=== PATIENT | female | born 1960 | race Caucasian/White ===

== ENCOUNTER 2019-03-13 10:58 | Emergency (ER) | payer OTHER ==
[~2019-03-13] VITALS: Ht 167 cm; Wt 100.0 kg
[~2019-03-13 10:58] MED LIST: ACET1TAB30; AMOX500C2 PO; BP MED; DIPH50CA33; DOXY100C2 PO; HCTZ; HYDR-3720 PO; IBP200T; METH4TAB PO; NAPR1TAB; NAPR220T76; PENI500T; SLEEPING MED; TRM50T PO; [UNRECOGNIZED DRUG - REMARK]
--- NOTE | 2019-03-13 11:22 | ED General ---
General Stated Complaint: COUGH/VOMITING/DIZZINESS Source of Information: Patient Exam Limitations: No Limitations History of Present Illness Date Seen by Provider: Mar 13, 2019 Time Seen by Provider: 11:20 Initial Comments To ER per private vehicle from home with reports of cough vomiting and dizziness. She awakened this morning and had a coughing fit, then vomited, shortly thereafter she developed some severe intolerable dizziness. She's been vomiting intermittently since then. Timing/Duration: 4-6 Hours Severity: Moderate Associated Systoms: Cough; No Headaches; Nausea/Vomiting Allergies and Home Medications Allergies Coded Allergies: Codeine (Unverified Adverse Reaction, Mild, VOMITING, 05/23/09) Uncoded Allergies: codiene (Allergy, Intermediate, vomiting, 06/07/08) Home Medications Amoxicillin 500 Mg Capsule, 1 EACH PO QID FOR INFECTION Prescribed by: REYNOLD AMADOR on 08/20/0999 Meclizine HCl 25 Mg Tablet, 25 MG PO TID PRN for DIZZINESS Prescribed by: BERTA MARCANO on 03/13/19 1318 Methylprednisolone 4 Mg/Dose-Pack Tab.ds.pk, 0 PO UD Prescribed by: REYNOLD AMADOR on 08/20/0999 Ondansetron 8 Mg Tab.rapdis, 8 MG PO Q6H PRN for NAUSEA/VOMITING Prescribed by: BERTA MARCANO on 03/13/19 1318 Tramadol Hcl 50 Mg Tab, 100 MG PO BID PRN Prescribed by: BRANDY RODARTE on 08/20/092122 Patient Home Medication List Home Medication List Reviewed: Yes Review of Systems Review of Systems Constitutional: see HPI EENTM: see HPI Respiratory: see HPI, cough Cardiovascular: no symptoms reported Genitourinary: no symptoms reported Musculoskeletal: no symptoms reported Skin: no symptoms reported Psychiatric/Neurological: No Symptoms Reported Hematologic/Lymphatic: No Symptoms Reported Past Ytfcjlb-Aiiudc-Ecimak Hx Patient Social History Recent Foreign Travel: No Contact w/Someone Who Travel: No Past Medical History Reproductive Disorders: Yes Physical Exam Vital Signs Vital Signs - First Documented 03/13/19 11:10 Temp 35.7 Pulse 100 Resp 16 B/P (MAP) 200/107 (138) Pulse Ox 94 O2 Delivery Room Air Capillary Refill : Height, Weight, BMI Height: '" Weight: lbs. oz. kg; BMI Method: General Appearance: No Apparent Distress, WD/WN Eyes: Bilateral Eye Normal Inspection, Bilateral Eye PERRL, Bilateral Eye EOMI HEENT: PERRL/EOMI, TMs Normal Respiratory: No Accessory Muscle Use, No Respiratory Distress Cardiovascular: Regular Rate, Rhythm, Normal Peripheral Pulses Gastrointestinal: Normal Bowel Sounds, Non Tender, Soft Extremity: Normal Capillary Refill, Normal Inspection Neurologic/Psychiatric: Alert, Oriented x3 Skin: Normal Color, Warm/Dry Progress/Results/Core Measures Suspected Sepsis SIRS Temperature: Pulse: Respiratory Rate: Laboratory Tests 03/13/19 11:23: White Blood Count 7.1 Blood Pressure / Mean: Laboratory Tests 03/13/19 11:23: Creatinine 0.84, Platelet Count 197, Total Bilirubin 0.5 Results/Orders Lab Results Laboratory Tests Test 03/13/19 11:23 03/13/19 12:50 Range/Units White Blood Count 7.1 4.3-11.0 10^3/uL Red Blood Count 5.00 4.35-5.85 10^6/uL Hemoglobin 14.4 11.5-16.0 G/DL Hematocrit 43 35-52 % Mean Corpuscular Volume 87 80-99 FL Mean Corpuscular Hemoglobin 29 25-34 PG Mean Corpuscular Hemoglobin Concent 33 32-36 G/DL Red Cell Distribution Width 14.4 10.0-14.5 % Platelet Count 197 130-400 10^3/uL Mean Platelet Volume 9.6 7.4-10.4 FL Neutrophils (%) (Auto) 59 42-75 % Lymphocytes (%) (Auto) 33 12-44 % Monocytes (%) (Auto) 6 0-12 % Eosinophils (%) (Auto) 2 0-10 % Basophils (%) (Auto) 0 0-10 % Neutrophils # (Auto) 4.2 1.8-7.8 X 10^3 Lymphocytes # (Auto) 2.3 1.0-4.0 X 10^3 Monocytes # (Auto) 0.4 0.0-1.0 X 10^3 Eosinophils # (Auto) 0.2 0.0-0.3 10^3/uL Basophils # (Auto) 0.0 0.0-0.1 10^3/uL Sodium Level 141 135-145 MMOL/L Potassium Level 3.4 L 3.6-5.0 MMOL/L Chloride Level 100 98-107 MMOL/L Carbon Dioxide Level 27 21-32 MMOL/L Anion Gap 14 5-14 MMOL/L Blood Urea Nitrogen 12 7-18 MG/DL Creatinine 0.84 0.60-1.30 MG/DL Estimat Glomerular Filtration Rate > 60 BUN/Creatinine Ratio 14 Glucose Level 149 H 70-105 MG/DL Calcium Level 9.9 8.5-10.1 MG/DL Corrected Calcium 9.5 8.5-10.1 MG/DL Total Bilirubin 0.5 0.1-1.0 MG/DL Aspartate Amino Transf (AST/SGOT) 24 5-34 U/L Alanine Aminotransferase (ALT/SGPT) 27 0-55 U/L Alkaline Phosphatase 99 40-136 U/L Total Protein 7.5 6.4-8.2 GM/DL Albumin 4.5 3.2-4.5 GM/DL Urine Color YELLOW Urine Clarity CLEAR Urine pH 6.5 5-9 Urine Specific [place] 1.010 L 1.016-1.022 Urine Protein TRACE NEGATIVE Urine Glucose (UA) NEGATIVE NEGATIVE Urine Ketones NEGATIVE NEGATIVE Urine Nitrite NEGATIVE NEGATIVE Urine Bilirubin NEGATIVE NEGATIVE Urine Urobilinogen 0.2 < = 1.0 MG/DL Urine Leukocyte Esterase TRACE NEGATIVE Urine RBC (Auto) NEGATIVE NEGATIVE Urine RBC NONE /HPF Urine WBC 2-5 /HPF Urine Squamous Epithelial Cells 0-2 /HPF Urine Crystals NONE /LPF Urine Bacteria FEW H /HPF Urine Casts NONE /LPF Urine Mucus NEGATIVE /LPF Urine Culture Indicated YES Micro Results Microbiology 03/13/19 Influenza Types A,B Antigen (MYAH) - Final, Complete My Orders Orders - BERTA MARCANO ST[employer] SAWYER Cbc With Automated Diff (03/13/19 11:19) Comprehensive Metabolic Panel (03/13/19 11:19) Ua Culture If Indicated (03/13/19 11:19) Influenza A And B Antigens (03/13/19 11:19) Ed Iv/Invasive Line Start (03/13/19 11:19) Ct Angio Head/Neck (03/13/19 11:19) Ns Iv 1000 Ml (Sodium Chloride 0.9%) (03/13/19 11:30) Promethazine Injection (Phenergan Injec (03/13/19 11:30) Iohexol Injection (Omnipaque 350 Mg/Ml 1 (03/13/19 12:00) Received Contrast (Hold Metformin- Contr (03/13/19 12:00) Ns (Ivpb) (Sodium Chloride 0.9% Ivpb Bag (03/13/19 12:00) Urine Culture (03/13/19 12:50) Scopolamine Patch (Transderm-Scop Patch) (03/13/19 14:00) Medications Given in ED Current Medications Medications Dose Ordered Sig/Nelson Route Start Time Stop Time Status Last Admin Dose Admin Iohexol 75 ml ONCE ONCE IV 03/13/19 12:00 03/13/19 12:01 DC 03/13/19 12:39 75 ML Promethazine HCl 25 mg ONCE ONCE IVP 03/13/19 11:30 03/13/19 11:31 DC 03/13/19 11:28 25 MG Sodium Chloride 100 ml ONCE ONCE IV 03/13/19 12:00 03/13/19 12:01 DC 03/13/19 12:39 80 ML Vital Signs/I&O 03/13/19 11:10 Temp 35.7 Pulse 100 Resp 16 B/P (MAP) 200/107 (138) Pulse Ox 94 O2 Delivery Room Air Capillary Refill : Departure Impression Primary Impression: Vertigo Disposition: HOME, SELF-CARE Condition: Stable Departure-Patient Inst. Decision time for Depature: 13:16 Referrals: LUIS LEAVITT MD (PCP/Family) Primary Care Physician Patient Instructions: Vertigo (a Type of Dizziness) (DC) Add. Discharge Instructions: 1. Change positions slowly for the next few days expecting that you might get dizzy with position change. Nausea medication as needed. Dizziness medication as needed. Return to ER for any concerns in the meantime. Follow-up with primary care next week. All Scripts Meclizine HCl (Meclizine HCl) 25 Mg Tablet 25 MG PO TID PRN for DIZZINESS, #21 TAB Prov: BERTA MARCANO [employer] SAWYER 03/13/19 Ondansetron (Ondansetron Odt) 8 Mg Tab.rapdis 8 MG PO Q6H PRN for NAUSEA/VOMITING, #14 TAB Prov: BERTA MARCANO [employer] SAWYER 03/13/19 BERTA MARCANO [employer] SAW[facility]ER Mar 13, 2019 11:21
[2019-03-13 11:29] LABS: BASOPHILS % (AUTO) 0 % (0-10); EOSINOPHILS # (AUTO) 0.2 10^3/uL (0.0-0.3); EOSINOPHILS % (AUTO) 2 % (0-10); HEMATOCRIT 43 % (35-52); HEMOGLOBIN 14.4 G/DL (11.5-16.0); LYMPHOCYTES # (AUTO) 2.3 X 10^3 (1.0-4.0); LYMPHOCYTES % (AUTO) 33 % (12-44); MEAN CORPUSCULAR HEMOGLOBIN 29 PG (25-34); MEAN CORPUSCULAR HGB CONC 33 G/DL (32-36); MEAN CORPUSCULAR VOLUME 87 FL (80-99); MEAN PLATELET VOLUME 9.6 FL (7.4-10.4); MONOCYTES # (AUTO) 0.4 X 10^3 (0.0-1.0); MONOCYTES % (AUTO) 6 % (0-12); NEUTROPHILS # (AUTO) 4.2 X 10^3 (1.8-7.8); NEUTROPHILS % (AUTO) 59 % (42-75); PLATELET COUNT 197 10^3/uL (130-400); RED CELL DISTRIBUTION WIDTH 14.4 % (10.0-14.5); WHITE BLOOD COUNT 7.1 10^3/uL (4.3-11.0)
[2019-03-13] MEDS ORDERED: NS IV 1000 ML 1,000 ML IV SCH (11:30)
[2019-03-13] MEDS ORDERED: PROMETHAZINE INJ 25 MG/ML (PHENERGAN) AMP IVP ONE (11:30)
[2019-03-13 11:47] LABS: ALANINE AMINOTRANSFERASE 27 U/L (0-55); ALBUMIN 4.5 GM/DL (3.2-4.5); ALKALINE PHOSPHATASE 99 U/L (40-136); BILIRUBIN,TOTAL 0.5 MG/DL (0.1-1.0); BUN/CREATININE RATIO 14; CALCIUM 9.9 MG/DL (8.5-10.1); CARBON DIOXIDE 27 MMOL/L (21-32); CHLORIDE 100 MMOL/L (98-107); CREATININE SERUM 0.84 MG/DL (0.60-1.30); GFR ESTIMATED > 60; GLUCOSE 149 MG/DL (70-105); POTASSIUM 3.4 MMOL/L (3.6-5.0); SODIUM 141 MMOL/L (135-145); TOTAL PROTEIN 7.5 GM/DL (6.4-8.2)
[2019-03-13] MEDS ORDERED: IOHEXOL 350 MG/ML 100 ML (OMNIPAQUE 350) VIAL IV ONE (12:00)
[2019-03-13] MEDS ORDERED: HOLD METFORMIN - RECEIVED CONTRAST 20 ML VIAL IV SCH (12:00)
[2019-03-13] MEDS ORDERED: NS 100 ML (IVPB) BAG IV ONE (12:00)
--- NOTE | 2019-03-13 13:14 | Diagnostic Imaging Report ---
PROCEDURE: CT angiography of the head and CT angiography of the neck with and without contrast. TECHNIQUE: Contiguous noncontrast images were obtained from the skull base through the vertex. After intravenous contrast administration, helical CT angiography of the neck was performed. Source data was reformatted into 3D MIP projections. Delayed post contrast acquisition was also obtained. Auto Exposure Controls were utilized during the CT exam to meet ALARA standards for radiation dose reduction. INDICATION: Dizziness The previous CT head exam of 06/07/2008 failed to show any sign of an acute intracranial abnormality. On the pre-intravenous contrast series of this exam there is no mass, shift to the midline or hemorrhage to indicate an acute abnormality. The ventricles are not abnormally dilated. The bone windows show no evidence for a fracture or for a destructive lesion. The orbits are symmetrical and within normal limits. The sinuses are generally clear. The postcontrast images failed to show any sign of a large vessel occlusion. There is no evidence for an aneurysm of the [place] either. There is no sign of a hemodynamically significant stenosis of either carotid system. Both vertebral arteries were opacified. The left vertebral artery is quite small. There is no mass or adenopathy involving the neck. The thyroid gland is generally unremarkable. The bone windows show no evidence for a fracture or for a destructive lesion. IMPRESSION: 1. There is no evidence for a large vessel occlusion. There is no sign of an aneurysm either. 2. If clinical concern regarding an acute abnormality persists, then MRI would provide further study. 3. There is no hemodynamically significant stenosis of the common or internal carotid arteries. 4. The vertebral arteries are patent. The left vertebral artery is dominant. These results were discussed with Jefry Levin APRN. Dictated by: Dictated on workstation # [id number]
[2019-03-13 13:16] LABS: BILIRUBIN,URINE NEGATIVE (NEGATIVE); CLARITY,URINE CLEAR; COLOR,URINE YELLOW; GLUCOSE, URINE (UA) NEGATIVE (NEGATIVE); KETONES,URINE NEGATIVE (NEGATIVE); LEUKOCYTE ESTERASE ,URINE TRACE (NEGATIVE); NITRITE,URINE NEGATIVE (NEGATIVE); PH,URINE 6.5 (5-9); PROTEIN,URINE TRACE (NEGATIVE)
[2019-03-13] MEDS ORDERED: MECL-106 PO (13:18)
[2019-03-13] MEDS ORDERED: ONDA8TAB13 PO (13:18)
[2019-03-13 13:36] LABS: BACTERIA,URINE FEW /HPF; SQUAMOUS EPITHELIAL CELL,UR 0-2 /HPF
[2019-03-13 14:00] VITALS: BP 178/98
[2019-03-13] MEDS ORDERED: SCOPOLAMINE 1.5 MG (TRANSDERM-SCOP) PATCH TD ONE (14:00)
== END 2019-03-13 13:59 | disposition home or self-care (01) ==
LOC: EDUNIT# 10:58 → ER 10:59
DX: R42 Dizziness and giddiness (principal); Z88.5 Allergy status to narcotic agent
CPT/HCPCS: 36415; 70496; 70498; 80053; 81000; 85025; 87077; 87088; 87186; 87804

== ENCOUNTER 2019-05-25 17:14 | Emergency (ER) | payer OTHER ==
[~2019-05-25] VITALS: Ht 167.7 cm; Wt 109.0 kg
[~2019-05-25 17:14] MED LIST changes: +MECL-149 PO; +ONDA8TAB13 PO
--- NOTE | 2019-05-25 17:30 | NUR ---
TO CT PER CART. [address]
--- NOTE | 2019-05-25 17:35 | ED Neurological Problem ---
General Chief Complaint: Neuro-Stroke Like Symptoms Stated Complaint: RIGHT LEG WENT NUMB AND THE WENT UP ARM, DIZZY Source: patient Exam Limitations: no limitations History of Present Illness Date Seen by Provider: May 25, 2019 Time Seen by Provider: 17:32 Initial Comments To ER by private vehicle with reports of tingling that began in the right leg while she was shopping at [employer] today at about 2 PM. She states that this tingling sensation moved up to the right arm. She noticed when she was walking out to her car that she seemed to lean to the right. The right arm seems to be back to normal now but she does have some persistent reduced sensation in the right leg. She does smoke cigarettes. She does have hypertension. No history of this or stroke like symptoms. She called her primary care provider Dr. Leavitt who advised her this could be a TIA should come to the emergency room. She stopped and got some aspirin on the way and took one of those. Timing/Duration: 4-6 hours Associated Symptoms: No confusion, No nausea/vomiting Allergies and Home Medications Allergies Coded Allergies: codeine (Unverified Adverse Reaction, Mild, VOMITING, 05/23/09) Uncoded Allergies: codiene (Allergy, Intermediate, vomiting, 06/07/08) Home Medications Amoxicillin 500 Mg Capsule, 500 MG PO TID Prescribed by: BERTA MARCANO on 05/25/19 1851 Meclizine HCl 25 Mg Tablet, 25 MG PO TID PRN for DIZZINESS Prescribed by: BERTA MARCANO on 03/13/19 1318 Patient Home Medication List Home Medication List Reviewed: Yes Review of Systems Review of Systems Constitutional: see HPI Eyes: No Symptoms Reported Ears, Nose, Mouth, Throat: no symptoms reported Respiratory: no symptoms reported Cardiovascular: no symptoms reported Genitourinary: no symptoms reported Musculoskeletal: no symptoms reported Skin: no symptoms reported Psychiatric/Neurological: See HPI, Tingling Endocrine: No Symptoms Reported Hematologic/Lymphatic: No Symptoms Reported Past Iqitxua-Nerhbl-Rlknjt Hx Patient Social History Type Used: Cigarettes Recent Hopitalizations: No Past Medical History Surgeries: Yes (TUBAL LIGATION) Respiratory: No Cardiac: Yes Hypertension Neurological: Yes Vertigo Reproductive Disorders: Yes Gastrointestinal: Yes (ACID REFLUX) Gastroesophageal Reflux Musculoskeletal: Yes (POSSIBLE RESTLESS LEGS SYNDROME OFF AND ON) Endocrine: No Cancer: No Psychosocial: No Blood Disorders: Yes Physical Exam Vital Signs Vital Signs - First Documented 05/25/19 17:16 Temp 36.8 Pulse 110 Resp 18 B/P (MAP) 233/123 (159) Pulse Ox 97 O2 Delivery Room Air Capillary Refill : Height, Weight, BMI Height: '" Weight: lbs. oz. kg; 35.00 BMI Method: General Appearance: WD/WN, no apparent distress HEENT: PERRL/EOMI Respiratory: no respiratory distress, no accessory muscle use Cardiovascular: regular rate, rhythm, no murmur Gastrointestinal: normal bowel sounds, soft Extremities: normal range of motion, non-tender Neurologic/Psychiatric: alert, normal mood/affect, oriented x 3 Crainal Nerves: normal hearing, normal speech, PERRL Skin: normal color, warm/dry Stroke Onset of Symptoms Date of Onset of Symptoms: May 25, 2019 Time of Symptom Onset: 14:00 Onset of Symptoms: Yes NIH Stroke Scale Assessment Select: Initial Level of Consciousness: 0=Alert (0), Level of Consciousness- Questions: 0=Answers both month/age (0), LOC Commands: 0=Performs both tasks (0), Visual [place]: 0=No visual loss (0), Facial Movement (Facial Paresis): 0=Normal symmetrical mnt (0), Motor Function-Arms Right: 0=No drift (0), Motor Function-Arms Left: 0=No drift (0), Motor Function-Legs Right: 0=No drift (0), Motor Function-Legs Left: 0=No drift (0), Limb Ataxia: 0=Absent (0), Sensory: 1=Mild to Moderate loss (1), Dysarthria: 0=Normal (0), Extinction & Inattention: 0=No abnormality (0), Total: 1 Progress/Results/Core Measures Results/Orders Lab Results Laboratory Tests Test 05/25/19 17:27 05/25/19 17:29 05/25/19 18:01 Range/Units White Blood Count 7.7 4.3-11.0 10^3/uL Red Blood Count 4.73 4.35-5.85 10^6/uL Hemoglobin 13.6 11.5-16.0 G/DL Hematocrit 42 35-52 % Mean Corpuscular Volume 88 80-99 FL Mean Corpuscular Hemoglobin 29 25-34 PG Mean Corpuscular Hemoglobin Concent 33 32-36 G/DL Red Cell Distribution Width 14.6 H 10.0-14.5 % Platelet Count 194 130-400 10^3/uL Mean Platelet Volume 9.6 7.4-10.4 FL Neutrophils (%) (Auto) 53 42-75 % Lymphocytes (%) (Auto) 39 12-44 % Monocytes (%) (Auto) 7 0-12 % Eosinophils (%) (Auto) 2 0-10 % Basophils (%) (Auto) 0 0-10 % Neutrophils # (Auto) 4.1 1.8-7.8 X 10^3 Lymphocytes # (Auto) 3.0 1.0-4.0 X 10^3 Monocytes # (Auto) 0.5 0.0-1.0 X 10^3 Eosinophils # (Auto) 0.1 0.0-0.3 10^3/uL Basophils # (Auto) 0.0 0.0-0.1 10^3/uL Prothrombin Time 11.8 L 12.2-14.7 SEC INR Comment 0.8 0.8-1.4 Activated Partial Thromboplast Time 21 L 24-35 SEC D-Dimer 0.53 H 0.00-0.49 UG/ML Sodium Level 139 135-145 MMOL/L Potassium Level 3.0 L 3.6-5.0 MMOL/L Chloride Level 100 98-107 MMOL/L Carbon Dioxide Level 27 21-32 MMOL/L Anion Gap 12 5-14 MMOL/L Blood Urea Nitrogen 12 7-18 MG/DL Creatinine 0.95 0.60-1.30 MG/DL Estimat Glomerular Filtration Rate 60 BUN/Creatinine Ratio 13 Glucose Level 132 H 70-105 MG/DL Calcium Level 9.5 8.5-10.1 MG/DL Corrected Calcium 9.3 8.5-10.1 MG/DL Total Bilirubin 0.3 0.1-1.0 MG/DL Aspartate Amino Transf (AST/SGOT) 24 5-34 U/L Alanine Aminotransferase (ALT/SGPT) 34 0-55 U/L Alkaline Phosphatase 84 40-136 U/L Troponin I < 0.028 <0.028 NG/ML Total Protein 7.1 6.4-8.2 GM/DL Albumin 4.3 3.2-4.5 GM/DL Glucometer 135 H 70-110 MG/DL Urine Color YELLOW Urine Clarity CLEAR Urine pH 7.0 5-9 Urine Specific [place] 1.010 L 1.016-1.022 Urine Protein NEGATIVE NEGATIVE Urine Glucose (UA) NEGATIVE NEGATIVE Urine Ketones NEGATIVE NEGATIVE Urine Nitrite NEGATIVE NEGATIVE Urine Bilirubin NEGATIVE NEGATIVE Urine Urobilinogen 0.2 < = 1.0 MG/DL Urine Leukocyte Esterase NEGATIVE NEGATIVE Urine RBC (Auto) TRACE-I NEGATIVE Urine RBC RARE /HPF Urine WBC NONE /HPF Urine Squamous Epithelial Cells 0-2 /HPF Urine Crystals NONE /LPF Urine Bacteria TRACE /HPF Urine Casts NONE /LPF Urine Mucus NEGATIVE /LPF Urine Culture Indicated NO My Orders Orders - BERTA MARCANO APRN Ct Angio Head/Neck (05/25/19 17:35) Iohexol Injection (Omnipaque 350 Mg/Ml 1 (05/25/19 18:00) Received Contrast (Hold Metformin- Contr (05/25/19 18:00) Ns (Ivpb) (Sodium Chloride 0.9% Ivpb Bag (05/25/19 18:00) Labetalol Injection (Normodyne Injection (05/25/19 18:15) Clonidine Tablet (Catapres Tablet) (05/25/19 18:45) Amoxicillin Capsule (Polymox Capsule) (05/25/19 18:49) Medications Given in ED Current Medications Medications Dose Ordered Sig/Nelson Route Start Time Stop Time Status Last Admin Dose Admin Iohexol 75 ml ONCE ONCE IV 05/25/19 18:00 05/25/19 18:08 DC 05/25/19 18:01 75 ML Labetalol HCl 20 mg ONCE ONCE IV 05/25/19 18:15 05/25/19 18:16 DC 05/25/19 18:09 20 MG Sodium Chloride 100 ml ONCE ONCE IV 05/25/19 18:00 05/25/19 18:08 DC 05/25/19 18:01 100 ML Vital Signs/I&O 05/25/19 17:16 Temp 36.8 Pulse 110 Resp 18 B/P (MAP) 233/123 (159) Pulse Ox 97 O2 Delivery Room Air Departure Communication (Admissions) 4280-she has no residual tingling or numbness in her right leg. She does report that she's got some tenderness in the right side of her jaw and believes she might have a dental abscess coming on. Certainly possible given the state of her dental health. I'll prescribe an antibiotic. Impression Primary Impression: Transient cerebral ischemia Qualified Codes: G45.9 - Transient cerebral ischemic attack, unspecified Additional Impression: Pain, dental Disposition: HOME, SELF-CARE Condition: Stable Departure-Patient Inst. Decision time for Depature: 18:37 Referrals: LUIS LEAVITT MD (PCP/Family) Primary Care Physician Patient Instructions: Transient Ischemic Attack (DC) Add. Discharge Instructions: 1. Return to ER for any concerns 2. Follow-up with your doctor next week 3. Start taking a baby aspirin every day. You must quit smoking. All discharge instructions reviewed with patient and/or family. Voiced understanding. Scripts Amoxicillin (Amoxicillin) 500 Mg Capsule 500 MG PO TID, #21 CAP 0 Refills Prov: BERTA MARCANO APRN 05/25/19 Copy Copies To 1: LUIS LEAVITT MD, PETER J APRN May 25, 2019 17:35
[2019-05-25 17:37] LABS: BASOPHILS % (AUTO) 0 % (0-10); EOSINOPHILS # (AUTO) 0.1 10^3/uL (0.0-0.3); EOSINOPHILS % (AUTO) 2 % (0-10); HEMATOCRIT 42 % (35-52); HEMOGLOBIN 13.6 G/DL (11.5-16.0); LYMPHOCYTES % (AUTO) 39 % (12-44); MEAN CORPUSCULAR HEMOGLOBIN 29 PG (25-34); MEAN CORPUSCULAR HGB CONC 33 G/DL (32-36); MEAN CORPUSCULAR VOLUME 88 FL (80-99); MEAN PLATELET VOLUME 9.6 FL (7.4-10.4); MONOCYTES # (AUTO) 0.5 X 10^3 (0.0-1.0); MONOCYTES % (AUTO) 7 % (0-12); NEUTROPHILS # (AUTO) 4.1 X 10^3 (1.8-7.8); NEUTROPHILS % (AUTO) 53 % (42-75); PLATELET COUNT 194 10^3/uL (130-400); RED CELL DISTRIBUTION WIDTH 14.6 % (10.0-14.5); WHITE BLOOD COUNT 7.7 10^3/uL (4.3-11.0)
[2019-05-25 17:44] LABS: ALBUMIN 4.3 GM/DL (3.2-4.5); CHLORIDE 100 MMOL/L (98-107); SODIUM 139 MMOL/L (135-145)
[2019-05-25 17:45] LABS: CALCIUM 9.5 MG/DL (8.5-10.1)
[2019-05-25 17:46] LABS: GLUCOSE 132 MG/DL (70-105); TOTAL PROTEIN 7.1 GM/DL (6.4-8.2)
[2019-05-25 17:47] LABS: CARBON DIOXIDE 27 MMOL/L (21-32)
[2019-05-25 17:48] LABS: BILIRUBIN,TOTAL 0.3 MG/DL (0.1-1.0)
[2019-05-25 17:50] LABS: ALKALINE PHOSPHATASE 84 U/L (40-136); CREATININE SERUM 0.95 MG/DL (0.60-1.30); GFR ESTIMATED 60
[2019-05-25 17:51] LABS: BUN/CREATININE RATIO 13
[2019-05-25 17:53] LABS: ALANINE AMINOTRANSFERASE 34 U/L (0-55)
[2019-05-25] MEDS ORDERED: OMEP20CA18 (17:54)
[2019-05-25] MEDS ORDERED: LISI-552 (17:54)
[2019-05-25] MEDS ORDERED: HOLD METFORMIN - RECEIVED CONTRAST 20 ML VIAL IV SCH (18:00)
[2019-05-25] MEDS ORDERED: IOHEXOL 350 MG/ML 100 ML (OMNIPAQUE 350) VIAL IV ONE (18:00)
[2019-05-25] MEDS ORDERED: NS 100 ML (IVPB) BAG IV ONE (18:00)
--- NOTE | 2019-05-25 18:05 | Diagnostic Imaging Report ---
EXAMINATION: CT head without contrast. TECHNIQUE: Multiple contiguous axial images were obtained through the brain without the use of intravenous contrast. All CT scans use one or more of the following dose optimizing techniques: automated exposure control, MA and/or KvP adjustment based on a patient size and exam type, or iterative reconstruction. HISTORY: Right foot numbness. COMPARISON: None available. FINDINGS: The chavarria-white matter differentiation is normal. No mass effect or midline shift. The ventricles are normal in size and configuration. Basilar cisterns are patent. There are no intra- or extra-axial fluid collections. There is no intracranial hemorrhage. The orbits are normal. Paranasal sinuses are normal. Mastoid air cells are clear. No soft tissue abnormality is seen. No osseous lesions or fractures are seen. IMPRESSION: 1. No acute intracranial abnormality. Dictated by: Dictated on workstation # [id number]
[2019-05-25 18:07] LABS: FIBRIN DEGRADATION PRODUCTS 0.53 UG/ML (0.00-0.49); INR 0.8 (0.8-1.4); PROTHROMBIN TIME PATIENT 11.8 SEC (12.2-14.7)
--- NOTE | 2019-05-25 18:07 | Diagnostic Imaging Report ---
PROCEDURE: CT angiography of the head and CT angiography of the neck with and without contrast. TECHNIQUE: Contiguous noncontrast images were obtained from the skull base through the vertex. After intravenous contrast administration, helical CT angiography of the neck was performed. Source data was reformatted into 3D MIP projections. Delayed post contrast acquisition was also obtained. Auto Exposure Controls were utilized during the CT exam to meet ALARA standards for radiation dose reduction. INDICATION: Numbness to right groin and foot. Dizziness. COMPARISON with 03/13/2019 CT angiography of the head and neck. FINDINGS: CT head without. No evidence of intracranial hemorrhage. There is good opacification of the cervical vessels with normal takeoff from the aortic arch. Mild atherosclerotic changes are seen without hemodynamic disease noted in the carotid or vertebral arteries. The left vertebral artery is dominant. Both vertebral arteries supply the basilar artery. Both internal carotid arteries are widely patent to the carotid siphon. The anterior middle and posterior cerebral arteries are well opacified with no evidence of occlusive disease or spasm. The cerebellar arteries appear patent and symmetrical. No abnormal enhancement is noted following IV contrast within the intracranial structures. Pituitary is not enlarged. Mastoid air cells and paranasal sinuses are clear. IMPRESSION: CT head and neck with angiographic sequencing showing minimal atherosclerotic disease with no significant change since the previous exam. Dictated by: Dictated on workstation # [id number]
[2019-05-25 18:08] LABS: BILIRUBIN,URINE NEGATIVE (NEGATIVE); CLARITY,URINE CLEAR; COLOR,URINE YELLOW; GLUCOSE, URINE (UA) NEGATIVE (NEGATIVE); KETONES,URINE NEGATIVE (NEGATIVE); LEUKOCYTE ESTERASE ,URINE NEGATIVE (NEGATIVE); NITRITE,URINE NEGATIVE (NEGATIVE); PROTEIN,URINE NEGATIVE (NEGATIVE)
[2019-05-25] MEDS ORDERED: LABETALOL HCL 20 MG/4 ML VIAL IV ONE (18:15)
[2019-05-25 18:30] LABS: BACTERIA,URINE TRACE /HPF; RBC,URINE RARE /HPF; SQUAMOUS EPITHELIAL CELL,UR 0-2 /HPF
--- NOTE | 2019-05-25 18:36 | Diagnostic Imaging Report ---
INDICATION: Stroke protocol. Altered mental status. COMPARISON with 11/27/2008. FINDINGS: Portable chest. The lungs are well-aerated and clear. Heart is not enlarged. No pulmonary edema. No pneumothorax or pleural effusion. IMPRESSION: Normal portable chest. Dictated by: Dictated on workstation # [id number]
[2019-05-25] MEDS ORDERED: cloNIDine 0.1 MG (CATAPRES) TAB PO ONE (18:45)
[2019-05-25] MEDS ORDERED: AMOXICILLIN 500 MG (POLYMOX) CAP PO STA (18:49)
[2019-05-25] MEDS ORDERED: AMOX500C2 PO (18:51)
[2019-05-25 18:58] VITALS: BP 190/104
--- OUTSIDE RECORDS SUMMARY | 2019-05-25 21:53 | XMS REPORT ---
Author Author Eula Dobbins Organization [facility] Address [address] [place] [address] Care Team Providers Care Assistant Professor Of Sociology Name Role Phone FELICITY Dobbins Unavailable PROBLEMS Type Condition ICD9-CM Code LAK78-AQ Code Onset Dates Condition S tatus SNOMED Code Problem GERD (gastroesophageal reflux disease) K21.9 Active 339095078 Problem Hypertension I10 Active 5436821 3 Problem Hyperlipidemia E78.5 Active 90545 004 ALLERGIES No Information ENCOUNTERS Encounter Location Date Diagnosis [place] [address] [address] Apr, [address] [address] Apr, Hypertension I10 and Hypokalemia E87.6 [place] [address] [address] Jan, Hypokalemia E87.6 [place] [address] [address] Jan, Hypertension I10 [place] [address] [address] Jan, Hypertension I10 ; GERD (gastroesophagea l reflux disease) K21.9 and Hyperlipidemia E78.5 [place] [address] [address] Oct, [place] [address] [address] June, Sinusitis 473.9 [place] [address] [address] June, [place] [address] [place] [address] 14 May, 2014 [facility] [address] [id number] [place] [address] 13 May, 2014 [facility] [address] [id number] [place] [address] Feb, [facility] [address] [id number] [place] [address] Feb, [facility] [address] [id number] [place] [address] Jan, [facility] [address] [id number] [place] [address] Jan, [facility] [address] [id number] [place] [address] Dec, [facility] [address] [id number] [place] [address] Dec, [facility] [address] [id number] [place] [address] Dec, [facility] [address] [id number] [place] [address] Dec, [facility] [address] [id number] [place] [address] Dec, [facility] [address] [id number] [place] [address] Dec, [facility] [address] [id number] [place] [address] Oct, [facility] [address] [id number] [place] [address] Oct, [facility] [address] [id number] [place] [address] Aug, [facility] [address] [id number] [place] [address] Aug, [facility] [address] [id number] [place] [address] Jul, [facility] [address] [id number] [place] [address] Jul, [facility] [address] [id number] [place] [address] Apr, [facility] [address] [id number] [place] [address] Apr, [facility] [address] [id number] [place] [address] Apr, [facility] [address] [id number] [place] [address] Apr, [facility] [address] [id number] [place] [address] Apr, [facility] [address] [id number] [place] [address] Apr, [facility] [address] [id number] [place] [address] Apr, [facility] [address] [id number] [place] [address] Apr, [facility] [address] [id number] [place] [address] Apr, [facility] [address] [id number] [place] [address] Apr, [facility] [address] [id number] [place] [address] Apr, [facility] [address] [id number] [place] [address] Mar, [facility] [address] [id number] [place] [address] Mar, [facility] [address] [id number] [place] [address] Feb, [facility] [address] [id number] [place] [address] Feb, [facility] [address] [id number] [place] [address] Feb, [facility] [address] [id number] [place] [address] Feb, [facility] [address] [id number] [place] [address] Nov, [facility] [address] [id number] [place] [address] Nov, [facility] [address] [id number] [place] [address] Oct, [facility] [address] [id number] [place] [address] Jul, [facility] [address] [id number] [place] [address] May, [facility] [address] [id number] [place] [address] Apr, [facility] [address] [id number] [place] [address] Apr, [facility] [address] [id number] [place] [address] Mar, [facility] [address] [id number] [place] [address] Mar, [facility] [address] [id number] [place] [address] Dec, [facility] [address] [id number] [place] [address] Dec, [facility] [address] [id number] [place] [address] Oct, [facility] [address] [id number] [place] [address] Sep, [facility] [address] [id number] [place] [address] Sep, [facility] [address] [id number] [place] [address] Sep, [facility] [address] [id number] [place] [address] Aug, [facility] [address] [id number] [place] [address] Jul, [facility] [address] [id number] [place] [address] Jul, [facility] [address] [id number] [place] [address] June, [facility] [address] [id number] [place] [address] June, [facility] [address] [id number] [place] [address] Apr, [facility] [address] [id number] [place] [address] Apr, [facility] [address] [id number] [place] [address] Apr, [facility] [address] [id number] [place] [address] Apr, [facility] [address] [id number] [place] [address] Mar, [facility] [address] [id number] [place] [address] Jan, [facility] [address] [id number] [place] [address] Jan, [facility] [address] [id number] [place] [address] Jan, [facility] [address] [id number] [place] [address] Jan, [facility] [address] [id number] [place] [address] Dec, [facility] [address] [id number] [place] [address] Nov, [facility] [address] [id number] [place] [address] Sep, [facility] [address] [id number] [place] [address] Jul, [facility] [address] [id number] [place] [address] Jan, [facility] [address] [id number] [place] [address] Jan, [facility] [address] [place] [id number] [place] [address] Jan, [facility] [address] [id number] [place] [address] Jan, [facility] [address] [place] [id number] [place] [address] Dec, [facility] [address] [id number] [place] [address] Dec, [facility] [address] [place] [id number] [place] [address] May, IMMUNIZATIONS No Known Immunizations SOCIAL HISTORY Never Assessed REASON FOR VISIT PLAN OF CARE VITAL SIGNS Height 62 in 2013-04-28 Weight 189 lbs 2013-04-28 Temperature 97.6 degrees Fahrenheit 2013-04-28 Heart Rate 88 bpm 2013-04-28 Respiratory Rate 20 2013-04-28 Blood pressure systolic 138 mmHg 2013-04-28 Blood pressure diastolic 90 mmHg 2013-04-28 MEDICATIONS Unknown Medications RESULTS No Results PROCEDURES Procedure Date Ordered Result Body Site URINE CULTURE/COLONY COUNT April 28, 2013 URINALYSIS, AUTO, W/O SCOPE April 28, 2013 INSTRUCTIONS MEDICATIONS ADMINISTERED No Known Medications MEDICAL (GENERAL) HISTORY Type Description Date Medical History hypertension Medical History Acid reflux
--- OUTSIDE RECORDS SUMMARY | 2019-05-25 21:53 | XMS REPORT ---
Author Author Eula Gutierrez Organization [facility] Address [address] [place] [address] Care Team Providers Care Animal Care Attendant Name Role Phone QUAN Gutierrez Unavailable PROBLEMS Type Condition ICD9-CM Code AAS96-AL Code Onset Dates Condition S tatus SNOMED Code Problem GERD (gastroesophageal reflux disease) K21.9 Active 888471329 Problem Hypertension I10 Active 1400482 3 Problem Hyperlipidemia E78.5 Active 76887 004 ALLERGIES No Information ENCOUNTERS Encounter Location Date Diagnosis [place] [address] [address] Apr, [address] [address] Apr, Hypertension I10 and Hypokalemia E87.[address] [address] Jan, Hypokalemia E87.[address] [address] Jan, Hypertension I10 [address] [address] Jan, Hypertension I10 ; GERD (gastroesophagea l reflux disease) K21.9 and Hyperlipidemia E78.[address] [address] Oct, [address] [address] June, Sinusitis 473.9 [place] [address] [address] June, [place] [id number] [place] [address] 14 May, 2014 [facility] [address] [id number] [place] [address] 13 May, 2014 [facility] [address] [id number] [place] [address] Feb, [facility] [address] [id number] [place] [address] Feb, [facility] [address] [id number] [place] [address] Jan, [facility] [address] [id number] [place] [address] Jan, [facility] [address] [id number] [place] [address] Dec, [facility] [address] [id number] [place] [address] Dec, [facility] [address] [id number] [place] [address] Dec, [facility] [address] [id number] [place] [address] Dec, [facility] [address] [id number] [place] [address] Dec, [facility] [address] [id number] [place] [address] Dec, [facility] [address] [id number] [place] [address] Oct, [facility] [address] [id number] [place] [address] Oct, [facility] [address] [id number] [place] [address] Aug, [facility] [address] [id number] [place] [address] Aug, [facility] [address] [id number] [place] [address] Jul, [facility] [address] [id number] [place] [address] Jul, [facility] [address] [id number] [place] [address] Apr, [facility] [address] [id number] [place] [address] Apr, [facility] [address] [id number] [place] [address] Apr, [facility] [address] [id number] [place] [address] Apr, [facility] [address] [id number] [place] [address] Apr, [facility] [address] [id number] [place] [address] Apr, [facility] [address] [id number] [place] [address] Apr, [facility] [address] [id number] [place] [address] Apr, [facility] [address] [id number] [place] [address] Apr, [facility] [address] [id number] [place] [address] Apr, [facility] [address] [id number] [place] [address] Apr, [facility] [address] [id number] [place] [address] Mar, [facility] [address] [id number] [place] [address] Mar, [facility] [address] [id number] [place] [address] Feb, [facility] [address] [id number] [place] [address] Feb, [facility] [address] [id number] [place] [address] Feb, [facility] [address] [id number] [place] [address] Feb, [facility] [address] [id number] [place] [address] Nov, [facility] [address] [id number] [place] [address] Nov, [facility] [address] [id number] [place] [address] Oct, [facility] [address] [id number] [place] [address] Jul, [facility] [address] [id number] [place] [address] May, [facility] [address] [id number] [place] [address] Apr, [facility] [address] [id number] [place] [address] Apr, [facility] [address] [id number] [place] [address] Mar, [facility] [address] [id number] [place] [address] Mar, [facility] [address] [id number] [place] [address] Dec, [facility] [address] [id number] [place] [address] Dec, [facility] [address] [id number] [place] [address] Oct, [facility] [address] [id number] [place] [address] Sep, [facility] [address] [id number] [place] [address] Sep, [facility] [address] [id number] [place] [address] Sep, [facility] [address] [id number] [place] [address] Aug, [facility] [address] [id number] [place] [address] Jul, [facility] [address] [id number] [place] [address] Jul, [facility] [address] [id number] [place] [address] June, [facility] [address] [id number] [place] [address] June, [facility] [address] [id number] [place] [address] Apr, [facility] [address] [id number] [place] [address] Apr, [facility] [address] [id number] [place] [address] Apr, [facility] [address] [id number] [place] [address] Apr, [facility] [address] [id number] [place] [address] Mar, [facility] [address] [id number] [place] [address] Jan, [facility] [address] [id number] [place] [address] Jan, [facility] [address] [id number] [place] [address] Jan, [facility] [address] [id number] [place] [address] Jan, [facility] [address] [id number] [place] [address] Dec, [facility] [address] [id number] [place] [address] Nov, [facility] [address] [id number] [place] [address] Sep, [facility] [address] [id number] [place] [address] Jul, [facility] [address] [id number] [place] [address] Jan, [facility] [address] [id number] [place] [address] Jan, [facility] [address] [id number] [place] [address] Jan, [facility] [address] [id number] [place] [address] Jan, [facility] [address] [id number] [place] [address] Dec, [facility] [address] [id number] [place] [address] Dec, [facility] [address] [id number] [place] [address] May, IMMUNIZATIONS No Known Immunizations SOCIAL HISTORY Never Assessed REASON FOR VISIT PLAN OF CARE VITAL SIGNS Height 62 in 2013-03-06 Weight 197 lbs 2013-03-06 Temperature 97.2 degrees Fahrenheit 2013-03-06 Heart Rate 110 bpm 2013-03-06 Respiratory Rate 18 2013-03-06 Blood pressure systolic 142 mmHg 2013-03-06 Blood pressure diastolic 90 mmHg 2013-03-06 MEDICATIONS Unknown Medications RESULTS No Results PROCEDURES No Known procedures INSTRUCTIONS MEDICATIONS ADMINISTERED No Known Medications MEDICAL (GENERAL) HISTORY Type Description Date Medical History hypertension Medical History Acid reflux
--- OUTSIDE RECORDS SUMMARY | 2019-05-25 21:53 | XMS REPORT ---
Author Author Eula PRABHAKAR Organization [facility] Address [address] [place] [address] Care Team Providers Care Form Tamper Operator Name Role Phone SHANI PRABHAKAR Unavailable PROBLEMS Type Condition ICD9-CM Code QIT53-DJ Code Onset Dates Condition S tatus SNOMED Code Problem GERD (gastroesophageal reflux disease) K21.9 Active 360946489 Problem Hypertension I10 Active 5519045 3 Problem Hyperlipidemia E78.5 Active 58347 004 ALLERGIES No Information ENCOUNTERS Encounter Location Date Diagnosis [place] [address] [address] Apr, [address] [address] Apr, Hypertension I10 and Hypokalemia E87.6 [place] [address] [address] Jan, Hypokalemia E87.6 [place] [address] [address] Jan, Hypertension I10 [place] [address] [address] Jan, Hypertension I10 ; GERD (gastroesophagea l reflux disease) K21.9 and Hyperlipidemia E78.5 [place] [address] [address] Oct, [address] [address] June, Sinusitis 473.9 [place] [address] [address] June, [place] [address] [place] [address] 14 May, 2014 [facility] [address] [id number] [place] [address] 13 May, 2014 [facility] [address] [id number] [place] [address] Feb, [facility] [address] [id number] [place] [address] Feb, [facility] [address] [id number] [place] [address] Jan, [facility] [address] [id number] [place] [address] Jan, [facility] [address] [id number] [place] [address] Dec, [facility] [address] [id number] [place] [address] Dec, [facility] [address] [id number] [place] [address] Dec, [facility] [address] [id number] [place] [address] Dec, [facility] [address] [id number] [place] [address] Dec, [facility] [address] [id number] [place] [address] Dec, [facility] [address] [id number] [place] [address] Oct, [facility] [address] [id number] [place] [address] Oct, [facility] [address] [id number] [place] [address] Aug, [facility] [address] [id number] [place] [address] Aug, [facility] [address] [id number] [place] [address] Jul, [facility] [address] [id number] [place] [address] Jul, [facility] [address] [id number] [place] [address] Apr, [facility] [address] [id number] [place] [address] Apr, [facility] [address] [id number] [place] [address] Apr, [facility] [address] [id number] [place] [address] Apr, [facility] [address] [id number] [place] [address] Apr, [facility] [address] [id number] [place] [address] Apr, [facility] [address] [id number] [place] [address] Apr, [facility] [address] [id number] [place] [address] Apr, [facility] [address] [id number] [place] [address] Apr, [facility] [address] [id number] [place] [address] Apr, [facility] [address] [id number] [place] [address] Apr, [facility] [address] [id number] [place] [address] Mar, [facility] [address] [id number] [place] [address] Mar, [facility] [address] [id number] [place] [address] Feb, [facility] [address] [id number] [place] [address] Feb, [facility] [address] [id number] [place] [address] Feb, [facility] [address] [id number] [place] [address] Feb, [facility] [address] [id number] [place] [address] Nov, [facility] [address] [id number] [place] [address] Nov, [facility] [address] [id number] [place] [address] Oct, [facility] [address] [id number] [place] [address] Jul, [facility] [address] [id number] [place] [address] May, [facility] [address] [id number] [place] [address] Apr, [facility] [address] [id number] [place] [address] Apr, [facility] [address] [id number] [place] [address] Mar, [facility] [address] [id number] [place] [address] Mar, [facility] [address] [id number] [place] [address] Dec, [facility] [address] [id number] [place] [address] Dec, [facility] [address] [id number] [place] [address] Oct, [facility] [address] [id number] [place] [address] Sep, [facility] [address] [id number] [place] [address] Sep, [facility] [address] [id number] [place] [address] Sep, [facility] [address] [id number] [place] [address] Aug, [facility] [address] [id number] [place] [address] Jul, [facility] [address] [id number] [place] [address] Jul, [facility] [address] [id number] [place] [address] June, [facility] [address] [id number] [place] [address] June, [facility] [address] [id number] [place] [address] Apr, [facility] [address] [id number] [place] [address] Apr, [facility] [address] [id number] [place] [address] Apr, [facility] [address] [id number] [place] [address] Apr, [facility] [address] [id number] [place] [address] Mar, [facility] [address] [id number] [place] [address] Jan, [facility] [address] [id number] [place] [address] Jan, [facility] [address] [id number] [place] [address] Jan, [facility] [address] [id number] [place] [address] Jan, [facility] [address] [id number] [place] [address] Dec, [facility] [address] [id number] [place] [address] Nov, [facility] [address] [id number] [place] [address] Sep, [facility] [address] [id number] [place] [address] Jul, [facility] [address] [place] [id number] [place] [address] Jan, [facility] [address] [place] [id number] [place] [address] Jan, [facility] [address] [place] [id number] [place] [address] Jan, [facility] [address] [place] [id number] [place] [address] Jan, [facility] [address] [place] [id number] [place] [address] Dec, [facility] [address] [id number] [place] [address] Dec, [facility] [address] [place] [id number] [place] [address] May, IMMUNIZATIONS No Known Immunizations SOCIAL HISTORY Never Assessed REASON FOR VISIT PLAN OF CARE VITAL SIGNS MEDICATIONS Unknown Medications RESULTS No Results PROCEDURES No Known procedures INSTRUCTIONS MEDICATIONS ADMINISTERED No Known Medications MEDICAL (GENERAL) HISTORY Type Description Date Medical History hypertension Medical History Acid reflux
--- OUTSIDE RECORDS SUMMARY | 2019-05-25 21:53 | XMS REPORT ---
Author Author Eula STEWARD Organization [facility] Address [address] [place] [address] Care Team Providers Care Word Processor Operator Name Role Phone ANTONIA STEWARD Unavailable PROBLEMS Type Condition ICD9-CM Code GSX80-QD Code Onset Dates Condition S tatus SNOMED Code Problem GERD (gastroesophageal reflux disease) K21.9 Active 771931035 Problem Hypertension I10 Active 7931581 3 Problem Hyperlipidemia E78.5 Active 76647 004 ALLERGIES No Information ENCOUNTERS Encounter Location Date Diagnosis [place] [address] [address] Apr, [address] [address] Apr, Hypertension I10 and Hypokalemia E87.6 [place] [address] [address] Jan, Hypokalemia E87.6 [place] [address] [address] Jan, Hypertension I10 [place] [address] [address] Jan, Hypertension I10 ; GERD (gastroesophagea l reflux disease) K21.9 and Hyperlipidemia E78.5 [place] [address] [address] Oct, [place] [address] [address] June, Sinusitis 473.9 [place] [address] [address] June, [address] [address] 14 May, 2014 [facility] [address] [facility] [id number] [place] [address] 13 May, 2014 [facility] [address] [id number] [place] [address] Feb, [facility] [address] [id number] [place] [address] Feb, [facility] [address] [id number] [place] [address] Jan, [facility] [address] [id number] [place] [address] Jan, [facility] [address] [id number] [place] [address] Dec, [facility] [address] [id number] [place] [address] Dec, [facility] [address] [id number] [place] [address] Dec, [facility] [address] [id number] [place] [address] Dec, [facility] [address] [id number] [place] [address] Dec, [facility] [address] [id number] [place] [address] Dec, [facility] [address] [id number] [place] [address] Oct, [facility] [address] [id number] [place] [address] Oct, [facility] [address] [id number] [place] [address] Aug, [facility] [address] [id number] [place] [address] Aug, [facility] [address] [id number] [place] [address] Jul, [facility] [address] [facility] [id number] [place] [address] Jul, [facility] [address] [facility] [id number] [place] [address] Apr, [facility] [address] [facility] [id number] [place] [address] Apr, [facility] [address] [id number] [place] [address] Apr, [facility] [address] [id number] [place] [address] Apr, [facility] [address] [id number] [place] [address] Apr, [facility] [address] [id number] [place] [address] Apr, [facility] [address] [id number] [place] [address] Apr, [facility] [address] [id number] [place] [address] Apr, [facility] [address] [id number] [place] [address] Apr, [facility] [address] [id number] [place] [address] Apr, [facility] [address] [id number] [place] [address] Apr, [facility] [address] [id number] [place] [address] Mar, [facility] [address] [facility] [id number] [place] [address] Mar, [facility] [address] [id number] [place] [address] Feb, [facility] [address] [id number] [place] [address] Feb, [facility] [address] [id number] [place] [address] Feb, [facility] [address] [id number] [place] [address] Feb, [facility] [address] [id number] [place] [address] Nov, [facility] [address] [id number] [place] [address] Nov, [facility] [address] [id number] [place] [address] Oct, [facility] [address] [id number] [place] [address] Jul, [facility] [address] [id number] [place] [address] May, [facility] [address] [id number] [place] [address] Apr, [facility] [address] [id number] [place] [address] Apr, [facility] [address] [id number] [place] [address] Mar, [facility] [address] [id number] [place] [address] Mar, [facility] [address] [id number] [place] [address] Dec, [facility] [address] [id number] [place] [address] Dec, [facility] [address] [id number] [place] [address] Oct, [facility] [address] [id number] [place] [address] Sep, [facility] [address] [id number] [place] [address] Sep, [facility] [address] [id number] [place] [address] Sep, [facility] [address] [id number] [place] [address] Aug, [facility] [address] [id number] [place] [address] Jul, [facility] [address] [id number] [place] [address] Jul, [facility] [address] [id number] [place] [address] June, [facility] [address] [id number] [place] [address] June, [facility] [address] [id number] [place] [address] Apr, [facility] [address] [id number] [place] [address] Apr, [facility] [address] [id number] [place] [address] Apr, [facility] [address] [id number] [place] [address] Apr, [facility] [address] [id number] [place] [address] Mar, [facility] [address] [id number] [place] [address] Jan, [facility] [address] [id number] [place] [address] Jan, [facility] [address] [id number] [place] [address] Jan, [facility] [address] [id number] [place] [address] Jan, [facility] [address] [place] [id number] [place] [address] Dec, [facility] [address] [id number] [place] [address] Nov, [facility] [address] [id number] [place] [address] Sep, [facility] [address] [id number] [place] [address] Jul, [facility] [address] [id number] [place] [address] Jan, [facility] [address] [id number] [place] [address] Jan, [facility] [address] [id number] [place] [address] Jan, [facility] [address] [id number] [place] [address] Jan, [facility] [address] [id number] [place] [address] Dec, [facility] [address] [id number] [place] [address] Dec, [facility] [address] [id number] [place] [address] May, IMMUNIZATIONS No Known Immunizations SOCIAL HISTORY Never Assessed REASON FOR VISIT PLAN OF CARE VITAL SIGNS MEDICATIONS Unknown Medications RESULTS No Results PROCEDURES No Known procedures INSTRUCTIONS MEDICATIONS ADMINISTERED No Known Medications MEDICAL (GENERAL) HISTORY Type Description Date Medical History hypertension Medical History Acid reflux
--- OUTSIDE RECORDS SUMMARY | 2019-05-25 21:54 | XMS REPORT ---
Author Author Eula PRABHAKAR Organization [facility] Address [address] [place] [address] Care Team Providers Care Neurophysiological Technician Name Role Phone SHANI PRABHAKAR Unavailable PROBLEMS Type Condition ICD9-CM Code NDW11-MT Code Onset Dates Condition S tatus SNOMED Code Problem GERD (gastroesophageal reflux disease) K21.9 Active 445344546 Problem Hypertension I10 Active 4652627 3 Problem Hyperlipidemia E78.5 Active 28177 004 ALLERGIES No Information ENCOUNTERS Encounter Location Date Diagnosis [place] [address] [address] Apr, [place] [address] [address] Apr, Hypertension I10 and Hypokal emia E87.[address] [address] Jan, Hypokalemia E87.6 [place] [address] [address] Jan, Hypertension I10 [place] [address] [address] Jan, Hypertension I10 ; GERD (gas troesophageal reflux disease) K21.9 and Hyperlipidemia E78.5 [place] [address] [address] Oct, [place] [address] [address] June, Sinusitis 473.9 [place] [address] [address] June, [facility] [address] [id number] [address] [place] [address], [place] [address] May, [facility] [address] [id number] [address] [place] [address], [place] [address] May, [facility] [address] [id number] [address] [place] [address], [place] [address] Feb, [facility] [address] [id number] [address] [place] [address], [place] [address] Feb, [facility] [address] [id number] [address] [place] [address], [place] [address] Jan, [facility] [address] [id number] [address] [place] [address], [place] [address] Jan, [facility] [address] [id number] [address] [place] [address], [place] [address] Dec, [facility] [address] [id number] [address] [place] [address], [place] [address] Dec, [facility] [address] [id number] [address] [place] [address], [place] [address] Dec, [facility] [address] [id number] [address] [place] [address], [place] [address] Dec, [facility] [address] [id number] [address] [place] [address], [place] [address] Dec, [facility] [address] [id number] [address] [place] [address] Dec, [facility] [address] [id number] [address] [place] [address], [place] [address] Oct, [facility] [address] [id number] [address] [place] [address], [place] [address] Oct, [facility] [address] [id number] [address] [place] [address], [place] [address] Aug, [facility] [address] [id number] [address] [place] [address], [place] [address] Aug, [facility] [address] [id number] [facility] [place] [place] [address] Jul, [facility] [address] [id number] [address] [place] [address], [place] [address] Jul, [facility] [address] [id number] [address] [place] [address], [place] [address] Apr, [facility] [address] [id number] [address] [place] [address], [place] [address] Apr, [facility] [address] [id number] [address] [place] [address], [place] [address] Apr, [facility] [address] [id number] [address] [place] [address], [place] [address] Apr, [facility] [address] [id number] [address] [place] [address], [place] [address] Apr, [facility] [address] [id number] [address] [place] [address], [place] [address] Apr, [facility] [address] [id number] [address] [place] [address], [place] [address] Apr, [facility] [address] [id number] [address] [place] [address], [place] [address] Apr, [facility] [address] [id number] [address] [place] [address], [place] [address] Apr, [facility] [address] [id number] [address] [place] [address], [place] [address] Apr, [facility] [address] [id number] [address] [place] [address], [place] [address] Apr, [facility] [address] [id number] [address] [place] [address], [place] [address] Mar, [facility] [address] [id number] [address] [place] [address], [place] [address] Mar, [facility] [address] [id number] [address] [place] [address], [place] [address] Feb, [facility] [address] [id number] [address] [place] [address], [place] [address] Feb, [facility] [address] [id number] [address] [place] [address], [place] [address] Feb, [facility] [address] [id number] [address] [place] [address], [place] [address] Feb, [facility] [address] [id number] [address] [place] [address], [place] [address] Nov, [facility] [address] [id number] [address] [place] [address], [place] [address] Nov, [facility] [address] [id number] [address] [place] [address], [place] [address] Oct, [facility] [address] [id number] [address] [place] [address], [place] [address] Jul, [facility] [address] [id number] [address] [place] [address], [place] [address] May, [facility] [address] [id number] [address] [place] [address], [place] [address] Apr, [facility] [address] [id number] [address] [place] [address], [place] [address] Apr, [facility] [address] [id number] [address] [place] [address], [place] [address] Mar, [facility] [address] [id number] [address] [place] [address], [place] [address] Mar, [facility] [address] [id number] [address] [place] [address], [place] [address] Dec, [facility] [address] [id number] [address] [place] [address], [place] [address] Dec, [facility] [address] [id number] [address] [place] [address] Oct, [facility] [address] [id number] [address] [place] [address], [place] [address] Sep, [facility] [address] [id number] [address] [place] [address], [place] [address] Sep, [facility] [address] [id number] [address] [place] [address], [place] [address] Sep, [facility] [address] [id number] [address] [place] [address], [place] [address] Aug, [facility] [address] [id number] [address] [place] [address], [place] [address] Jul, [facility] [address] [id number] [address] [place] [address], [place] [address] Jul, [facility] [address] [id number] [address] [place] [address], [place] [address] June, [facility] [address] [id number] [address] [place] [address], [place] [address] June, [facility] [address] [id number] [address] [place] [address], [place] [address] Apr, [facility] [address] [id number] [address] [place] [address], [place] [address] Apr, [facility] [address] [id number] [address] [place] [address], [place] [address] Apr, [facility] [address] [id number] [address] [place] [address], [place] [address] Apr, [facility] [address] [id number] [address] [place] [address], [place] [address] Mar, [facility] [address] [id number] [address] [place] [address], [place] [address] Jan, [facility] [address] [id number] [address] [place] [address], [place] [address] Jan, [facility] [address] [id number] [address] [place] [address] Jan, [facility] [address] [id number] [address] [place] [address] Jan, [facility] [address] [id number] [address] [place] [address] Dec, [facility] [address] [id number] [address] [place] [address] Nov, [facility] [address] [id number] [address] [place] [address] Sep, [facility] [address] [id number] [address] [place] [address] Jul, [facility] [address] [id number] [address] [place] [address] 15 Jan, 2010 [facility] [address] [id number] [address] [place] [address] 15 Jan, 2010 [facility] [address] [id number] [address] [place] [address] 07 Jan, 2010 [facility] [address] [id number] [address] [place] [address] 06 Jan, 2010 [facility] [address] [id number] [address] [place] [address] 08 Dec, 2009 [facility] [address] [id number] [address] [place] [address] 05 Dec, 2009 [facility] [address] [id number] [address] [place] [address] 13 May, 2009 IMMUNIZATIONS No Known Immunizations SOCIAL HISTORY Never Assessed REASON FOR VISIT PLAN OF CARE VITAL SIGNS Height 62 in 2013-12-25 Weight 188.7 lbs 2013-12-25 Temperature 97.5 degrees Fahrenheit 2013-12-25 Heart Rate 84 bpm 2013-12-25 Respiratory Rate 22 2013-12-25 Blood pressure systolic 162 mmHg 2013-12-25 Blood pressure diastolic 94 mmHg 2013-12-25 MEDICATIONS Unknown Medications RESULTS No Results PROCEDURES No Known procedures INSTRUCTIONS MEDICATIONS ADMINISTERED No Known Medications MEDICAL (GENERAL) HISTORY Type Description Date Medical History hypertension Medical History Acid reflux
--- OUTSIDE RECORDS SUMMARY | 2019-05-25 21:54 | XMS REPORT ---
Author Author Eula STEWARD Organization [facility] Address [address] [place] [address] Care Team Providers Care Dining Room Cashier Name Role Phone ANTONIA STEWARD Unavailable PROBLEMS Type Condition ICD9-CM Code GWP61-OS Code Onset Dates Condition S tatus SNOMED Code Problem GERD (gastroesophageal reflux disease) K21.9 Active 748751052 Problem Hypertension I10 Active 0212386 3 Problem Hyperlipidemia E78.5 Active 25476 004 ALLERGIES No Information ENCOUNTERS Encounter Location Date Diagnosis [place] [address] [address] Apr, [address] [address] Apr, Hypertension I10 and Hypokalemia E87.6 [place] [address] [address] Jan, Hypokalemia E87.6 [place] [address] [address] Jan, Hypertension I10 [place] [address] [address] Jan, Hypertension I10 ; GERD (gastroesophagea l reflux disease) K21.9 and Hyperlipidemia E78.5 [place] [address] [address] Oct, [place] [address] [address] June, Sinusitis 473.9 [place] [address] [address] June, [address] [address] 14 May, 2014 [facility] [address] [facility] [id number] [place] [address] 13 May, 2014 [facility] [address] [id number] [place] [address] Feb, [facility] [address] [id number] [place] [address] Feb, [facility] [address] [id number] [place] [address] Jan, [facility] [address] [id number] [place] [address] Jan, [facility] [address] [id number] [place] [address] Dec, [facility] [address] [id number] [place] [address] Dec, [facility] [address] [id number] [place] [address] Dec, [facility] [address] [id number] [place] [address] Dec, [facility] [address] [id number] [place] [address] Dec, [facility] [address] [id number] [place] [address] Dec, [facility] [address] [id number] [place] [address] Oct, [facility] [address] [id number] [place] [address] Oct, [facility] [address] [id number] [place] [address] Aug, [facility] [address] [id number] [place] [address] Aug, [facility] [address] [id number] [place] [address] Jul, [facility] [address] [facility] [id number] [place] [address] Jul, [facility] [address] [facility] [id number] [place] [address] Apr, [facility] [address] [facility] [id number] [place] [address] Apr, [facility] [address] [id number] [place] [address] Apr, [facility] [address] [id number] [place] [address] Apr, [facility] [address] [id number] [place] [address] Apr, [facility] [address] [id number] [place] [address] Apr, [facility] [address] [id number] [place] [address] Apr, [facility] [address] [id number] [place] [address] Apr, [facility] [address] [id number] [place] [address] Apr, [facility] [address] [id number] [place] [address] Apr, [facility] [address] [id number] [place] [address] Apr, [facility] [address] [id number] [place] [address] Mar, [facility] [address] [facility] [id number] [place] [address] Mar, [facility] [address] [id number] [place] [address] Feb, [facility] [address] [id number] [place] [address] Feb, [facility] [address] [id number] [place] [address] Feb, [facility] [address] [id number] [place] [address] Feb, [facility] [address] [id number] [place] [address] Nov, [facility] [address] [id number] [place] [address] Nov, [facility] [address] [id number] [place] [address] Oct, [facility] [address] [id number] [place] [address] Jul, [facility] [address] [id number] [place] [address] May, [facility] [address] [id number] [place] [address] Apr, [facility] [address] [id number] [place] [address] Apr, [facility] [address] [id number] [place] [address] Mar, [facility] [address] [id number] [place] [address] Mar, [facility] [address] [id number] [place] [address] Dec, [facility] [address] [id number] [place] [address] Dec, [facility] [address] [id number] [place] [address] Oct, [facility] [address] [id number] [place] [address] Sep, [facility] [address] [id number] [place] [address] Sep, [facility] [address] [id number] [place] [address] Sep, [facility] [address] [id number] [place] [address] Aug, [facility] [address] [id number] [place] [address] Jul, [facility] [address] [id number] [place] [address] Jul, [facility] [address] [id number] [place] [address] June, [facility] [address] [id number] [place] [address] June, [facility] [address] [id number] [place] [address] Apr, [facility] [address] [id number] [place] [address] Apr, [facility] [address] [id number] [place] [address] Apr, [facility] [address] [id number] [place] [address] Apr, [facility] [address] [id number] [place] [address] Mar, [facility] [address] [id number] [place] [address] Jan, [facility] [address] [id number] [place] [address] Jan, [facility] [address] [id number] [place] [address] Jan, [facility] [address] [id number] [place] [address] Jan, [facility] [address] [place] [id number] [place] [address] Dec, [facility] [address] [id number] [place] [address] Nov, [facility] [address] [id number] [place] [address] Sep, [facility] [address] [id number] [place] [address] Jul, [facility] [address] [id number] [place] [address] Jan, [facility] [address] [id number] [place] [address] Jan, [facility] [address] [id number] [place] [address] Jan, [facility] [address] [id number] [place] [address] Jan, [facility] [address] [id number] [place] [address] Dec, [facility] [address] [id number] [place] [address] Dec, [facility] [address] [id number] [place] [address] May, IMMUNIZATIONS No Known Immunizations SOCIAL HISTORY Never Assessed REASON FOR VISIT PLAN OF CARE VITAL SIGNS MEDICATIONS Unknown Medications RESULTS No Results PROCEDURES No Known procedures INSTRUCTIONS MEDICATIONS ADMINISTERED No Known Medications MEDICAL (GENERAL) HISTORY Type Description Date Medical History hypertension Medical History Acid reflux
--- OUTSIDE RECORDS SUMMARY | 2019-05-25 21:54 | XMS REPORT ---
Author Author Eula Manning Doctor Organization [facility] Address Unknown Phone Unavailable Care Team Providers Care Associate Director Of Development Name Role Phone Migration, Doctor Unavailable Unavailable PROBLEMS Type Condition ICD9-CM Code BEV89-LP Code Onset Dates Condition S tatus SNOMED Code Problem GERD (gastroesophageal reflux disease) K21.9 Active 172793225 Problem Hypertension I10 Active 3993103 3 Problem Hyperlipidemia E78.5 Active 69736 004 ALLERGIES No Information ENCOUNTERS Encounter Location Date Diagnosis [place] [address] [place] [id number] [place] [address] Apr, [place] [address] [address] Apr, Hypertension I10 and Hypokal emia E87.6 [place] [address] [place] [id number] [address] [place] [address] Jan, Hypokalemia E87.6 [place] [address] [place] [id number] [address] [place] [address] Jan, Hypertension I10 [place] [address] [place] [id number] [address] [place] [address] Jan, Hypertension I10 ; GERD (gas troesophageal reflux disease) K21.9 and Hyperlipidemia E78.5 [place] [address] [facility] [id number] [address] [place] [address] Oct, [place] [address] [place] [id number] [address] [place] [address] June, Sinusitis 473.9 [place] [address] [place] [id number] [address] [place] [address] June, [place] [address] [address] May, [facility] [address] [id number] [address] [place] [address], [place] [address] May, [facility] [address] [id number] [address] [place] [address], [place] [address] Feb, [facility] [address] [id number] [address] [place] [address], [place] [address] Feb, [facility] [address] [id number] [address] [place] [address], [place] [address] Jan, [facility] [address] [id number] [address] [place] [address], [place] [address] Jan, [facility] [address] [id number] [address] [place] [address], [place] [address] Dec, [facility] [address] [id number] [address] [place] [address], [place] [address] Dec, [facility] [address] [id number] [address] [place] [address], [place] [address] Dec, [facility] [address] [id number] [address] [place] [address], [place] [address] Dec, [facility] [address] [id number] [address] [place] [address], [place] [address] Dec, [facility] [address] [id number] [address] [place] [address], [place] [address] Dec, [facility] [address] [id number] [address] [place] [address], [place] [address] Oct, [facility] [address] [id number] [address] [place] [address], [place] [address] Oct, [facility] [address] [id number] [address] [place] [address], [place] [address] Aug, [facility] [address] [id number] [address] [place] [address], [place] [address] Aug, [facility] [address] [id number] [address] [place] [address], [place] [address] Jul, [facility] [address] [id number] [address] [place] [address], [place] [address] Jul, [facility] [address] [id number] [address] [place] [address], [place] [address] Apr, [facility] [address] [id number] [address] [place] [address], [place] [address] Apr, [facility] [address] [id number] [address] [place] [address], [place] [address] Apr, [facility] [address] [id number] [address] [place] [address], [place] [address] Apr, [facility] [address] [id number] [address] [place] [address], [place] [address] Apr, [facility] [address] [id number] [address] [place] [address], [place] [address] Apr, [facility] [address] [id number] [address] [place] [address], [place] [address] Apr, [facility] [address] [id number] [address] [place] [address], [place] [address] Apr, [facility] [address] [id number] [address] [place] [address], [place] [address] Apr, [facility] [address] [id number] [address] [place] [address], [place] [address] Apr, [facility] [address] [id number] [address] [place] [address], [place] [address] Apr, [facility] [address] [id number] [address] [place] [address], [place] [address] Mar, [facility] [address] [id number] [address] [place] [address], [place] [address] Mar, [facility] [address] [id number] [address] [place] [address], [place] [address] Feb, [facility] [address] [id number] [address] [place] [address], [place] [address] Feb, [facility] [address] [id number] [address] [place] [address], [place] [address] Feb, [facility] [address] [id number] [address] [place] [address], [place] [address] Feb, [facility] [address] [id number] [address] [place] [address], [place] [address] Nov, [facility] [address] [id number] [address] [place] [address], [place] [address] Nov, [facility] [address] [id number] [address] [place] [address], [place] [address] Oct, [facility] [address] [id number] [address] [place] [address], [place] [address] Jul, [facility] [address] [id number] [address] [place] [address], [place] [address] May, [facility] [address] [id number] [address] [place] [address], [place] [address] Apr, [facility] [address] [id number] [address] [place] [address], [place] [address] Apr, [facility] [address] [id number] [address] [place] [address], [place] [address] Mar, [facility] [address] [id number] [address] [place] [address], [place] [address] 05 Mar, 2012 [facility] [address] [id number] [address] [place] [address], [place] [address] Dec, [facility] [address] [id number] [address] [place] [address], [place] [address] Dec, [facility] [address] [id number] [address] [place] [address], [place] [address] 28 Oct, 2011 [facility] [address] [id number] [address] [place] [address], [place] [address] Sep, [facility] [address] [id number] [address] [place] [address], [place] [address] Sep, [facility] [address] [id number] [address] [place] [address], [place] [address] Sep, [facility] [address] [id number] [address] [place] [address], [place] [address] Aug, [facility] [address] [id number] [address] [place] [address], [place] [address] Jul, [facility] [address] [id number] [address] [place] [address], [place] [address] Jul, [facility] [address] [id number] [address] [place] [address], [place] [address] June, [facility] [address] [id number] [address] [place] [address], [place] [address] June, [facility] [address] [id number] [address] [place] [address], [place] [address] Apr, [facility] [address] [id number] [address] [place] [address], [place] [address] Apr, [facility] [address] [id number] [address] [place] [address], [place] [address] Apr, [facility] [address] [id number] [address] [place] [address], [place] [address] Apr, [facility] [address] [id number] [address] [place] [address], [place] [address] Mar, [facility] [address] [id number] [address] [place] [address], [place] [address] Jan, [facility] [address] [id number] [address] [place] [address], [place] [address] Jan, [facility] [address] [id number] [address] [place] [address], [place] [address] Jan, [facility] [address] [id number] [address] [place] [address] Jan, [facility] [address] [id number] [address] [place] [address] Dec, [facility] [address] [id number] [address] [place] [address] Nov, [facility] [address] [id number] [address] [place] [address] Sep, [facility] [address] [id number] [address] [place] [address] Jul, [facility] [address] [id number] [address] [place] [address] [address], [address] [facility] [address] [id number] [address] [place] [address] [address], [address] [facility] [address] [id number] [address] [place] [address] Jan, [facility] [address] [id number] [address] [place] [address] Jan, [facility] [address] [id number] [address] [place] [address] [address], [address] [facility] [address] [id number] [address] [place] [address] 05 Dec, 2009 [facility] [address] [id number] [address] [place] [address] 13 May, 2009 IMMUNIZATIONS No Known Immunizations SOCIAL HISTORY Never Assessed REASON FOR VISIT PLAN OF CARE VITAL SIGNS Height 62 in 2011-08-09 Weight 191.8 lbs 2011-08-09 Temperature 99.4 degrees Fahrenheit 2011-08-09 Heart Rate 110 bpm 2011-08-09 Respiratory Rate 18 2011-08-09 Blood pressure systolic 120 mmHg 2011-08-09 Blood pressure diastolic 89 mmHg 2011-08-09 MEDICATIONS Unknown Medications RESULTS No Results PROCEDURES No Known procedures INSTRUCTIONS MEDICATIONS ADMINISTERED No Known Medications MEDICAL (GENERAL) HISTORY Type Description Date Medical History hypertension Medical History Acid reflux
--- OUTSIDE RECORDS SUMMARY | 2019-05-25 21:54 | XMS REPORT ---
Author Author Eula STEWARD Organization [facility] Address [address] [place] [address] Care Team Providers Care Grain Trimmer Name Role Phone ANTONIA STEWARD Unavailable PROBLEMS Type Condition ICD9-CM Code USO37-WJ Code Onset Dates Condition S tatus SNOMED Code Problem GERD (gastroesophageal reflux disease) K21.9 Active 507541059 Problem Hypertension I10 Active 9483678 3 Problem Hyperlipidemia E78.5 Active 86923 004 ALLERGIES No Information ENCOUNTERS Encounter Location Date Diagnosis [place] [address] [address] Apr, [place] [address] [address] Apr, Hypertension I10 and Hypokal emia E87.[address] [address] Jan, Hypokalemia E87.6 [place] [address] [place] [id number] [place] [address] Jan, Hypertension I10 [facility] [address] [address] Jan, Hypertension I10 ; GERD (gas troesophageal reflux disease) K21.9 and Hyperlipidemia E78.5 [place] [address] [place] [id number] [address] [place] [address] Oct, [place] [address] [place] [id number] [place] [address] June, Sinusitis 473.9 [place] [address] [address] June, [facility] [address] [id number] [address] [place] [address], [place] [address] May, [facility] [address] [id number] [address] [place] [address], [place] [address] May, [facility] [address] [id number] [address] [place] [address], [place] [address] Feb, [facility] [address] [id number] [address] [place] [address], [place] [address] Feb, [facility] [address] [id number] [address] [place] [address], [place] [address] Jan, [facility] [address] [id number] [address] [place] [address], [place] [address] Jan, [facility] [address] [id number] [address] [place] [address], [place] [address] Dec, [facility] [address] [id number] [address] [place] [address], [place] [address] Dec, [facility] [address] [id number] [address] [place] [address], [place] [address] Dec, [facility] [address] [id number] [address] [place] [address], [place] [address] Dec, [facility] [address] [id number] [address] [place] [address], [place] [address] Dec, [facility] [address] [id number] [address] [place] [address], [place] [address] Dec, [facility] [address] [id number] [address] [place] [address], [place] [address] Oct, [facility] [address] [id number] [address] [place] [address], [place] [address] Oct, [facility] [address] [id number] [address] [place] [address], [place] [address] Aug, [facility] [address] [id number] [address] [place] [address], [place] [address] Aug, [facility] [address] [id number] [facility] [place] [address] Jul, [facility] [address] [id number] [address] [place] [address], [place] [address] Jul, [facility] [address] [id number] [address] [place] [address], [place] [address] Apr, [facility] [address] [id number] [address] [place] [address], [place] [address] Apr, [facility] [address] [id number] [address] [place] [address], [place] [address] Apr, [facility] [address] [id number] [address] [place] [address], [place] [address] Apr, [facility] [address] [id number] [address] [place] [address], [place] [address] Apr, [facility] [address] [id number] [address] [place] [address], [place] [address] Apr, [facility] [address] [id number] [address] [place] [address], [place] [address] Apr, [facility] [address] [id number] [address] [place] [address], [place] [address] Apr, [facility] [address] [id number] [address] [place] [address], [place] [address] Apr, [facility] [address] [id number] [address] [place] [address], [place] [address] Apr, [facility] [address] [id number] [address] [place] [address], [place] [address] Apr, [facility] [address] [id number] [address] [place] [address], [place] [address] Mar, [facility] [address] [id number] [address] [place] [address], [place] [address] Mar, [facility] [address] [id number] [address] [place] [address], [place] [address] Feb, [facility] [address] [id number] [address] [place] [address], [place] [address] Feb, [facility] [address] [id number] [address] [place] [address], [place] [address] Feb, [facility] [address] [id number] [address] [place] [address], [place] [address] Feb, [facility] [address] [id number] [address] [place] [address], [place] [address] Nov, [facility] [address] [id number] [address] [place] [address], [place] [address] Nov, [facility] [address] [id number] [address] [place] [address], [place] [address] Oct, [facility] [address] [id number] [address] [place] [address], [place] [address] Jul, [facility] [address] [id number] [address] [place] [address], [place] [address] May, [facility] [address] [id number] [address] [place] [address], [place] [address] Apr, [facility] [address] [id number] [address] [place] [address], [place] [address] Apr, [facility] [address] [id number] [address] [place] [address], [place] [address] 08 Mar, 2012 [facility] [address] [id number] [address] [place] [address], [place] [address] Mar, [facility] [address] [id number] [address] [place] [address], [place] [address] Dec, [facility] [address] [id number] [address] [place] [address], [place] [address] Dec, [facility] [address] [id number] [address] [place] [address], [place] [address] Oct, [facility] [address] [id number] [address] [place] [address], [place] [address] Sep, [facility] [address] [id number] [address] [place] [address], [place] [address] Sep, [facility] [address] [id number] [address] [place] [address], [place] [address] Sep, [facility] [address] [id number] [address] [place] [address], [place] [address] Aug, [facility] [address] [id number] [address] [place] [address], [place] [address] Jul, [facility] [address] [id number] [address] [place] [address], [place] [address] Jul, [facility] [address] [id number] [address] [place] [address], [place] [address] June, [facility] [address] [id number] [address] [place] [address], [place] [address] June, [facility] [address] [id number] [address] [place] [address], [place] [address] Apr, [facility] [address] [id number] [address] [place] [address], [place] [address] Apr, [facility] [address] [id number] [address] [place] [address], [place] [address] Apr, [facility] [address] [id number] [address] [place] [address], [place] [address] Apr, [facility] [address] [id number] [address] [place] [address], [place] [address] Mar, [facility] [address] [id number] [address] [place] [address], [place] [address] Jan, [facility] [address] [id number] [address] [place] [address], [place] [address] Jan, [facility] [address] [id number] [address] [place] [id number] 20 Jan, 2011 [facility] [address] [id number] [address] [place] [phone] Jan, [facility] [address] [id number] [address] [place] [phone] Dec, [facility] [address] [id number] [address] [place] [phone] Nov, [facility] [address] [id number] [address] [place] [id number] Sep, [facility] [address] [id number] [address] [place] [phone] Jul, [facility] [address] [id number] [address] [place] [id number] 15 Jan, 2010 [facility] [address] [id number] [address] [place] [phone] 15 Jan, 2010 [facility] [address] [id number] [address] [place] [phone] 07 Jan, 2010 [facility] [address] [id number] [address] [place] [id number] 06 Jan, 2010 [facility] [address] [id number] [address] [place] [id number] 08 Dec, 2009 [facility] [address] [id number] [address] [place] [id number] 05 Dec, 2009 [facility] [address] [id number] [address] [place] [phone] 13 May, 2009 IMMUNIZATIONS No Known Immunizations SOCIAL HISTORY Never Assessed REASON FOR VISIT PLAN OF CARE VITAL SIGNS Height 62 in 2014-01-04 Weight 182 lbs 2014-01-04 Temperature 98.8 degrees Fahrenheit 2014-01-04 Heart Rate 78 bpm 2014-01-04 Respiratory Rate 20 2014-01-04 Blood pressure systolic 138 mmHg 2014-01-04 Blood pressure diastolic 82 mmHg 2014-01-04 MEDICATIONS Unknown Medications RESULTS No Results PROCEDURES No Known procedures INSTRUCTIONS MEDICATIONS ADMINISTERED No Known Medications MEDICAL (GENERAL) HISTORY Type Description Date Medical History hypertension Medical History Acid reflux
--- OUTSIDE RECORDS SUMMARY | 2019-05-25 21:54 | XMS REPORT ---
Author Author Eula STEWARD Organization [facility] Address [address] [place] [address] Care Team Providers Care Commercial Field Inspector Name Role Phone ANTONIA STEWARD Unavailable PROBLEMS Type Condition ICD9-CM Code [id number] Code Onset Dates Condition S tatus SNOMED Code Problem GERD (gastroesophageal reflux disease) K21.9 Active 245621757 Problem Hypertension I10 Active 3794918 3 Problem Hyperlipidemia E78.5 Active 89771 004 ALLERGIES No Information ENCOUNTERS Encounter Location Date Diagnosis [place] [address] [address] Apr, [place] [address] [address] Apr, Hypertension I10 and Hypokal emia E87.[address] [address] Jan, Hypokalemia E87.6 [place] [address] [address] [place] [id number] [place] [address] Jan, Hypertension I10 [facility] [address] [address] Jan, Hypertension I10 ; GERD (gas troesophageal reflux disease) K21.9 and Hyperlipidemia E78.5 [place] [address] [address] [place] [id number] [address] [place] [address] Oct, [place] [address] [place] [id number] [place] [address] June, Sinusitis 473.9 [place] [address] [address] June, [facility] [address] [id number] [address] [place] [address], [place] [address] May, [facility] [address] [id number] [address] [place] [address], [place] [address] May, [facility] [address] [id number] [address] [place] [address], [place] [address] Feb, [facility] [address] [id number] [address] [place] [address], [place] [address] Feb, [facility] [address] [id number] [address] [place] [address], [place] [address] Jan, [facility] [address] [id number] [address] [place] [address], [place] [address] Jan, [facility] [address] [id number] [address] [place] [address], [place] [address] Dec, [facility] [address] [id number] [address] [place] [address], [place] [address] Dec, [facility] [address] [id number] [address] [place] [address], [place] [address] Dec, [facility] [address] [id number] [address] [place] [address], [place] [address] Dec, [facility] [address] [id number] [address] [place] [address], [place] [address] Dec, [facility] [address] [id number] [address] [place] [address], [place] [address] Dec, [facility] [address] [id number] [address] [place] [address], [place] [address] Oct, [facility] [address] [id number] [address] [place] [address], [place] [address] Oct, [facility] [address] [id number] [address] [place] [address], [place] [address] Aug, [facility] [address] [id number] [address] [place] [address], [place] [address] Aug, [facility] [address] [id number] [facility] [place] [address] Jul, [facility] [address] [id number] [address] [place] [address], [place] [address] Jul, [facility] [address] [id number] [address] [place] [address], [place] [address] Apr, [facility] [address] [id number] [address] [place] [address], [place] [address] Apr, [facility] [address] [id number] [address] [place] [address], [place] [address] Apr, [facility] [address] [id number] [address] [place] [address], [place] [address] Apr, [facility] [address] [id number] [address] [place] [address], [place] [address] Apr, [facility] [address] [id number] [address] [place] [address], [place] [address] Apr, [facility] [address] [id number] [address] [place] [address], [place] [address] Apr, [facility] [address] [id number] [address] [place] [address], [place] [address] Apr, [facility] [address] [id number] [address] [place] [address], [place] [address] Apr, [facility] [address] [id number] [address] [place] [address], [place] [address] Apr, [facility] [address] [id number] [address] [place] [address], [place] [address] Apr, [facility] [address] [id number] [address] [place] [address], [place] [address] Mar, [facility] [address] [id number] [address] [place] [address], [place] [address] Mar, [facility] [address] [id number] [address] [place] [address], [place] [address] Feb, [facility] [address] [id number] [address] [place] [address], [place] [address] Feb, [facility] [address] [id number] [address] [place] [address], [place] [address] Feb, [facility] [address] [id number] [address] [place] [address], [place] [address] Feb, [facility] [address] [id number] [address] [place] [address], [place] [address] Nov, [facility] [address] [id number] [address] [place] [address], [place] [address] Nov, [facility] [address] [id number] [address] [place] [address], [place] [address] Oct, [facility] [address] [id number] [address] [place] [address], [place] [address] Jul, [facility] [address] [id number] [address] [place] [address], [place] [address] May, [facility] [address] [id number] [address] [place] [address], [place] [address] Apr, [facility] [address] [id number] [address] [place] [address], [place] [address] Apr, [facility] [address] [id number] [address] [place] [address], [place] [address] 08 Mar, 2012 [facility] [address] [id number] [address] [place] [address], [place] [address] Mar, [facility] [address] [id number] [address] [place] [address], [place] [address] Dec, [facility] [address] [id number] [address] [place] [address], [place] [address] Dec, [facility] [address] [id number] [address] [place] [address], [place] [address] Oct, [facility] [address] [id number] [address] [place] [address], [place] [address] Sep, [facility] [address] [id number] [address] [place] [address], [place] [address] Sep, [facility] [address] [id number] [address] [place] [address], [place] [address] Sep, [facility] [address] [id number] [address] [place] [address], [place] [address] Aug, [facility] [address] [id number] [address] [place] [address], [place] [address] Jul, [facility] [address] [id number] [address] [place] [address], [place] [address] Jul, [facility] [address] [id number] [address] [place] [address], [place] [address] June, [facility] [address] [id number] [address] [place] [address], [place] [address] June, [facility] [address] [id number] [address] [place] [address], [place] [address] Apr, [facility] [address] [id number] [address] [place] [address], [place] [address] Apr, [facility] [address] [id number] [address] [place] [address], [place] [address] Apr, [facility] [address] [id number] [address] [place] [address], [place] [address] Apr, [facility] [address] [id number] [address] [place] [address], [place] [address] Mar, [facility] [address] [id number] [address] [place] [address], [place] [address] Jan, [facility] [address] [id number] [address] [place] [address], [place] [address] Jan, [facility] [address] [id number] [address] [place] [address] Jan, [facility] [address] [id number] [address] [place] [address] Jan, [facility] [address] [id number] [address] [place] [address] Dec, [facility] [address] [id number] [address] [place] [address] Nov, [facility] [address] [id number] [address] [place] [address] Sep, [facility] [address] [id number] [address] [place] [address] Jul, [facility] [address] [id number] [address] [place] [id number] 15 Jan, 2010 [facility] [address] [id number] [address] [place] [address] 15 Jan, 2010 [facility] [address] [id number] [address] [place] [address] 07 Jan, 2010 [facility] [address] [id number] [address] [place] [id number] 06 Jan, 2010 [facility] [address] [id number] [address] [place] [address] 08 Dec, 2009 [facility] [address] [id number] [address] [place] [address] 05 Dec, 2009 [facility] [address] [id number] [address] [place] [id number] 13 May, 2009 IMMUNIZATIONS No Known Immunizations SOCIAL HISTORY Never Assessed REASON FOR VISIT PLAN OF CARE VITAL SIGNS MEDICATIONS Unknown Medications RESULTS No Results PROCEDURES No Known procedures INSTRUCTIONS MEDICATIONS ADMINISTERED No Known Medications MEDICAL (GENERAL) HISTORY Type Description Date Medical History hypertension Medical History Acid reflux
--- OUTSIDE RECORDS SUMMARY | 2019-05-25 21:54 | XMS REPORT ---
Author Author Eula STEWARD Organization [facility] Address [address] [place] [address] Care Team Providers Care Rn Transport Name Role Phone ANTONIA STEWARD Unavailable PROBLEMS Type Condition ICD9-CM Code [id number] Code Onset Dates Condition S tatus SNOMED Code Problem GERD (gastroesophageal reflux disease) K21.9 Active 255298950 Problem Hypertension I10 Active 6657873 3 Problem Hyperlipidemia E78.5 Active 98337 004 ALLERGIES No Information ENCOUNTERS Encounter Location Date Diagnosis [place] [address] [address] Apr, [address] [address] Apr, Hypertension I10 and Hypokalemia E87.6 [place] [address] [address] Jan, Hypokalemia E87.6 [place] [address] [address] Jan, Hypertension I10 [place] [address] [address] Jan, Hypertension I10 ; GERD (gastroesophagea l reflux disease) K21.9 and Hyperlipidemia E78.5 [place] [address] [address] Oct, [place] [address] [address] June, Sinusitis 473.9 [place] [address] [address] June, [address] [address] 14 May, 2014 [facility] [address] [facility] [id number] [place] [address] 13 May, 2014 [facility] [address] [id number] [place] [address] Feb, [facility] [address] [id number] [place] [address] Feb, [facility] [address] [id number] [place] [address] Jan, [facility] [address] [id number] [place] [address] Jan, [facility] [address] [id number] [place] [address] Dec, [facility] [address] [id number] [place] [address] Dec, [facility] [address] [id number] [place] [address] Dec, [facility] [address] [id number] [place] [address] Dec, [facility] [address] [id number] [place] [address] Dec, [facility] [address] [id number] [place] [address] Dec, [facility] [address] [id number] [place] [address] Oct, [facility] [address] [id number] [place] [address] Oct, [facility] [address] [id number] [place] [address] Aug, [facility] [address] [id number] [place] [address] Aug, [facility] [address] [id number] [place] [address] Jul, [facility] [address] [facility] [id number] [place] [address] Jul, [facility] [address] [facility] [id number] [place] [address] Apr, [facility] [address] [facility] [id number] [place] [address] Apr, [facility] [address] [id number] [place] [address] Apr, [facility] [address] [id number] [place] [address] Apr, [facility] [address] [id number] [place] [address] Apr, [facility] [address] [id number] [place] [address] Apr, [facility] [address] [id number] [place] [address] Apr, [facility] [address] [id number] [place] [address] Apr, [facility] [address] [id number] [place] [address] Apr, [facility] [address] [id number] [place] [address] Apr, [facility] [address] [id number] [place] [address] Apr, [facility] [address] [id number] [place] [address] Mar, [facility] [address] [facility] [id number] [place] [address] Mar, [facility] [address] [id number] [place] [address] Feb, [facility] [address] [id number] [place] [address] Feb, [facility] [address] [id number] [place] [address] Feb, [facility] [address] [id number] [place] [address] Feb, [facility] [address] [id number] [place] [address] Nov, [facility] [address] [id number] [place] [address] Nov, [facility] [address] [id number] [place] [address] Oct, [facility] [address] [id number] [place] [address] Jul, [facility] [address] [id number] [place] [address] May, [facility] [address] [id number] [place] [address] Apr, [facility] [address] [id number] [place] [address] Apr, [facility] [address] [id number] [place] [address] Mar, [facility] [address] [id number] [place] [address] Mar, [facility] [address] [id number] [place] [address] Dec, [facility] [address] [id number] [place] [address] Dec, [facility] [address] [id number] [place] [address] Oct, [facility] [address] [id number] [place] [address] Sep, [facility] [address] [id number] [place] [address] Sep, [facility] [address] [id number] [place] [address] Sep, [facility] [address] [id number] [place] [address] Aug, [facility] [address] [id number] [place] [address] Jul, [facility] [address] [id number] [place] [address] Jul, [facility] [address] [id number] [place] [address] June, [facility] [address] [id number] [place] [address] June, [facility] [address] [id number] [place] [address] Apr, [facility] [address] [id number] [place] [address] Apr, [facility] [address] [id number] [place] [address] Apr, [facility] [address] [id number] [place] [address] Apr, [facility] [address] [id number] [place] [address] Mar, [facility] [address] [id number] [place] [address] Jan, [facility] [address] [id number] [place] [address] Jan, [facility] [address] [id number] [place] [address] Jan, [facility] [address] [id number] [place] [address] Jan, [facility] [address] [place] [id number] [place] [address] Dec, [facility] [address] [id number] [place] [address] Nov, [facility] [address] [id number] [place] [address] Sep, [facility] [address] [id number] [place] [address] Jul, [facility] [address] [id number] [place] [address] Jan, [facility] [address] [id number] [place] [address] Jan, [facility] [address] [id number] [place] [address] Jan, [facility] [address] [id number] [place] [address] Jan, [facility] [address] [id number] [place] [address] Dec, [facility] [address] [id number] [place] [address] Dec, [facility] [address] [id number] [place] [address] May, IMMUNIZATIONS No Known Immunizations SOCIAL HISTORY Never Assessed REASON FOR VISIT PLAN OF CARE VITAL SIGNS MEDICATIONS Unknown Medications RESULTS No Results PROCEDURES Procedure Date Ordered Result Body Site COMPLETE CBC W/AUTO DIFF WBC April 23, 2013 LIPID PANEL April 23, 2013 COMPREHEN METABOLIC PANEL April 23, 2013 VENIPUNCT, ROUTINE* April 23, 2013 INSTRUCTIONS MEDICATIONS ADMINISTERED No Known Medications MEDICAL (GENERAL) HISTORY Type Description Date Medical History hypertension Medical History Acid reflux
--- OUTSIDE RECORDS SUMMARY | 2019-05-25 21:54 | XMS REPORT ---
Author Author Eula Manning Doctor Organization [facility] Address Unknown Phone Unavailable Care Team Providers Care Heat Curer Name Role Phone Migration, Doctor Unavailable Unavailable PROBLEMS Type Condition ICD9-CM Code [id number] Code Onset Dates Condition S tatus SNOMED Code Problem GERD (gastroesophageal reflux disease) K21.9 Active 340351790 Problem Hypertension I10 Active 1738870 3 Problem Hyperlipidemia E78.5 Active 33784 004 ALLERGIES Substance Reaction Event Type Date Status Augmentin Unknown Drug Allergy May, Active Flonase 50 Mcg/actuation [place], Suspension Unknown Non D rug Allergy May, Active ENCOUNTERS Encounter Location Date Diagnosis [address] [address] Apr, [place] [address] [address] Apr, Hypertension I10 and Hypokal emia E87.[address] [address] Jan, Hypokalemia E87.6 [place] [address] [place] [id number] [place] [address] Jan, Hypertension I10 [place] [address] [place] [id number] [place] [address] Jan, Hypertension I10 ; GERD (gas troesophageal reflux disease) K21.9 and Hyperlipidemia E78.5 [place] [address] [address] Oct, [place] [address] [place] [id number] [place] [address] June, Sinusitis 473.9 [place] [address] [address] June, [facility] [address] [id number] [address] [place] [address], [place] [address] May, [facility] [address] [id number] [address] [place] [address], [place] [address] May, [facility] [address] [id number] [address] [place] [address], [place] [address] Feb, [facility] [address] [id number] [address] [place] [address], [place] [address] Feb, [facility] [address] [id number] [address] [place] [address], [place] [address] Jan, [facility] [address] [id number] [address] [place] [address], [place] [address] Jan, [facility] [address] [id number] [address] [place] [address], [place] [address] Dec, [facility] [address] [id number] [address] [place] [address], [place] [address] Dec, [facility] [address] [id number] [address] [place] [address], [place] [address] Dec, [facility] [address] [id number] [address] [place] [address], [place] [address] Dec, [facility] [address] [id number] [address] [place] [address], [place] [address] Dec, [facility] [address] [id number] [address] [place] [address], [place] [address] Dec, [facility] [address] [id number] [address] [place] [address], [place] [address] Oct, [facility] [address] [id number] [address] [place] [address], [place] [address] Oct, [facility] [address] [id number] [address] [place] [address], [place] [address] Aug, [facility] [address] [id number] [facility] [place] [address] Aug, [facility] [address] [id number] [address] [place] [address], [place] [address] Jul, [facility] [address] [id number] [address] [place] [address], [place] [address] Jul, [facility] [address] [id number] [address] [place] [address], [place] [address] Apr, [facility] [address] [id number] [address] [place] [address], [place] [address] Apr, [facility] [address] [id number] [address] [place] [address], [place] [address] Apr, [facility] [address] [id number] [address] [place] [address], [place] [address] Apr, [facility] [address] [id number] [address] [place] [address], [place] [address] Apr, [facility] [address] [id number] [address] [place] [address], [place] [address] Apr, [facility] [address] [id number] [address] [place] [address], [place] [address] Apr, [facility] [address] [id number] [address] [place] [address], [place] [address] Apr, [facility] [address] [id number] [address] [place] [address], [place] [address] Apr, [facility] [address] [id number] [address] [place] [address], [place] [address] Apr, [facility] [address] [id number] [address] [place] [address], [place] [address] Apr, [facility] [address] [id number] [address] [place] [address], [place] [address] Mar, [facility] [address] [id number] [address] [place] [address], [place] [address] Mar, [facility] [address] [id number] [address] [place] [address], [place] [address] Feb, [facility] [address] [id number] [address] [place] [address], [place] [address] Feb, [facility] [address] [id number] [address] [place] [address], [place] [address] Feb, [facility] [address] [id number] [address] [place] [address], [place] [address] Feb, [facility] [address] [id number] [address] [place] [address], [place] [address] Nov, [facility] [address] [id number] [address] [place] [address], [place] [address] Nov, [facility] [address] [id number] [address] [place] [address], [place] [address] Oct, [facility] [address] [id number] [address] [place] [address], [place] [address] Jul, [facility] [address] [id number] [address] [place] [address], [place] [address] May, [facility] [address] [id number] [address] [place] [address], [place] [address] Apr, [facility] [address] [id number] [address] [place] [address], [place] [address] Apr, [facility] [address] [id number] [address] [place] [address] Mar, [facility] [address] [id number] [address] [place] [address], [place] [address] Mar, [facility] [address] [id number] [address] [place] [address] Dec, [facility] [address] [id number] [address] [place] [address] Dec, [facility] [address] [id number] [address] [place] [address] Oct, [facility] [address] [id number] [address] [place] [address], [place] [address] Sep, [facility] [address] [id number] [address] [place] [address], [place] [address] Sep, [facility] [address] [id number] [address] [place] [address], [place] [address] Sep, [facility] [address] [id number] [address] [place] [address], [place] [address] Aug, [facility] [address] [id number] [address] [place] [address], [place] [address] Jul, [facility] [address] [id number] [address] [place] [address], [place] [address] Jul, [facility] [address] [id number] [address] [place] [address], [place] [address] June, [facility] [address] [id number] [address] [place] [address], [place] [address] June, [facility] [address] [id number] [address] [place] [address], [place] [address] Apr, [facility] [address] [id number] [address] [place] [address], [place] [address] Apr, [facility] [address] [id number] [address] [place] [address], [place] [address] Apr, [facility] [address] [id number] [address] [place] [address], [place] [address] Apr, [facility] [address] [id number] [address] [place] [address], [place] [address] Mar, [facility] [address] [id number] [address] [place] [address], [place] [address] Jan, [facility] [address] [id number] [address] [place] [address], [place] [address] Jan, [facility] [address] [id number] [address] [place] [address] Jan, [facility] [address] [id number] [address] [place] [address] Jan, [facility] [address] [id number] [address] [place] [address] Dec, [facility] [address] [id number] [address] [place] [address] Nov, [facility] [address] [id number] [address] [place] [address] Sep, [facility] [address] [id number] [address] [place] [address] Jul, [facility] [address] [id number] [address] [place] [address] Jan, [facility] [address] [id number] [address] [place] [address] Jan, [facility] [address] [id number] [address] [place] [address] Jan, [facility] [address] [id number] [address] [place] [address] Jan, [facility] [address] [id number] [address] [place] [address] Dec, [facility] [address] [id number] [address] [place] [address] Dec, [facility] [address] [id number] [address] [place] [address] May, IMMUNIZATIONS No Known Immunizations SOCIAL HISTORY Never Assessed REASON FOR VISIT [place] [place] OF CARE VITAL SIGNS MEDICATIONS Medication Instructions Dosage Frequency Start Date End Date Duration S tatus Bactrim DS 800-160 mg 1 tablet by Oral route 2 times p er day for 10 day(s) Jul, Active Hydrochlorothiazide 25 mg take 1 tablet (25 mg) by ora l route once daily Jan, Active Omeprazole 20 mg take 1 capsule by Or al route before a meal 1 time per day needs appt before further refills Oct, Active PredniSONE 20 mg 1 tablet by Oral route 1 time per day for 5 day(s) Oct, Active Amoxicillin 500 mg 1 capsule by Oral route 3 times per day for 10 days June, Active Augmentin 875-125 mg 1 tablet by Oral route 2 times pe r day for 10 day(s) Oct, Active Cipro 500 mg 1 tablet by Oral route every 12 hours for 7 day(s) Apr, Active Doxycycline Hyclate 100 mg 1 tablet by Oral rout e 2 times per day for 10 days Dec, Active RESULTS No Results PROCEDURES No Known procedures INSTRUCTIONS MEDICATIONS ADMINISTERED No Known Medications MEDICAL (GENERAL) HISTORY Type Description Date Medical History hypertension Medical History Acid reflux
--- OUTSIDE RECORDS SUMMARY | 2019-05-25 21:54 | XMS REPORT ---
Author Author Eula STEWARD Organization [facility] Address [address] [place] [address] Care Team Providers Care Solidworks Drafter Name Role Phone ANTONIA STEWARD Unavailable PROBLEMS Type Condition ICD9-CM Code [id number] Code Onset Dates Condition S tatus SNOMED Code Problem GERD (gastroesophageal reflux disease) K21.9 Active 489444609 Problem Hypertension I10 Active 0593321 3 Problem Hyperlipidemia E78.5 Active 73500 004 ALLERGIES No Information ENCOUNTERS Encounter Location Date Diagnosis [place] [address] [address] Apr, [address] [address] Apr, Hypertension I10 and Hypokalemia E87.6 [place] [address] [address] Jan, Hypokalemia E87.6 [place] [address] [address] Jan, Hypertension I10 [place] [address] [address] Jan, Hypertension I10 ; GERD (gastroesophagea l reflux disease) K21.9 and Hyperlipidemia E78.5 [place] [address] [address] Oct, [place] [address] [address] June, Sinusitis 473.9 [place] [address] [address] June, [address] [address] 14 May, 2014 [facility] [address] [facility] [id number] [place] [address] 13 May, 2014 [facility] [address] [id number] [place] [address] Feb, [facility] [address] [id number] [place] [address] Feb, [facility] [address] [id number] [place] [address] Jan, [facility] [address] [id number] [place] [address] Jan, [facility] [address] [id number] [place] [address] Dec, [facility] [address] [id number] [place] [address] Dec, [facility] [address] [id number] [place] [address] Dec, [facility] [address] [id number] [place] [address] Dec, [facility] [address] [id number] [place] [address] Dec, [facility] [address] [id number] [place] [address] Dec, [facility] [address] [id number] [place] [address] Oct, [facility] [address] [id number] [place] [address] Oct, [facility] [address] [id number] [place] [address] Aug, [facility] [address] [id number] [place] [address] Aug, [facility] [address] [id number] [place] [address] Jul, [facility] [address] [facility] [id number] [place] [address] Jul, [facility] [address] [facility] [id number] [place] [address] Apr, [facility] [address] [facility] [id number] [place] [address] Apr, [facility] [address] [id number] [place] [address] Apr, [facility] [address] [id number] [place] [address] Apr, [facility] [address] [id number] [place] [address] Apr, [facility] [address] [id number] [place] [address] Apr, [facility] [address] [id number] [place] [address] Apr, [facility] [address] [id number] [place] [address] Apr, [facility] [address] [id number] [place] [address] Apr, [facility] [address] [id number] [place] [address] Apr, [facility] [address] [id number] [place] [address] Apr, [facility] [address] [id number] [place] [address] Mar, [facility] [address] [facility] [id number] [place] [address] Mar, [facility] [address] [id number] [place] [address] Feb, [facility] [address] [id number] [place] [address] Feb, [facility] [address] [id number] [place] [address] Feb, [facility] [address] [id number] [place] [address] Feb, [facility] [address] [id number] [place] [address] Nov, [facility] [address] [id number] [place] [address] Nov, [facility] [address] [id number] [place] [address] Oct, [facility] [address] [id number] [place] [address] Jul, [facility] [address] [id number] [place] [address] May, [facility] [address] [id number] [place] [address] Apr, [facility] [address] [id number] [place] [address] Apr, [facility] [address] [id number] [place] [address] Mar, [facility] [address] [id number] [place] [address] Mar, [facility] [address] [id number] [place] [address] Dec, [facility] [address] [id number] [place] [address] Dec, [facility] [address] [id number] [place] [address] Oct, [facility] [address] [id number] [place] [address] Sep, [facility] [address] [id number] [place] [address] Sep, [facility] [address] [id number] [place] [address] Sep, [facility] [address] [id number] [place] [address] Aug, [facility] [address] [id number] [place] [address] Jul, [facility] [address] [id number] [place] [address] Jul, [facility] [address] [id number] [place] [address] June, [facility] [address] [id number] [place] [address] June, [facility] [address] [id number] [place] [address] Apr, [facility] [address] [id number] [place] [address] Apr, [facility] [address] [id number] [place] [address] Apr, [facility] [address] [id number] [place] [address] Apr, [facility] [address] [id number] [place] [address] Mar, [facility] [address] [id number] [place] [address] Jan, [facility] [address] [id number] [place] [address] Jan, [facility] [address] [id number] [place] [address] Jan, [facility] [address] [id number] [place] [address] Jan, [facility] [address] [place] [id number] [place] [address] Dec, [facility] [address] [id number] [place] [address] Nov, [facility] [address] [id number] [place] [address] Sep, [facility] [address] [id number] [place] [address] Jul, [facility] [address] [id number] [place] [address] Jan, [facility] [address] [id number] [place] [address] Jan, [facility] [address] [id number] [place] [address] Jan, [facility] [address] [id number] [place] [address] Jan, [facility] [address] [id number] [place] [address] Dec, [facility] [address] [id number] [place] [address] Dec, [facility] [id number] [place] [address] May, IMMUNIZATIONS No Known Immunizations SOCIAL HISTORY Never Assessed REASON FOR VISIT PLAN OF CARE VITAL SIGNS Height 62 in 2013-04-20 Weight 192 lbs 2013-04-20 Temperature 98 degrees Fahrenheit 2013-04-20 Heart Rate 92 bpm 2013-04-20 Respiratory Rate 20 2013-04-20 Blood pressure systolic 140 mmHg 2013-04-20 Blood pressure diastolic 82 mmHg 2013-04-20 MEDICATIONS Unknown Medications RESULTS No Results PROCEDURES No Known procedures INSTRUCTIONS MEDICATIONS ADMINISTERED No Known Medications MEDICAL (GENERAL) HISTORY Type Description Date Medical History hypertension Medical History Acid reflux
--- OUTSIDE RECORDS SUMMARY | 2019-05-25 21:54 | XMS REPORT ---
Author Author Eula Garcia Organization [facility] Address [address] [place] [address] Care Team Providers Care Heading Saw Operator Name Role Phone BILL Garcia Unavailable PROBLEMS Type Condition ICD9-CM Code [id number] Code Onset Dates Condition S tatus SNOMED Code Problem GERD (gastroesophageal reflux disease) K21.9 Active [id number] Problem Hypertension I10 Active 8304324 3 Problem Hyperlipidemia E78.5 Active 46905 004 ALLERGIES No Information ENCOUNTERS Encounter Location Date Diagnosis [address] [address] Apr, [address] [address] Apr, Hypertension I10 and Hypokal emia E87.[address] [address] Jan, Hypokalemia E87.6 [place] [address] [address] [place] [id number] [address] [place] [address] Jan, Hypertension I10 [place] [id number] [address] [place] [address] Jan, Hypertension I10 ; GERD (gas troesophageal reflux disease) K21.9 and Hyperlipidemia E78.[address] [address] Oct, [place] [address] [place] [id number] [address] [place] [address] June, Sinusitis 473.9 [place] [address] [address] June, [facility] [address] [id number] [address] [place] [address], [place] [address] May, [facility] [address] [id number] [address] [place] [address], [place] [address] May, [facility] [address] [id number] [address] [place] [address], [place] [address] Feb, [facility] [address] [id number] [address] [place] [address], [place] [address] Feb, [facility] [address] [id number] [address] [place] [address], [place] [address] Jan, [facility] [address] [id number] [address] [place] [address], [place] [address] Jan, [facility] [address] [id number] [address] [place] [address], [place] [address] Dec, [facility] [address] [id number] [address] [place] [address], [place] [address] Dec, [facility] [address] [id number] [address] [place] [address], [place] [address] Dec, [facility] [address] [id number] [address] [place] [address], [place] [address] Dec, [facility] [address] [id number] [address] [place] [address], [place] [address] Dec, [facility] [address] [id number] [address] [place] [address], [place] [address] Dec, [facility] [address] [id number] [address] [place] [address], [place] [address] Oct, [facility] [address] [id number] [address] [place] [address], [place] [address] Oct, [facility] [address] [id number] [address] [place] [address], [place] [address] Aug, [facility] [address] [id number] [facility] [address] Aug, [facility] [address] [id number] [address] [place] [address], [place] [address] Jul, [facility] [address] [id number] [address] [place] [address], [place] [address] Jul, [facility] [address] [id number] [address] [place] [address], [place] [address] Apr, [facility] [address] [id number] [address] [place] [address], [place] [address] Apr, [facility] [address] [id number] [address] [place] [address], [place] [address] Apr, [facility] [address] [id number] [address] [place] [address], [place] [address] Apr, [facility] [address] [id number] [address] [place] [address], [place] [address] Apr, [facility] [address] [id number] [address] [place] [address], [place] [address] Apr, [facility] [address] [id number] [address] [place] [address], [place] [address] Apr, [facility] [address] [id number] [address] [place] [address], [place] [address] Apr, [facility] [address] [id number] [address] [place] [address], [place] [address] Apr, [facility] [address] [id number] [address] [place] [address], [place] [address] Apr, [facility] [address] [id number] [address] [place] [address], [place] [address] Apr, [facility] [address] [id number] [address] [place] [address], [place] [address] Mar, [facility] [address] [id number] [address] [place] [address], [place] [address] Mar, [facility] [address] [id number] [address] [place] [address], [place] [address] Feb, [facility] [address] [id number] [address] [place] [address], [place] [address] Feb, [facility] [address] [id number] [address] [place] [address], [place] [address] Feb, [facility] [address] [id number] [address] [place] [address], [place] [address] Feb, [facility] [address] [id number] [address] [place] [address], [place] [address] Nov, [facility] [address] [id number] [address] [place] [address], [place] [address] Nov, [facility] [address] [id number] [address] [place] [address], [place] [address] Oct, [facility] [address] [id number] [address] [place] [address], [place] [address] Jul, [facility] [address] [id number] [address] [place] [address], [place] [address] May, [facility] [address] [id number] [address] [place] [address], [place] [address] Apr, [facility] [address] [id number] [address] [place] [address], [place] [address] Apr, [facility] [address] [id number] [address] [place] [address] Mar, [facility] [address] [id number] [address] [place] [address], [place] [address] Mar, [facility] [address] [id number] [address] [place] [address] Dec, [facility] [address] [id number] [address] [place] [address] Dec, [facility] [address] [id number] [address] [place] [address] Oct, [facility] [address] [id number] [address] [place] [address], [place] [address] Sep, [facility] [address] [id number] [address] [place] [address], [place] [address] Sep, [facility] [address] [id number] [address] [place] [address], [place] [address] Sep, [facility] [address] [id number] [address] [place] [address], [place] [address] Aug, [facility] [address] [id number] [address] [place] [address], [place] [address] Jul, [facility] [address] [id number] [address] [place] [address], [place] [address] Jul, [facility] [address] [id number] [address] [place] [address], [place] [address] June, [facility] [address] [id number] [address] [place] [address], [place] [address] June, [facility] [address] [id number] [address] [place] [address], [place] [address] Apr, [facility] [address] [id number] [address] [place] [address], [place] [address] Apr, [facility] [address] [id number] [address] [place] [address], [place] [address] Apr, [facility] [address] [id number] [address] [place] [address], [place] [address] Apr, [facility] [address] [id number] [address] [place] [address], [place] [address] Mar, [facility] [address] [id number] [address] [place] [address], [place] [address] Jan, [facility] [address] [id number] [address] [place] [address], [place] [address] Jan, [facility] [address] [id number] [address] [place] [address] Jan, [facility] [address] [id number] [address] [place] [address] Jan, [facility] [address] [id number] [address] [place] [address] Dec, [facility] [address] [id number] [address] [place] [address] Nov, [facility] [address] [id number] [address] [place] [address] Sep, [facility] [address] [id number] [address] [place] [address] Jul, [facility] [address] [id number] [address] [place] [address] Jan, [facility] [address] [id number] [address] [place] [address] Jan, [facility] [address] [id number] [address] [place] [address] Jan, [facility] [address] [id number] [address] [place] [address] Jan, [facility] [address] [id number] [address] [place] [address] Dec, [facility] [address] [id number] [address] [place] [address] Dec, [facility] [address] [id number] [address] [place] [address] 13 May, 2009 IMMUNIZATIONS No Known Immunizations SOCIAL HISTORY Never Assessed REASON FOR VISIT PLAN OF CARE VITAL SIGNS MEDICATIONS Unknown Medications RESULTS No Results PROCEDURES No Known procedures INSTRUCTIONS MEDICATIONS ADMINISTERED No Known Medications MEDICAL (GENERAL) HISTORY Type Description Date Medical History hypertension Medical History Acid reflux
--- OUTSIDE RECORDS SUMMARY | 2019-05-25 21:54 | XMS REPORT ---
Author Author Eula Manning Doctor Organization [facility] Address Unknown Phone Unavailable Care Team Providers Care Director Alumni Relations Name Role Phone Migration, Doctor Unavailable Unavailable PROBLEMS Type Condition ICD9-CM Code XCA32-AC Code Onset Dates Condition S tatus SNOMED Code Problem GERD (gastroesophageal reflux disease) K21.9 Active [id number] Problem Hypertension I10 Active 4993494 3 Problem Hyperlipidemia E78.5 Active 94953 004 ALLERGIES No Information ENCOUNTERS Encounter Location Date Diagnosis [place] [address] [place] [id number] [place] [address] Apr, [place] [address] [address] Apr, Hypertension I10 and Hypokal emia E87.6 [place] [address] [place] [id number] [address] [place] [address] Jan, Hypokalemia E87.6 [place] [address] [place] [id number] [address] [place] [address] Jan, Hypertension I10 [place] [address] [place] [id number] [address] [place] [address] Jan, Hypertension I10 ; GERD (gas troesophageal reflux disease) K21.9 and Hyperlipidemia E78.5 [place] [address] [facility] [id number] [address] [place] [address] Oct, [place] [address] [place] [id number] [address] [place] [address] June, Sinusitis 473.9 [place] [address] [place] [id number] [address] [place] [address] June, [place] [address] [address] May, [facility] [address] [id number] [address] [place] [address], [place] [address] May, [facility] [address] [id number] [address] [place] [address], [place] [address] Feb, [facility] [address] [id number] [address] [place] [address], [place] [address] Feb, [facility] [address] [id number] [address] [place] [address], [place] [address] Jan, [facility] [address] [id number] [address] [place] [address], [place] [address] Jan, [facility] [address] [id number] [address] [place] [address], [place] [address] Dec, [facility] [address] [id number] [address] [place] [address], [place] [address] Dec, [facility] [address] [id number] [address] [place] [address], [place] [address] Dec, [facility] [address] [id number] [address] [place] [address], [place] [address] Dec, [facility] [address] [id number] [address] [place] [address], [place] [address] Dec, [facility] [address] [id number] [address] [place] [address], [place] [address] Dec, [facility] [address] [id number] [address] [place] [address], [place] [address] Oct, [facility] [address] [id number] [address] [place] [address], [place] [address] Oct, [facility] [address] [id number] [address] [place] [address], [place] [address] Aug, [facility] [address] [id number] [address] [place] [address], [place] [address] Aug, [facility] [address] [id number] [address] [place] [address], [place] [address] Jul, [facility] [address] [id number] [address] [place] [address], [place] [address] Jul, [facility] [address] [id number] [address] [place] [address], [place] [address] Apr, [facility] [address] [id number] [address] [place] [address], [place] [address] Apr, [facility] [address] [id number] [address] [place] [address], [place] [address] Apr, [facility] [address] [id number] [address] [place] [address], [place] [address] Apr, [facility] [address] [id number] [address] [place] [address], [place] [address] Apr, [facility] [address] [id number] [address] [place] [address], [place] [address] Apr, [facility] [address] [id number] [address] [place] [address], [place] [address] Apr, [facility] [address] [id number] [address] [place] [address], [place] [address] Apr, [facility] [address] [id number] [address] [place] [address], [place] [address] Apr, [facility] [address] [id number] [address] [place] [address], [place] [address] Apr, [facility] [address] [id number] [address] [place] [address], [place] [address] Apr, [facility] [address] [id number] [address] [place] [address], [place] [address] Mar, [facility] [address] [id number] [address] [place] [address], [place] [address] Mar, [facility] [address] [id number] [address] [place] [address], [place] [address] Feb, [facility] [address] [id number] [address] [place] [address], [place] [address] Feb, [facility] [address] [id number] [address] [place] [address], [place] [address] Feb, [facility] [address] [id number] [address] [place] [address], [place] [address] Feb, [facility] [address] [id number] [address] [place] [address], [place] [address] Nov, [facility] [address] [id number] [address] [place] [address], [place] [address] Nov, [facility] [address] [id number] [address] [place] [address], [place] [address] Oct, [facility] [address] [id number] [address] [place] [address], [place] [address] Jul, [facility] [address] [id number] [address] [place] [address], [place] [address] May, [facility] [address] [id number] [address] [place] [address], [place] [address] Apr, [facility] [address] [id number] [address] [place] [address], [place] [address] Apr, [facility] [address] [id number] [address] [place] [address], [place] [address] Mar, [facility] [address] [id number] [address] [place] [address], [place] [address] 05 Mar, 2012 [facility] [address] [id number] [address] [place] [address], [place] [address] Dec, [facility] [address] [id number] [address] [place] [address], [place] [address] Dec, [facility] [address] [id number] [address] [place] [address], [place] [address] 28 Oct, 2011 [facility] [address] [id number] [address] [place] [address], [place] [address] Sep, [facility] [address] [id number] [address] [place] [address], [place] [address] Sep, [facility] [address] [id number] [address] [place] [address], [place] [address] Sep, [facility] [address] [id number] [address] [place] [address], [place] [address] Aug, [facility] [address] [id number] [address] [place] [address], [place] [address] Jul, [facility] [address] [id number] [address] [place] [address], [place] [address] Jul, [facility] [address] [id number] [address] [place] [address], [place] [address] June, [facility] [address] [id number] [address] [place] [address], [place] [address] June, [facility] [address] [id number] [address] [place] [address], [place] [address] Apr, [facility] [address] [id number] [address] [place] [address], [place] [address] Apr, [facility] [address] [id number] [address] [place] [address], [place] [address] Apr, [facility] [address] [id number] [address] [place] [address], [place] [address] Apr, [facility] [address] [id number] [address] [place] [address], [place] [address] Mar, [facility] [address] [id number] [address] [place] [address], [place] [address] Jan, [facility] [address] [id number] [address] [place] [address], [place] [address] Jan, [facility] [address] [id number] [address] [place] [address], [place] [address] Jan, [facility] [address] [id number] [address] [place] [address] Jan, [facility] [address] [id number] [address] [place] [phone] Dec, [facility] [address] [id number] [address] [place] [id number] Nov, [facility] [address] [id number] [address] [place] [id number] Sep, [facility] [address] [id number] [address] [place] [id number] Jul, [facility] [address] [id number] [address] [place] [phone] Jan, [facility] [address] [id number] [address] [place] [id number] Jan, [facility] [address] [id number] [address] [place] [id number] Jan, [facility] [address] [id number] [address] [place] [id number] Jan, [facility] [address] [id number] [address] [place] [phone] Dec, [facility] [address] [id number] [address] [place] [phone] Dec, [facility] [address] [id number] [address] [place] [id number] May, IMMUNIZATIONS No Known Immunizations SOCIAL HISTORY Never Assessed REASON FOR VISIT [facility] [place] VITAL SIGNS MEDICATIONS Unknown Medications RESULTS No Results PROCEDURES No Known procedures INSTRUCTIONS MEDICATIONS ADMINISTERED No Known Medications MEDICAL (GENERAL) HISTORY Type Description Date Medical History hypertension Medical History Acid reflux
--- OUTSIDE RECORDS SUMMARY | 2019-05-25 21:54 | XMS REPORT ---
Author Author Eula TOBAR Organization [facility] Address [address] [place] [address] Care Team Providers Care Applied Exercise Physiologist Name Role Phone LUIS ENRIQUE TOBAR Unavailable PROBLEMS Type Condition ICD9-CM Code [id number] Code Onset Dates Condition S tatus SNOMED Code Problem GERD (gastroesophageal reflux disease) K21.9 Active 151862512 Problem Hypertension I10 Active 9532769 3 Problem Hyperlipidemia E78.5 Active 79773 004 ALLERGIES No Information ENCOUNTERS Encounter Location Date Diagnosis [address] [address] Apr, [address] [address] Apr, Hypertension I10 and Hypokal emia E87.[address] [address] Jan, Hypokalemia E87.[address] [address] Jan, Hypertension I10 [address] [address] Jan, Hypertension I10 ; GERD (gas troesophageal reflux disease) K21.9 and Hyperlipidemia E78.[address] [address] Oct, [address] [address] June, Sinusitis 473.[address] [address] June, [facility] [address] [id number] [address] [place] [address], [place] [address] May, [facility] [address] [id number] [address] [place] [address], [place] [address] May, [facility] [address] [id number] [address] [place] [address], [place] [address] Feb, [facility] [address] [id number] [address] [place] [address], [place] [address] Feb, [facility] [address] [id number] [address] [place] [address], [place] [address] Jan, [facility] [address] [id number] [address] [place] [address], [place] [address] Jan, [facility] [address] [id number] [address] [place] [address], [place] [address] Dec, [facility] [address] [id number] [address] [place] [address], [place] [address] Dec, [facility] [address] [id number] [address] [place] [address], [place] [address] Dec, [facility] [address] [id number] [address] [place] [address], [place] [address] Dec, [facility] [address] [id number] [address] [place] [address], [place] [address] Dec, [facility] [address] [id number] [address] [place] [address], [place] [address] Dec, [facility] [address] [id number] [address] [place] [address], [place] [address] Oct, [facility] [address] [id number] [address] [place] [address], [place] [address] Oct, [facility] [address] [id number] [address] [place] [address], [place] [address] Aug, [facility] [address] [id number] [facility] [place] [address] Aug, [facility] [address] [id number] [facility] [place] [address] Jul, [facility] [address] [id number] [facility] [place] [address] Jul, [facility] [address] [id number] [address] [place] [address], [place] [address] Apr, [facility] [address] [id number] [address] [place] [address], [place] [address] Apr, [facility] [address] [id number] [address] [place] [address], [place] [address] Apr, [facility] [address] [id number] [address] [place] [address], [place] [address] Apr, [facility] [address] [id number] [address] [place] [address], [place] [address] Apr, [facility] [address] [id number] [address] [place] [address], [place] [address] Apr, [facility] [address] [id number] [address] [place] [address], [place] [address] Apr, [facility] [address] [id number] [address] [place] [address], [place] [address] Apr, [facility] [address] [id number] [address] [place] [address], [place] [address] Apr, [facility] [address] [id number] [address] [place] [address], [place] [address] Apr, [facility] [address] [id number] [address] [place] [address], [place] [address] Apr, [facility] [address] [id number] [address] [place] [address], [place] [address] Mar, [facility] [address] [id number] [address] [place] [address], [place] [address] Mar, [facility] [address] [id number] [address] [place] [address], [place] [address] Feb, [facility] [address] [id number] [address] [place] [address], [place] [address] Feb, [facility] [address] [id number] [address] [place] [address], [place] [address] Feb, [facility] [address] [id number] [address] [place] [address], [place] [address] Feb, [facility] [address] [id number] [address] [place] [address], [place] [address] Nov, [facility] [address] [id number] [address] [place] [address], [place] [address] Nov, [facility] [address] [id number] [address] [place] [address], [place] [address] Oct, [facility] [address] [id number] [address] [place] [address], [place] [address] Jul, [facility] [address] [id number] [address] [place] [address], [place] [address] May, [facility] [address] [id number] [address] [place] [address], [place] [address] Apr, [facility] [address] [id number] [address] [place] [address], [place] [address] Apr, [facility] [address] [id number] [address] [place] [address] Mar, [facility] [address] [id number] [address] [place] [address], [place] [address] Mar, [facility] [address] [id number] [address] [place] [address], [place] [address] Dec, [facility] [address] [id number] [address] [place] [address], [place] [address] Dec, [facility] [address] [id number] [address] [place] [address] [place] [address] Oct, [facility] [address] [id number] [address] [place] [address], [place] [address] Sep, [facility] [address] [id number] [address] [place] [address], [place] [address] Sep, [facility] [address] [id number] [address] [place] [address], [place] [address] Sep, [facility] [address] [id number] [address] [place] [address], [place] [address] Aug, [facility] [address] [id number] [address] [place] [address], [place] [address] Jul, [facility] [address] [id number] [address] [place] [address], [place] [address] Jul, [facility] [address] [id number] [address] [place] [address], [place] [address] June, [facility] [address] [id number] [address] [place] [address], [place] [address] June, [facility] [address] [id number] [address] [place] [address], [place] [address] Apr, [facility] [address] [id number] [address] [place] [address], [place] [address] Apr, [facility] [address] [id number] [address] [place] [address], [place] [address] Apr, [facility] [address] [id number] [address] [place] [address], [place] [address] Apr, [facility] [address] [id number] [address] [place] [address], [place] [address] Mar, [facility] [address] [id number] [address] [place] [address], [place] [address] Jan, [facility] [address] [id number] [address] [place] [address], [place] [address] Jan, [facility] [address] [id number] [address] [place] [address] Jan, [facility] [address] [id number] [address] [place] [address] Jan, [facility] [address] [id number] [address] [place] [address] Dec, [facility] [address] [id number] [address] [place] [address] Nov, [facility] [address] [id number] [address] [place] [address] Sep, [facility] [address] [id number] [address] [place] [address] Jul, [facility] [address] [id number] [address] [place] [id number] 15 Jan, 2010 [facility] [address] [id number] [address] [place] [id number] 15 Jan, 2010 [facility] [address] [id number] [address] [place] [address] Jan, [facility] [address] [id number] [address] [place] [id number] 06 Jan, 2010 [facility] [address] [id number] [address] [place] [id number] 08 Dec, 2009 [facility] [address] [id number] [address] [place] [id number] 05 Dec, 2009 [facility] [address] [id number] [address] [place] [address] 13 May, 2009 IMMUNIZATIONS No Known Immunizations SOCIAL HISTORY Never Assessed REASON FOR VISIT PLAN OF CARE VITAL SIGNS Height 62 in 2013-09-16 Weight 185.1 lbs 2013-09-16 Temperature 97.8 degrees Fahrenheit 2013-09-16 Heart Rate 80 bpm 2013-09-16 Respiratory Rate 18 2013-09-16 Blood pressure systolic 124 mmHg 2013-09-16 Blood pressure diastolic 78 mmHg 2013-09-16 MEDICATIONS Unknown Medications RESULTS No Results PROCEDURES No Known procedures INSTRUCTIONS MEDICATIONS ADMINISTERED No Known Medications MEDICAL (GENERAL) HISTORY Type Description Date Medical History hypertension Medical History Acid reflux
--- OUTSIDE RECORDS SUMMARY | 2019-05-25 21:54 | XMS REPORT ---
Author Author Eula STEWARD Organization [facility] Address [address] [place] [address] Care Team Providers Care Building Repair Maintenance Supervisor Name Role Phone ANTONIA STEWARD Unavailable PROBLEMS Type Condition ICD9-CM Code [id number] Code Onset Dates Condition S tatus SNOMED Code Problem GERD (gastroesophageal reflux disease) K21.9 Active [id number] Problem Hypertension I10 Active 4438275 3 Problem Hyperlipidemia E78.5 Active 12897 004 ALLERGIES No Information ENCOUNTERS Encounter Location Date Diagnosis [place] [address] [address] Apr, [place] [address] [address] Apr, Hypertension I10 and Hypokal emia E87.[address] [address] Jan, Hypokalemia E87.6 [place] [address] [address] [place] [id number] [place] [address] Jan, Hypertension I10 [facility] [address] [address] Jan, Hypertension I10 ; GERD (gas troesophageal reflux disease) K21.9 and Hyperlipidemia E78.5 [place] [address] [address] [place] [id number] [address] [place] [address] Oct, [place] [address] [address] [place] [id number] [place] [address] June, Sinusitis 473.9 [place] [address] [address] June, [facility] [address] [id number] [address] [place] [address], [place] [address] May, [facility] [address] [id number] [address] [place] [address], [place] [address] May, [facility] [address] [id number] [address] [place] [address], [place] [address] Feb, [facility] [address] [id number] [address] [place] [address], [place] [address] Feb, [facility] [address] [id number] [address] [place] [address], [place] [address] Jan, [facility] [address] [id number] [address] [place] [address], [place] [address] Jan, [facility] [address] [id number] [address] [place] [address], [place] [address] Dec, [facility] [address] [id number] [address] [place] [address], [place] [address] Dec, [facility] [address] [id number] [address] [place] [address], [place] [address] Dec, [facility] [address] [id number] [address] [place] [address], [place] [address] Dec, [facility] [address] [id number] [address] [place] [address], [place] [address] Dec, [facility] [address] [id number] [address] [place] [address], [place] [address] Dec, [facility] [address] [id number] [address] [place] [address], [place] [address] Oct, [facility] [address] [id number] [address] [place] [address], [place] [address] Oct, [facility] [address] [id number] [address] [place] [address], [place] [address] Aug, [facility] [address] [id number] [address] [place] [address], [place] [address] Aug, [facility] [address] [id number] [facility] [place] [address] Jul, [facility] [address] [id number] [address] [place] [address], [place] [address] Jul, [facility] [address] [id number] [address] [place] [address], [place] [address] Apr, [facility] [address] [id number] [address] [place] [address], [place] [address] Apr, [facility] [address] [id number] [address] [place] [address], [place] [address] Apr, [facility] [address] [id number] [address] [place] [address], [place] [address] Apr, [facility] [address] [id number] [address] [place] [address], [place] [address] Apr, [facility] [address] [id number] [address] [place] [address], [place] [address] Apr, [facility] [address] [id number] [address] [place] [address], [place] [address] Apr, [facility] [address] [id number] [address] [place] [address], [place] [address] Apr, [facility] [address] [id number] [address] [place] [address], [place] [address] Apr, [facility] [address] [id number] [address] [place] [address], [place] [address] Apr, [facility] [address] [id number] [address] [place] [address], [place] [address] Apr, [facility] [address] [id number] [address] [place] [address], [place] [address] Mar, [facility] [address] [id number] [address] [place] [address], [place] [address] Mar, [facility] [address] [id number] [address] [place] [address], [place] [address] Feb, [facility] [address] [id number] [address] [place] [address], [place] [address] Feb, [facility] [address] [id number] [address] [place] [address], [place] [address] Feb, [facility] [address] [id number] [address] [place] [address], [place] [address] Feb, [facility] [address] [id number] [address] [place] [address], [place] [address] Nov, [facility] [address] [id number] [address] [place] [address], [place] [address] Nov, [facility] [address] [id number] [address] [place] [address], [place] [address] Oct, [facility] [address] [id number] [address] [place] [address], [place] [address] Jul, [facility] [address] [id number] [address] [place] [address], [place] [address] May, [facility] [address] [id number] [address] [place] [address], [place] [address] Apr, [facility] [address] [id number] [address] [place] [address], [place] [address] Apr, [facility] [address] [id number] [address] [place] [address], [place] [address] 08 Mar, 2012 [facility] [address] [id number] [address] [place] [address], [place] [address] Mar, [facility] [address] [id number] [address] [place] [address], [place] [address] Dec, [facility] [address] [id number] [address] [place] [address], [place] [address] Dec, [facility] [address] [id number] [address] [place] [address], [place] [address] Oct, [facility] [address] [id number] [address] [place] [address], [place] [address] Sep, [facility] [address] [id number] [address] [place] [address], [place] [address] Sep, [facility] [address] [id number] [address] [place] [address], [place] [address] Sep, [facility] [address] [id number] [address] [place] [address], [place] [address] Aug, [facility] [address] [id number] [address] [place] [address], [place] [address] Jul, [facility] [address] [id number] [address] [place] [address], [place] [address] Jul, [facility] [address] [id number] [address] [place] [address], [place] [address] June, [facility] [address] [id number] [address] [place] [address], [place] [address] June, [facility] [address] [id number] [address] [place] [address], [place] [address] Apr, [facility] [address] [id number] [address] [place] [address], [place] [address] Apr, [facility] [address] [id number] [address] [place] [address], [place] [address] Apr, [facility] [address] [id number] [address] [place] [address], [place] [id number] Apr, [facility] [address] [id number] [address] [place] [address], [place] [phone] Mar, [facility] [address] [id number] [address] [place] [address], [place] [id number] Jan, [facility] [address] [id number] [address] [place] [address], [place] [phone] Jan, [facility] [address] [id number] [address] [place] [id number] 20 Jan, 2011 [facility] [address] [id number] [address] [place] [id number] Jan, [facility] [address] [id number] [address] [place] [id number] Dec, [facility] [address] [id number] [address] [place] [phone] Nov, [facility] [address] [id number] [address] [place] [phone] Sep, [facility] [address] [id number] [address] [place] [phone] Jul, [facility] [address] [id number] [address] [place] [phone] 15 Jan, 2010 [facility] [address] [id number] [address] [place] [id number] 15 Jan, 2010 [facility] [address] [id number] [address] [place] [phone] 07 Jan, 2010 [facility] [address] [id number] [address] [place] [phone] 06 Jan, 2010 [facility] [address] [id number] [address] [place] [id number] 08 Dec, 2009 [facility] [address] [id number] [address] [place] [phone] 05 Dec, 2009 [facility] [address] [id number] [address] [place] [phone] 13 May, 2009 IMMUNIZATIONS No Known Immunizations SOCIAL HISTORY Never Assessed REASON FOR VISIT PLAN OF CARE VITAL SIGNS Height 62 in 2011-05-07 Weight 200 lbs 2011-05-07 Temperature 97.7 degrees Fahrenheit 2011-05-07 Heart Rate 100 bpm 2011-05-07 Respiratory Rate 18 2011-05-07 Blood pressure systolic 136 mmHg 2011-05-07 Blood pressure diastolic 94 mmHg 2011-05-07 MEDICATIONS Unknown Medications RESULTS No Results PROCEDURES No Known procedures INSTRUCTIONS MEDICATIONS ADMINISTERED No Known Medications MEDICAL (GENERAL) HISTORY Type Description Date Medical History hypertension Medical History Acid reflux
--- OUTSIDE RECORDS SUMMARY | 2019-05-25 21:54 | XMS REPORT ---
Author Author Eula PRABHAKAR Organization [facility] Address [address] [place] [address] Care Team Providers Care Boilermaker Welder Name Role Phone SHANI PRABHAKAR Unavailable PROBLEMS Type Condition ICD9-CM Code FLV90-NZ Code Onset Dates Condition S tatus SNOMED Code Problem GERD (gastroesophageal reflux disease) K21.9 Active 784745425 Problem Hypertension I10 Active 9559225 3 Problem Hyperlipidemia E78.5 Active 95641 004 ALLERGIES No Information ENCOUNTERS Encounter Location Date Diagnosis [place] [address] [address] Apr, [address] [address] Apr, Hypertension I10 and Hypokalemia E87.6 [place] [address] [address] Jan, Hypokalemia E87.6 [place] [address] [address] Jan, Hypertension I10 [place] [address] [address] Jan, Hypertension I10 ; GERD (gastroesophagea l reflux disease) K21.9 and Hyperlipidemia E78.5 [place] [address] [address] Oct, [address] [address] June, Sinusitis 473.9 [place] [address] [address] June, [place] [address] [place] [address] 14 May, 2014 [facility] [address] [id number] [place] [address] 13 May, 2014 [facility] [address] [id number] [place] [address] Feb, [facility] [address] [id number] [place] [address] Feb, [facility] [address] [id number] [place] [address] Jan, [facility] [address] [id number] [place] [address] Jan, [facility] [address] [id number] [place] [address] Dec, [facility] [address] [id number] [place] [address] Dec, [facility] [address] [id number] [place] [address] Dec, [facility] [address] [id number] [place] [address] Dec, [facility] [address] [id number] [place] [address] Dec, [facility] [address] [id number] [place] [address] Dec, [facility] [address] [id number] [place] [address] Oct, [facility] [address] [id number] [place] [address] Oct, [facility] [address] [id number] [place] [address] Aug, [facility] [address] [id number] [place] [address] Aug, [facility] [address] [id number] [place] [address] Jul, [facility] [address] [id number] [place] [address] Jul, [facility] [address] [id number] [place] [address] Apr, [facility] [address] [id number] [place] [address] Apr, [facility] [address] [id number] [place] [address] Apr, [facility] [address] [id number] [place] [address] Apr, [facility] [address] [id number] [place] [address] Apr, [facility] [address] [id number] [place] [address] Apr, [facility] [address] [id number] [place] [address] Apr, [facility] [address] [id number] [place] [address] Apr, [facility] [address] [id number] [place] [address] Apr, [facility] [address] [id number] [place] [address] Apr, [facility] [address] [id number] [place] [address] Apr, [facility] [address] [id number] [place] [address] Mar, [facility] [address] [id number] [place] [address] Mar, [facility] [address] [id number] [place] [address] Feb, [facility] [address] [id number] [place] [address] Feb, [facility] [address] [id number] [place] [address] Feb, [facility] [address] [id number] [place] [address] Feb, [facility] [address] [id number] [place] [address] Nov, [facility] [address] [id number] [place] [address] Nov, [facility] [address] [id number] [place] [address] Oct, [facility] [address] [id number] [place] [address] Jul, [facility] [address] [id number] [place] [address] May, [facility] [address] [id number] [place] [address] Apr, [facility] [address] [id number] [place] [address] Apr, [facility] [address] [id number] [place] [address] Mar, [facility] [address] [id number] [place] [address] Mar, [facility] [address] [id number] [place] [address] Dec, [facility] [address] [id number] [place] [address] Dec, [facility] [address] [id number] [place] [address] Oct, [facility] [address] [id number] [place] [address] Sep, [facility] [address] [id number] [place] [address] Sep, [facility] [address] [id number] [place] [address] Sep, [facility] [address] [id number] [place] [address] Aug, [facility] [address] [id number] [place] [address] Jul, [facility] [address] [id number] [place] [address] Jul, [facility] [address] [id number] [place] [address] June, [facility] [address] [id number] [place] [address] June, [facility] [address] [id number] [place] [address] Apr, [facility] [address] [id number] [place] [address] Apr, [facility] [address] [id number] [place] [address] Apr, [facility] [address] [id number] [place] [address] Apr, [facility] [address] [id number] [place] [address] Mar, [facility] [address] [id number] [place] [address] Jan, [facility] [address] [id number] [place] [address] Jan, [facility] [address] [id number] [place] [address] Jan, [facility] [address] [id number] [place] [address] Jan, [facility] [address] [id number] [place] [address] Dec, [facility] [address] [id number] [place] [address] Nov, [facility] [address] [id number] [place] [address] Sep, [facility] [address] [id number] [place] [address] Jul, [facility] [address] [place] [id number] [place] [address] Jan, [facility] [address] [place] [id number] [place] [address] Jan, [facility] [address] [place] [id number] [place] [address] Jan, [facility] [address] [place] [id number] [place] [address] Jan, [facility] [address] [place] [id number] [place] [address] Dec, [facility] [address] [id number] [place] [address] Dec, [facility] [address] [place] [id number] [place] [address] May, IMMUNIZATIONS No Known Immunizations SOCIAL HISTORY Never Assessed REASON FOR VISIT PLAN OF CARE VITAL SIGNS MEDICATIONS Unknown Medications RESULTS No Results PROCEDURES No Known procedures INSTRUCTIONS MEDICATIONS ADMINISTERED No Known Medications MEDICAL (GENERAL) HISTORY Type Description Date Medical History hypertension Medical History Acid reflux
--- OUTSIDE RECORDS SUMMARY | 2019-05-25 21:54 | XMS REPORT ---
Author Author Eula PRABHAKAR Organization [facility] Address [address] [place] [address] Care Team Providers Care Test Case Developer Name Role Phone SHANI PRABHAKAR Unavailable PROBLEMS Type Condition ICD9-CM Code FUI88-DS Code Onset Dates Condition S tatus SNOMED Code Problem GERD (gastroesophageal reflux disease) K21.9 Active 976385816 Problem Hypertension I10 Active 0997307 3 Problem Hyperlipidemia E78.5 Active 25874 004 ALLERGIES No Information ENCOUNTERS Encounter Location Date Diagnosis [place] [address] [address] Apr, [place] [address] [address] Apr, Hypertension I10 and Hypokal emia E87.[address] [address] Jan, Hypokalemia E87.6 [place] [address] [address] Jan, Hypertension I10 [place] [address] [address] Jan, Hypertension I10 ; GERD (gas troesophageal reflux disease) K21.9 and Hyperlipidemia E78.5 [place] [address] [address] Oct, [place] [address] [address] June, Sinusitis 473.9 [place] [address] [address] June, [facility] [address] [id number] [address] [place] [address], [place] [address] May, [facility] [address] [id number] [address] [place] [address], [place] [address] May, [facility] [address] [id number] [address] [place] [address], [place] [address] Feb, [facility] [address] [id number] [address] [place] [address], [place] [address] Feb, [facility] [address] [id number] [address] [place] [address], [place] [address] Jan, [facility] [address] [id number] [address] [place] [address], [place] [address] Jan, [facility] [address] [id number] [address] [place] [address], [place] [address] Dec, [facility] [address] [id number] [address] [place] [address], [place] [address] Dec, [facility] [address] [id number] [address] [place] [address], [place] [address] Dec, [facility] [address] [id number] [address] [place] [address], [place] [address] Dec, [facility] [address] [id number] [address] [place] [address], [place] [address] Dec, [facility] [address] [id number] [address] [place] [address] Dec, [facility] [address] [id number] [address] [place] [address], [place] [address] Oct, [facility] [address] [id number] [address] [place] [address], [place] [address] Oct, [facility] [address] [id number] [address] [place] [address], [place] [address] Aug, [facility] [address] [id number] [address] [place] [address], [place] [address] Aug, [facility] [address] [id number] [facility] [place] [address] Jul, [facility] [address] [id number] [address] [place] [address], [place] [address] Jul, [facility] [address] [id number] [address] [place] [address], [place] [address] Apr, [facility] [address] [id number] [address] [place] [address], [place] [address] Apr, [facility] [address] [id number] [address] [place] [address], [place] [address] Apr, [facility] [address] [id number] [address] [place] [address], [place] [address] Apr, [facility] [address] [id number] [address] [place] [address], [place] [address] Apr, [facility] [address] [id number] [address] [place] [address], [place] [address] Apr, [facility] [address] [id number] [address] [place] [address], [place] [address] Apr, [facility] [address] [id number] [address] [place] [address], [place] [address] Apr, [facility] [address] [id number] [address] [place] [address], [place] [address] Apr, [facility] [address] [id number] [address] [place] [address], [place] [address] Apr, [facility] [address] [id number] [address] [place] [address], [place] [address] Apr, [facility] [address] [id number] [address] [place] [address], [place] [address] Mar, [facility] [address] [id number] [address] [place] [address], [place] [address] Mar, [facility] [address] [id number] [address] [place] [address], [place] [address] Feb, [facility] [address] [id number] [address] [place] [address], [place] [address] Feb, [facility] [address] [id number] [address] [place] [address], [place] [address] Feb, [facility] [address] [id number] [address] [place] [address], [place] [address] Feb, [facility] [address] [id number] [address] [place] [address], [place] [address] Nov, [facility] [address] [id number] [address] [place] [address], [place] [address] Nov, [facility] [address] [id number] [address] [place] [address], [place] [address] Oct, [facility] [address] [id number] [address] [place] [address], [place] [address] Jul, [facility] [address] [id number] [address] [place] [address], [place] [address] May, [facility] [address] [id number] [address] [place] [address], [place] [address] Apr, [facility] [address] [id number] [address] [place] [address], [place] [address] Apr, [facility] [address] [id number] [address] [place] [address], [place] [address] Mar, [facility] [address] [id number] [address] [place] [address], [place] [address] Mar, [facility] [address] [id number] [address] [place] [address], [place] [address] Dec, [facility] [address] [id number] [address] [place] [address], [place] [address] Dec, [facility] [address] [id number] [address] [place] [address] Oct, [facility] [address] [id number] [address] [place] [address], [place] [address] Sep, [facility] [address] [id number] [address] [place] [address], [place] [address] Sep, [facility] [address] [id number] [address] [place] [address], [place] [address] Sep, [facility] [address] [id number] [address] [place] [address], [place] [address] Aug, [facility] [address] [id number] [address] [place] [address], [place] [address] Jul, [facility] [address] [id number] [address] [place] [address], [place] [address] Jul, [facility] [address] [id number] [address] [place] [address], [place] [address] June, [facility] [address] [id number] [address] [place] [address], [place] [address] June, [facility] [address] [id number] [address] [place] [address], [place] [address] Apr, [facility] [address] [id number] [address] [place] [address], [place] [address] Apr, [facility] [address] [id number] [address] [place] [address], [place] [address] Apr, [facility] [address] [id number] [address] [place] [address], [place] [address] Apr, [facility] [address] [id number] [address] [place] [address], [place] [address] Mar, [facility] [address] [id number] [address] [place] [address], [place] [address] Jan, [facility] [address] [id number] [address] [place] [address], [place] [address] Jan, [facility] [address] [id number] [address] [place] [address] Jan, [facility] [address] [id number] [address] [place] [address] Jan, [facility] [address] [id number] [address] [place] [address] Dec, [facility] [address] [id number] [address] [place] [address] Nov, [facility] [address] [id number] [address] [place] [address] Sep, [facility] [address] [id number] [address] [place] [address] Jul, [facility] [address] [id number] [address] [place] [address] Jan, [facility] [address] [id number] [address] [place] [address] 15 Jan, 2010 [facility] [address] [id number] [address] [place] [address] Jan, [facility] [address] [id number] [address] [place] [address] Jan, [facility] [address] [id number] [address] [place] [address] Dec, [facility] [address] [id number] [address] [place] [address] Dec, [facility] [address] [id number] [address] [place] [address] 13 May, 2009 IMMUNIZATIONS No Known Immunizations SOCIAL HISTORY Never Assessed REASON FOR VISIT PLAN OF CARE VITAL SIGNS MEDICATIONS Unknown Medications RESULTS No Results PROCEDURES Procedure Date Ordered Result Body Site COMPLETE CBC W/AUTO DIFF WBC Dec 27, 2013 LIPID PANEL Dec 27, 2013 COMPREHEN METABOLIC PANEL Dec 27, 2013 VENIPUNCT, ROUTINE* Dec 27, 2013 INSTRUCTIONS MEDICATIONS ADMINISTERED No Known Medications MEDICAL (GENERAL) HISTORY Type Description Date Medical History hypertension Medical History Acid reflux
--- OUTSIDE RECORDS SUMMARY | 2019-05-25 21:54 | XMS REPORT ---
Author Author Eula PRABHAKAR Organization [facility] Address [address] [place] [address] Care Team Providers Care Sow Farm Technician Name Role Phone SHANI PRABHAKAR Unavailable PROBLEMS Type Condition ICD9-CM Code [id number]-ST Code Onset Dates Condition S tatus SNOMED Code Problem GERD (gastroesophageal reflux disease) K21.9 Active 185435345 Problem Hypertension I10 Active 7134098 3 Problem Hyperlipidemia E78.5 Active 63089 004 ALLERGIES No Information ENCOUNTERS Encounter Location Date Diagnosis [place] [address] [address] Apr, [address] [address] Apr, Hypertension I10 and Hypokalemia E87.6 [place] [address] [address] Jan, Hypokalemia E87.6 [place] [address] [address] Jan, Hypertension I10 [place] [address] [address] Jan, Hypertension I10 ; GERD (gastroesophagea l reflux disease) K21.9 and Hyperlipidemia E78.5 [place] [address] [address] Oct, [address] [address] June, Sinusitis 473.9 [place] [address] [address] June, [place] [address] [place] [address] 14 May, 2014 [facility] [address] [id number] [place] [address] 13 May, 2014 [facility] [address] [id number] [place] [address] Feb, [facility] [address] [id number] [place] [address] Feb, [facility] [address] [id number] [place] [address] Jan, [facility] [address] [id number] [place] [address] Jan, [facility] [address] [id number] [place] [address] Dec, [facility] [address] [id number] [place] [address] Dec, [facility] [address] [id number] [place] [address] Dec, [facility] [address] [id number] [place] [address] Dec, [facility] [address] [id number] [place] [address] Dec, [facility] [address] [id number] [place] [address] Dec, [facility] [address] [id number] [place] [address] Oct, [facility] [address] [id number] [place] [address] Oct, [facility] [address] [id number] [place] [address] Aug, [facility] [address] [id number] [place] [address] Aug, [facility] [address] [id number] [place] [address] Jul, [facility] [address] [id number] [place] [address] Jul, [facility] [address] [id number] [place] [address] Apr, [facility] [address] [id number] [place] [address] Apr, [facility] [address] [id number] [place] [address] Apr, [facility] [address] [id number] [place] [address] Apr, [facility] [address] [id number] [place] [address] Apr, [facility] [address] [id number] [place] [address] Apr, [facility] [address] [id number] [place] [address] Apr, [facility] [address] [id number] [place] [address] Apr, [facility] [address] [id number] [place] [address] Apr, [facility] [address] [id number] [place] [address] Apr, [facility] [address] [id number] [place] [address] Apr, [facility] [address] [id number] [place] [address] Mar, [facility] [address] [id number] [place] [address] Mar, [facility] [address] [id number] [place] [address] Feb, [facility] [address] [id number] [place] [address] Feb, [facility] [address] [id number] [place] [address] Feb, [facility] [address] [id number] [place] [address] Feb, [facility] [address] [id number] [place] [address] Nov, [facility] [address] [id number] [place] [address] Nov, [facility] [address] [id number] [place] [address] Oct, [facility] [address] [id number] [place] [address] Jul, [facility] [address] [id number] [place] [address] May, [facility] [address] [id number] [place] [address] Apr, [facility] [address] [id number] [place] [address] Apr, [facility] [address] [id number] [place] [address] Mar, [facility] [address] [id number] [place] [address] Mar, [facility] [address] [id number] [place] [address] Dec, [facility] [address] [id number] [place] [address] Dec, [facility] [address] [id number] [place] [address] Oct, [facility] [address] [id number] [place] [address] Sep, [facility] [address] [id number] [place] [address] Sep, [facility] [address] [id number] [place] [address] Sep, [facility] [address] [id number] [place] [address] Aug, [facility] [address] [id number] [place] [address] Jul, [facility] [address] [id number] [place] [address] Jul, [facility] [address] [id number] [place] [address] June, [facility] [address] [id number] [place] [address] June, [facility] [address] [id number] [place] [address] Apr, [facility] [address] [id number] [place] [address] Apr, [facility] [address] [id number] [place] [address] Apr, [facility] [address] [id number] [place] [address] Apr, [facility] [address] [id number] [place] [address] Mar, [facility] [address] [id number] [place] [address] Jan, [facility] [address] [id number] [place] [address] Jan, [facility] [address] [id number] [place] [address] Jan, [facility] [address] [id number] [place] [address] Jan, [facility] [address] [id number] [place] [address] Dec, [facility] [address] [id number] [place] [address] Nov, [facility] [address] [id number] [place] [address] Sep, [facility] [address] [id number] [place] [address] Jul, [facility] [address] [place] [id number] [place] [address] Jan, [facility] [address] [place] [id number] [place] [address] Jan, [facility] [address] [place] [id number] [place] [address] Jan, [facility] [address] [place] [id number] [place] [address] Jan, [facility] [address] [place] [id number] [place] [address] Dec, [facility] [address] [id number] [place] [address] Dec, [facility] [address] [place] [id number] [place] [address] May, IMMUNIZATIONS No Known Immunizations SOCIAL HISTORY Never Assessed REASON FOR VISIT PLAN OF CARE VITAL SIGNS MEDICATIONS Unknown Medications RESULTS No Results PROCEDURES No Known procedures INSTRUCTIONS MEDICATIONS ADMINISTERED No Known Medications MEDICAL (GENERAL) HISTORY Type Description Date Medical History hypertension Medical History Acid reflux
--- OUTSIDE RECORDS SUMMARY | 2019-05-25 21:55 | XMS REPORT ---
Author Author Eula Manning Doctor Organization [facility] Address Unknown Phone Unavailable Care Team Providers Care Oncology Registrar Name Role Phone Migration, Doctor Unavailable Unavailable PROBLEMS Type Condition ICD9-CM Code ABX07-II Code Onset Dates Condition S tatus SNOMED Code Problem GERD (gastroesophageal reflux disease) K21.9 Active 151788842 Problem Hypertension I10 Active 2353383 3 Problem Hyperlipidemia E78.5 Active 30371 004 ALLERGIES No Information ENCOUNTERS Encounter Location Date Diagnosis [place] [address] [place] [id number] [place] [address] Apr, [place] [address] [address] Apr, Hypertension I10 and Hypokal emia E87.6 [place] [address] [place] [id number] [place] [address] Jan, Hypokalemia E87.6 [place] [address] [place] [id number] [place] [address] Jan, Hypertension I10 [place] [address] [place] [id number] [place] [address] Jan, Hypertension I10 ; GERD (gas troesophageal reflux disease) K21.9 and Hyperlipidemia E78.5 [place] [address] [facility] [id number] [address] [place] [address] Oct, [place] [address] [place] [id number] [place] [address] June, Sinusitis 473.9 [place] [address] [place] [id number] [place] [address] June, [place] [address] [address] May, [facility] [address] [id number] [address] [place] [address], [place] [address] May, [facility] [address] [id number] [address] [place] [address], [place] [address] Feb, [facility] [address] [id number] [address] [place] [address], [place] [address] Feb, [facility] [address] [id number] [address] [place] [address], [place] [address] Jan, [facility] [address] [id number] [address] [place] [address], [place] [address] Jan, [facility] [address] [id number] [address] [place] [address], [place] [address] Dec, [facility] [address] [id number] [address] [place] [address], [place] [address] Dec, [facility] [address] [id number] [address] [place] [address], [place] [address] Dec, [facility] [address] [id number] [address] [place] [address], [place] [address] Dec, [facility] [address] [id number] [address] [place] [address], [place] [address] Dec, [facility] [address] [id number] [address] [place] [address], [place] [address] Dec, [facility] [address] [id number] [address] [place] [address], [place] [address] Oct, [facility] [address] [id number] [address] [place] [address], [place] [address] Oct, [facility] [address] [id number] [address] [place] [address], [place] [address] Aug, [facility] [address] [id number] [address] [place] [address], [place] [address] Aug, [facility] [address] [id number] [address] [place] [address], [place] [address] Jul, [facility] [address] [id number] [address] [place] [address], [place] [address] Jul, [facility] [address] [id number] [address] [place] [address], [place] [address] Apr, [facility] [address] [id number] [address] [place] [address], [place] [address] Apr, [facility] [address] [id number] [address] [place] [address], [place] [address] Apr, [facility] [address] [id number] [address] [place] [address], [place] [address] Apr, [facility] [address] [id number] [address] [place] [address], [place] [address] Apr, [facility] [address] [id number] [address] [place] [address], [place] [address] Apr, [facility] [address] [id number] [address] [place] [address], [place] [address] Apr, [facility] [address] [id number] [address] [place] [address], [place] [address] Apr, [facility] [address] [id number] [address] [place] [address], [place] [address] Apr, [facility] [address] [id number] [address] [place] [address], [place] [address] Apr, [facility] [address] [id number] [address] [place] [address], [place] [address] Apr, [facility] [address] [id number] [address] [place] [address], [place] [address] Mar, [facility] [address] [id number] [address] [place] [address], [place] [address] Mar, [facility] [address] [id number] [address] [place] [address], [place] [address] Feb, [facility] [address] [id number] [address] [place] [address], [place] [address] Feb, [facility] [address] [id number] [address] [place] [address], [place] [address] Feb, [facility] [address] [id number] [address] [place] [address], [place] [address] Feb, [facility] [address] [id number] [address] [place] [address], [place] [address] Nov, [facility] [address] [id number] [address] [place] [address], [place] [address] Nov, [facility] [address] [id number] [address] [place] [address], [place] [address] Oct, [facility] [address] [id number] [address] [place] [address], [place] [address] Jul, [facility] [address] [id number] [address] [place] [address], [place] [address] May, [facility] [address] [id number] [address] [place] [address], [place] [address] Apr, [facility] [address] [id number] [address] [place] [address], [place] [address] Apr, [facility] [address] [id number] [address] [place] [address], [place] [address] Mar, [facility] [address] [id number] [address] [place] [address], [place] [address] 05 Mar, 2012 [facility] [address] [id number] [address] [place] [address], [place] [address] Dec, [facility] [address] [id number] [address] [place] [address], [place] [address] Dec, [facility] [address] [id number] [address] [place] [address], [place] [address] 28 Oct, 2011 [facility] [address] [id number] [address] [place] [address], [place] [address] Sep, [facility] [address] [id number] [address] [place] [address], [place] [address] Sep, [facility] [address] [id number] [address] [place] [address], [place] [address] Sep, [facility] [address] [id number] [address] [place] [address], [place] [address] Aug, [facility] [address] [id number] [address] [place] [address], [place] [address] Jul, [facility] [address] [id number] [address] [place] [address], [place] [address] Jul, [facility] [address] [id number] [address] [place] [address], [place] [address] June, [facility] [address] [id number] [address] [place] [address], [place] [address] June, [facility] [address] [id number] [address] [place] [address], [place] [address] Apr, [facility] [address] [id number] [address] [place] [address], [place] [address] Apr, [facility] [address] [id number] [address] [place] [address], [place] [address] Apr, [facility] [address] [id number] [address] [place] [address], [place] [address] Apr, [facility] [address] [id number] [address] [place] [address], [place] [address] Mar, [facility] [address] [id number] [address] [place] [address], [place] [address] Jan, [facility] [address] [id number] [address] [place] [address], [place] [address] Jan, [facility] [address] [id number] [address] [place] [address], [place] [address] Jan, [facility] [address] [id number] [address] [place] [address] Jan, [facility] [address] [id number] [address] [place] [address] Dec, [facility] [address] [id number] [address] [place] [address] Nov, [facility] [address] [id number] [address] [place] [address] Sep, [facility] [address] [id number] [address] [place] [address] Jul, [facility] [address] [id number] [address] [place] [address] Jan, [facility] [address] [id number] [address] [place] [address] Jan, [facility] [address] [id number] [address] [place] [address] Jan, [facility] [address] [id number] [address] [place] [address] Jan, [facility] [address] [id number] [address] [place] [address] Dec, [facility] [address] [id number] [address] [place] [address] Dec, [facility] [address] [id number] [address] [place] [phone] May, IMMUNIZATIONS No Known Immunizations SOCIAL HISTORY Never Assessed REASON FOR VISIT EMR-[facility] [place] PLAN OF CARE VITAL SIGNS MEDICATIONS Unknown Medications RESULTS No Results PROCEDURES No Known procedures INSTRUCTIONS MEDICATIONS ADMINISTERED No Known Medications MEDICAL (GENERAL) HISTORY Type Description Date Medical History hypertension Medical History Acid reflux
--- OUTSIDE RECORDS SUMMARY | 2019-05-25 21:55 | XMS REPORT ---
Author Author Eula STEWARD Organization [employer] Address Unknown Phone Unavailable Care Team Providers Care Ribbon Cleaner Name Role Phone ANTONIA STEWARD CP Unavailable Allergies No Known Allergies Problems Problem Type Condition Code Onset Dates Condition Statu s Problem GERD (gastroesophageal reflux disease) K21.9 Active Problem Hyperlipidemia E78.5 Active Problem Hypertension I10 Active Assessment Hypertension I10 Active Medications No Known Medications Procedures Procedure Coding System Code Date COMPREHEN METABOLIC PANEL CPT-4 63792 Jan VENIPUNCT, ROUTINE* CPT-4 01985 Feb 06, 2015 LIPID PANEL CPT-4 92217 Feb 06, 2015 Results Name Result Date Reference Range Unit Abnormali ty Flag ROUTINE VENIPUNCTURE Summary Purpose [employer] Submission
--- OUTSIDE RECORDS SUMMARY | 2019-05-25 21:55 | XMS REPORT ---
Author Author Eula STEWARD Organization [employer] Address Unknown Phone Unavailable Care Team Providers Care Sap Hana Architect Name Role Phone ANTONIA STEWARD CP Unavailable Allergies, Adverse Reactions, Alerts Substance Reaction Event Type Augmentin Info Not Available Drug Allergy Flonase 50 Mcg/actuation [place], Suspension Info Not Availabl e Non Drug Allergy Problems Problem Type Condition Code Onset Dates Condition Statu s Problem GERD (gastroesophageal reflux disease) K21.9 Active Problem Hyperlipidemia E78.5 Active Problem Hypertension I10 Active Assessment Hyperlipidemia E78.5 Active Assessment Hypertension I10 Active Assessment GERD (gastroesophageal reflux disease) K21.9 Active Medications Medication Code System Code Instructions Start Date End Date Status Dosage Hydrochlorothiazide [facility] [address]-51 25 MG Orally Once a day TAKE ONE TABLET BY MOUTH DAILY (MUST KEEP APPOINTMENT FOR REFILL) Omeprazole [facility] [address]-87 20 MG Once a day Oct 29, 2013 take 1 capsule by Oral route before a meal 1 time per day needs appt before further refills Procedures Procedure Coding System Code Date Office Visit, Est Pt., Level 4 CPT-4 50784 D 2014 Vital Signs Date/Time: Feb 03, 2015 Temperature 96.7 F Weight 190.2 lbs Height 62 in BMI 34.78 Index Blood Pressure Diastolic 82 mmHg Blood Pressure Systolic 132 mmHg Cardiac Monitoring Heart Rate 94 bpm Results No Known Results Summary Purpose [employer] Submission
--- OUTSIDE RECORDS SUMMARY | 2019-05-25 21:55 | XMS REPORT ---
Author Author Eula STEWARD Organization [employer] Address Unknown Phone Unavailable Care Team Providers Care Environmental Projects Advisor Name Role Phone ANTONIA STEWARD CP Unavailable Allergies No Known Allergies Problems Problem Type Condition Code Onset Dates Condition Statu s Problem GERD (gastroesophageal reflux disease) K21.9 Active Problem Hyperlipidemia E78.5 Active Problem Hypertension I10 Active Assessment Hypokalemia E87.6 Active Medications No Known Medications Results No Known Results Summary Purpose [employer] Submission
--- OUTSIDE RECORDS SUMMARY | 2019-05-25 21:55 | XMS REPORT ---
Author Author Eula Manning Doctor Organization [facility] Address Unknown Phone Unavailable Care Team Providers Care Food Service Helper Name Role Phone Migration, Doctor Unavailable Unavailable PROBLEMS Type Condition ICD9-CM Code XRH56-TQ Code Onset Dates Condition S tatus SNOMED Code Problem GERD (gastroesophageal reflux disease) K21.9 Active 235470161 Problem Hypertension I10 Active 3320160 3 Problem Hyperlipidemia E78.5 Active 21785 004 ALLERGIES No Information ENCOUNTERS Encounter Location Date Diagnosis [place] [address] [address] [place] [id number] [address] [place] [id number] Apr, [place] [address] [phone] Apr, Hypertension I10 and Hypokal emia E87.6 [place] [address] [facility] [id number] [address] [place] [phone] Jan, Hypokalemia E87.6 [place] [address] [address] [place] [id number] [address] [place] [id number] Jan, Hypertension I10 [place] [address] [address] [place] [id number] [address] [place] [phone] Jan, Hypertension I10 ; GERD (gas troesophageal reflux disease) K21.9 and Hyperlipidemia E78.5 [place] [address] [address] [facility] [id number] [address] [place] [phone] Oct, [place] [address] [address] [place] [id number] [address] [place] [phone] June, Sinusitis 473.9 [place] [address] [address] [place] [id number] [address] [place] [address] June, [place] [address] [place] [id number] [place] [phone] May, [facility] [address] [id number] [address] [place] [address], [place] [address] May, [facility] [address] [id number] [address] [place] [address], [place] [address] Feb, [facility] [address] [id number] [address] [place] [address], [place] [address] Feb, [facility] [address] [id number] [address] [place] [address], [place] [address] Jan, [facility] [address] [id number] [address] [place] [address], [place] [address] Jan, [facility] [address] [id number] [address] [place] [address], [place] [address] Dec, [facility] [address] [id number] [address] [place] [address], [place] [address] Dec, [facility] [address] [id number] [address] [place] [address], [place] [address] Dec, [facility] [address] [id number] [address] [place] [address], [place] [address] Dec, [facility] [address] [id number] [address] [place] [address], [place] [address] Dec, [facility] [address] [id number] [address] [place] [address], [place] [address] Dec, [facility] [address] [id number] [address] [place] [address], [place] [address] Oct, [facility] [address] [id number] [address] [place] [address], [place] [address] Oct, [facility] [address] [id number] [address] [place] [address], [place] [address] Aug, [facility] [address] [id number] [address] [place] [address], [place] [address] Aug, [facility] [address] [id number] [address] [place] [address], [place] [address] Jul, [facility] [address] [id number] [address] [place] [address], [place] [address] Jul, [facility] [address] [id number] [address] [place] [address], [place] [address] Apr, [facility] [address] [id number] [address] [place] [address], [place] [address] Apr, [facility] [address] [id number] [address] [place] [address], [place] [address] Apr, [facility] [address] [id number] [address] [place] [address], [place] [address] Apr, [facility] [address] [id number] [address] [place] [address], [place] [address] Apr, [facility] [address] [id number] [address] [place] [address], [place] [address] Apr, [facility] [address] [id number] [address] [place] [address], [place] [address] Apr, [facility] [address] [id number] [address] [place] [address], [place] [address] Apr, [facility] [address] [id number] [address] [place] [address], [place] [address] Apr, [facility] [address] [id number] [address] [place] [address], [place] [address] Apr, [facility] [address] [id number] [address] [place] [address], [place] [address] Apr, [facility] [address] [id number] [address] [place] [address], [place] [address] Mar, [facility] [address] [id number] [address] [place] [address], [place] [address] Mar, [facility] [address] [id number] [address] [place] [address], [place] [address] Feb, [facility] [address] [id number] [address] [place] [address], [place] [address] Feb, [facility] [address] [id number] [address] [place] [address], [place] [address] Feb, [facility] [address] [id number] [address] [place] [address], [place] [address] Feb, [facility] [address] [id number] [address] [place] [address], [place] [address] Nov, [facility] [address] [id number] [address] [place] [address], [place] [address] Nov, [facility] [address] [id number] [address] [place] [address], [place] [address] Oct, [facility] [address] [id number] [address] [place] [address], [place] [address] Jul, [facility] [address] [id number] [address] [place] [address], [place] [address] May, [facility] [address] [id number] [address] [place] [address], [place] [address] Apr, [facility] [address] [id number] [address] [place] [address], [place] [address] Apr, [facility] [address] [id number] [address] [place] [address], [place] [address] Mar, [facility] [address] [id number] [address] [place] [address], [place] [address] 05 Mar, 2012 [facility] [address] [id number] [address] [place] [address], [place] [address] Dec, [facility] [address] [id number] [address] [place] [address], [place] [address] Dec, [facility] [address] [id number] [address] [place] [address], [place] [address] 28 Oct, 2011 [facility] [address] [id number] [address] [place] [address], [place] [address] Sep, [facility] [address] [id number] [address] [place] [address], [place] [address] Sep, [facility] [address] [id number] [address] [place] [address], [place] [address] Sep, [facility] [address] [id number] [address] [place] [address], [place] [address] Aug, [facility] [address] [id number] [address] [place] [address], [place] [address] Jul, [facility] [address] [id number] [address] [place] [address], [place] [address] Jul, [facility] [address] [id number] [address] [place] [address], [place] [address] June, [facility] [address] [id number] [address] [place] [address], [place] [address] June, [facility] [address] [id number] [address] [place] [address], [place] [address] Apr, [facility] [address] [id number] [address] [place] [address], [place] [address] Apr, [facility] [address] [id number] [address] [place] [address], [place] [address] Apr, [facility] [address] [id number] [address] [place] [address], [place] [address] Apr, [facility] [address] [id number] [address] [place] [address], [place] [address] Mar, [facility] [address] [id number] [address] [place] [address], [place] [address] Jan, [facility] [address] [id number] [address] [place] [address], [place] [address] Jan, [facility] [address] [id number] [address] [place] [address], [place] [address] Jan, [facility] [address] [id number] [address] [place] [address] Jan, [facility] [address] [id number] [address] [place] [address] Dec, [facility] [address] [id number] [address] [place] [address] Nov, [facility] [address] [id number] [address] [place] [address] Sep, [facility] [address] [id number] [address] [place] [address] Jul, [facility] [address] [id number] [address] [place] [address] Jan, [facility] [address] [id number] [address] [place] [address] Jan, [facility] [address] [id number] [address] [place] [address] Jan, [facility] [address] [id number] [address] [place] [address] Jan, [facility] [address] [id number] [address] [place] [address] Dec, [facility] [address] [id number] [address] [place] [address] Dec, [facility] [address] [id number] [address] [place] [address] May, IMMUNIZATIONS No Known Immunizations SOCIAL HISTORY Never Assessed REASON FOR VISIT EMR-[facility] [place]AN OF CARE VITAL SIGNS MEDICATIONS Unknown Medications RESULTS No Results PROCEDURES No Known procedures INSTRUCTIONS MEDICATIONS ADMINISTERED No Known Medications MEDICAL (GENERAL) HISTORY Type Description Date Medical History hypertension Medical History Acid reflux
== END 2019-05-25 18:58 | disposition home or self-care (01) ==
LOC: EDUNIT# 17:14 → ER 17:16
DX: G45.9 Transient cerebral ischemic attack, unspecified (principal); K08.89 Other specified disorders of teeth and supporting structures; F17.210 Nicotine dependence, cigarettes, uncomplicated; Z88.5 Allergy status to narcotic agent
CPT/HCPCS: 36415; 70450; 70496; 70498; 71045; 80053; 81000; 82962; 84484; 85025; 85379; 85610; 85730; 93041; 96374

== ENCOUNTER 2021-03-14 13:32 | Emergency (ER) | payer SELFPAY ==
[~2021-03-14] VITALS: Ht 167.7 cm; Wt 94.3 kg
[~2021-03-14 13:32] MED LIST changes: +LISI20TA26; +OMEP20CA18
[2021-03-14 15:00] LABS: ALBUMIN 4.1 GM/DL (3.2-4.5); CHLORIDE 97 MMOL/L (98-107); POTASSIUM 3.2 MMOL/L (3.6-5.0); SODIUM 139 MMOL/L (135-145)
[2021-03-14] MEDS ORDERED: cloNIDine 0.1 MG (CATAPRES) TAB PO ONE (15:00)
[2021-03-14] MEDS ORDERED: MECLIZINE 25 MG (ANTIVERT) TAB PO ONE (15:00)
[2021-03-14 15:01] LABS: BASOPHILS % (AUTO) 0 % (0-10); CALCIUM 9.4 MG/DL (8.5-10.1); EOSINOPHILS # (AUTO) 0.1 10^3/uL (0.0-0.3); EOSINOPHILS % (AUTO) 2 % (0-10); HEMATOCRIT 43 % (35-52); HEMOGLOBIN 13.9 g/dL (11.5-16.0); LYMPHOCYTES # (AUTO) 2.5 10^3/uL (1.0-4.0); LYMPHOCYTES % (AUTO) 42 % (12-44); MEAN CORPUSCULAR HEMOGLOBIN 28 pg (25-34); MEAN CORPUSCULAR HGB CONC 33 g/dL (32-36); MEAN CORPUSCULAR VOLUME 87 fL (80-99); MEAN PLATELET VOLUME 9.9 fL (9.0-12.2); MONOCYTES # (AUTO) 0.4 10^3/uL (0.0-1.0); MONOCYTES % (AUTO) 6 % (0-12); NEUTROPHILS # (AUTO) 3.1 10^3/uL (1.8-7.8); NEUTROPHILS % (AUTO) 50 % (42-75); PLATELET COUNT 185 10^3/uL (130-400); WHITE BLOOD COUNT 6.1 10^3/uL (4.3-11.0)
[2021-03-14 15:02] LABS: GLUCOSE 121 MG/DL (70-105)
[2021-03-14 15:03] LABS: TOTAL PROTEIN 7.6 GM/DL (6.4-8.2)
--- NOTE | 2021-03-14 15:03 | ED General ---
General Chief Complaint: Dizziness/Syncope Stated Complaint: DIZZINESS Nursing Triage Note: PT AMBULATE TO ROOM 04 WITHOUT DIFFICULTY WITH C/O DIZZYNESS SINCE YESTERDAY. PT REPORTS WEAKNESS X1 MONTH. PT REPORTS SHE HAS NOT TAKE HER HYPERTENSION MEDICATION IN OVER A WEEK BECAUSE SHE HAS NOT HAD THE M[place]Y. PT STATES SHE THINKS IT IS HER EAR CAUSING THE DIZZYNESS. PT REPORTS HX OF INNER EAR PROBLEMS. Source of Information: Patient Exam Limitations: No Limitations History of Present Illness Date Seen by Provider: Mar 14, 2021 Time Seen by Provider: 15:46 Initial Comments To ER with dizziness that began yesterday and is intolerable. She believes is related to her inner ear as she has had cold symptoms for a week or 2. She has had general weakness for a month. She has not taken her metoprolol for over a week because she could not afford it. Timing/Duration: 1-2 Days Severity: Moderate Modifying Factors: improves with Rest Associated Systoms: Denies Symptoms Allergies and Home Medications Allergies Coded Allergies: codeine (Unverified Adverse Reaction, Mild, VOMITING, 05/23/09) Uncoded Allergies: codiene (Allergy, Intermediate, vomiting, 06/07/08) Patient Home Medication List Home Medication List Reviewed: Yes Amoxicillin (Amoxicillin) 500 Mg Capsule, 500 MG PO TID Prescribed by: BERTA MARCANO on 05/25/19 185 Ibuprofen (Motrin) 200 Mg Tab, (Reported) Entered as Reported by: REYNOLD ELLIOTT on 05/23/09 0458 Lisinopril (Lisinopril) 20 Mg Tablet, (Reported) Entered as Reported by: ALAN LARA on 05/25/19 175 Meclizine HCl (Meclizine HCl) 25 Mg Tablet, 25 MG PO TID PRN for DIZZINESS Prescribed by: BERTA MARCANO on 03/13/19 1318 Metoprolol Tartrate (Metoprolol Tartrate) 50 Mg Tablet, 50 MG PO BID Prescribed by: BERTA MARCANO on 03/14/21 1627 Omeprazole (Omeprazole) 20 Mg Capsule.dr (Reported) Entered as Reported by: ALAN LARA on 05/25/19 175 Review of Systems Review of Systems Constitutional: see HPI, dizziness EENTM: see HPI Respiratory: no symptoms reported Cardiovascular: no symptoms reported Genitourinary: no symptoms reported Musculoskeletal: no symptoms reported Skin: no symptoms reported Psychiatric/Neurological: No Symptoms Reported Hematologic/Lymphatic: No Symptoms Reported Past Rlwmwiw-Inbmqr-Xlrnmg Hx Patient Social History Tobacco Use?: Yes Smoking Status: Current Everyday Smoker Smokeless Tobacco Frequency: Never a User Use of E-Cig and/or Vaping dev: No Use of E-Cig and/or Vaping Roel: Never a User Substance use?: No Alcohol Use?: Yes Alcohol Frequency: Couple times a week Pt feels they are or have been: No Past Medical History Surgeries: Yes (TUBAL LIGATION) Respiratory: No Cardiac: Yes Hypertension Neurological: Yes Vertigo Reproductive Disorders: Yes Gastrointestinal: Yes (ACID REFLUX) Gastroesophageal Reflux Musculoskeletal: Yes (POSSIBLE RESTLESS LEGS SYNDROME OFF AND ON) Endocrine: No Cancer: No Psychosocial: No Blood Disorders: Yes Physical Exam Vital Signs Vital Signs - First Documented 03/14/21 13:57 Temp 36.1 Pulse 97 Resp 17 B/P (MAP) 226/120 (155) O2 Delivery Room Air Capillary Refill : Less Than 3 Seconds Height, Weight, BMI Height: '" Weight: lbs. oz. kg; 33.00 BMI Method: General Appearance: No Apparent Distress, WD/WN, Other (Quite hypertensive initially 220/120. Gave her 0.1 mg of clonidine.) HEENT: PERRL/EOMI, TMs Normal, Other (No nystagmus) Neck: Full Range of Motion, Normal Inspection Respiratory: No Accessory Muscle Use, No Respiratory Distress Cardiovascular: Regular Rate, Rhythm, Normal Peripheral Pulses Gastrointestinal: Normal Bowel Sounds, Non Tender, Soft Extremity: Normal Capillary Refill, Normal Inspection Neurologic/Psychiatric: Alert, Oriented x3 Skin: Normal Color, Warm/Dry Progress/Results/Core Measures Suspected Sepsis SIRS Temperature: Pulse: 97 Respiratory Rate: 17 Laboratory Tests 03/14/21 14:40: White Blood Count 6.1 Blood Pressure 226 /120 Mean: 155 Laboratory Tests 03/14/21 14:40: Creatinine 0.86, INR Comment 0.9, Platelet Count 185, Total Bilirubin 0.3 Results/Orders Lab Results Laboratory Tests Test 03/14/21 14:40 03/14/21 14:55 03/14/21 15:05 Range/Units White Blood Count 6.1 4.3-11.0 10^3/uL Red Blood Count 4.95 3.80-5.11 10^6/uL Hemoglobin 13.9 11.5-16.0 g/dL Hematocrit 43 35-52 % Mean Corpuscular Volume 87 80-99 fL Mean Corpuscular Hemoglobin 28 25-34 pg Mean Corpuscular Hemoglobin Concent 33 32-36 g/dL Red Cell Distribution Width 13.2 10.0-14.5 % Platelet Count 185 130-400 10^3/uL Mean Platelet Volume 9.9 9.0-12.2 fL Immature Granulocyte % (Auto) 0 % Neutrophils (%) (Auto) 50 42-75 % Lymphocytes (%) (Auto) 42 12-44 % Monocytes (%) (Auto) 6 0-12 % Eosinophils (%) (Auto) 2 0-10 % Basophils (%) (Auto) 0 0-10 % Neutrophils # (Auto) 3.1 1.8-7.8 10^3/uL Lymphocytes # (Auto) 2.5 1.0-4.0 10^3/uL Monocytes # (Auto) 0.4 0.0-1.0 10^3/uL Eosinophils # (Auto) 0.1 0.0-0.3 10^3/uL Basophils # (Auto) 0.0 0.0-0.1 10^3/uL Immature Granulocyte # (Auto) 0.0 0.0-0.1 10^3/uL Prothrombin Time 12.4 12.2-14.7 SEC INR Comment 0.9 0.8-1.4 Activated Partial Thromboplast Time 35 24-35 SEC D-Dimer 0.42 0.00-0.49 UG/ML Sodium Level 139 135-145 MMOL/L Potassium Level 3.2 L 3.6-5.0 MMOL/L Chloride Level 97 L 98-107 MMOL/L Carbon Dioxide Level 27 21-32 MMOL/L Anion Gap 15 H 5-14 MMOL/L Blood Urea Nitrogen 12 7-18 MG/DL Creatinine 0.86 0.60-1.30 MG/DL Estimat Glomerular Filtration Rate 77 BUN/Creatinine Ratio 14 Glucose Level 121 H 70-105 MG/DL Calcium Level 9.4 8.5-10.1 MG/DL Corrected Calcium 9.3 8.5-10.1 MG/DL Total Bilirubin 0.3 0.1-1.0 MG/DL Aspartate Amino Transf (AST/SGOT) 26 5-34 U/L Alanine Aminotransferase (ALT/SGPT) 17 0-55 U/L Alkaline Phosphatase 90 40-136 U/L Troponin I < 0.028 <0.028 NG/ML Total Protein 7.6 6.4-8.2 GM/DL Albumin 4.1 3.2-4.5 GM/DL Glucometer 116 H 70-110 MG/DL Urine Color YELLOW Urine Clarity CLEAR Urine pH 7.0 5-9 Urine Specific [place] 1.020 1.016-1.022 Urine Protein TRACE H NEGATIVE Urine Glucose (UA) NEGATIVE NEGATIVE Urine Ketones NEGATIVE NEGATIVE Urine Nitrite NEGATIVE NEGATIVE Urine Bilirubin NEGATIVE NEGATIVE Urine Urobilinogen 0.2 < = 1.0 MG/DL Urine Leukocyte Esterase 1+ H NEGATIVE Urine RBC (Auto) NEGATIVE NEGATIVE Urine RBC NONE /HPF Urine WBC 2-5 /HPF Urine Squamous Epithelial Cells 5-10 /HPF Urine Crystals NONE /LPF Urine Bacteria FEW H /HPF Urine Casts NONE /LPF Urine Mucus NEGATIVE /LPF Urine Culture Indicated YES My Orders Orders - BERTA MARCANO APRN Cbc With Automated Diff (03/14/21 14:47) Protime With Inr (03/14/21 14:47) Partial Thromboplastin Time (03/14/21 14:47) Comprehensive Metabolic Panel (03/14/21 14:47) Fibrin Degradation Products (03/14/21 14:47) Troponin I [place] (03/14/21 14:47) Ua Culture If Indicated (03/14/21 14:47) Chest 1 View, Ap/Pa Only (03/14/21 14:47) Ekg Tracing (03/14/21 14:47) Accucheck Stat ONCE (03/14/21 14:47) Ed Iv/Invasive Line Start (03/14/21 14:47) Ed Iv/Invasive Line Start (03/14/21 14:47) Vital Signs Stroke Patient Q15M (03/14/21 14:47) Ct Head Wo-R/O Stroke (03/14/21 14:47) O2 (03/14/21 14:47) Intake & Output ,14, (03/14/21 14:47) Monitor-Rhythm Ecg Trace Only (03/14/21 14:47) Dysphagia Screening Tool (03/14/21 14:47) Post Thrombolytic Adminstratio (03/14/21 14:47) Lipid Panel (03/15/21 06:00) Ct Angio Head/Neck (03/14/21 14:47) Clonidine Tablet (Catapres Tablet) (03/14/21 15:00) Meclizine Tablet (Antivert Tablet) (03/14/21 15:00) Iohexol Injection (Omnipaque 350 Mg/Ml 1 (03/14/21 15:15) Received Contrast (Hold Metformin- Contr (03/14/21 15:15) Ns (Ivpb) (Sodium Chloride 0.9% Ivpb Bag (03/14/21 15:15) Urine Culture (03/14/21 15:05) Labetalol Injection (Normodyne Injection (03/14/21 16:00) Medications Given in ED Current Medications Medications Dose Ordered Sig/Nelson Route Start Time Stop Time Status Last Admin Dose Admin Clonidine HCl 0.1 mg ONCE ONCE PO 03/14/21 15:00 03/14/21 15:01 DC 03/14/21 15:00 0.1 MG Iohexol 100 ml ONCE ONCE IV 03/14/21 15:15 03/14/21 15:16 DC 03/14/21 15:15 80 ML Labetalol HCl 10 mg ONCE ONCE IV 03/14/21 16:00 03/14/21 16:01 DC 03/14/21 16:05 10 MG Meclizine HCl 25 mg ONCE ONCE PO 03/14/21 15:00 03/14/21 15:01 DC 03/14/21 15:00 25 MG Sodium Chloride 100 ml ONCE ONCE IV 03/14/21 15:15 03/14/21 15:16 DC 03/14/21 15:15 100 ML Vital Signs/I&O 03/14/21 13:57 Temp 36.1 Pulse 97 Resp 17 B/P (MAP) 226/120 (155) O2 Delivery Room Air Capillary Refill : Less Than 3 Seconds Blood Pressure Mean: 155 Point of Care Testing Finger Stick Blood Glucose: 116 Blood Glucose Action Taken: rn notified Departure Communication (Admissions) NAME: SADIQ CESAR MED REC#: [id number] PT STATUS: REG ER : 1960 PHYSICIAN: BERTA MARCANO APRN ADMIT DATE: 03/14/21/ER Signed Date of Exam:03/14/21 CT ANGIO HEAD/NECK PROCEDURE: CT angiography of the head and CT angiography of the neck with and without contrast. TECHNIQUE: Contiguous noncontrast images were obtained from the skull base through the vertex. After intravenous contrast administration, helical CT angiography of the neck was performed. Source data was reformatted into 3D MIP projections. Delayed post contrast acquisition was also obtained. Auto Exposure Controls were utilized during the CT exam to meet ALARA standards for radiation dose reduction. INDICATION: Dizziness. Concern for acute ischemia. COMPARISON: CT head performed earlier the same day. FINDINGS: CTA Neck: The visualized portions of the aortic arch demonstrate no evidence of aneurysm or dissection. There is common origin of the carotid arteries consistent with bovine arch. The brachiocephalic artery is normal in course and caliber. The right and left common carotid origins are unremarkable. The origin of the left subclavian artery is patent. The common carotid arteries and internal carotid arteries demonstrate a mildly tortuous course with retropharyngeal position. No evidence of stenosis or dissection in the bilateral carotid systems. The external carotid arteries are patent and unremarkable. The left vertebral artery is dominant. The origin of the right vertebral artery is seen and is unremarkable. The origin of the left vertebral artery is directly off the aorta and has a normal appearance. There is no focal stenosis seen within the neck. There is no dissection. The vertebral arteries are well visualized to up to the level of the basilar artery. The osseous structures of the cervical spine are unremarkable. Included views through the lung apices demonstrate no focal consolidation. CTA brain: Atherosclerotic plaque is seen in the villarreal of the bilateral terminal internal carotid arteries without significant stenosis. No stenosis is seen in the bilateral anterior, middle, and posterior cerebral arteries. Diminutive A1 segment is noted on the right. No evidence of aneurysm the [place]. In the posterior circulation, both of the vertebral arteries demonstrate normal opacification. The right vertebral artery functionally ends in PICA. Both the right and left PICA arteries are identified. The basilar artery is normal in course and caliber. The terminal branch vessels including the superior cerebellar arteries unremarkable. IMPRESSION: 1. No stenosis or aneurysm in the [place]. No evidence of large vessel occlusion. 2. No stenosis or dissection the bilateral carotid and vertebral arteries. Dictated by: Dictated on workstation # [id number] Dict: 03/14/21 1528 Trans: 03/14/21 1543 [id number] Interpreted by: ALFONSO REIS DO Electronically signed by: ALFONSO REIS DO 03/14/21 1543 Impression Primary Impression: Dizziness Additional Impression: Hypertension Disposition: HOME, SELF-CARE Condition: Stable Departure-Patient Inst. Decision time for Depature: 16:25 Referrals: LUIS LEAVITT MD (PCP/Family) Primary Care Physician Patient Instructions: Dizziness, Adult ED Add. Discharge Instructions: 1. Call Dr. Leavitt for follow-up this week. Medication as directed. Refill your metoprolol today and start it first dose this evening. The 1 month supply is $4 at [employer] with [employer] coupon--Cheaper than a pack of your cigarettes. . All discharge instructions reviewed with patient and/or family. Voiced understanding. Scripts Metoprolol Tartrate (Metoprolol Tartrate) 50 Mg Tablet 50 MG PO BID, #60 TAB Prov: BERTA MARCANO APRN 03/14/21 BERTA MARCANO APRN Mar 14, 2021 15:03
[2021-03-14 15:04] LABS: BILIRUBIN,TOTAL 0.3 MG/DL (0.1-1.0); CARBON DIOXIDE 27 MMOL/L (21-32)
[2021-03-14 15:06] LABS: ALKALINE PHOSPHATASE 90 U/L (40-136); CREATININE SERUM 0.86 MG/DL (0.60-1.30); GFR ESTIMATED 77
[2021-03-14 15:07] LABS: BUN/CREATININE RATIO 14
[2021-03-14 15:09] LABS: ALANINE AMINOTRANSFERASE 17 U/L (0-55)
[2021-03-14 15:10] LABS: FIBRIN DEGRADATION PRODUCTS 0.42 UG/ML (0.00-0.49); INR 0.9 (0.8-1.4); PROTHROMBIN TIME PATIENT 12.4 SEC (12.2-14.7)
[2021-03-14 15:14] LABS: BILIRUBIN,URINE NEGATIVE (NEGATIVE); CLARITY,URINE CLEAR; COLOR,URINE YELLOW; GLUCOSE, URINE (UA) NEGATIVE (NEGATIVE); KETONES,URINE NEGATIVE (NEGATIVE); LEUKOCYTE ESTERASE ,URINE 1+ (NEGATIVE); NITRITE,URINE NEGATIVE (NEGATIVE); PROTEIN,URINE TRACE (NEGATIVE)
[2021-03-14] MEDS ORDERED: HOLD METFORMIN - RECEIVED CONTRAST 20 ML VIAL IV SCH (15:15)
[2021-03-14] MEDS ORDERED: IOHEXOL 350 MG/ML 100 ML (OMNIPAQUE 350) VIAL IV ONE (15:15)
[2021-03-14] MEDS ORDERED: NS 100 ML (IVPB) BAG IV ONE (15:15)
[2021-03-14 15:27] LABS: BACTERIA,URINE FEW /HPF
--- NOTE | 2021-03-14 15:31 | Diagnostic Imaging Report ---
INDICATION: Stroke. Frontal chest obtained at 3:16 p.m. FINDINGS: Heart and mediastinal silhouette are normal in appearance. The lungs are clear. There is no pneumothorax or pleural fluid. IMPRESSION: Negative chest. Dictated by: Dictated on workstation # [id number]
--- NOTE | 2021-03-14 15:33 | Diagnostic Imaging Report ---
INDICATION: Dizziness, neurologic deficits. TECHNIQUE: Multiple contiguous axial images were obtained through the brain without the use of intravenous contrast. Auto Exposure Controls were utilized during the CT exam to meet ALARA standards for radiation dose reduction. COMPARISON: Comparison made to 05/25/2019. FINDINGS: There were no extra-axial fluid collections. No intracranial hemorrhage. No intracranial mass or mass effect. No midline shift. The ventricles are normal in size and position. There is an old lacunar infarct in the left caudate head and adjacent white matter. This finding was not present on 05/25/2019 but does not appear to be acute. Calvarial windows appear normal. There is some fluid in the left maxillary sinus with mucosal thickening. There is opacification of the ethmoid air cells on both sides. There is a mild amount of fluid and mucosal thickening in the left frontal sinus. Orbital contents are unremarkable. IMPRESSION: No acute intracranial hemorrhage or mass effect. There is a lacunar infarct in the left caudate nucleus and adjacent white matter which appears likely chronic but was not seen on the prior study. There is evidence of sinus disease as described above. Dictated by: Dictated on workstation # [id number]
--- NOTE | 2021-03-14 15:42 | Diagnostic Imaging Report ---
PROCEDURE: CT angiography of the head and CT angiography of the neck with and without contrast. TECHNIQUE: Contiguous noncontrast images were obtained from the skull base through the vertex. After intravenous contrast administration, helical CT angiography of the neck was performed. Source data was reformatted into 3D MIP projections. Delayed post contrast acquisition was also obtained. Auto Exposure Controls were utilized during the CT exam to meet ALARA standards for radiation dose reduction. INDICATION: Dizziness. Concern for acute ischemia. COMPARISON: CT head performed earlier the same day. FINDINGS: CTA Neck: The visualized portions of the aortic arch demonstrate no evidence of aneurysm or dissection. There is common origin of the carotid arteries consistent with bovine arch. The brachiocephalic artery is normal in course and caliber. The right and left common carotid origins are unremarkable. The origin of the left subclavian artery is patent. The common carotid arteries and internal carotid arteries demonstrate a mildly tortuous course with retropharyngeal position. No evidence of stenosis or dissection in the bilateral carotid systems. The external carotid arteries are patent and unremarkable. The left vertebral artery is dominant. The origin of the right vertebral artery is seen and is unremarkable. The origin of the left vertebral artery is directly off the aorta and has a normal appearance. There is no focal stenosis seen within the neck. There is no dissection. The vertebral arteries are well visualized to up to the level of the basilar artery. The osseous structures of the cervical spine are unremarkable. Included views through the lung apices demonstrate no focal consolidation. CTA brain: Atherosclerotic plaque is seen in the villarreal of the bilateral terminal internal carotid arteries without significant stenosis. No stenosis is seen in the bilateral anterior, middle, and posterior cerebral arteries. Diminutive A1 segment is noted on the right. No evidence of aneurysm the igiugig of [place]. In the posterior circulation, both of the vertebral arteries demonstrate normal opacification. The right vertebral artery functionally ends in PICA. Both the right and left PICA arteries are identified. The basilar artery is normal in course and caliber. The terminal branch vessels including the superior cerebellar arteries unremarkable. IMPRESSION: 1. No stenosis or aneurysm in the igiugig of [place]. No evidence of large vessel occlusion. 2. No stenosis or dissection the bilateral carotid and vertebral arteries. Dictated by: Dictated on workstation # [id number]
[2021-03-14] MEDS ORDERED: LABETALOL HCL 20 MG/4 ML VIAL IV ONE (16:00)
[2021-03-14] MEDS ORDERED: METO50TA15 PO (16:27)
[2021-03-14 16:37] VITALS: BP 149/85
== END 2021-03-14 16:37 | disposition home or self-care (01) ==
LOC: EDUNIT# 13:32 → ER 13:34
DX: R42 Dizziness and giddiness (principal); I10 Essential (primary) hypertension; K21.9 Gastro-esophageal reflux disease without esophagitis; F17.290 Nicotine dependence, other tobacco product, uncomplicated; Z79.899 Other long term (current) drug therapy
CPT/HCPCS: 36415; 70450; 70496; 70498; 71045; 80053; 81000; 82947; 84484; 85025; 85379; 85610; 85730; 87077; 87088; 87186; 93005; 93041

== ENCOUNTER 2021-10-22 02:41 | Emergency (ER) | payer OTHER ==
[~2021-10-22] VITALS: Ht 167.7 cm; Wt 90.0 kg
[~2021-10-22 02:41] MED LIST changes: +METO50TA15 PO
[2021-10-22] MEDS ORDERED: LACTATED RINGERS 1,000 ML IV ONE (03:30)
[2021-10-22] MEDS ORDERED: NITROGLYCERIN 2% OINT 1 GM UNIT DOSE PACKET TOP ONE (03:30)
[2021-10-22] MEDS ORDERED: ASPIRIN 81 MG CHEW (CHILDREN'S ASA) PO ONE (03:30)
[2021-10-22] MEDS ORDERED: ONDANSETRON 4 MG/2 ML (SDV) Z0FRAN IVP ONE (03:30)
[2021-10-22 03:38] LABS: BILIRUBIN,URINE NEGATIVE (NEGATIVE); CLARITY,URINE CLEAR; COLOR,URINE YELLOW; GLUCOSE, URINE (UA) TRACE (NEGATIVE); KETONES,URINE NEGATIVE (NEGATIVE); LEUKOCYTE ESTERASE ,URINE TRACE (NEGATIVE); NITRITE,URINE NEGATIVE (NEGATIVE); PROTEIN,URINE TRACE (NEGATIVE)
[2021-10-22 03:47] LABS: BACTERIA,URINE NEGATIVE /HPF; SQUAMOUS EPITHELIAL CELL,UR RARE /HPF; WBC,URINE RARE /HPF
[2021-10-22 04:06] LABS: BASOPHILS % (AUTO) 0 % (0-10); EOSINOPHILS # (AUTO) 0.1 10^3/uL (0.0-0.3); EOSINOPHILS % (AUTO) 2 % (0-10); HEMATOCRIT 42 % (35-52); HEMOGLOBIN 13.9 g/dL (11.5-16.0); LYMPHOCYTES # (AUTO) 1.7 10^3/uL (1.0-4.0); LYMPHOCYTES % (AUTO) 23 % (12-44); MEAN CORPUSCULAR HEMOGLOBIN 27 pg (25-34); MEAN CORPUSCULAR HGB CONC 33 g/dL (32-36); MEAN CORPUSCULAR VOLUME 83 fL (80-99); MEAN PLATELET VOLUME 9.6 fL (9.0-12.2); MONOCYTES # (AUTO) 0.3 10^3/uL (0.0-1.0); MONOCYTES % (AUTO) 4 % (0-12); NEUTROPHILS # (AUTO) 5.2 10^3/uL (1.8-7.8); NEUTROPHILS % (AUTO) 70 % (42-75); PLATELET COUNT 161 10^3/uL (130-400); WHITE BLOOD COUNT 7.4 10^3/uL (4.3-11.0)
--- NOTE | 2021-10-22 04:10 | ED General ---
General Chief Complaint: Abdominal/GI Problems Stated Complaint: ABD PAIN,RIB PAIN,VOMITED ONCE Source of Information: Patient, Spouse ( DOES MOST OF TALKING FOR PT) History of Present Illness Date Seen by Provider: Oct 22, 2021 Time Seen by Provider: 03:10 Initial Comments PT ARRIVES VIA POV FROM HOME WITH ABOUT 2 HOURS AGO, THEY WERE LAYING IN BED, AND THEIR DOG CAUGHT A POSSUM IN THE HOUSE AND JUMPED ON THEIR BED WITH IT ( NOT THE FIRST TIME THIS HAS HAPPENED) PT JUMPED OUT OF BED AND THEN BEGAN HAVING EPIGASTRIC PAIN THAT WRAPS ALL AROUND HER LOWER RIBS TO THE BACK SHE IS ALSO NAUSEATED AND VOMITED X 1 ENROUTE AND IS VOMITING SHORTLY AFTER ARRIVAL NO DIARRHEA NO SHORTNESS OF BREATH "FELT REALLY HOT" BUT DID NOT BREAK OUT IN A SWEAT WAS FEELING FINE UNTIL THIS HAPPENED. PT HAS HISTORY OF HTN, BUT DID NOT TAKE HER MEDICATION TODAY--"JUST DIDN'T" STATES SHE TOOK HER MEDICATION YESTERDAY--DOES NOT KNOW WHAT MEDICATION SHE TAKES DOES NOT KNOW WHAT HER BLOOD PRESSURE NORMALLY RUNS DENIES ANY OTHER CARDIAC HISTORY PT IS NOT DIABETIC PCP: DR. LUIS LEAVITT Allergies and Home Medications Allergies Coded Allergies: codeine (Unverified Adverse Reaction, Mild, VOMITING, 05/23/09) Uncoded Allergies: codiene (Allergy, Intermediate, vomiting, 06/07/08) Patient Home Medication List Home Medication List Reviewed: Yes Amoxicillin (Amoxicillin) 500 Mg Capsule, 500 MG PO TID Prescribed by: BERTA MARCANO on 05/25/19 1851 Hyoscyamine Sulfate (Levsin-Sl) 0.125 Mg Tab.subl, 0.25 MG SL Q4H Prescribed by: REYNOLD AMADOR on 10/22/21 0708 Ibuprofen (Motrin) 200 Mg Tab, (Reported) Entered as Reported by: REYNOLD ELLIOTT on 05/23/09 0458 Ketorolac Tromethamine (Ketorolac Tromethamine) 10 Mg Tablet, 10 MG PO Q6H Prescribed by: REYNOLD AMADOR on 10/22/21 0708 Lisinopril (Lisinopril) 20 Mg Tablet, (Reported) Entered as Reported by: ALAN LARA on 05/25/19 1754 Meclizine HCl (Meclizine HCl) 25 Mg Tablet, 25 MG PO TID PRN for DIZZINESS Prescribed by: BERTA MARCANO on 03/13/19 1318 Metoprolol Tartrate (Metoprolol Tartrate) 50 Mg Tablet, 50 MG PO BID Prescribed by: BERTA MARCANO on 03/14/21 1627 Omeprazole (Omeprazole) 20 Mg Capsule., (Reported) Entered as Reported by: ALAN LARA on 05/25/19 1754 Ondansetron (Ondansetron Odt) 4 Mg Tab.rapdis, 4 MG PO Q4H Prescribed by: REYNOLD AMADOR on 10/22/21 0708 Review of Systems Review of Systems Constitutional: see HPI EENTM: no symptoms reported Respiratory: no symptoms reported Cardiovascular: chest pain Gastrointestinal: see HPI Genitourinary: no symptoms reported Musculoskeletal: see HPI, back pain Skin: no symptoms reported Psychiatric/Neurological: No Symptoms Reported Hematologic/Lymphatic: No Symptoms Reported Immunological/Allergic: no symptoms reported Past Aqczudt-[id number]-Zxegdc Hx Past Medical History Surgeries: Yes (TUBAL LIGATION) Tubal Ligation Respiratory: No Cardiac: Yes Hypertension Neurological: Yes Vertigo Reproductive Disorders: Yes Genitourinary: No Gastrointestinal: Yes (ACID REFLUX) Gastroesophageal Reflux Musculoskeletal: Yes (POSSIBLE RESTLESS LEGS SYNDROME OFF AND ON) Endocrine: No HEENT: No Cancer: No Psychosocial: No Integumentary: No Blood Disorders: No Physical Exam Vital Signs Vital Signs - First Documented 10/22/21 03:03 Temp 36.5 Pulse 100 Resp 18 B/P (MAP) 249/136 (173) Pulse Ox 96 O2 Delivery Room Air Capillary Refill : Height, Weight, BMI Height: '" Weight: lbs. oz. kg; 33.00 BMI Method: General Appearance: WD/WN, Other (ACTIVELY VOMITING ON EXAM) HEENT: PERRL/EOMI, Other (EDENTULOUS) Neck: Normal Inspection Respiratory: Normal Breath Sounds, No Accessory Muscle Use, No Respiratory Distress Cardiovascular: Regular Rate, Rhythm, No Edema, No JVD, No Murmur, Normal Peripheral Pulses Gastrointestinal: No Organomegaly, Soft, Tenderness (EPIGASTRIC TENDERNESS AND DIFFUSE UPPER ABDOMEN AND LOWER RIB TENDERNESS. ) Back: No Vertebral Tenderness, CVA Tenderness (L), CVA Tenderness (R) Extremity: Normal Capillary Refill, Normal Inspection, Normal Range of Motion, Non Tender, No Calf Tenderness, No Pedal Edema Neurologic/Psychiatric: Alert, Oriented x3, No Motor/Sensory Deficits, gericare aide II- XII Norm as Tested Skin: Normal Color, Warm/Dry Progress/Results/Core Measures Suspected Sepsis SIRS Temperature: Pulse: Respiratory Rate: Laboratory Tests 10/22/21 03:52: White Blood Count 7.4 Blood Pressure / Mean: Laboratory Tests 10/22/21 03:52: Creatinine 0.87, INR Comment 0.8, Platelet Count 161, Total Bilirubin 0.4 Results/Orders Lab Results Laboratory Tests Test 10/22/21 03:15 10/22/21 03:52 Range/Units Urine Color YELLOW Urine Clarity CLEAR Urine pH 7.0 5-9 Urine Specific [place] 1.010 L 1.016-1.022 Urine Protein TRACE H NEGATIVE Urine Glucose (UA) TRACE H NEGATIVE Urine Ketones NEGATIVE NEGATIVE Urine Nitrite NEGATIVE NEGATIVE Urine Bilirubin NEGATIVE NEGATIVE Urine Urobilinogen 0.2 < = 1.0 MG/DL Urine Leukocyte Esterase TRACE H NEGATIVE Urine RBC (Auto) NEGATIVE NEGATIVE Urine RBC NONE /HPF Urine WBC RARE /HPF Urine Squamous Epithelial Cells RARE /HPF Urine Crystals NONE /LPF Urine Bacteria NEGATIVE /HPF Urine Casts NONE /LPF Urine Mucus NEGATIVE /LPF Urine Culture Indicated NO White Blood Count 7.4 4.3-11.0 10^3/uL Red Blood Count 5.13 H 3.80-5.11 10^6/uL Hemoglobin 13.9 11.5-16.0 g/dL Hematocrit 42 35-52 % Mean Corpuscular Volume 83 80-99 fL Mean Corpuscular Hemoglobin 27 25-34 pg Mean Corpuscular Hemoglobin Concent 33 32-36 g/dL Red Cell Distribution Width 14.4 10.0-14.5 % Platelet Count 161 130-400 10^3/uL Mean Platelet Volume 9.6 9.0-12.2 fL Immature Granulocyte % (Auto) 0 % Neutrophils (%) (Auto) 70 42-75 % Lymphocytes (%) (Auto) 23 12-44 % Monocytes (%) (Auto) 4 0-12 % Eosinophils (%) (Auto) 2 0-10 % Basophils (%) (Auto) 0 0-10 % Neutrophils # (Auto) 5.2 1.8-7.8 10^3/uL Lymphocytes # (Auto) 1.7 1.0-4.0 10^3/uL Monocytes # (Auto) 0.3 0.0-1.0 10^3/uL Eosinophils # (Auto) 0.1 0.0-0.3 10^3/uL Basophils # (Auto) 0.0 0.0-0.1 10^3/uL Immature Granulocyte # (Auto) 0.0 0.0-0.1 10^3/uL Prothrombin Time 11.9 L 12.2-14.7 SEC INR Comment 0.8 0.8-1.4 Activated Partial Thromboplast Time 36 H 24-35 SEC Sodium Level 140 135-145 MMOL/L Potassium Level 3.2 L 3.6-5.0 MMOL/L Chloride Level 102 98-107 MMOL/L Carbon Dioxide Level 23 21-32 MMOL/L Anion Gap 15 H 5-14 MMOL/L Blood Urea Nitrogen 8 7-18 MG/DL Creatinine 0.87 0.60-1.30 MG/DL Estimat Glomerular Filtration Rate 76 BUN/Creatinine Ratio 9 Glucose Level 140 H 70-105 MG/DL Calcium Level 9.7 8.5-10.1 MG/DL Corrected Calcium 9.5 8.5-10.1 MG/DL Magnesium Level 1.5 L 1.6-2.4 MG/DL Total Bilirubin 0.4 0.1-1.0 MG/DL Aspartate Amino Transf (AST/SGOT) 19 5-34 U/L Alanine Aminotransferase (ALT/SGPT) 16 0-55 U/L Alkaline Phosphatase 99 40-136 U/L Troponin I < 0.028 <0.028 NG/ML B-Type Natriuretic Peptide 52.7 <100.0 PG/ML Total Protein 7.7 6.4-8.2 GM/DL Albumin 4.3 3.2-4.5 GM/DL Amylase Level 67 25-125 U/L Lipase 29 8-78 U/L My Orders Orders - REYNOLD AMADOR DO Ua Culture If Indicated (10/22/21 03:13) Ed Iv/Invasive Line Start (10/22/21 03:16) Ekg Tracing (10/22/21 03:16) Monitor-Rhythm Ecg Trace Only (10/22/21 03:16) Amylase (10/22/21 03:16) Cbc With Automated Diff (10/22/21 03:16) Comprehensive Metabolic Panel (10/22/21 03:16) Lipase (10/22/21 03:16) Ed Iv/Invasive Line Start (10/22/21 03:16) Lactated Ringers (Lr 1000 Ml Iv Solution (10/22/21 03:30) Ondansetron Injection (Zofran Injectio (10/22/21 03:30) Bnp [place] (10/22/21 03:16) Magnesium (10/22/21 03:16) Troponin I Anupam (10/22/21 03:16) Protime With Inr (10/22/21 03:16) Partial Thromboplastin Time (10/22/21 03:16) Chest 1 View, Ap/Pa Only (10/22/21 03:29) Aspirin Chewable Tablet (Baby Aspirin Ch (10/22/21 03:30) Nitroglycerin Ointment (Nitrobid Ointme (10/22/21 03:30) Labetalol Injection (Normodyne Injection (10/22/21 04:15) Ketorolac Injection (Toradol Injection) (10/22/21 04:45) Ct Angio Chst/Abd/Pelv W (10/22/21 04:39) Labetalol Injection (Normodyne Injection (10/22/21 06:00) Medications Given in ED Vital Signs/I&O 10/22/21 10/22/21 03:03 07:23 Temp 36.5 Pulse 100 88 Resp 18 16 B/P (MAP) 249/136 (173) 143/84 Pulse Ox 96 96 O2 Delivery Room Air Capillary Refill : Progress Note : Progress Note GIVEN: -IV FLUIDS -ZOFRAN--NAUSEA RESOLVED -PROTONIX -NITROPASTE 1" PLACED--MILD DECREASE IN BLOOD PRESSURE -LABETALOL 20 MG X 2 DOSES--BP DOWN TO 140'S/90'S -TORADOL GIVEN FOR PAIN PT IS COMPLETELY SYMPTOM-FREE AT DISMISSAL DISCUSSED NEED FOR FOLLOW UP AND ANTICIPATED COURSE WITH PT AND ECG Initial ECG Impression Date: Oct 22, 2021 Initial ECG Impression Time: 03:27 Initial ECG Rate: 98 Initial ECG Rhythm: Normal Sinus Diagnostic Imaging Comments CXR--NO ACUTE PROCESS, PENDING RADIOLOGIST REVIEW CT ANGIOGRAM CHEST/ ABDOMEN-PELVIS--FINDINGS: There is no abnormal filling defect within the pulmonary arteries to the 1st subsegmental division. Thoracic aorta is normal in course and caliber. There is minimal scattered calcified atherosclerosis, but by NASCET criteria, there is no focal significant stenosis. There is no evidence of dissection or aneurysm. Heart is normal in size. There is mild calcified coronary atherosclerosis. No pathologically enlarged or morphologically abnormal adenopathy is seen within the mediastinum, dread, nor axilla. Evaluation of the lung malcolm demonstrates mildly obscured secondary motion artifact, but no focal consolidation, large effusion, no pneumothorax is seen. No suspicious pulmonary nodules or masses are identified. Osseous structures show no acute abnormalities. CT ABDOMEN: Normal appendix is identified. Small bowel loops are nondistended. The kidneys, adrenal glands, spleen, pancreas, and liver have a normal CT appearance. Multiple gallstones are noted within the lumen of gallbladder. There is however no appreciable bone mineral thickening or pericholecystic free fluid. There is no loculated fluid collection, free fluid, nor free air. No abnormal adenopathy is seen. Fat-containing umbilical hernia is identified. Ostium measures 1.4 cm. Osseous structures show no acute abnormalities. CT PELVIS: Urinary bladder is unopacified. No calculi are seen within urinary bladder. There is no loculated fluid collection, free fluid or free air. No abnormal adenopathy is seen. Osseous structures show no acute abnormalities. IMPRESSION: 1. No acute abnormalities seen within the chest, abdomen, nor pelvis. 2. No CT evidence of pulmonary embolus. 3. Cholelithiasis, but no CT evidence of acute cholecystitis. Reviewed: Reviewed by Me Departure Impression Primary Impression: Hypertensive urgency Additional Impression: Cholelithiasis Disposition: 01 HOME, SELF-CARE Condition: Improved Departure-Patient Inst. Decision time for Depature: 07:00 Referrals: WAYLON BOO CHAD C MD (PCP/Family) Primary Care Physician Patient Instructions: DASH Diet, Gallbladder Diet, Gallstones ED, High Blood Pressure (DC), High Blood Pressure Emergencies Add. Discharge Instructions: CLEAR LIQUIDS TODAY--WATER, BROTH, JELLO, GATORADE, POPSICLES TOMORROW IF YOU ARE BETTER, ADD BLAND DIET--NO GREASY OR HIGH FAT FOODS OR DRINKS, NO MILK/DAIRY PRODUCTS, NO SPICY OR ACIDIC FOODS OR DRINKS TAKE YOUR BLOOD PRESSURE MEDICATIONS EXACTLY PRESCRIBED EVERY DAY--DO NOT MISS DOSES OF YOUR MEDICATIONS TAKE YOUR OMEPRAZOLE DAILY FOLLOW UP WITH DR. BOO, SURGEON, THIS WEEK FOR FURTHER EVALUATION OF GALLSTONES FOLLOW UP WITH DR. LEAVITT THIS WEEK FOR FOLLOW UP ON BLOOD PRESSURE All discharge instructions reviewed with patient and/or family. Voiced understanding. Scripts Ketorolac Tromethamine (Ketorolac Tromethamine) 10 Mg Tablet 10 MG PO Q6H for Pain, #15 TAB Prov: REYNOLD AMADOR DO 10/22/21 Hyoscyamine Sulfate (Levsin-Sl) 0.125 Mg Tab.subl 0.25 MG SL Q4H, #10 TAB Prov: REYNOLD AMADOR DO 10/22/21 Ondansetron (Ondansetron Odt) 4 Mg Tab.rapdis 4 MG PO Q4H for Nausea/Vomiting, #10 TAB Prov: REYNOLD AMADOR DO 10/22/21 REYNOLD AMADOR DO Oct 22, 2021 04:10
[2021-10-22] MEDS ORDERED: LABETALOL HCL 20 MG/4 ML VIAL IV ONE ×2 (04:15→06:00)
[2021-10-22 04:21] LABS: ALBUMIN 4.3 GM/DL (3.2-4.5); CHLORIDE 102 MMOL/L (98-107); POTASSIUM 3.2 MMOL/L (3.6-5.0); SODIUM 140 MMOL/L (135-145)
[2021-10-22 04:22] LABS: AMYLASE 67 U/L (25-125); CALCIUM 9.7 MG/DL (8.5-10.1); INR 0.8 (0.8-1.4); PROTHROMBIN TIME PATIENT 11.9 SEC (12.2-14.7)
[2021-10-22 04:23] LABS: GLUCOSE 140 MG/DL (70-105); TOTAL PROTEIN 7.7 GM/DL (6.4-8.2)
[2021-10-22 04:24] LABS: CARBON DIOXIDE 23 MMOL/L (21-32)
[2021-10-22 04:25] LABS: BILIRUBIN,TOTAL 0.4 MG/DL (0.1-1.0)
[2021-10-22 04:27] LABS: ALKALINE PHOSPHATASE 99 U/L (40-136); CREATININE SERUM 0.87 MG/DL (0.60-1.30); GFR ESTIMATED 76
[2021-10-22 04:28] LABS: BUN/CREATININE RATIO 9
[2021-10-22 04:30] LABS: ALANINE AMINOTRANSFERASE 16 U/L (0-55); MAGNESIUM 1.5 MG/DL (1.6-2.4)
[2021-10-22 04:31] LABS: LIPASE 29 U/L (8-78)
[2021-10-22] MEDS ORDERED: KETOROLAC 30 MG/ML VIAL IVP ONE (04:45)
--- NOTE | 2021-10-22 06:45 | Diagnostic Imaging Report ---
INDICATION: HTN, CP COMPARISON: 03/14/2021 FINDINGS: Single frontal view of the chest demonstrates normal heart size and pulmonary vascularity. The lungs are well aerated and clear. No large pleural effusion or pneumothorax is seen. The visualized osseous structures show no acute abnormalities. IMPRESSION: 1. No acute cardiopulmonary process. Dictated by: Dictated on workstation # [id number]
--- NOTE | 2021-10-22 06:53 | Diagnostic Imaging Report ---
PROCEDURE: CT angiography of the chest with contrast and CT abdomen and pelvis with contrast. TECHNIQUE: Multiple contiguous axial images were obtained through the chest, abdomen and pelvis after administration of intravenous contrast. 3D MIP reconstructed CT angiography acquisitions of the aorta were then performed. Auto Exposure Controls were utilized during the CT exam to meet ALARA standards for radiation dose reduction. INDICATION: Chest pain. Hypertension. COMPARISON: None FINDINGS: There is no abnormal filling defect within the pulmonary arteries to the 1st subsegmental division. Thoracic aorta is normal in course and caliber. There is minimal scattered calcified atherosclerosis, but by NASCET criteria, there is no focal significant stenosis. There is no evidence of dissection or aneurysm. Heart is normal in size. There is mild calcified coronary atherosclerosis. No pathologically enlarged or morphologically abnormal adenopathy is seen within the mediastinum, dread, nor axilla. Evaluation of the lung malcolm demonstrates mildly obscured secondary motion artifact, but no focal consolidation, large effusion, no pneumothorax is seen. No suspicious pulmonary nodules or masses are identified. Osseous structures show no acute abnormalities. CT ABDOMEN: Normal appendix is identified. Small bowel loops are nondistended. The kidneys, adrenal glands, spleen, pancreas, and liver have a normal CT appearance. Multiple gallstones are noted within the lumen of gallbladder. There is however no appreciable bone mineral thickening or pericholecystic free fluid. There is no loculated fluid collection, free fluid, nor free air. No abnormal adenopathy is seen. Fat-containing umbilical hernia is identified. Ostium measures 1.4 cm. Osseous structures show no acute abnormalities. CT PELVIS: Urinary bladder is unopacified. No calculi are seen within urinary bladder. There is no loculated fluid collection, free fluid or free air. No abnormal adenopathy is seen. Osseous structures show no acute abnormalities. IMPRESSION: 1. No acute abnormalities seen within the chest, abdomen, nor pelvis. 2. No CT evidence of pulmonary embolus. 3. Cholelithiasis, but no CT evidence of acute cholecystitis. Dictated by: Dictated on workstation # [id number]
[2021-10-22] MEDS ORDERED: HYOS0.1283 SL (07:08)
[2021-10-22] MEDS ORDERED: KETO10TA PO (07:08)
[2021-10-22] MEDS ORDERED: ONDA4TAB11 PO (07:08)
[2021-10-22 07:23] VITALS: BP 143/84
== END 2021-10-22 07:23 | disposition home or self-care (01) ==
LOC: ER 02:42
DX: K80.20 Calculus of gallbladder without cholecystitis without obstruction (principal); I16.0 Hypertensive urgency; Z88.5 Allergy status to narcotic agent; Z28.310 Unvaccinated for COVID-19
CPT/HCPCS: 36415; 71045; 71275; 74174; 80053; 81000; 82150; 83690; 83735; 83880; 84484; 85025; 85610; 85730; 93005; 93041

== ENCOUNTER 2021-10-26 07:40 | Inpatient (IN) | payer OTHER ==
[~2021-10-26] VITALS: Ht 167.7 cm; Wt 82.5 kg
[~2021-10-26 07:40] MED LIST changes: +HYOS0.1283 SL; +KETO10TA PO; +ONDA4TAB11 PO
[2021-10-26] MEDS ORDERED: DICYCLOMINE 10 MG/ML (BENTYL) 2 ML AMP IM STA (08:11)
[2021-10-26] MEDS ORDERED: fentaNYL INJ 100 MCG/2 ML AMP IVP ONE (08:15)
[2021-10-26] MEDS ORDERED: ONDANSETRON 4 MG/2 ML (SDV) Z0FRAN IVP ONE (08:15)
[2021-10-26] MEDS ORDERED: NS IV 1000 ML 1,000 ML IV SCH ×2 (08:15→10:15)
[2021-10-26 08:18] LABS: BASOPHILS % (AUTO) 0 % (0-10); EOSINOPHILS # (AUTO) 0.1 10^3/uL (0.0-0.3); EOSINOPHILS % (AUTO) 2 % (0-10); HEMATOCRIT 39 % (35-52); HEMOGLOBIN 12.7 g/dL (11.5-16.0); LYMPHOCYTES # (AUTO) 0.8 10^3/uL (1.0-4.0); LYMPHOCYTES % (AUTO) 12 % (12-44); MEAN CORPUSCULAR HEMOGLOBIN 27 pg (25-34); MEAN CORPUSCULAR HGB CONC 32 g/dL (32-36); MEAN CORPUSCULAR VOLUME 83 fL (80-99); MEAN PLATELET VOLUME 10.7 fL (9.0-12.2); MONOCYTES # (AUTO) 0.4 10^3/uL (0.0-1.0); MONOCYTES % (AUTO) 7 % (0-12); NEUTROPHILS # (AUTO) 5.1 10^3/uL (1.8-7.8); NEUTROPHILS % (AUTO) 79 % (42-75); PLATELET COUNT 191 10^3/uL (130-400); WHITE BLOOD COUNT 6.4 10^3/uL (4.3-11.0)
--- NOTE | 2021-10-26 08:21 | ED General ---
General Chief Complaint: Abdominal/GI Problems Stated Complaint: ABD PAIN - COUGH - CHILLS Nursing Triage Note: PT AMBULATE TO ROOM 06 WITH C/O ABD PAIN. PT REPORTS N/V YESTERDAY. PT STATES SHE WAS SEEN IN THIS ED ON 10/22 AND TOLD SHE HAS GALLSTONES. PT REPORTS HAVING AN APPT WITH DR BOO ON 11/19. Source of Information: Patient, Spouse Exam Limitations: No Limitations (JAIDA NOLASCO MED STUDENT) History of Present Illness Date Seen by Provider: Oct 26, 2021 Time Seen by Provider: 08:00 Initial Comments Eula Oreilly is a 60 yo female who presents for abdominal pain, chills and cough. Pt has hx of HTN. Pt was seen in this ED on 10/22 for similar sxs and diagnosed with cholelithiasis. She had f/u with Dr. Boo, general surgeon, as an outpatient and he scheduled EGD/[place] on 11/19. She was also prescribed Toradol for pain, which she has been taking with no relief. Pt reports she woke up this morning and felt a sharp stabbing pain from her abdomen into her right shoulder that she rates 10/10. The pain is causing SOA and she is currently tachypneic. She also has chills with uncontrollable shaking in the ED currently. Last meal was a corn dog last night and she last vomited at 1400 yesterday. Pt denies taking any medications other than Toradol today. She is currently hypertensive. Will give fentanyl for pain, zofran for nausea. Will hold off on giving home meds for now. Timing/Duration: 4-5 Days Severity: Severe Modifying Factors: worse with Movement Associated Systoms: Cough, Fever/Chills, Loss of Appetite, Nausea/Vomiting, Shortness of Air (JAIDA NOLASCO MED STUDENT) Allergies and Home Medications Allergies Coded Allergies: codeine (Unverified Adverse Reaction, Mild, VOMITING, 05/23/09) Uncoded Allergies: codiene (Allergy, Intermediate, vomiting, 06/07/08) Patient Home Medication List Home Medication List Reviewed: Yes (NICHELLE PERAZA MD) Amoxicillin (Amoxicillin) 500 Mg Capsule, 500 MG PO TID Prescribed by: BERTA MARCANO on 05/25/19 708 Hyoscyamine Sulfate (Levsin-Sl) 0.125 Mg Tab.subl, 0.25 MG SL Q4H Prescribed by: REYNOLD AMADOR on 10/22/21 0708 Ibuprofen (Motrin) 200 Mg Tab, (Reported) Entered as Reported by: REYNOLD ELLIOTT on 05/23/09 0458 Ketorolac Tromethamine (Ketorolac Tromethamine) 10 Mg Tablet, 10 MG PO Q6H Prescribed by: REYNOLD AMADOR on 10/22/21 0708 Lisinopril (Lisinopril) 20 Mg Tablet, (Reported) Entered as Reported by: ALAN LARA on 05/25/19 175 Meclizine HCl (Meclizine HCl) 25 Mg Tablet, 25 MG PO TID PRN for DIZZINESS Prescribed by: BERTA MARCANO on 03/13/19 1318 Metoprolol Tartrate (Metoprolol Tartrate) 50 Mg Tablet, 50 MG PO BID Prescribed by: BERTA MARCANO on 03/14/21 1627 Omeprazole (Omeprazole) 20 Mg Capsule.dr (Reported) Entered as Reported by: ALAN LARA on 05/25/19 175 Ondansetron (Ondansetron Odt) 4 Mg Tab.rapdis, 4 MG PO Q4H Prescribed by: REYNOLD AMADOR on 10/22/21 0708 Review of Systems Review of Systems Constitutional: chills, fever EENTM: No blurred vision, No vision loss Respiratory: cough, short of breath Cardiovascular: No chest pain, No palpitations Gastrointestinal: abdominal pain; No constipation, No diarrhea; nausea, vomiting Genitourinary: other (orange urine) Musculoskeletal: No back pain, No muscle pain Skin: No lesions, No lumps, No rash Psychiatric/Neurological: Denies Headache, Denies Numbness, Denies Paresthesia Hematologic/Lymphatic: No Symptoms Reported Immunological/Allergic: no symptoms reported (JAIDA NOLASCO MED STUDENT) Past Wvzwkly-Zvemoy-Bgteed Hx Patient Social History Tobacco Use?: No Smoking Status: Never a Smoker Smokeless Tobacco Frequency: Never a User Use of E-Cig and/or Vaping dev: No Use of E-Cig and/or Vaping Roel: Never a User Substance use?: No Alcohol Use?: No Pt feels they are or have been: No (JAIDA NOLASCO MED STUDENT) Past Medical History Surgeries: Yes (TUBAL LIGATION) Tubal Ligation Respiratory: No Cardiac: Yes Hypertension Neurological: Yes Vertigo Reproductive Disorders: Yes Genitourinary: No Gastrointestinal: Yes (ACID REFLUX) Gastroesophageal Reflux Musculoskeletal: Yes (POSSIBLE RESTLESS LEGS SYNDROME OFF AND ON) Endocrine: No HEENT: No Cancer: No Psychosocial: No Integumentary: No Blood Disorders: No (JAIDA NOLASCO STUDENT) Physical Exam Vital Signs Vital Signs - First Documented 10/26/21 07:47 Temp 36.3 Pulse 106 Resp 17 B/P (MAP) 178/91 (120) O2 Delivery Room Air (NICHELLE PERAZA MD) Vital Signs Capillary Refill : Less Than 3 Seconds (JAIDA NOLASCO MED STUDENT) Height, Weight, BMI Height: '" Weight: lbs. oz. kg; 30.00 BMI Method: General Appearance: WD/WN, Mild Distress HEENT: PERRL/EOMI Neck: Full Range of Motion, Normal Inspection Respiratory: Chest Non Tender, Lungs Clear, Normal Breath Sounds Cardiovascular: No Murmur, Tachycardia Gastrointestinal: No Pulsatile Mass, Abnormal Bowel Sounds (hypoactive bowel sounds); No Distended; Guarding, Tenderness (Diffuse) Extremity: Normal Capillary Refill, Non Tender, No Pedal Edema Neurologic/Psychiatric: Alert, Oriented x3, Normal Mood/Affect Skin: Normal Color, Warm/Dry Lymphatic: No Adenopathy (JAIDA NOLASCO MED STUDENT) Progress/Results/Core Measures Suspected Sepsis SIRS Temperature: Pulse: 106 Respiratory Rate: 17 Laboratory Tests 10/26/21 08:00: White Blood Count 6.4 Blood Pressure 178 /91 Mean: 120 Laboratory Tests 10/26/21 08:00: Creatinine 1.33H, Platelet Count 191, Total Bilirubin 1.5H (JAIDA NOLASCO MED STUDENT) Results/Orders Lab Results Laboratory Tests Test 10/26/21 08:00 Range/Units White Blood Count 6.4 4.3-11.0 10^3/uL Red Blood Count 4.72 3.80-5.11 10^6/uL Hemoglobin 12.7 11.5-16.0 g/dL Hematocrit 39 35-52 % Mean Corpuscular Volume 83 80-99 fL Mean Corpuscular Hemoglobin 27 25-34 pg Mean Corpuscular Hemoglobin Concent 32 32-36 g/dL Red Cell Distribution Width 14.3 10.0-14.5 % Platelet Count 191 130-400 10^3/uL Mean Platelet Volume 10.7 9.0-12.2 fL Immature Granulocyte % (Auto) 1 % Neutrophils (%) (Auto) 79 H 42-75 % Lymphocytes (%) (Auto) 12 12-44 % Monocytes (%) (Auto) 7 0-12 % Eosinophils (%) (Auto) 2 0-10 % Basophils (%) (Auto) 0 0-10 % Neutrophils # (Auto) 5.1 1.8-7.8 10^3/uL Lymphocytes # (Auto) 0.8 L 1.0-4.0 10^3/uL Monocytes # (Auto) 0.4 0.0-1.0 10^3/uL Eosinophils # (Auto) 0.1 0.0-0.3 10^3/uL Basophils # (Auto) 0.0 0.0-0.1 10^3/uL Immature Granulocyte # (Auto) 0.0 0.0-0.1 10^3/uL Sodium Level 138 135-145 MMOL/L Potassium Level 3.3 L 3.6-5.0 MMOL/L Chloride Level 95 L 98-107 MMOL/L Carbon Dioxide Level 30 21-32 MMOL/L Anion Gap 13 5-14 MMOL/L Blood Urea Nitrogen 17 7-18 MG/DL Creatinine 1.33 H 0.60-1.30 MG/DL Estimat Glomerular Filtration Rate 46 BUN/Creatinine Ratio 13 Glucose Level 130 H 70-105 MG/DL Calcium Level 9.9 8.5-10.1 MG/DL Corrected Calcium 10.0 8.5-10.1 MG/DL Total Bilirubin 1.5 H 0.1-1.0 MG/DL Aspartate Amino Transf (AST/SGOT) 15 5-34 U/L Alanine Aminotransferase (ALT/SGPT) 13 0-55 U/L Alkaline Phosphatase 112 40-136 U/L Total Protein 8.1 6.4-8.2 GM/DL Albumin 3.9 3.2-4.5 GM/DL Lipase 18 8-78 U/L (NICHELLE PERAZA MD) My Orders Orders - NICHELLE PERAZA MD Ed Iv/Invasive Line Start (10/26/21 08:11) Cbc With Automated Diff (10/26/21 08:11) Comprehensive Metabolic Panel (10/26/21 08:11) Lipase (10/26/21 08:11) Fentanyl Inj (Sublimaze Injection) (10/26/21 08:15) Ondansetron Injection (Zofran Injectio (10/26/21 08:15) Ns Iv 1000 Ml (Sodium Chloride 0.9%) (10/26/21 08:15) Dicyclomine Injection (Bentyl Injection) (10/26/21 08:11) Morphine Injection (Morphine Injection (10/26/21 08:50) Us Gallbladder 06[address] (10/26/21 08:50) (NICHELLE PERAZA MD) Medications Given in ED Current Medications Medications Dose Ordered Sig/Nelson Route Start Time Stop Time Status Last Admin Dose Admin Fentanyl Citrate 50 mcg ONCE ONCE IVP 10/26/21 08:15 10/26/21 08:16 DC 10/26/21 08:27 50 MCG Ondansetron HCl 4 mg ONCE ONCE IVP 10/26/21 08:15 10/26/21 08:16 DC 10/26/21 08:26 4 MG (NICHELLE PERAZA MD) Vital Signs/I&O 10/26/21 07:47 Temp 36.3 Pulse 106 Resp 17 B/P (MAP) 178/91 (120) O2 Delivery Room Air (NICHELLE PERAZA MD) Vital Signs/I&O Capillary Refill : Less Than 3 Seconds (JAIDA NOLASCO MED STUDENT) Blood Pressure Mean: 120 Progress Note : Time: 08:27 Progress Note CBC unremarkable. BMP and lipase pending. Fentanyl and zofran given for pain and nausea. Bentyl ordered for abdominal discomfort. 0837: Pain 9/10 after fentanyl given. Pt seems more settled and shaking has subsided. 0929 update: Pt has 10/10 pain during ultrasound, which showed gallstones and gallbladder wall thickening. Bile duct unable to visualized. Awaiting official read. Morphine ordered for pain. BMP showed K+ of 3.3, Cl 95, Cr 1.33 and total bili 1.5. 0952: Gallbladder ultrasound official read: Echogenic material seen within the gallbladder lumen with associated gallbladder wall thickening. Patient did report tenderness at this site indicating positive sonographic العراقي sign. Overall constellation of findings would suggest acute cholecystitis without significant biliary ductal dilatation documented. (JAIDA NOLASCO MED STUDENT) Progress Note #1: Time: 08:48 Progress Note Patient still feeling pain, chilling very hard - rates pain a "9". Abdomen remains tender with voluntary guarding. very quiet bowel sounds. Progress Note #2: Time: 09:58 Progress Note Patient reassessed and still rating her pain at a "9" after morphine. Ultrasound report from the radiologist shows findings consistent with acute cholecystitis with gallbladder wall thickening. I have spoken with Dr. RAYO who is on-call for general surgery who states that she can have the routine pain and nausea medicines with clear liquids until midnight. He would like me to start her on Cipro and Flagyl and he will plan to do a cholecystectomy tomorrow. (NICHELLE PERAZA MD) Departure Communication (Admissions) Time/Spoke to Admitting Phy: 09:[address] Rayo; pain meds, abx; anticipate surgery tomorrow (NICHELLE PERAZA MD) Impression Primary Impression: Acute cholecystitis due to biliary calculus Disposition: ADMITTED INPATIENT Condition: Stable Admissions Decision to Admit Reason: Admit from ER (General) Decision to Admit/Date: Oct 26, 2021 Time/Decision to Admit Time: 09:59 (NICHELLE PERAZA MD) Departure-Patient Inst. Referrals: LUIS LEAVITT MD (PCP/Family) Primary Care Physician Verification and Attestation of Medical Student E/M Service A medical student performed and documented this service in my presence. I reviewed and verified all information documented by the medical student and made modifications to such information, when appropriate. I personally performed the physical exam and medical decision making. Nichelle Peraza, Oct 26, 2021,09:59 (NICHELLE PERAZA MD) JAIDA NOLASCO MED STUDENT Oct 26, 2021 08:21 NICHELLE PERAZA MD Oct 26, 2021 08:49
[2021-10-26 08:26] LABS: ALBUMIN 3.9 GM/DL (3.2-4.5)
[2021-10-26 08:27] LABS: POTASSIUM 3.3 MMOL/L (3.6-5.0)
[2021-10-26 08:28] LABS: CALCIUM 9.9 MG/DL (8.5-10.1)
[2021-10-26 08:29] LABS: TOTAL PROTEIN 8.1 GM/DL (6.4-8.2)
[2021-10-26 08:31] LABS: BILIRUBIN,TOTAL 1.5 MG/DL (0.1-1.0)
[2021-10-26 08:33] LABS: CREATININE SERUM 1.33 MG/DL (0.60-1.30)
[2021-10-26] MEDS ORDERED: morphine INJ 10 MG/ML 1ML (SYR OR VIAL) IVP STA ×2 (08:50→10:04)
--- NOTE | 2021-10-26 09:44 | Diagnostic Imaging Report ---
PROCEDURE: US Gallbladder. TECHNIQUE: Multiple real-time grayscale images were obtained over the right upper quadrant in various projections. INDICATION: Abdominal pain Liver measures 18 cm in length without evidence of focal abnormality. There does appear to be thickening of the gallbladder wall with echogenic internal material which may represent sludge or stones. Overlying bowel obscures pancreas and abdominal aorta. No inferior vena caval or right renal abnormality is identified. There is no evidence of free fluid. IMPRESSION: Echogenic material seen within the gallbladder lumen with associated gallbladder wall thickening. Patient did report tenderness at this site indicating positive sonographic العراقي sign. Overall constellation of findings would suggest acute cholecystitis without significant biliary ductal dilatation documented. Dictated by: Dictated on workstation # [id number]
[2021-10-26] MEDS ORDERED: PANTOPRAZOLE 40 MG (PROTONIX) VIAL IV ONE (10:15)
[2021-10-26] MEDS ORDERED: CIPROFLOXACIN IV 400MG/200ML 200 ML IV ONE (10:15)
[2021-10-26] MEDS ORDERED: metroNIDAZOLE 500MG/100ML IVPB 100 ML IV ONE (10:15)
[2021-10-26] MEDS ORDERED: morphine INJ 4 MG/ML 1 ML (VIAL/SYRINGE) IV PRN (11:15)
[2021-10-26] MEDS ORDERED: CATHETER FLUSH 10 ML SYR IVP PRN (11:30)
[2021-10-26] MEDS: NS IV 1000 ML 1,000 ML IV SCH ×2 (11:33→20:53)
[2021-10-26 11:45] VITALS: BP 143/64
[2021-10-26 12:02] VITALS: BP 160/84
[2021-10-26] MEDS ORDERED: fentaNYL INJ 100 MCG/2 ML AMP IVP NR (12:30)
[2021-10-26 12:53] VITALS: BP 160/84
--- NOTE | 2021-10-26 13:29 | HISTORY AND PHYSICAL ---
DATE OF SERVICE: ATTENDING PRIMARY CARE PHYSICIAN: Dr. Lowell Marte. HISTORY OF PRESENT ILLNESS: The patient is a 60-year-old female who presented to the Emergency Department with right upper abdominal quadrant pain. She states that she has had this before and underwent a CT scan, which did show cholelithiasis. She was then instructed to follow up with general surgery, which she did, and she was scheduled endoscopy; however, she has had recurrent pain in the right upper abdominal quadrant, which was significant with radiation towards the back. She also reports some mild fevers and chills. An ultrasound was performed, which did show gallbladder wall thickening as well as multiple gallstones. PAST MEDICAL HISTORY: Hypertension and degenerative joint disease. PAST SURGICAL HISTORY: Tubal ligation. ALLERGIES: CODEINE. MEDICATIONS: Hyoscyamine 0.125 mg PRN, lisinopril 20 mg daily, meclizine 25 mg p.r.n., metoprolol 50 mg b.i.d., omeprazole 20 mg daily. SOCIAL HISTORY: Previous smoker, quit 4 months ago, negative alcohol. FAMILY HISTORY: Noncontributory. VITAL SIGNS: Temperature 36.3, pulse 106, respirations 17, blood pressure 178/91, pulse ox 100% on nasal cannula. REVIEW OF SYSTEMS: Well-nourished female currently in no acute distress. She is not experiencing any shortness of breath or difficulty breathing. No chest pain, palpitations, diaphoresis. Intermittent episodes of nausea with associated right upper abdominal quadrant pain. She did not have any vomiting, no diarrhea or constipation, no red blood per rectum, no dark tarry stools. She did have some fevers and chills at home starting early this morning. No recent inadvertent weight loss. All other review of systems negative. PHYSICAL EXAMINATION: CHEST: Scattered rales and rhonchi bilaterally. HEART: Regular, no murmurs. EXTREMITIES: No lower extremity edema, negative Homans sign. HEENT: No scleral icterus. NECK: No cervical lymphadenopathy. ABDOMEN: Soft, nondistended with pain in the right upper abdominal quadrant with voluntary guarding, no rebound. SKIN: Warm, dry. LABORATORY DATA: WBC 6.4, hemoglobin 12.7, hematocrit 39, platelets 191. BUN 17, creatinine 1.33. Total bilirubin 1.5. ASSESSMENT AND PLAN: A 60-year-old female with acute calculous cholecystitis. The natural history of this disease process was explained to the patient and the need for a laparoscopic cholecystectomy; however, we will admit her, start her on IV hydration due to the fact she does appear dehydrated and also to start IV antibiotics to close on her antibiotics. On this admission, we will also proceed with a laparoscopic cholecystectomy. Job ID: [id number] DocumentID: [id number] Dictated Date: 10/26/2021 13:05:57 [employer] Machine Date: 10/26/2021 13:28:45 Dictated By: NAVNEET WHITE MD MTDD
[2021-10-26] MEDS: fentaNYL INJ 100 MCG/2 ML AMP IVP PRN ×5 (14:11→23:36)
[2021-10-26] MEDS ORDERED: ONDA4TAB11 PO (14:14)
[2021-10-26] MEDS ORDERED: KETO10TA PO (14:14)
[2021-10-26] MEDS ORDERED: CARV6.252 PO (14:14)
[2021-10-26 15:50] VITALS: BP 130/74
[2021-10-26] MEDS: metroNIDAZOLE 500MG/100ML IVPB 100 ML IV SCH (17:07)
[2021-10-26 19:53] VITALS: BP 132/82
[2021-10-26] MEDS: HYDROcodone/APAP 7.5 MG/325 MG (LORTAB, LORCET PLUS) TABLET PO PRN (20:50)
[2021-10-26] MEDS: CIPROFLOXACIN IV 400MG/200ML 200 ML IV SCH (20:53)
[2021-10-26] MEDS: ONDANSETRON 4 MG/2 ML (SDV) Z0FRAN IV PRN (23:00)
[2021-10-27] VITALS (7 sets, daily range): BP systolic 123–136; BP diastolic 60–82
[2021-10-27] MEDS: fentaNYL INJ 100 MCG/2 ML AMP IVP PRN ×6 (02:23→18:08)
[2021-10-27] MEDS: metroNIDAZOLE 500MG/100ML IVPB 100 ML IV SCH ×3 (02:24→17:03)
[2021-10-27] MEDS: RT-ALBUTEROL SULF 2.5 MG/3 ML PRE-MIX VIAL INH PRN (03:46)
[2021-10-27] MEDS: HYDROcodone/APAP 7.5 MG/325 MG (LORTAB, LORCET PLUS) TABLET PO PRN ×5 (03:52→23:53)
[2021-10-27] MEDS: CIPROFLOXACIN IV 400MG/200ML 200 ML IV SCH ×2 (08:03→20:04)
[2021-10-27] MEDS: PANTOPRAZOLE 40 MG (PROTONIX) VIAL IV SCH (08:03)
[2021-10-27] MEDS: NS IV 1000 ML 1,000 ML IV SCH ×4 (08:04→16:34)
--- NOTE | 2021-10-27 10:29 | Progress Note-Pre Operative ---
Pre-Operative Progress Note Date of Available H&P: Oct 27, 2021 Date H&P Reviewed: Oct 27, 2021 Time H&P Reviewed: 11:00 History & Physical: No changes noted Pre-Operative Diagnosis: acute calculous cholecystitis. NAVNEET WHITE MD Oct 27, 2021 10:29
--- NOTE | 2021-10-27 11:49 | Progress Note ---
Subjective Date Seen by a Provider: Oct 27, 2021 Time Seen by a Provider: 10:50 Subjective/Events-last exam Patient seen with Dr. Rayo. Patient reports still having upper abdominal pain with occasional nausea. No vomiting. RN reports decreased urine output and alvaro color. Objective Exam Vital Signs Date Time Temp Pulse Resp B/P (MAP) Pulse Ox O2 Delivery O2 Flow Rate FiO2 10/27/21 08:35 35.8 97 20 136/82 (100) 90 Room Air 10/27/21 08:00 99 Nasal Cannula 2.00 10/27/21 03:46 99 Simple Mask 2.00 10/27/21 03:30 36.5 95 20 134/63 (86) 90 Room Air 10/27/21 00:01 36.2 89 18 125/60 (81) 95 Non Rebreather 1.00 10/26/21 20:55 95 Non Rebreather 1.00 10/26/21 19:53 94 23 132/82 (99) 95 Non Rebreather 1.00 10/26/21 15:50 37.7 93 22 130/74 (92) 92 Non Rebreather 2.00 10/26/21 12:53 37.3 103 94 21 10/26/21 12:02 103 160/84 (109) 94 Non Rebreather 2.00 10/26/21 11:47 Room Air I & O 10/27/21 06:59 Intake Total 1700 ml Output Total 50 ml Balance 1650 ml Capillary Refill : Less Than 3 Seconds General Appearance: No Apparent Distress Neck: Normal Inspection, Supple Respiratory: No Accessory Muscle Use, No Respiratory Distress Gastrointestinal: normal bowel sounds, soft, tenderness (Epigastric and RUQ) Extremity: Normal Inspection, Normal Range of Motion Neurologic/Psychiatric: Alert, Oriented x3 Skin: Normal Color, Warm/Dry Results Lab Laboratory Tests 10/27/21 11:25: Assessment/Plan Assessment/Plan Assess & Plan/Chief Complaint A 60 year old female with Acute calculous cholecystitis VSS Continue IV fluids, pain, & nausea meds PPI Continue IV abx Will recheck cmp to check kidney function CBC & CMP in AM Will schedule for lap mayco in AM tomorrow MARYJANE ENRIQUEZ APRN Oct 27, 2021 11:49
[2021-10-27 12:00] LABS: POTASSIUM 3.6 MMOL/L (3.6-5.0)
[2021-10-27 12:01] LABS: CALCIUM 8.7 MG/DL (8.5-10.1)
[2021-10-27 12:03] LABS: TOTAL PROTEIN 6.3 GM/DL (6.4-8.2)
[2021-10-27 12:06] LABS: CREATININE SERUM 2.16 MG/DL (0.60-1.30)
[2021-10-27] MEDS: ONDANSETRON 4 MG/2 ML (SDV) Z0FRAN IV PRN (14:34)
--- NOTE | 2021-10-27 15:03 | Consultation - Hospitalist ---
HPI History of Present Illness: HPI/Chief Complaint Patient is a 60-year-old female with past medical history of hypertension who presented to the emergency department due to abdominal pain. She was admitted to Dr. RAYO service due to acute cholecystitis with plan for the OR tomorrow. I am consulted due to an MARCIANO. Patient had normal though upper limits of normal creatinine yesterday but this morning increased and has had decreased urine output. I discussed this with the patient and recommended a Francisco catheter but she adamantly refuses. She states she is willing to use a hat in the toilet or bedside commode to get accurate urine output. She does report poor oral intake due to her abdominal pain. Date Seen 10/27/21 Attending Physician Lowell Marte MD PCP Admitting Physician: Pegyg Rayo MD Attending Physician: Peggy Rayo MD Referring Physician Date of Admission Oct 26, 2021 at 09:59 Home Medications & Allergies Home Medications Reviewed patient Home Medication Reconciliation performed by pharmacy medication reconciliations fuel verification technician and/or nursing. Patients Allergies have been reviewed. Allergies Allergies Coded Allergies codeine (Unverified Adverse Reaction, Mild, VOMITING pt has rec'd hydrocodone in past, 10/26/21) Uncoded Allergies codiene ( Allergy, Intermediate, vomiting; pt has rec'd hydrocodone in past, 10/26/21) Past Xmvisuj-Gvodmz-Scgcmc Hx Patient Social History Marrital Status: Tobacco Use?: No Smoking Status: Former Smoker Smokeless Tobacco Frequency: Never a User Use of E-Cig and/or Vaping dev: No Use of E-Cig and/or Vaping Roel: Never a User Substance use?: No Alcohol Use?: Yes Alcohol Frequency: Once in a while Pt feels they are or have been: No Immunizations Up To Date Tetanus Booster (TDap): Less Than 5 Years Hepatitis A: No Hepatitis B: No Current Status status: No status: No Advance Directives: No Communicates: Verbally Primary Language: Citizen Of [place] Preferred Spoken Language: Citizen Of [place] Is interpretation needed?: No Implanted or Applied Medical D: None Past Medical History Surgeries: Tubal Ligation Hypertension Vertigo Gastroesophageal Reflux Blood Disorders: No Review of Systems Constitutional: chills; No fever EENTM: no symptoms reported Respiratory: no symptoms reported Cardiovascular: no symptoms reported Gastrointestinal: RUQ, abdominal pain Genitourinary: decreased output; No dysuria, No hematuria, No incontinence Musculoskeletal: no symptoms reported Skin: no symptoms reported Psychiatric/Neurological: No Symptoms Reported Physical Exam Physical Exam Vital Signs Vital Signs - First Documented 10/26/21 10/26/21 10/26/21 10/26/21 07:47 10:53 12:02 12:53 Temp 36.3 Pulse 106 Resp 17 B/P (MAP) 178/91 (120) Pulse Ox 97 O2 Delivery Room Air O2 Flow Rate 2.00 FiO2 21 Capillary Refill : Less Than 3 Seconds Height, Weight, BMI Height: '" Weight: lbs. oz. kg; 29.33 BMI Method: General Appearance: No Apparent Distress, WD/WN, Other (appears uncomfortable) HEENT: PERRL/EOMI, Moist Mucous Membranes; No Scleral Icterus (L), No Scleral Icterus (R) Neck: Normal Inspection, Supple Respiratory: Lungs Clear, No Accessory Muscle Use, No Respiratory Distress Cardiovascular: Regular Rate, Rhythm, No Murmur Gastrointestinal: No Pulsatile Mass, Abnormal Bowel Sounds (quiet); No Distended; Guarding, Tenderness (right upper quadrant) Extremity: Normal Capillary Refill, No Calf Tenderness, No Pedal Edema Neurologic/Psychiatric: Alert, Oriented x3, Normal Mood/Affect Skin: Normal Color, Warm/Dry Lymphatic: No Adenopathy Results Results/Procedures Labs Laboratory Tests 10/26/21 08:00 10/27/21 11:25 Patient resulted labs reviewed. Imaging: Reviewed Imaging Report Imaging [facility] [place], [place] NAME: SADIQ CESAR [facility] REC#: [id number] PT STATUS: DEP ER : 1960 PHYSICIAN: REYNOLD AMADOR DO ADMIT DATE: 10/22/21/ER Signed Date of Exam:10/22/21 CT ANGIO CHST/ABD/PELV W PROCEDURE: CT angiography of the chest with contrast and CT abdomen and pelvis with contrast. TECHNIQUE: Multiple contiguous axial images were obtained through the chest, abdomen and pelvis after administration of intravenous contrast. 3D MIP reconstructed CT angiography acquisitions of the aorta were then performed. Auto Exposure Controls were utilized during the CT exam to meet ALARA standards for radiation dose reduction. INDICATION: Chest pain. Hypertension. COMPARISON: None FINDINGS: There is no abnormal filling defect within the pulmonary arteries to the 1st subsegmental division. Thoracic aorta is normal in course and caliber. There is minimal scattered calcified atherosclerosis, but by NASCET criteria, there is no focal significant stenosis. There is no evidence of dissection or aneurysm. Heart is normal in size. There is mild calcified coronary atherosclerosis. No pathologically enlarged or morphologically abnormal adenopathy is seen within the mediastinum, dread, nor axilla. Evaluation of the lung malcolm demonstrates mildly obscured secondary motion artifact, but no focal consolidation, large effusion, no pneumothorax is seen. No suspicious pulmonary nodules or masses are identified. Osseous structures show no acute abnormalities. CT ABDOMEN: Normal appendix is identified. Small bowel loops are nondistended. The kidneys, adrenal glands, spleen, pancreas, and liver have a normal CT appearance. Multiple gallstones are noted within the lumen of gallbladder. There is however no appreciable bone mineral thickening or pericholecystic free fluid. There is no loculated fluid collection, free fluid, nor free air. No abnormal adenopathy is seen. Fat-containing umbilical hernia is identified. Ostium measures 1.4 cm. Osseous structures show no acute abnormalities. CT PELVIS: Urinary bladder is unopacified. No calculi are seen within urinary bladder. There is no loculated fluid collection, free fluid or free air. No abnormal adenopathy is seen. Osseous structures show no acute abnormalities. IMPRESSION: 1. No acute abnormalities seen within the chest, abdomen, nor pelvis. 2. No CT evidence of pulmonary embolus. 3. Cholelithiasis, but no CT evidence of acute cholecystitis. Dictated by: Dictated on workstation # [id number] Dict: 10/22/21621 Trans: 10/22/21835 [facility] [id number] Interpreted by: JYOTI WAYNE MD Electronically signed by: JYOTI WAYNE MD 10/22/21835 [facility], [place] NAME: SADIQ CESAR [facility] REC#: [id number] PT STATUS: ADM Johann : 1960 PHYSICIAN: NICHELLE PERAZA MD ADMIT DATE: 10/26/21 Signed Date of Exam:10/26/21 US GALLBLADDER [id number] PROCEDURE: US Gallbladder. TECHNIQUE: Multiple real-time grayscale images were obtained over the right upper quadrant in various projections. INDICATION: Abdominal pain Liver measures 18 cm in length without evidence of focal abnormality. There does appear to be thickening of the gallbladder wall with echogenic internal material which may represent sludge or stones. Overlying bowel obscures pancreas and abdominal aorta. No inferior vena caval or right renal abnormality is identified. There is no evidence of free fluid. IMPRESSION: Echogenic material seen within the gallbladder lumen with associated gallbladder wall thickening. Patient did report tenderness at this site indicating positive sonographic العراقي sign. Overall constellation of findings would suggest acute cholecystitis without significant biliary ductal dilatation documented. Dictated by: Dictated on workstation # [id number] Dict: 10/26/21 0937 Trans: 10/26/21 1619 [facility] [id number] Interpreted by: KAYKAY GREENBERG MD Electronically signed by: KAYKAY GREENBERG MD 10/26/21 1619 Assessment/Plan Assessment and Plan Assess & Plan/Chief Complaint Acute cholecystitis Management per primary Plan for OR tomorrow MARCIANO Monitor I/Os closely Pt refuses catheter K WNL as is bicarb Continue IVF Bladder scan Called and discussed with Dr Rayo HTN BP well controlled, trend DVT ppx: SCDs Diagnosis/Problems Diagnosis/Problems (1) MARCIANO (acute kidney injury) (2) Acute cholecystitis due to biliary calculus Status: Acute (3) Hypertension Status: Acute ITA WHITTAKER MD Oct 27, 2021 15:03
[2021-10-27 18:23] LABS: POTASSIUM 3.8 MMOL/L (3.6-5.0)
[2021-10-27 18:24] LABS: CALCIUM 8.4 MG/DL (8.5-10.1)
--- NOTE | 2021-10-27 18:27 | Diagnostic Imaging Report ---
INDICATION: Shortness of breath and chest pain. EXAMINATION: Frontal chest was obtained at 6:08 p.m. COMPARISON: 10/22/2021. There is poor inspiration. Heart and mediastinal silhouette are normal in appearance. The lungs are clear. There is no pneumothorax or pleural fluid. IMPRESSION: Poor inspiration but no acute process in the chest. Dictated by: Dictated on workstation # [id number]
[2021-10-27 18:28] LABS: CREATININE SERUM 2.29 MG/DL (0.60-1.30)
[2021-10-27] MEDS ORDERED: PANTOPRAZOLE 20 MG TABLET (PROTONIX) PO ONE ×2 (19:45→20:12)
[2021-10-27] MEDS ORDERED: PANTOPRAZOLE 40 MG (PROTONIX) TAB PO ONE (20:02)
[2021-10-28] VITALS (13 sets, daily range): BP systolic 92–151; BP diastolic 56–94
[2021-10-28] MEDS: NS IV 1000 ML 1,000 ML IV SCH ×6 (00:03→20:31)
[2021-10-28] MEDS: metroNIDAZOLE 500MG/100ML IVPB 100 ML IV SCH ×2 (01:35→10:00)
[2021-10-28] MEDS: HYDROcodone/APAP 7.5 MG/325 MG (LORTAB, LORCET PLUS) TABLET PO PRN ×2 (03:48→20:26)
[2021-10-28 06:02] LABS: HEMATOCRIT 33 % (35-52); HEMOGLOBIN 10.3 g/dL (11.5-16.0); MEAN CORPUSCULAR HEMOGLOBIN 27 pg (25-34); MEAN CORPUSCULAR HGB CONC 31 g/dL (32-36); MEAN CORPUSCULAR VOLUME 85 fL (80-99); PLATELET COUNT 167 10^3/uL (130-400); WHITE BLOOD COUNT 11.8 10^3/uL (4.3-11.0)
[2021-10-28 06:28] LABS: ALBUMIN 2.9 GM/DL (3.2-4.5); BILIRUBIN,TOTAL 1.5 MG/DL (0.1-1.0); CALCIUM 8.7 MG/DL (8.5-10.1); CREATININE SERUM 2.95 MG/DL (0.60-1.30); POTASSIUM 4.1 MMOL/L (3.6-5.0); TOTAL PROTEIN 6.5 GM/DL (6.4-8.2)
[2021-10-28] MEDS: RT-ALBUTEROL/IPRATROPIUM 3 ML (DUONEB) VIAL INH SCH ×4 (06:30→20:39)
[2021-10-28] MEDS ORDERED: NS IV 1000 ML 1,000 ML IV SCH (06:45)
[2021-10-28] MEDS ORDERED: LIDOCAINE/EPI 2% 1:200,00 (XYLOCAINE) 20 ML VIAL ONE (08:02)
[2021-10-28] MEDS ORDERED: morphine INJ 10 MG/ML 1ML (SYR OR VIAL) ONE (08:03)
[2021-10-28] MEDS ORDERED: HYDROmorphone 2 MG/ML VIAL (DILAUDID) ONE (08:04)
[2021-10-28] MEDS ORDERED: ONDANSETRON 4 MG/2 ML (SDV) Z0FRAN ONE ×2 (08:04→09:17)
[2021-10-28] MEDS ORDERED: fentaNYL INJ 100 MCG/2 ML AMP ONE ×2 (08:05→09:18)
[2021-10-28] MEDS: PANTOPRAZOLE 40 MG (PROTONIX) VIAL IV SCH (09:00)
[2021-10-28] MEDS: CIPROFLOXACIN IV 400MG/200ML 200 ML IV SCH (09:00)
[2021-10-28] MEDS: LACTATED RINGERS 1,000 ML IV PRN ×2 (09:06→10:50)
[2021-10-28] MEDS ORDERED: proPOfol 200 MG/20 ML (DIPRIVAN) VIAL IV ONE (09:17)
[2021-10-28] MEDS ORDERED: ROCURONIUM 10 MG/ML 5 ML SYRINGE IV ONE (09:17)
[2021-10-28] MEDS ORDERED: LIDOCAINE PF 2% 5 ML (XYLOCAINE) VIAL ONE (09:17)
[2021-10-28] MEDS ORDERED: LIDOCAINE/EPI 2% 1:100,00 (XYLOCAINE) 20 ML VIAL IJ ONE (09:18)
[2021-10-28] MEDS ORDERED: MIDAZOLAM 2 MG/2 ML (VERSED) VIAL ONE (09:18)
[2021-10-28] MEDS ORDERED: ceFAZolin INJECTION 1,000 MG VIAL IV NR (09:30)
[2021-10-28] MEDS ORDERED: NEOSTIGMINE (BLOXIVERZ ) 1 MG/1ML 10 ML VIAL ONE (11:01)
[2021-10-28] MEDS ORDERED: PHENYLEPHRINE 100 MCG/ML 10 ML (ANESTHESIA) SYR ONE (11:01)
[2021-10-28] MEDS ORDERED: GLYCOPYRROLATE 0.2 MG/ML (ROBINUL) 2 ML VIAL ONE (11:01)
[2021-10-28] MEDS ORDERED: SEVOFLURANE (ULTANE) 15 ML INHAL SOLN ONE (11:04)
--- NOTE | 2021-10-28 11:13 | Progress Note-Post Operative ---
Post-Operative Progess Note Surgeon (s)/Stablehand (s) Surgeon NAVNEET WHITE MD Stablehand: yahir mcclain DIRECTOR FINANCIAL SYSTEMS Pre-Operative Diagnosis acute calculous cholecystitis. Post-Operative Diagnosis perforated calculous cholecystitis. Procedure & Operative Findings Date of Procedure 10/28/21 Procedure Performed/Findings laparoscopic cholecystectomy with fenestration posterior wall. Anesthesia Type get Estimated Blood Loss Estimated blood loss (mL): minimal Specimens/Packing Specimens Removed gallbladder NAVNEET WHITE MD Oct 28, 2021 11:13
[2021-10-28] MEDS ORDERED: PIPERACILLIN SODIUM/TAZOBACTAM 4.5 GM in NS (IVPB) 100 ML IV SCH ×2 (11:30→12:00)
[2021-10-28] MEDS: PIPERACILLIN SODIUM/TAZOBACTAM 4.5 GM in NS (IVPB) 100 ML IV SCH (16:51)
--- NOTE | 2021-10-28 18:42 | OPERATIVE REPORT ---
DATE OF SERVICE: 10/28/2021 PREOPERATIVE DIAGNOSIS: Acute cholecystitis. POSTOPERATIVE DIAGNOSIS: Perforated acute cholecystitis. PROCEDURE: Laparoscopic cholecystectomy with fenestration of the posterior wall. SURGEON: Navneet White MD. PUBLIC HEALTH ADMINISTRATOR: Salvador Mcknight APRN. ANESTHESIA: General endotracheal. ESTIMATED BLOOD LOSS: Minimal. FINDINGS: Perforated gallbladder with biloma. DISPOSITION: The patient tolerated the procedure well. INDICATIONS: The patient is a 60-year-old female who presented to the Emergency Department with right upper abdominal quadrant pain. She states that she has had this before and underwent a CT scan, which did show cholelithiasis. She was then instructed to follow up with general surgery, which she did and was scheduled for endoscopy; however, she developed recurrent pain in the right upper abdominal quadrant with radiation towards the back. She also had reported some mild fevers and chills at home. An ultrasound was performed, which did show gallbladder wall thickening as well as multiple gallstones. DESCRIPTION OF PROCEDURE: The patient was brought to the operating room and laid supine on the table. After adequate IV pain and sedative medications and general endotracheal intubation, the abdomen was prepped and draped in standard surgical fashion. A 0.5% Marcaine with epinephrine was used to anesthetize the overlying skin in left upper abdominal quadrant and transverse skin incision made using a 15 blade. An 0 silk suture was applied to the medial aspect of incision for retraction and a Veress needle inserted with a low opening pressure of 0 mmHg. The abdomen was then insufflated to 15 mmHg pressure. The Veress needle removed, and a 5 mm XL trocar placed followed by a 5 mm 45-degree angle laparoscope visualizing the peritoneal cavity. A 4-quadrant abdominal exploration was performed. There was a biloma of the right subphrenic space as well as fibrino- exudative fluid. This was suctioned. Under direct visualization, we then proceed to place a supraumbilical 10 mm port after the skin and peritoneal lining were anesthetized using 0.5% Marcaine with epinephrine and a transverse skin incision made using a 15 blade. In a similar manner, a right upper abdominal quadrant 5 mm port was placed. The patient was then placed in a reverse Trendelenburg position as well as plane right side up, left side down. A perforated acute cholecystitis was identified with large inflammatory phlegmon. The fundus of the gallbladder was carefully retracted where the perforation was identified. We then proceeded with meticulous dissection of the triangle of Calot, which we wereable to be identified including the cystic duct and artery as well as the cystic duct and artery as the only two structures going into the gallbladder. Cystic duct and artery were then clipped proximally and distally and cut with EndoShears. We then proceeded with a fenestration resection of the gallbladder, leaving the posterior wall due to the friability of the tissue and inflammatory phlegmon identified. Good hemostasis was observed. Posterior wall was then cauterized. The gallbladder and gallstones were then removed using an EndoCatch bag through the 10 mm port site. We then proceeded with copious irrigation of the subphrenic space as well as the gallbladder fossa. A 19-Maltese Matt-Aguilar drain was then placed into the fossa in the subphrenic space and pulled out through the left upper abdominal quadrant 5 mm port and sutured to the skin using 3-0 nylon suture. The fascia and peritoneum to the 10 mm port was then closed using 0 Vicryl suture on a UR needle. The abdomen was desufflated and the remaining ports were removed, and all skin incisions were closed using 4-0 Monocryl running subcuticular sutures. Wounds were then cleaned and covered with Dermabond. The patient tolerated the procedure well. We will admit her back to the floor. Continue with IV antibiotics and continue the drain to monitor for any bile leak. If that should happen, we will continue to monitor this; however, if bile continues to come out of the drain and the leak persists, we will then refer her to gastroenterology for ERCP as well as stent placement. Job ID: [id number] DocumentID: [id number] Dictated Date: 10/28/2021 11:28:22 Machine Cloth Trimmer Date: 10/28/2021 18:42:01 Dictated By: NAVNEET WHITE MD [facility]
[2021-10-29] MEDS: NS IV 1000 ML 1,000 ML IV SCH ×5 (00:41→19:27)
[2021-10-29 03:20] VITALS: BP 110/70
[2021-10-29] MEDS: HYDROcodone/APAP 7.5 MG/325 MG (LORTAB, LORCET PLUS) TABLET PO PRN (03:35)
[2021-10-29 05:27] LABS: HEMOGLOBIN 9.5 g/dL (11.5-16.0)
[2021-10-29 05:29] LABS: BASOPHILS % (AUTO) 0 % (0-10); EOSINOPHILS # (AUTO) 0.2 10^3/uL (0.0-0.3); EOSINOPHILS % (AUTO) 2 % (0-10); HEMATOCRIT 30 % (35-52); LYMPHOCYTES # (AUTO) 1.3 10^3/uL (1.0-4.0); LYMPHOCYTES % (AUTO) 12 % (12-44); MEAN CORPUSCULAR HEMOGLOBIN 27 pg (25-34); MEAN CORPUSCULAR HGB CONC 32 g/dL (32-36); MEAN CORPUSCULAR VOLUME 85 fL (80-99); MEAN PLATELET VOLUME 9.6 fL (9.0-12.2); MONOCYTES # (AUTO) 0.6 10^3/uL (0.0-1.0); MONOCYTES % (AUTO) 6 % (0-12); NEUTROPHILS # (AUTO) 7.6 10^3/uL (1.8-7.8); NEUTROPHILS % (AUTO) 74 % (42-75); PLATELET COUNT 204 10^3/uL (130-400); WHITE BLOOD COUNT 10.2 10^3/uL (4.3-11.0)
[2021-10-29 05:45] LABS: ALBUMIN 2.5 GM/DL (3.2-4.5); POTASSIUM 3.9 MMOL/L (3.6-5.0)
[2021-10-29 05:47] LABS: CALCIUM 8.2 MG/DL (8.5-10.1)
[2021-10-29 05:48] LABS: TOTAL PROTEIN 5.5 GM/DL (6.4-8.2)
[2021-10-29 05:50] LABS: BILIRUBIN,TOTAL 0.7 MG/DL (0.1-1.0)
[2021-10-29 05:51] LABS: CREATININE SERUM 2.74 MG/DL (0.60-1.30)
[2021-10-29] MEDS: PIPERACILLIN SODIUM/TAZOBACTAM 4.5 GM in NS (IVPB) 100 ML IV SCH ×3 (06:24→22:00)
[2021-10-29] MEDS: RT-ALBUTEROL/IPRATROPIUM 3 ML (DUONEB) VIAL INH SCH ×4 (06:39→18:54)
[2021-10-29 08:00] VITALS: BP 115/75
[2021-10-29] MEDS: PANTOPRAZOLE 40 MG (PROTONIX) VIAL IV SCH (08:27)
[2021-10-29 08:57] LABS: CLARITY,URINE CLEAR; COLOR,URINE AMBER; GLUCOSE, URINE (UA) TRACE (NEGATIVE); KETONES,URINE TRACE (NEGATIVE); LEUKOCYTE ESTERASE ,URINE NEGATIVE (NEGATIVE); NITRITE,URINE POSITIVE (NEGATIVE); PROTEIN,URINE 1+ (NEGATIVE)
[2021-10-29 09:01] VITALS: BP 115/75
[2021-10-29 09:12] LABS: AMORPHOUS SEDIMENT,UR LARGE AMOR URATES /LPF; BACTERIA,URINE NEGATIVE /HPF; BILIRUBIN,URINE NEGATIVE (NEGATIVE); GRANULAR CASTS,URINE 0-2 /LPF; WBC,URINE 0-2 /HPF
--- NOTE | 2021-10-29 09:35 | Anesthesia-General Post-Op ---
General Patient Condition Mental Status/LOC: Same as Preop Cardiovascular: Satisfactory Nausea/Vomiting: Absent Respiratory: Satisfactory Pain: Controlled Complications: Absent Post Op Complications Complications None Follow Up Care/Instructions Patient Instructions None needed. Anesthesia/Patient Condition Patient Condition Patient is doing well, no complaints, stable vital signs, no apparent adverse anesthesia problems. No complications reported per nursing. D/C home per [facility] Criteria: Yes GALLITO STEPHEN CRNA Oct 29, 2021 09:35
[2021-10-29] MEDS ORDERED: HYDROmorphone 2 MG/ML VIAL (DILAUDID) IVP PRN (11:15)
[2021-10-29] MEDS ORDERED: diphenhydrAMINE 50 MG/ML INJ (BENADRYL) IM PRN (11:15)
[2021-10-29] MEDS: diphenhydrAMINE 25 MG TAB (BENADRYL) PO PRN (11:24)
[2021-10-29] MEDS ORDERED: PIPERACILLIN SODIUM/TAZOBACTAM 4.5 GM in NS (IVPB) 100 ML IV NR (12:00)
[2021-10-29 12:52] VITALS: BP 115/75
[2021-10-29 16:29] VITALS: BP 136/76
--- NOTE | 2021-10-29 16:56 | Progress Note - Hospitalist ---
Subjective HPI/CC On Admission Date Seen by Provider: Oct 29, 2021 Time Seen by Provider: 11:00 Patient is a 60-year-old female with past medical history of hypertension who presented to the emergency department due to abdominal pain. She was admitted to Dr. WHITE service due to acute cholecystitis with plan for the OR tomorrow. I am consulted due to an MARCIANO. Patient had normal though upper limits of normal creatinine yesterday but this morning increased and has had decreased urine output. I discussed this with the patient and recommended a Francisco catheter but she adamantly refuses. She states she is willing to use a hat in the toilet or bedside commode to get accurate urine output. She does report poor oral intake due to her abdominal pain. Subjective/Events-last exam She is feeling better. Her pain is improved. She is having some itching. Objective Exam Vital Signs Vital Signs Date Time Temp Pulse Resp B/P (MAP) Pulse Ox O2 Delivery O2 Flow Rate FiO2 10/29/21 16:29 36.9 91 18 136/76 (96) 100 Nasal Cannula 3.00 10/26/21 12:53 21 Capillary Refill : Less Than 3 SecondsLess Than 3 Seconds General Appearance: No Apparent Distress, WD/WN Respiratory: Lungs Clear, No Respiratory Distress Cardiovascular: Regular Rate, Rhythm, No Murmur Gastrointestinal: Normal Bowel Sounds, Soft, Tenderness Extremity: Normal Inspection, No Pedal Edema Neurologic/Psychiatric: Alert, Oriented x3, Normal Mood/Affect Skin: Normal Color, Warm/Dry Results/Procedures Lab Laboratory Tests 10/29/21 05:10 Patient resulted labs reviewed. Imaging: Reviewed Imaging Report Assessment/Plan Assessment and Plan Assess & Plan/Chief Complaint Acute cholecystitis with perforation Management per primary s/p cholecystectomy Zosyn Pain regimen MARCIANO Slightly improved creatinine today Monitor I/Os closely Continue IV fluids HTN BP well controlled, trend DVT ppx: SCDs Diagnosis/Problems Diagnosis/Problems (1) Cholecystitis with perforation of gallbladder Status: Acute (2) Acute cholecystitis due to biliary calculus Status: Acute (3) MARCIANO (acute kidney injury) (4) Hypertension Status: Acute CHATA EMMANUEL MD Oct 29, 2021 16:56
--- NOTE | 2021-10-29 18:23 | Progress Note ---
Subjective Date Seen by a Provider: Oct 29, 2021 Time Seen by a Provider: 18:00 Subjective/Events-last exam doing ok. pain controlled. no fever/chills. tolerating soft diet. Objective Exam Vital Signs Date Time Temp Pulse Resp B/P (MAP) Pulse Ox O2 Delivery O2 Flow Rate FiO2 10/29/21 16:29 36.9 91 18 136/76 (96) 100 Nasal Cannula 3.00 10/29/21 15:06 96 Nasal Cannula 1.00 10/29/21 12:52 36.3 91 21 115/75 (88) 96 Nasal Cannula 2.00 10/29/21 10:44 96 Nasal Cannula 1.00 10/29/21 08:00 Nasal Cannula 1.00 10/29/21 08:00 36.9 91 21 115/75 (88) 95 Nasal Cannula 2.00 10/29/21 06:39 97 Nasal Cannula 2.00 10/29/21 03:20 36.9 99 18 110/70 (83) 97 Nasal Cannula 3.00 10/28/21 23:21 36.8 95 18 115/78 (90) 96 Nasal Cannula 3.00 10/28/21 20:39 94 Nasal Cannula 3.00 10/28/21 20:30 Nasal Cannula 3.00 10/28/21 19:41 36.9 95 18 118/70 (86) 97 Nasal Cannula 1.50 I & O 10/29/21 07:00 Intake Total 5550 ml Output Total 720 ml Balance 4830 ml Capillary Refill : Less Than 3 SecondsLess Than 3 Seconds General Appearance: No Apparent Distress HEENT: PERRL/EOMI Neck: Full Range of Motion Respiratory: Decreased Breath Sounds Cardiovascular: Regular Rate, Rhythm Gastrointestinal: soft, tenderness Extremity: Normal Capillary Refill Neurologic/Psychiatric: Alert, Oriented x3 Skin: Normal Color Lymphatic: No Adenopathy Results Lab Laboratory Tests 10/29/21 05:10: White Blood Count 10.2, Red Blood Count 3.49L, Hemoglobin 9.5L, Hematocrit 30L, Mean Corpuscular Volume 85, Mean Corpuscular Hemoglobin 27, Mean Corpuscular Hemoglobin Concent 32, Red Cell Distribution Width 15.4H, Platelet Count 204, Mean Platelet Volume 9.6, Immature Granulocyte % (Auto) 6, Neutrophils (%) (Auto) 74, Lymphocytes (%) (Auto) 12, Monocytes (%) (Auto) 6, Eosinophils (%) (Auto) 2, Basophils (%) (Auto) 0, Neutrophils # (Auto) 7.6, Lymphocytes # (Auto) 1.3, Monocytes # (Auto) 0.6, Eosinophils # (Auto) 0.2, Basophils # (Auto) 0.0, Immature Granulocyte # (Auto) 0.6H, Percent Immature Platelet Fraction 1.9, Sodium Level 137, Potassium Level 3.9, Chloride Level 107, Carbon Dioxide Level 17L, Anion Gap 13, Blood Urea Nitrogen 48H, Creatinine 2.74H, Estimat Glomerular Filtration Rate 19, BUN/Creatinine Ratio 18, Glucose Level 94, Calcium Level 8.2L, Corrected Calcium 9.4, Total Bilirubin 0.7, Aspartate Amino Transf (AST/SGOT) 64H, Alanine Aminotransferase (ALT/SGPT) 18, Alkaline Phosphatase 56, Total Protein 5.5L, Albumin 2.5L 10/29/21 08:50: Urine Color AMBERH, Urine Clarity CLEAR, Urine pH 5.0, Urine Specific [place] 1.025H, Urine Protein 1+H, Urine Glucose (UA) TRACEH, Urine Ketones TRACEH, Urine Nitrite POSITIVEH, Urine Bilirubin NEGATIVE, Urine Urobilinogen 1.0, Urine Leukocyte Esterase NEGATIVE, Urine RBC (Auto) NEGATIVE, Urine RBC NONE, Urine WBC 0-2, Urine Squamous Epithelial Cells 2-5, Urine Crystals PRESENTH, Urine Amorphous Sediment LARGE CORY URATESH, Urine Bacteria NEGATIVE, Urine Casts PRESENT, Urine Granular Casts 0-2H, Urine Mucus NEGATIVE, Urine Culture Indicated NO Microbiology 10/26/21 MRSA Screen - Final, Complete MRSA not isolated Assessment/Plan Assessment/Plan Assess & Plan/Chief Complaint s/p laparoscopioc cholecystectomy for perforated cholecystitis. increase ambulation. cont IV abx. NAVNEET WHITE MD Oct 29, 2021 18:23
[2021-10-29 19:36] VITALS: BP 176/86
[2021-10-30] VITALS (7 sets, daily range): BP systolic 153–201; BP diastolic 76–91
[2021-10-30] MEDS: NS IV 1000 ML 1,000 ML IV SCH ×6 (01:51→22:30)
[2021-10-30 05:48] LABS: BASOPHILS % (AUTO) 1 % (0-10); EOSINOPHILS # (AUTO) 0.2 10^3/uL (0.0-0.3); EOSINOPHILS % (AUTO) 3 % (0-10); HEMATOCRIT 30 % (35-52); HEMOGLOBIN 9.2 g/dL (11.5-16.0); LYMPHOCYTES # (AUTO) 1.8 10^3/uL (1.0-4.0); LYMPHOCYTES % (AUTO) 26 % (12-44); MEAN CORPUSCULAR HEMOGLOBIN 27 pg (25-34); MEAN CORPUSCULAR HGB CONC 31 g/dL (32-36); MEAN CORPUSCULAR VOLUME 85 fL (80-99); MEAN PLATELET VOLUME 9.5 fL (9.0-12.2); MONOCYTES # (AUTO) 0.3 10^3/uL (0.0-1.0); MONOCYTES % (AUTO) 5 % (0-12); NEUTROPHILS # (AUTO) 3.9 10^3/uL (1.8-7.8); NEUTROPHILS % (AUTO) 58 % (42-75); PLATELET COUNT 181 10^3/uL (130-400); WHITE BLOOD COUNT 6.8 10^3/uL (4.3-11.0)
[2021-10-30] MEDS: PIPERACILLIN SODIUM/TAZOBACTAM 4.5 GM in NS (IVPB) 100 ML IV SCH ×3 (05:49→21:14)
[2021-10-30 06:03] LABS: ALBUMIN 2.2 GM/DL (3.2-4.5); POTASSIUM 3.5 MMOL/L (3.6-5.0)
[2021-10-30 06:04] LABS: CALCIUM 7.9 MG/DL (8.5-10.1)
[2021-10-30 06:07] LABS: BILIRUBIN,TOTAL 0.5 MG/DL (0.1-1.0)
[2021-10-30 06:09] LABS: CREATININE SERUM 1.35 MG/DL (0.60-1.30)
[2021-10-30] MEDS: RT-ALBUTEROL/IPRATROPIUM 3 ML (DUONEB) VIAL INH SCH ×4 (07:37→18:22)
[2021-10-30] MEDS: PANTOPRAZOLE 40 MG (PROTONIX) VIAL IV SCH (08:42)
--- NOTE | 2021-10-30 15:18 | Progress Note ---
Subjective Date Seen by a Provider: Oct 30, 2021 Time Seen by a Provider: 11:00 Subjective/Events-last exam doing better. tolerating regular diet. labs normalized. minimal SS GABINO drain output, no bile. pain somewhat controlled. Objective Exam Vital Signs Date Time Temp Pulse Resp B/P (MAP) Pulse Ox O2 Delivery O2 Flow Rate FiO2 10/30/21 11:40 35.9 97 16 168/85 (112) 96 Room Air 10/30/21 10:44 99 Room Air 10/30/21 09:56 94 Room Air 10/30/21 08:00 Nasal Cannula 1.00 10/30/21 07:49 36.4 98 20 164/89 (114) 98 Nasal Cannula 1.00 10/30/21 07:41 96 Nasal Cannula 1.00 10/30/21 03:45 37.2 92 20 153/87 (109) 98 Nasal Cannula 1.00 10/30/21 00:08 36.3 97 20 158/81 (106) 95 Nasal Cannula 1.00 10/29/21 19:50 Nasal Cannula 1.00 10/29/21 19:36 37.3 103 20 176/86 (116) 96 Nasal Cannula 1.00 10/29/21 18:55 95 Nasal Cannula 1.00 10/29/21 16:29 36.9 91 18 136/76 (96) 100 Nasal Cannula 3.00 I & O 10/30/21 06:59 Intake Total 2150 ml Output Total 1995 ml Balance 155 ml Capillary Refill : Less Than 3 SecondsLess Than 3 Seconds General Appearance: No Apparent Distress HEENT: PERRL/EOMI Neck: Full Range of Motion Respiratory: Chest Non Tender, Decreased Breath Sounds Cardiovascular: Regular Rate, Rhythm Gastrointestinal: normal bowel sounds, soft, tenderness Extremity: Normal Capillary Refill Neurologic/Psychiatric: Alert, Oriented x3 Skin: Normal Color Results Lab Laboratory Tests 10/30/21 05:40: White Blood Count 6.8, Red Blood Count 3.46L, Hemoglobin 9.2L, Hematocrit 30L, Mean Corpuscular Volume 85, Mean Corpuscular Hemoglobin 27, Mean Corpuscular Hemoglobin Concent 31L, Red Cell Distribution Width 15.7H, Platelet Count 181, Mean Platelet Volume 9.5, Immature Granulocyte % (Auto) 8, Neutrophils (%) (Auto) 58, Lymphocytes (%) (Auto) 26, Monocytes (%) (Auto) 5, Eosinophils (%) (Auto) 3, Basophils (%) (Auto) 1, Neutrophils # (Auto) 3.9, Lymphocytes # (Auto) 1.8, Monocytes # (Auto) 0.3, Eosinophils # (Auto) 0.2, Basophils # (Auto) 0.0, Immature Granulocyte # (Auto) 0.6H, Sodium Level 142, Potassium Level 3.5L, Chloride Level 112H, Carbon Dioxide Level 19L, Anion Gap 15H, Blood Urea Nitrogen 35H, Creatinine 1.35H, Estimat Glomerular Filtration Rate 45, BUN/Creatinine Ratio 26, Glucose Level 127H, Calcium Level 7.9L, Corrected Calcium 9.3, Total Bilirubin 0.5, Aspartate Amino Transf (AST/SGOT) 35H, Alanine Aminotransferase (ALT/SGPT) 14, Alkaline Phosphatase 58, Total Protein 5.0L, Albumin 2.2L Microbiology 10/26/21 MRSA Screen - Final, Complete MRSA not isolated Assessment/Plan Assessment/Plan Assess & Plan/Chief Complaint s/p laparoscopioc cholecystectomy for perforated cholecystitis. increase ambulation. cont IV abx. regular diet. NAVNEET WHITE MD Oct 30, 2021 15:18
[2021-10-30] MEDS ORDERED: AMOX-355 PO (15:20)
[2021-10-30] MEDS ORDERED: HYDR-3817 PO (15:20)
--- NOTE | 2021-10-30 15:21 | Discharge Inst-Surgical ---
D/C Lap Instructions-CHRISTOPHER New, Converted, or Re-Newed RX: RX on Chart Follow Up Appt in 1 week Record GABINO daily output and color Activity as tolerated No driving for 24 hours No [address] while on pain medications Incentive Spirometry use every 2 hours while awake Regular Diet Symptoms to Report: Fever over 101 degree F, Nausea/Vomiting Infection Signs and Symptoms to report: Increased redness, Foul odor of wound, Increased drainage Bathing instructions: May shower Operative Area Clean/Dry; Keep incision clean/dry If any problems/questions: Contact your physician or go to Emergency Room NAVNEET WHITE MD Oct 30, 2021 15:21
--- NOTE | 2021-10-30 16:41 | Progress Note - Hospitalist ---
Subjective HPI/CC On Admission Date Seen by Provider: Oct 30, 2021 Time Seen by Provider: 10:50 Patient is a 60-year-old female with past medical history of hypertension who presented to the emergency department due to abdominal pain. She was admitted to Dr. WHITE service due to acute cholecystitis with plan for the OR tomorrow. I am consulted due to an MARCIANO. Patient had normal though upper limits of normal creatinine yesterday but this morning increased and has had decreased urine output. I discussed this with the patient and recommended a Francisco catheter but she adamantly refuses. She states she is willing to use a hat in the toilet or bedside commode to get accurate urine output. She does report poor oral intake due to her abdominal pain. Subjective/Events-last exam She has been up walking a bit. She has not been using her incentive spirometer much. She has been tolerating her diet. Her pain is well managed. Objective Exam Vital Signs Vital Signs Date Time Temp Pulse Resp B/P (MAP) Pulse Ox O2 Delivery O2 Flow Rate FiO2 10/30/21 15:55 35.8 103 16 201/91 (127) 95 Room Air 10/30/21 08:00 1.00 10/26/21 12:53 21 Capillary Refill : Less Than 3 SecondsLess Than 3 Seconds General Appearance: No Apparent Distress, WD/WN Respiratory: No Respiratory Distress, Decreased Breath Sounds Cardiovascular: Regular Rate, Rhythm, No Murmur Gastrointestinal: Normal Bowel Sounds, Soft Extremity: Normal Inspection, No Pedal Edema Neurologic/Psychiatric: Alert, Normal Mood/Affect Results/Procedures Lab Laboratory Tests 10/30/21 05:40 Patient resulted labs reviewed. Imaging: Reviewed Imaging Report Assessment/Plan Assessment and Plan Assess & Plan/Chief Complaint Acute cholecystitis with perforation Management per primary s/p cholecystectomy Zosyn Pain regimen MARCIANO Significantly improved HTN BP well controlled, trend DVT ppx: SCDs Thank you for this consult. The hospitalist service will sign off at this time. Please contact the transition advisor hospitalist with any questions or concerns. Diagnosis/Problems Diagnosis/Problems (1) Cholecystitis with perforation of gallbladder Status: Acute (2) Acute cholecystitis due to biliary calculus Status: Acute (3) MARCIANO (acute kidney injury) (4) Hypertension Status: Acute CHATA EMMANUEL MD Oct 30, 2021 16:41
[2021-10-30] MEDS: diphenhydrAMINE 25 MG TAB (BENADRYL) PO PRN (18:00)
[2021-10-31 01:00] VITALS: BP 151/87
[2021-10-31] MEDS: RT-ALBUTEROL SULF 2.5 MG/3 ML PRE-MIX VIAL INH PRN (01:30)
[2021-10-31] MEDS: NS IV 1000 ML 1,000 ML IV SCH ×3 (03:15→09:11)
[2021-10-31 04:30] VITALS: BP 160/82
[2021-10-31] MEDS: PIPERACILLIN SODIUM/TAZOBACTAM 4.5 GM in NS (IVPB) 100 ML IV SCH ×2 (05:32→15:23)
[2021-10-31 06:22] LABS: POTASSIUM 3.5 MMOL/L (3.6-5.0)
[2021-10-31 06:23] LABS: CALCIUM 8.1 MG/DL (8.5-10.1)
[2021-10-31 06:27] LABS: CREATININE SERUM 0.79 MG/DL (0.60-1.30)
[2021-10-31 06:43] LABS: HEMATOCRIT 31 % (35-52); HEMOGLOBIN 9.8 g/dL (11.5-16.0); MEAN CORPUSCULAR HEMOGLOBIN 27 pg (25-34); MEAN CORPUSCULAR HGB CONC 32 g/dL (32-36); MEAN CORPUSCULAR VOLUME 85 fL (80-99); MEAN PLATELET VOLUME 9.8 fL (9.0-12.2); PLATELET COUNT 164 10^3/uL (130-400); WHITE BLOOD COUNT 8.3 10^3/uL (4.3-11.0)
[2021-10-31] MEDS: RT-ALBUTEROL/IPRATROPIUM 3 ML (DUONEB) VIAL INH SCH (07:15)
[2021-10-31 07:50] VITALS: BP 191/87
[2021-10-31] MEDS ORDERED: hydrALAZINE (APESOLINE) 20 MG/ML VIAL IV PRN (08:15)
[2021-10-31] MEDS: PANTOPRAZOLE 40 MG (PROTONIX) VIAL IV SCH (08:22)
[2021-10-31 09:46] VITALS: BP 170/88
[2021-10-31 11:23] VITALS: BP 136/88
--- NOTE | 2021-10-31 14:26 | Progress Note ---
Subjective Date Seen by a Provider: Oct 31, 2021 Time Seen by a Provider: 10:00 Subjective/Events-last exam doing well. pain controlled. minimal ss anita output. tolerating diet. Objective Exam Vital Signs Date Time Temp Pulse Resp B/P (MAP) Pulse Ox O2 Delivery O2 Flow Rate FiO2 10/31/21 11:23 36.2 92 18 136/88 (104) 96 Room Air 10/31/21 09:46 90 170/88 (115) 10/31/21 08:00 Room Air 10/31/21 07:50 36.8 92 18 191/87 (121) 93 Room Air 10/31/21 07:15 92 Room Air 10/31/21 04:30 36.5 101 20 160/82 (108) 95 Room Air 10/31/21 01:32 93 Room Air 10/31/21 01:00 36.5 99 20 151/87 (108) 94 Room Air 10/30/21 21:00 95 Room Air 10/30/21 20:06 154/76 (102) 10/30/21 19:29 35.7 99 16 178/80 (112) 95 Room Air 10/30/21 18:22 93 Room Air 10/30/21 15:55 35.8 103 16 201/91 (127) 95 Room Air I & O 10/31/21 06:59 Intake Total 1150 ml Output Total 2375 ml Balance -1225 ml Capillary Refill : Less Than 3 SecondsLess Than 3 Seconds General Appearance: No Apparent Distress HEENT: PERRL/EOMI Neck: Full Range of Motion Respiratory: Chest Non Tender, Decreased Breath Sounds Cardiovascular: Regular Rate, Rhythm Gastrointestinal: normal bowel sounds, soft Extremity: Normal Capillary Refill Neurologic/Psychiatric: Alert, Oriented x3 Skin: Normal Color Lymphatic: No Adenopathy Results Lab Laboratory Tests 10/31/21 05:26: White Blood Count 8.3, Red Blood Count 3.63L, Hemoglobin 9.8L, Hematocrit 31L, Mean Corpuscular Volume 85, Mean Corpuscular Hemoglobin 27, Mean Corpuscular Hemoglobin Concent 32, Red Cell Distribution Width 15.4H, Platelet Count 164, Mean Platelet Volume 9.8, Sodium Level 142, Potassium Level 3.5L, Chloride Level 113H, Carbon Dioxide Level 19L, Anion Gap 10, Blood Urea Nitrogen 19H, Creatinine 0.79, Estimat Glomerular Filtration Rate 85, BUN/Creatinine Ratio 24, Glucose Level 112H, Calcium Level 8.1L Microbiology 10/26/21 MRSA Screen - Final, Complete MRSA not isolated Assessment/Plan Assessment/Plan Assess & Plan/Chief Complaint s/p laparoscopioc cholecystectomy for perforated cholecystitis. increase ambulation. cont IV abx. regular diet. home soon. NAVNEET WHITE MD Oct 31, 2021 14:26
[2021-10-31 15:25] VITALS: BP 136/88
== END 2021-10-31 15:35 | disposition home or self-care (01) | DRG 418 ==
LOC: EDUNIT# 07:40 → ER 07:41 → 4TH 09:59 → OBSVTOIN 09:59
PROVIDERS: ADMIT Surgery; ATTEND Surgery
PROC: 0FB Hepatobiliary System and Pancreas, Excision (ICD-10-PCS; principal; 2021-10-28 09:37)
DX: K80.00 Calculus of gallbladder with acute cholecystitis without obstruction (principal); K82.A2 Perforation of gallbladder in cholecystitis; N17.9 Acute kidney failure, unspecified; E86.0 Dehydration; I10 Essential (primary) hypertension; K21.9 Gastro-esophageal reflux disease without esophagitis; Z87.891 Personal history of nicotine dependence; Z88.5 Allergy status to narcotic agent
CPT/HCPCS: 36415; 71045; 76705; 80048; 80053; 81000; 83690; 83880; 85025; 85027; 87081; 94640; 94664; 94760; G0378

== ENCOUNTER 2021-11-03 21:58 | Inpatient (IN) | payer OTHER ==
[~2021-11-03] VITALS: Ht 167.6 cm; Wt 88.6 kg
[~2021-11-03 21:58] MED LIST changes: +AMOX-355 PO; +CARV6.252 PO; +HYDR-3817 PO
[2021-11-03] MEDS ORDERED: LACTATED RINGERS 1,000 ML IV ONE (22:45)
[2021-11-03 23:20] LABS: BASOPHILS % (AUTO) 0 % (0-10); EOSINOPHILS # (AUTO) 0.1 10^3/uL (0.0-0.3); EOSINOPHILS % (AUTO) 1 % (0-10); HEMATOCRIT 35 % (35-52); HEMOGLOBIN 11.6 g/dL (11.5-16.0); LYMPHOCYTES # (AUTO) 2.1 10^3/uL (1.0-4.0); LYMPHOCYTES % (AUTO) 18 % (12-44); MEAN CORPUSCULAR HEMOGLOBIN 27 pg (25-34); MEAN CORPUSCULAR HGB CONC 33 g/dL (32-36); MEAN CORPUSCULAR VOLUME 82 fL (80-99); MEAN PLATELET VOLUME 9.7 fL (9.0-12.2); MONOCYTES # (AUTO) 0.5 10^3/uL (0.0-1.0); MONOCYTES % (AUTO) 4 % (0-12); NEUTROPHILS # (AUTO) 8.4 10^3/uL (1.8-7.8); NEUTROPHILS % (AUTO) 73 % (42-75); PLATELET COUNT 197 10^3/uL (130-400); WHITE BLOOD COUNT 11.6 10^3/uL (4.3-11.0)
[2021-11-03 23:37] LABS: POTASSIUM 2.8 MMOL/L (3.6-5.0)
[2021-11-03 23:39] LABS: CALCIUM 8.3 MG/DL (8.5-10.1)
[2021-11-03 23:40] LABS: TOTAL PROTEIN 6.7 GM/DL (6.4-8.2)
[2021-11-03 23:41] LABS: BILIRUBIN,TOTAL 0.6 MG/DL (0.1-1.0)
[2021-11-03 23:43] LABS: CREATININE SERUM 0.77 MG/DL (0.60-1.30)
[2021-11-04 00:21] LABS: BILIRUBIN,URINE NEGATIVE (NEGATIVE); CLARITY,URINE CLEAR; COLOR,URINE YELLOW; GLUCOSE, URINE (UA) NEGATIVE (NEGATIVE); KETONES,URINE NEGATIVE (NEGATIVE); LEUKOCYTE ESTERASE ,URINE NEGATIVE (NEGATIVE); NITRITE,URINE NEGATIVE (NEGATIVE); PROTEIN,URINE NEGATIVE (NEGATIVE)
[2021-11-04 00:27] LABS: BACTERIA,URINE NEGATIVE /HPF
[2021-11-04] MEDS ORDERED: fentaNYL INJ 100 MCG/2 ML AMP IVP ONE ×2 (00:30→02:00)
[2021-11-04] MEDS ORDERED: hydrALAZINE (APESOLINE) 20 MG/ML VIAL IV ONE (01:15)
--- NOTE | 2021-11-04 02:04 | ED GI ---
General Chief Complaint: Post OP Complications/Pain Stated Complaint: POST-OP COMPLICATION,PANCREATITIS,HYPERTENSIVE URG Nursing Triage Note: Pt ambulates to ED 10. Pt had cholecystectomy on Friday, was in hospital until approx Friday, and was sent home. GABINO drain had been draining clear, serosanguinish fluid until today. Today they emptied the GABINO drain and it filled up jail almost immediately with brownish reddish fluid. Pt reports pain 10/27. Source of Information: Patient, Old Records, Spouse, Other (PT IS SOMEWHAT LIMITED HISTORIAN. DOES ALL TALKING FOR PT) History of Present Illness Date Seen by Provider: Nov 03, 2021 Time Seen by Provider: 22:25 Initial Comments PT ARRIVES VIA POV FROM HOME WITH PT HAD CHOLECYSTECTOMY LAST Friday10/28/21 FOR ACUTE CHOLECYSTITIS Allergies and Home Medications Allergies Coded Allergies: codeine (Unverified Adverse Reaction, Mild, VOMITING pt has rec'd hydrocodone in past, 10/26/21) Uncoded Allergies: codiene (Allergy, Intermediate, vomiting; pt has rec'd hydrocodone in past, 10/26/21) Patient Home Medication List Amoxicillin/Potassium Clav (Augmentin 500-125 Tablet) 500 Mg-125 Mg Tablet, 1 EACH PO BID Prescribed by: NAVNEET WHITE on 10/30/21 1520 Carvedilol (Carvedilol) 6.25 Mg Tablet, 6.25 MG PO BID, (Reported) Entered as Reported by: BETSY KOHLER on 10/26/21 1414 Hydrocodone/Acetaminophen (Hydrocodone-Acetamin 7.5-325) 7.5 Mg-325 Mg Tablet, 1 EACH PO Q4H Prescribed by: NAVNEET WHITE on 10/30/21 1520 Ketorolac Tromethamine (Ketorolac Tromethamine) 10 Mg Tablet, 10 MG PO Q6H PRN for PAIN-BREAKTHROUGH, (Reported) Entered as Reported by: BETSY KOHLER on 10/26/21 1414 Ondansetron (Ondansetron Odt) 4 Mg Tab.rapdis, 4 MG PO Q4H PRN for NAUSEA/VOMITING-1ST LINE, (Reported) Entered as Reported by: BETSY KOHLER on 10/26/21 1414 Past Aqhvppf-Wwrwfl-Gdtevr Hx Patient Social History Tobacco Use?: No Smoking Status: Former Smoker Substance use?: No Alcohol Use?: Yes Alcohol Frequency: Rarely Pt feels they are or have been: No Immunizations Up To Date First/Initial COVID19 Vaccinat: NONE Second COVID19 Vaccination Mani: NONE Past Medical History Surgery/Hospitalization HX: cholecystectomy 10/28/21 Surgeries: Yes (TUBAL LIGATION) Tubal Ligation Respiratory: No Currently Using CPAP: No Currently Using BIPAP: No Cardiac: Yes Hypertension Neurological: Yes Vertigo Reproductive Disorders: Yes Genitourinary: No Gastrointestinal: Yes (ACID REFLUX) Gastroesophageal Reflux Musculoskeletal: Yes (POSSIBLE RESTLESS LEGS SYNDROME OFF AND ON) Endocrine: No HEENT: No Cancer: No Psychosocial: No Integumentary: No Blood Disorders: No Physical Exam Vital Signs Vital Signs - First Documented 11/03/21 22:15 Temp 36.9 Pulse 102 Resp 20 B/P (MAP) 208/105 (139) Pulse Ox 96 O2 Delivery Room Air Capillary Refill : Height/Weight/BMI Height: '" Weight: lbs. oz. kg; 30.00 BMI Method: Progress/Results/Core Measures Results/Orders Lab Results Laboratory Tests Test 11/03/21 23:15 11/04/21 00:14 Range/Units White Blood Count 11.6 H 4.3-11.0 10^3/uL Red Blood Count 4.32 3.80-5.11 10^6/uL Hemoglobin 11.6 11.5-16.0 g/dL Hematocrit 35 35-52 % Mean Corpuscular Volume 82 80-99 fL Mean Corpuscular Hemoglobin 27 25-34 pg Mean Corpuscular Hemoglobin Concent 33 32-36 g/dL Red Cell Distribution Width 15.0 H 10.0-14.5 % Platelet Count 197 130-400 10^3/uL Mean Platelet Volume 9.7 9.0-12.2 fL Immature Granulocyte % (Auto) 4 % Neutrophils (%) (Auto) 73 42-75 % Lymphocytes (%) (Auto) 18 12-44 % Monocytes (%) (Auto) 4 0-12 % Eosinophils (%) (Auto) 1 0-10 % Basophils (%) (Auto) 0 0-10 % Neutrophils # (Auto) 8.4 H 1.8-7.8 10^3/uL Lymphocytes # (Auto) 2.1 1.0-4.0 10^3/uL Monocytes # (Auto) 0.5 0.0-1.0 10^3/uL Eosinophils # (Auto) 0.1 0.0-0.3 10^3/uL Basophils # (Auto) 0.0 0.0-0.1 10^3/uL Immature Granulocyte # (Auto) 0.5 H 0.0-0.1 10^3/uL Sodium Level 137 135-145 MMOL/L Potassium Level 2.8 L 3.6-5.0 MMOL/L Chloride Level 96 L 98-107 MMOL/L Carbon Dioxide Level 29 21-32 MMOL/L Anion Gap 12 5-14 MMOL/L Blood Urea Nitrogen 6 L 7-18 MG/DL Creatinine 0.77 0.60-1.30 MG/DL Estimat Glomerular Filtration Rate 88 BUN/Creatinine Ratio 8 Glucose Level 137 H 70-105 MG/DL Calcium Level 8.3 L 8.5-10.1 MG/DL Corrected Calcium 9.1 8.5-10.1 MG/DL Total Bilirubin 0.6 0.1-1.0 MG/DL Aspartate Amino Transf (AST/SGOT) 17 5-34 U/L Alanine Aminotransferase (ALT/SGPT) 10 0-55 U/L Alkaline Phosphatase 92 40-136 U/L Total Protein 6.7 6.4-8.2 GM/DL Albumin 3.0 L 3.2-4.5 GM/DL Amylase Level 265 H 25-125 U/L Lipase 307 H 8-78 U/L Urine Color YELLOW Urine Clarity CLEAR Urine pH 7.0 5-9 Urine Specific [place] <=1.005 1.016-1.022 Urine Protein NEGATIVE NEGATIVE Urine Glucose (UA) NEGATIVE NEGATIVE Urine Ketones NEGATIVE NEGATIVE Urine Nitrite NEGATIVE NEGATIVE Urine Bilirubin NEGATIVE NEGATIVE Urine Urobilinogen 0.2 < = 1.0 MG/DL Urine Leukocyte Esterase NEGATIVE NEGATIVE Urine RBC (Auto) TRACE-I H NEGATIVE Urine RBC NONE /HPF Urine WBC NONE /HPF Urine Squamous Epithelial Cells 2-5 /HPF Urine Crystals NONE /LPF Urine Bacteria NEGATIVE /HPF Urine Casts NONE /LPF Urine Mucus NEGATIVE /LPF Urine Culture Indicated NO My Orders Orders - REYNOLD AMADOR DO Ed Iv/Invasive Line Start (11/03/21 22:34) Ct Abdomen/Pelvis W (11/03/21 22:34) Amylase (11/03/21 22:34) Cbc With Automated Diff (11/03/21 22:34) Comprehensive Metabolic Panel (11/03/21 22:34) Lipase (11/03/21 22:34) Ua Culture If Indicated (11/03/21 22:34) Ed Iv/Invasive Line Start (11/03/21 22:34) Lactated Ringers (Lr 1000 Ml Iv Solution (11/03/21 22:45) Fentanyl Inj (Sublimaze Injection) (11/04/21 00:30) Hydralazine Injection (Apresoline Inject (11/04/21 01:15) Medications Given in ED Current Medications Medications Dose Ordered Sig/Nelson Route Start Time Stop Time Status Last Admin Dose Admin Fentanyl Citrate 50 mcg ONCE ONCE IVP 11/04/21 00:30 11/04/21 00:31 DC 11/04/21 00:26 50 MCG Hydralazine HCl 10 mg ONCE ONCE IV 11/04/21 01:15 11/04/21 01:16 DC 11/04/21 01:17 10 MG Lactated Ringer's 1,000 ml @ 0 mls/hr Q0M ONCE IV 11/03/21 22:45 11/03/21 22:46 DC 11/04/21 00:20 999 MLS/HR Vital Signs/I&O 11/03/21 22:15 Temp 36.9 Pulse 102 Resp 20 B/P (MAP) 208/105 (139) Pulse Ox 96 O2 Delivery Room Air Blood Pressure Mean: 139 Departure Impression Primary Impression: Post-operative complication Additional Impressions: Pancreatitis Hypertensive urgency Disposition: ADMITTED INPATIENT Condition: Stable Admissions Decision to Admit Reason: Admit from ER (General) Decision to Admit/Date: Nov 04, 2021 Time/Decision to Admit Time: 01:20 Departure-Patient Inst. Referrals: LUIS LEAVITT MD (PCP/Family) Primary Care Physician REYNOLD AMADOR DO Nov 04, 2021 02:04
[2021-11-04] MEDS ORDERED: NS IV 500 ML 500 ML IV PRN (02:15)
[2021-11-04] MEDS ORDERED: IOHEXOL 350 MG/ML 100 ML (OMNIPAQUE 350) VIAL IV ONE (02:15)
[2021-11-04] MEDS ORDERED: HOLD METFORMIN - RECEIVED CONTRAST 20 ML VIAL IV SCH (02:15)
[2021-11-04] MEDS ORDERED: NS 100 ML (IVPB) BAG IV ONE (02:15)
[2021-11-04] MEDS: niCARdipine IV (Pyxis drip kit 50 MG in NS (IVPB) 230 ML IV SCH ×4 (02:37→22:35)
[2021-11-04] MEDS ORDERED: niCARdipine IV (Pyxis drip kit 50 MG in NS (IVPB) 230 ML IV SCH (02:45)
[2021-11-04] MEDS ORDERED: ONDANSETRON 4 MG/2 ML (SDV) Z0FRAN IV PRN (02:45)
[2021-11-04 03:02] VITALS: BP 208/102
[2021-11-04] MEDS ORDERED: RT-ALBUTEROL SULF 2.5 MG/3 ML PRE-MIX VIAL INH PRN (03:15)
[2021-11-04] MEDS: fentaNYL INJ 100 MCG/2 ML AMP IV PRN ×4 (04:38→20:09)
[2021-11-04] MEDS: D5 1/2 NS W/KCL 20 MEQ/L 1,000 ML IV SCH ×4 (04:52→18:23)
[2021-11-04] MEDS: cefTRIAXone 1 GM PRE-MIX 50 ML IV SCH (04:53)
--- NOTE | 2021-11-04 07:13 | Diagnostic Imaging Report ---
PROCEDURE: CT abdomen and pelvis with contrast. TECHNIQUE: Multiple contiguous axial images were obtained through the abdomen and pelvis after administration of intravenous contrast. Auto Exposure Controls were utilized during the CT exam to meet ALARA standards for radiation dose reduction. All CT scans use one or more of the following dose optimizing techniques: automated exposure control, MA and/or KvP adjustment based on patient size and exam type or iterative reconstruction. INDICATION: Postoperative bleeding and pain status post cholecystectomy. COMPARISON: 10/22/2021 FINDINGS: There is a [id number] right pleural effusion with associated atelectasis. The heart is normal in size. There is a surgical drain draped about the liver. There is a small rim-enhancing fluid collection anterior to the right lobe of the liver measuring about 3.0 x 2.7 cm in size. There is a small amount of perihepatic fluid as well which appears subcapsular. There is irregular fluid density in the gallbladder fossa along the liver, may be secondary to the recent surgery. No contrast extravasation is seen. The spleen is upper normal in size. The pancreas appears normal. The adrenal glands appear normal. The kidneys demonstrate no hydronephrosis or enhancing masses. There is wall thickening of the gastric antrum. No definite perforation is seen. No free air seen. There is no evidence of bowel obstruction. The appendix appears normal. There is a small amount of free fluid in the pelvis. There is mild subcutaneous edema about the abdomen. No lymphadenopathy is seen. The aorta is normal in caliber. No acute osseous abnormality is seen. IMPRESSION: 1. Postsurgical changes from cholecystectomy, with small rim-enhancing fluid collection anterior to the liver and a small amount of ascites. There is irregular hypodensity at the gallbladder fossa of the liver may be sequela from surgery, and there appears to be a small subcapsular fluid collection. A surgical drain is in place. 2. Wall thickening of the gastric antrum, most likely reactive. 3. [id number] right pleural effusion. No significant changes from the preliminary report. Dictated by: Dictated on workstation # [id number]
--- NOTE | 2021-11-04 07:48 | Tele-ICU Progress Note ---
Progress Note video rounds completed 60 y/o f admitted with hypertensive urgency and postop pancreatitis following cholecystectomy PE: still hypertensive on cardene drip otherwise comfortable in bed IMP: HTN ugrgency post op hyperamylasemia Focused Exam Height, Weight, BMI Height: '" Weight: lbs. oz. kg; 32.57 BMI Method: Labs Laboratory Tests 11/03/21 23:15 Results Labs Labs Laboratory Tests 11/03/21 23:15: White Blood Count 11.6H, Red Blood Count 4.32, Hemoglobin 11.6, Hematocrit 35, Mean Corpuscular Volume 82, Mean Corpuscular Hemoglobin 27, Mean Corpuscular Hemoglobin Concent 33, Red Cell Distribution Width 15.0H, Platelet Count 197, Mean Platelet Volume 9.7, Immature Granulocyte % (Auto) 4, Neutrophils (%) (Auto) 73, Lymphocytes (%) (Auto) 18, Monocytes (%) (Auto) 4, Eosinophils (%) (Auto) 1, Basophils (%) (Auto) 0, Neutrophils # (Auto) 8.4H, Lymphocytes # (Auto) 2.1, Monocytes # (Auto) 0.5, Eosinophils # (Auto) 0.1, Basophils # (Auto) 0.0, Immature Granulocyte # (Auto) 0.5H, Sodium Level 137, Potassium Level 2.8L, Chloride Level 96L, Carbon Dioxide Level 29, Anion Gap 12, Blood Urea Nitrogen 6L, Creatinine 0.77, Estimat Glomerular Filtration Rate 88, BUN/Creatinine Ratio 8, Glucose Level 137H, Calcium Level 8.3L, Corrected Calcium 9.1, Total Bilirubin 0.6, Aspartate Amino Transf (AST/SGOT) 17, Alanine Aminotransferase (ALT/SGPT) 10, Alkaline Phosphatase 92, Total Protein 6.7, Albumin 3.0L, Amylase Level 265H, Lipase 307H 11/04/21 00:14: Urine Color YELLOW, Urine Clarity CLEAR, Urine pH 7.0, Urine Specific [place] <=1.005, Urine Protein NEGATIVE, Urine Glucose (UA) NEGATIVE, Urine Ketones NEGA TIVE, Urine Nitrite NEGATIVE, Urine Bilirubin NEGATIVE, Urine Urobilinogen 0.2, Urine Leukocyte Esterase NEGATIVE, Urine RBC (Auto) TRACE-IH, Urine RBC NONE, Urine WBC NONE, Urine Squamous Epithelial Cells 2-5, Urine Crystals NONE, Urine Bacteria NEGATIVE, Urine Casts NONE, Urine Mucus NEGATIVE, Urine Culture Indicated NO Results Results/Procedures Labs Laboratory Tests 11/03/21 23:15 Patient resulted labs reviewed. FRED POND MD Nov 04, 2021 07:48
[2021-11-04] MEDS: POTASSIUM CL 10MEQ/50ML IVPB 50 ML IV SCH ×5 (08:26→14:45)
[2021-11-04] MEDS: KCL 20 MEQ TAB (K-DUR) PO SCH (08:26)
[2021-11-04] MEDS: MAGNESIUM 1 GM/100 ML IVPB 100 ML IV SCH ×5 (08:26→13:47)
--- NOTE | 2021-11-04 08:27 | Consultation - Surgery ---
JASEN TODD 11/04/21 0827: History of Present Illness History of Present Illness Patient Consulted On(ben/time) 11/04/21 08:22 Date Seen by Provider: Nov 04, 2021 Time Seen by Provider: 08:30 History of Present Illness 60yo Female presented to the ED last night with CC of abdominal pain and increased drainage out of GABINO drain. She underwent a laparoscopic cholecystectomy on 10/28/[address] Rayo and was discharged on 10/31. She reported having no issues after being discharged, and claimed that on Friday (11/02) her GABINO was draining minimal fluid that looked clear. The following afternoon the patient began to experience RUQ and epigastric pain rated 10/10 and characterized as sharp, but denied the pain radiating through to her back, instead she felt the pain radiated "down into her stomach". At the same time as the pain was present, the pts. noted her GABINO was half full of "brownish- red" fluid. He emptied the drain at that time, and after 45 minutes the drain was back to half full with the same colored fluid. At this point they decided to come to the hospital. The fluid draining into the GABINO today looks the same as what he has drained the last two times according to the . She is currently endorsing 9/10 pain in the RUQ and epigastrium, but it is not as bad as it was last night. The pain does not radiate. She could not identify anything that helps with the pain, but movement makes the pain worse. She also could not identify a specific trigger which made the pain start. She ate [employer] Friday for lunch, her last meal was roughly four hours before the symptoms began and consisted of a bologna sandwhich with peanut butter cookies. Allergies and Home Medications Allergies Coded Allergies: codeine (Unverified Adverse Reaction, Mild, VOMITING pt has rec'd hydrocodone in past, 10/26/21) Uncoded Allergies: codiene (Allergy, Intermediate, vomiting; pt has rec'd hydrocodone in past, 10/26/21) Patient Home Medication List Amoxicillin/Potassium Clav (Augmentin 500-125 Tablet) 500 Mg-125 Mg Tablet, 1 EACH PO BID Prescribed by: NAVNEET RAYO on 10/30/21 1520 Carvedilol (Carvedilol) 6.25 Mg Tablet, 12.5 MG PO BID, (Reported) Entered as Reported by: BETSY KOHLER on 10/26/21 1414 Last Action: Edited Hydrocodone/Acetaminophen (Hydrocodone-Acetamin 7.5-325) 7.5 Mg-325 Mg Tablet, 1 EACH PO Q4H Prescribed by: NAVNEET RAYO on 10/30/21 1520 Ketorolac Tromethamine (Ketorolac Tromethamine) 10 Mg Tablet, 10 MG PO Q6H PRN for PAIN-BREAKTHROUGH, (Reported) Entered as Reported by: BETSY KOHLER on 10/26/21 1414 Omeprazole (Omeprazole) 20 Mg Tab.rap.dr, 20 MG PO DAILY, (Reported) Entered as Reported by: ZAIN GUERRERO on 11/04/21 1335 Last Action: New Order Ondansetron (Ondansetron Odt) 4 Mg Tab.rapdis, 4 MG PO Q4H PRN for NAUSEA/VOMITING-1ST LINE, (Reported) Entered as Reported by: BETSY KOHLER on 10/26/21 141 Past Cdzkyqt-Csxwkc-Hpmdwd Hx Patient Social History Smoking Status: Former Smoker (quit 4 months ago, prior smoked 15 years 3 packs a day) Type Used: Cigarettes Recent Hopitalizations: No Alcohol Use?: Yes (special occasions, maybe 10 total a year) Have you traveled recently?: No Surgeries History of Surgeries: Yes (has also had EGD for food impaction, believes this was in 1986) Surgeries: Gallbladder (cholecystectomy), Tubal Ligation Respiratory History of Respiratory Disorde: No (no COPD or asthma) Respiratory Disorders: Sleep Apnea (possibly, patient has been told she may have it but has never done sleep study for it) Cardiovascular History of Cardiac Disorders: Yes (no CAD, no [place]) Cardiac Disorders: Hypertension Neurological History of Neurological Disord: Yes Neurological Disorders: TIA (1.5 years ago, no surgery was done, not sure what they did for intervention), Vertigo Reproductive System Hx Reproductive Disorders: Yes Genitourinary History of Genitourinary Disor: No Gastrointestinal History of Gastrointestinal Di: Yes (food impaction) Gastrointestinal Disorders: Gastroesophageal Reflux, Gall Bladder Disease (cholecystitis, cholelithiasis) Musculoskeletal History of Musculoskeletal Dis: Yes (POSSIBLE RESTLESS LEGS SYNDROME OFF AND ON) Endocrine History of Endocrine Disorders: No (says she does not have diabetes) Cancer History of Cancer: No Psychosocial History of Psychiatric Problem: No Behavioral Health Disorders: Depression (patient reported yes, not diagnosed) Integumentary History of Skin or Integumenta: No Blood Transfusions History of Blood Disorders: No Family Medical History Significant Family History: Diabetes (mom), Hypertension (both parents), Other Conditions/Hx (father of alzheimers, patient unsure on what age, just said he was "old". Denied family history of cancer) Review of Systems-General Constitutional: chills (no longer present, she had them last night because she didn't have enough blankets); No fever; weakness (since surgery) EENTM: other (no visual changes, does report having dry mouth); No throat pain Respiratory: No cough, No short of breath Cardiovascular: No chest pain; syncope (has been present since getting home from surgery, only when she stands up too fast) Gastrointestinal: abdominal pain (RUQ, epigastric); No diarrhea, No dysphagia; heartburn (chronic, has had this since she had food impaction), loss of appetite (since surgery); No melena, No nausea, No vomiting Genitourinary: No dysuria; frequency (increased since surgery); No hematuria; other (urgency-sometimes she cannot get up and get to urinal fast enough) Musculoskeletal: back pain (says slept wrong last night), neck pain (says slept wrong last night), other (pain in right shoulder since surgery) Skin: No pruritus, No rash Psychiatric/Neurological: Denies Anxiety, Denies Depressed, Denies Headache Physical Exam-General Problems Physical Exam Vital Signs Vital Signs - First Documented 11/03/21 11/04/21 22:15 03:02 Temp 36.9 Pulse 102 Resp 20 B/P (MAP) 208/105 (139) Pulse Ox 96 O2 Delivery Room Air FiO2 21 Capillary Refill : General Appearance: no apparent distress, obese HEENT: PERRL/EOMI; No scleral icterus (R), No scleral icterus (L) Neck: non-tender, supple Respiratory: lungs clear, normal breath sounds, no respiratory distress, no accessory muscle use Cardiovascular: no murmur, tachycardia Peripheral Pulses: 2+ Dorsalis Pedis (R), 2+ Left Dors-Pedis (L), 2+ Radial Pulses (R), 2+ Radial Pulses (L) Gastrointestinal: normal bowel sounds, soft, guarding (RUQ, Epigastric), tenderness (RUQ, Epigastric), other (incision on RUQ c/d/i and still has surgical glue in place, supraumbilical incision has dried blood over it, dry and intact, GABINO drain is full of alvaro colored fluid) Back: No CVA tenderness (R), No CVA tenderness (L); vertebral tenderness (patient endorsed pain, however, this was while I had made her sit up in bed to listen to her lungs, she had previously endorsed that movement worsens her pain) Extremities: non-tender, no calf tenderness, pedal edema (b/l 2+) Neurologic/Psychiatric: alert, oriented x 3 Skin: normal color, warm/dry, other (multiple periorbital skin tags b/l, not new) Lymphatic: no adenopathy (cervical) Data Review Labs Laboratory Tests 11/03/21 23:15: White Blood Count 11.6H, Red Blood Count 4.32, Hemoglobin 11.6, Hematocrit 35, Mean Corpuscular Volume 82, Mean Corpuscular Hemoglobin 27, Mean Corpuscular Hemoglobin Concent 33, Red Cell Distribution Width 15.0H, Platelet Count 197, Mean Platelet Volume 9.7, Immature Granulocyte % (Auto) 4, Neutrophils (%) (Auto) 73, Lymphocytes (%) (Auto) 18, Monocytes (%) (Auto) 4, Eosinophils (%) (Auto) 1, Basophils (%) (Auto) 0, Neutrophils # (Auto) 8.4H, Lymphocytes # (Auto) 2.1, Monocytes # (Auto) 0.5, Eosinophils # (Auto) 0.1, Basophils # (Auto) 0.0, Immature Granulocyte # (Auto) 0.5H, Sodium Level 137, Potassium Level 2.8L, Chloride Level 96L, Carbon Dioxide Level 29, Anion Gap 12, Blood Urea Nitrogen 6L, Creatinine 0.77, Estimat Glomerular Filtration Rate 88, BUN/Creatinine Ratio 8, Glucose Level 137H, Calcium Level 8.3L, Corrected Calcium 9.1, Total Bilirubin 0.6, Aspartate Amino Transf (AST/SGOT) 17, Alanine Aminotransferase (ALT/SGPT) 10, Alkaline Phosphatase 92, Total Protein 6.7, Albumin 3.0L, Amylase Level 265H, Lipase 307H 11/04/21 00:14: Urine Color YELLOW, Urine Clarity CLEAR, Urine pH 7.0, Urine Specific [place] <=1.005, Urine Protein NEGATIVE, Urine Glucose (UA) NEGATIVE, Urine Ketones NEGATIVE, Urine Nitrite NEGATIVE, Urine Bilirubin NEGATIVE, Urine Urobilinogen 0.2, Urine Leukocyte Esterase NEGATIVE, Urine RBC (Auto) TRACE-IH, Urine RBC NONE, Urine WBC NONE, Urine Squamous Epithelial Cells 2-5, Urine Crystals NONE, Urine Bacteria NEGATIVE, Urine Casts NONE, Urine Mucus NEGATIVE, Urine Culture Indicated NO Assessment/Plan Assessment/Plan Assessment/Plan S/P laparoscopic cholecystectomy Abdominal Pain Increased output from GABINO drain Leukocytosis Elevated amylase+lipase Hypokalemia Hypomagnesemia Hypertensive urgency Culture and cell count on fluid from GABINO drain. Maintain NPO status. IV fluids. Pain control with fentanyl. Potassium replacement with KCl/Dextrose/NaCl. Magnesium replacement with Magnesium Sulfate. Continue ceftriaxone. Monitor amylase and lipase with AM labs. Nicardipine to control HTN urgency. WAYLON BOO DO 11/04/21 1437: History of Present Illness History of Present Illness Time Seen by Provider: 12:11 History of Present Illness Surgery asked to consult/Admit regarding possible Post-operative complications. HPI: Pt had a Hypertensive emergency on 10/22 and was seen in the ER; subsequently sent to see me regarding gallstones seen on CTA but no inflammation. At that time pt had no complaints of RUQ pain with food, in fact the only abdominal pain she complained of was due to her dog dropping a possum on her stomach and when she quickly moved developed abdominal pain. She then presented to ER on 10/26 with severe abdominal pain, taken to the OR (US showed thickened wall but supposedly no pericholecystic fluid - which I think was there) and found to have a perforated gallbladder. She had Laparoscopic Cholecystectomy and was in the hospital until Friday. The brought her in last night because the drain all of sudden started putting out "a lot of fluid, that looked reddish". She states she has some pain, but it gets really bad if she move and goes up into her shoulder. Some pain with deep breaths. When I saw the pt in my office she knew she had BP problems, but was basically refusing to take her BP meds. Allergies and Home Medications Allergies Coded Allergies: codeine (Unverified Adverse Reaction, Mild, VOMITING pt has rec'd hydrocodone in past, 10/26/21) Uncoded Allergies: codiene (Allergy, Intermediate, vomiting; pt has rec'd hydrocodone in past, 10/26/21) Patient Home Medication List Home Medication List Reviewed: Yes Amoxicillin/Potassium Clav (Augmentin 500-125 Tablet) 500 Mg-125 Mg Tablet, 1 EACH PO BID Prescribed by: NAVNEET RAYO on 10/30/21 1520 Carvedilol (Carvedilol) 6.25 Mg Tablet, 12.5 MG PO BID, (Reported) Entered as Reported by: BETSY KOHLER on 10/26/21 1414 Last Action: Edited Hydrocodone/Acetaminophen (Hydrocodone-Acetamin 7.5-325) 7.5 Mg-325 Mg Tablet, 1 EACH PO Q4H Prescribed by: NAVNEET RAYO on 10/30/21 1520 Ketorolac Tromethamine (Ketorolac Tromethamine) 10 Mg Tablet, 10 MG PO Q6H PRN for PAIN-BREAKTHROUGH, (Reported) Entered as Reported by: BETSY KOHLER on 10/26/21 1414 Omeprazole (Omeprazole) 20 Mg Tab.rap.dr, 20 MG PO DAILY, (Reported) Entered as Reported by: ZAIN GUERRERO on 11/04/21 1335 Last Action: New Order Ondansetron (Ondansetron Odt) 4 Mg Tab.rapdis, 4 MG PO Q4H PRN for NAUSEA/VOMITING-1ST LINE, (Reported) Entered as Reported by: BETSY KOHLER on 10/26/21 1414 Past Mkloogt-Anmphw-Pcdkzr Hx Patient Social History Smoking Status: Former Smoker (quit 4 months ago, prior smoked 15 years 3 packs a day) Alcohol Use?: Yes (special occasions, maybe 10 total a year) Surgeries History of Surgeries: Yes (has also had EGD for food impaction, believes this was in 1986) Surgeries: Gallbladder (cholecystectomy), Tubal Ligation Respiratory History of Respiratory Disorde: Yes (no COPD or asthma) Respiratory Disorders: Sleep Apnea (possibly, patient has been told she may have it but has never done sleep study for it) Cardiovascular History of Cardiac Disorders: Yes Cardiac Disorders: Hypertension Neurological History of Neurological Disord: Yes Neurological Disorders: TIA (1.5 years ago, no surgery was done, not sure what they did for intervention), Vertigo Genitourinary History of Genitourinary Disor: No Gastrointestinal History of Gastrointestinal Di: Yes (food impaction) Gastrointestinal Disorders: Gastroesophageal Reflux, Gall Bladder Disease (cholecystitis, cholelithiasis) Musculoskeletal History of Musculoskeletal Dis: Yes Musculoskeletal Disorders: Arthritis Endocrine History of Endocrine Disorders: No (says she does not have diabetes) HEENT History of HEENT Disorders: No Loss of Vision: Denies Hearing Impairment: Denies Cancer History of Cancer: No Psychosocial History of Psychiatric Problem: Yes Behavioral Health Disorders: Depression (patient reported yes, not diagnosed) Family Medical History Significant Family History: Diabetes (mom), Hypertension (both parents) Review of Systems-General Constitutional: chills (no longer present, she had them last night because she didn't have enough blankets); No fever; weakness (since surgery) EENTM: other (no visual changes, does report having dry mouth); No epistaxis, No throat pain Respiratory: No cough, No short of breath Cardiovascular: No chest pain; syncope (has been present since getting home from surgery, only when she stands up too fast) Gastrointestinal: abdominal pain (RUQ, epigastric); No diarrhea, No dysphagia; heartburn (chronic, has had this since she had food impaction), loss of appetite (since surgery); No melena, No nausea, No vomiting Genitourinary: No dysuria; frequency (increased since surgery); No hematuria; other (urgency-sometimes she cannot get up and get to urinal fast enough) Musculoskeletal: back pain (says slept wrong last night), joint pain, neck pain (says slept wrong last night), other (pain in right shoulder since surgery) Skin: No pruritus, No rash Psychiatric/Neurological: Denies Anxiety, Denies Depressed, Denies Headache Physical Exam-General Problems Physical Exam General Appearance: mild distress (secondary to pain when she moves), obese Eyes: Bilateral Eye PERRL, Bilateral Eye EOMI HEENT: pharynx normal; No scleral icterus (R), No scleral icterus (L); other (poor dentition) Neck: non-tender, supple Respiratory: lungs clear, normal breath sounds, no respiratory distress, no accessory muscle use, other (right lower lobe decreased compared to left side) Cardiovascular: no murmur, tachycardia Gastrointestinal: normal bowel sounds, soft, guarding (RUQ, Epigastric), tenderness (RUQ, Epigastric), other (incision on RUQ c/d/i and still has surgical glue in place, supraumbilical incision has dried blood over it, dry and intact, GABINO drain is full of alvaro colored fluid - looks like old bile) Back: No CVA tenderness (R), No CVA tenderness (L); vertebral tenderness (patient endorsed pain, however, this was while I had made her sit up in bed to listen to her lungs, she had previously endorsed that movement worsens her pain) Extremities: non-tender, no calf tenderness, pedal edema (b/l 2+) Neurologic/Psychiatric: alert, normal mood/affect, oriented x 3 Skin: normal color, warm/dry, other (multiple periorbital skin tags b/l, not new) Lymphatic: no adenopathy (neck, axilla or groin) Data Review Radiology Date of Exam:11/03/21 CT ABDOMEN/PELVIS W PROCEDURE: CT abdomen and pelvis with contrast. TECHNIQUE: Multiple contiguous axial images were obtained through the abdomen and pelvis after administration of intravenous contrast. Auto Exposure Controls were utilized during the CT exam to meet ALARA standards for radiation dose reduction. All CT scans use one or more of the following dose optimizing techniques: automated exposure control, MA and/or KvP adjustment based on patient size and exam type or iterative reconstruction. INDICATION: Postoperative bleeding and pain status post cholecystectomy. COMPARISON: 10/22/2021 FINDINGS: There is a [id number] right pleural effusion with associated atelectasis. The heart is normal in size. There is a surgical drain draped about the liver. There is a small rim-enhancing fluid collection anterior to the right lobe of the liver measuring about 3.0 x 2.7 cm in size. There is a small amount of perihepatic fluid as well which appears subcapsular. There is irregular fluid density in the gallbladder fossa along the liver, may be secondary to the recent surgery. No contrast extravasation is seen. The spleen is upper normal in size. The pancreas appears normal. The adrenal glands appear normal. The kidneys demonstrate no hydronephrosis or enhancing masses. There is wall thickening of the gastric antrum. No definite perforation is seen. No free air seen. There is no evidence of bowel obstruction. The appendix appears normal. There is a small amount of free fluid in the pelvis. There is mild subcutaneous edema about the abdomen. No lymphadenopathy is seen. The aorta is normal in caliber. No acute osseous abnormality is seen. IMPRESSION: 1. Postsurgical changes from cholecystectomy, with small rim-enhancing fluid collection anterior to the liver and a small amount of ascites. There is irregular hypodensity at the gallbladder fossa of the liver may be sequela from surgery, and there appears to be a small subcapsular fluid collection. A surgical drain is in place. 2. Wall thickening of the gastric antrum, most likely reactive. 3. [id number] right pleural effusion. No significant changes from the preliminary report. Dictated by: Dictated on workstation # [id number] Dict: 11/04/2153 Trans: 11/04/2153 MARTITA [id number] Interpreted by: JAMES MARS MD Electronically signed by: JAMES MARS MD 11/04/21 0853 Assessment/Plan Assessment/Plan Assessment/Plan Hypertensive Emergency - due to chronic problem, not secondary to post-operative pain Mild Pancreatitis Atelectasis and Pleural effusion Venous insufficiency - will hold off on central line for now, she has two small IVs and will try and start PO meds Abdominal pain - most likely secondary to S/P laparoscopic cholecystectomy Leukocytosis - resolved already Elevated amylase+lipase - will monitor Hypokalemia Hypomagnesemia I reviewed the CT myself and discussed case with Physicians. I believe fluid in GABINO drain is just from post-operative fluid; she is not bleeding. Will start her on clear liquids and start her on PO meds. Pain control, anti-emetics as needed and IV fluids. She was started on ABX, but not sure she needs them. Encourage IS use and ambulation, may need diuretics to help with pleural effusion. Electrolyte replacement: Potassium replacement with KCl/Dextrose/NaCl. Magnesium replacement with Magnesium Sulfate. Monitor electrolytes, amylase and lipase with AM labs. Nicardipine to control HTN urgency/emergency she is also on Hydralazine and will ask E-ICU for suggestions on an oral med. I will also order a HIDA scan for tomorrow to look for leak. I can see the entire Common hepatic and common bile duct; while dilated, it does not appear to have clips across. I would not call fluid in the abdomen ascites; it is post-operative from ruptured gallbladder and probably fluid used to washout abdomen, but will monitor. Will consult RT if not already done. Supervisory-Addendum Brief Verification & Attestation Participated in pt care: history, MDM, physical Personally performed: exam, history, MDM, supervision of care Care discussed with: Medical Student Procedures: n/a Verification and Attestation of Medical Student E/M Service A medical student performed and documented this service. I then reviewed and verified all information documented by the medical student and made modifications to such information, when appropriate. I personally performed a physical exam, medical decision making and then discussed any differences bet ween the notes and made revisions as necessary to create one note. Waylon Boo , 11/04/21 , 14:50 JASEN TODD Nov 04, 2021 08:27 WAYLON BOO DO Nov 04, 2021 14:37
[2021-11-04 09:14] LABS: BASOPHILS % (AUTO) 0 % (0-10); LYMPHOCYTES % (AUTO) 15 % (12-44); MEAN CORPUSCULAR HEMOGLOBIN 27 pg (25-34)
[2021-11-04 09:16] LABS: EOSINOPHILS % (AUTO) 0 % (0-10); HEMATOCRIT 36 % (35-52); LYMPHOCYTES # (AUTO) 1.6 10^3/uL (1.0-4.0); MEAN CORPUSCULAR HGB CONC 33 g/dL (32-36); MEAN CORPUSCULAR VOLUME 81 fL (80-99); MEAN PLATELET VOLUME 10.2 fL (9.0-12.2); MONOCYTES # (AUTO) 0.4 10^3/uL (0.0-1.0); MONOCYTES % (AUTO) 4 % (0-12); NEUTROPHILS # (AUTO) 8.5 10^3/uL (1.8-7.8); NEUTROPHILS % (AUTO) 78 % (42-75); WHITE BLOOD COUNT 10.9 10^3/uL (4.3-11.0)
[2021-11-04 09:17] LABS: POTASSIUM 3.1 MMOL/L (3.6-5.0)
[2021-11-04 09:19] LABS: CALCIUM 8.4 MG/DL (8.5-10.1)
[2021-11-04 09:20] LABS: TOTAL PROTEIN 6.9 GM/DL (6.4-8.2)
[2021-11-04 09:22] LABS: BILIRUBIN,TOTAL 0.5 MG/DL (0.1-1.0)
[2021-11-04 09:23] LABS: CREATININE SERUM 0.69 MG/DL (0.60-1.30); PHOSPHORUS 2.1 MG/DL (2.3-4.7); PLATELET COUNT 168 10^3/uL (130-400)
[2021-11-04 09:31] LABS: MAGNESIUM 1.1 MG/DL (1.6-2.4)
[2021-11-04] MEDS ORDERED: OMEP-401 PO (13:35)
--- NOTE | 2021-11-04 15:42 | History & Physical-Hospitalist ---
History of Present Illness HPI/Chief Complaint Eula Oreilly is a 60 year old female with PMH HTN, obesity, who presented with abdominal pain. She originally presented to the ER on 10/22 with right upper quadrant abdominal pain and was found to have cholelithiasis, but CT reported no evidence of acute cholecystitis. She also had issues with hypertension at that time. She was discharged and followed up with Dr. Sears who planned to perform EGD/colonoscopy on 11/19. She reports that she was having ongoing right upper quadrant pain and was given pain medicine at that time. Her pain worsened and she returned to the ER on 10/26. She had a gallbladder ultrasound which showed inflammation consistent with acute cholecystitis. She was taken to the OR on 10/28 for laparoscopic cholecystectomy. She did well post-operatively and was discharged home on 10/31. She had a GABINO drain in place which had minimal clear output. This output increased yesterday and the color changed to a dark color. Her was concerned this was bleeding. She also had worsening epigastric/right upper quadrant abdominal pain 10/27. Upon my exam, she is still having severe abdominal pain which improves from 10/27 to 07/27 when she gets pain medicine. She does not have much of an appetite. She had a fever last night. Source: patient, family Exam Limitations: no limitations Date Seen 11/04/21 Time Seen by a Provider: 10:00 Attending Physician Lowell Marte MD PCP Admitting Physician: Chata Emmanuel MD Attending Physician: Chata Emmanuel MD Referring Physician Date of Admission Nov 04, 2021 at 01:20 Home Medications & Allergies Home Medications Reviewed patient Home Medication Reconciliation performed by pharmacy medication reconciliations commercial technician and/or nursing. Patients Allergies have been reviewed. Allergies Allergies Coded Allergies codeine (Unverified Adverse Reaction, Mild, VOMITING pt has rec'd hydrocodone in past, 10/26/21) Uncoded Allergies codiene ( Allergy, Intermediate, vomiting; pt has rec'd hydrocodone in past, 10/26/21) Past Gogkdyp-Dblezd-Niegzd Hx Patient Social History Tobacco Use?: No Smoking Status: Former Smoker (quit 4 months ago, prior smoked 15 years 3 packs a day) Smokeless Tobacco Frequency: Never a User Use of E-Cig and/or Vaping dev: No Substance use?: No Alcohol Use?: Yes (special occasions, maybe 10 total a year) Alcohol Frequency: Rarely Pt feels they are or have been: No Immunizations Up To Date First/Initial COVID19 Vaccinat: NONE Second COVID19 Vaccination Mani: NONE Tetanus Booster (TDap): Unknown Hepatitis A: No Hepatitis B: No Current Status status: No Advance Directives: No Communicates: Verbally Primary Language: Malian Preferred Spoken Language: Malian Is interpretation needed?: No Implanted or Applied Medical D: Other Past Medical History Surgeries: Gallbladder (cholecystectomy), Tubal Ligation Sleep Apnea (possibly, patient has been told she may have it but has never done sleep study for it) Currently Using CPAP: No Currently Using BIPAP: No Hypertension TIA (1.5 years ago, no surgery was done, not sure what they did for intervention), Vertigo Gastroesophageal Reflux, Gall Bladder Disease (cholecystitis, cholelithiasis) Arthritis Loss of Vision: Denies Hearing Impairment: Denies Depression (patient reported yes, not diagnosed) Blood Disorders: No Family Medical History Diabetes (mom), Hypertension (both parents) Review of Systems Constitutional: weakness EENTM: no symptoms reported Respiratory: no symptoms reported Cardiovascular: no symptoms reported Gastrointestinal: RUQ, abdominal pain (RUQ) Genitourinary: no symptoms reported Physical Exam Physical Exam Vital Signs Vital Signs - First Documented 11/03/21 11/04/21 22:15 03:02 Temp 36.9 Pulse 102 Resp 20 B/P (MAP) 208/105 (139) Pulse Ox 96 O2 Delivery Room Air FiO2 21 Capillary Refill : Height, Weight, BMI Height: '" Weight: lbs. oz. kg; 32.57 BMI Method: General Appearance: Mild Distress (uncomfortable), Obese HEENT: PERRL/EOMI, Pharynx Normal Neck: Normal Inspection, Supple Respiratory: Lungs Clear, No Respiratory Distress Cardiovascular: No Murmur, Normal Peripheral Pulses, Tachycardia Gastrointestinal: Normal Bowel Sounds, Tenderness (epigastric and right upper quadrant), Other (GABINO drain with bilious output) Extremity: Normal Inspection, Pedal Edema Neurologic/Psychiatric: Alert, Oriented x3, No Motor/Sensory Deficits Skin: Normal Color, Warm/Dry Results Results/Procedures Labs Laboratory Tests 11/03/21 23:15 11/04/21 08:50 Patient resulted labs reviewed. Imaging: Reviewed Imaging Films, Reviewed Imaging Report Assessment/Plan Admission Diagnosis Postoperative surgical complication Admission Status: Inpatient Order (span 2 midnights) Reason for Inpatient Admission: Abdominal pain HTN urgency Assessment and Plan Postoperative surgical complication s/p laparoscopic cholecystectomy Abdominal pain Pancreatitis Bilious drain output CT with fluid collection at surgical site, perihepatic fluid, no clear evidence of bile leak Concern for bile leak with new bilious output from drain Monitor output NPO Obtain HIDA to assess for leak Pain regimen Surgery consulted, discussed with Dr. Sears HTN urgency Likely related to pain IV Cardene TeleICU consulted Obesity Clinically significant, no acute management needs DVT prophylaxis: Lovenox Critical Care Critically Ill Patient Diagnosis/Problems Diagnosis/Problems (1) Postoperative surgical complication involving digestive system associated with digestive system procedure Status: Acute Qualifiers: Surgical complication type: unspecified Qualified Codes: K91.89 - Other postprocedural complications and disorders of digestive system (2) S/P laparoscopic cholecystectomy Status: Acute (3) Fluid collection at surgical site Status: Acute Qualifiers: Encounter type: initial encounter Qualified Codes: T88.8XXA - Other specified complications of surgical and medical care, not elsewhere classified, initial encounter (4) Pancreatitis Status: Acute Qualifiers: Chronicity: acute Pancreatitis type: unspecified pancreatitis type Acute pancreatitis complication: unspecified Qualified Codes: K85.90 - Acute pancreatitis without necrosis or infection, unspecified (5) Hypertensive urgency Status: Acute CHATA EMMANUEL MD Nov 04, 2021 15:42
--- NOTE | 2021-11-04 18:04 | Diagnostic Imaging Report ---
INDICATION: Bile leak questioned. EXAMINATION: Hepatobiliary scan, 11/04/2021. 5.43 mCi of technetium 99m Choletec intravenously administered with subsequent imaging performed. FINDINGS: There is prompt homogeneous uptake throughout the liver. Gallbladder is surgically absent. Small bowel loops seen within 15 minutes of imaging. There is a curvilinear area of radiotracer extending across the medial border of the inferior liver which then courses to the right of the liver towards the dome. This appears to follow the course of a surgical drain seen on CT from 11/03/2021 extending across the fluid collection at the right tip of the liver. Given this follows the course of the drain, it most likely represents leaking bile extending into the surgical drain. Correlate with symptoms. IMPRESSION: Suspected leaking bile which then extends into the surgical drain given the course of the radiotracer described above. Dictated by: Dictated on workstation # [id number]
[2021-11-04] MEDS ORDERED: ACETAMINOPHEN 500 MG TAB (TYLENOL) PO PRN (20:15)
[2021-11-05] MEDS: cefTRIAXone 1 GM PRE-MIX 50 ML IV SCH (03:52)
[2021-11-05] MEDS: D5 1/2 NS W/KCL 20 MEQ/L 1,000 ML IV SCH ×3 (03:52→13:04)
[2021-11-05 05:29] LABS: BASOPHILS % (AUTO) 0 % (0-10); EOSINOPHILS # (AUTO) 0.2 10^3/uL (0.0-0.3); EOSINOPHILS % (AUTO) 2 % (0-10); HEMATOCRIT 29 % (35-52); HEMOGLOBIN 9.3 g/dL (11.5-16.0); LYMPHOCYTES # (AUTO) 2.1 10^3/uL (1.0-4.0); LYMPHOCYTES % (AUTO) 25 % (12-44); MEAN CORPUSCULAR HEMOGLOBIN 27 pg (25-34); MEAN CORPUSCULAR HGB CONC 32 g/dL (32-36); MEAN CORPUSCULAR VOLUME 84 fL (80-99); MEAN PLATELET VOLUME 9.6 fL (9.0-12.2); MONOCYTES # (AUTO) 0.4 10^3/uL (0.0-1.0); MONOCYTES % (AUTO) 5 % (0-12); NEUTROPHILS # (AUTO) 5.5 10^3/uL (1.8-7.8); NEUTROPHILS % (AUTO) 66 % (42-75); PLATELET COUNT 179 10^3/uL (130-400); WHITE BLOOD COUNT 8.3 10^3/uL (4.3-11.0)
[2021-11-05 05:43] LABS: ALBUMIN 2.5 GM/DL (3.2-4.5); POTASSIUM 3.1 MMOL/L (3.6-5.0)
[2021-11-05 05:44] LABS: CALCIUM 7.9 MG/DL (8.5-10.1)
[2021-11-05 05:46] LABS: TOTAL PROTEIN 5.6 GM/DL (6.4-8.2)
[2021-11-05 05:47] LABS: BILIRUBIN,TOTAL 0.4 MG/DL (0.1-1.0)
[2021-11-05 05:49] LABS: CREATININE SERUM 0.68 MG/DL (0.60-1.30); PHOSPHORUS 2.9 MG/DL (2.3-4.7)
[2021-11-05 05:53] LABS: MAGNESIUM 1.7 MG/DL (1.6-2.4)
[2021-11-05] MEDS: MAGNESIUM 1 GM/100 ML IVPB 100 ML IV SCH (07:39)
[2021-11-05] MEDS: KCL 20 MEQ TAB (K-DUR) PO SCH (07:40)
[2021-11-05] MEDS: POTASSIUM CL 10MEQ/50ML IVPB 50 ML IV SCH ×3 (07:52→11:53)
[2021-11-05] MEDS: fentaNYL INJ 100 MCG/2 ML AMP IV PRN ×5 (08:04→16:05)
--- NOTE | 2021-11-05 08:31 | Progress Note - Surgery ---
JASEN TODD 11/05/21 0831: Subjective Date Seen by a Provider: Nov 05, 2021 Time Seen by a Provider: 06:30 Subjective/Events-last exam Patient appears to be doing better today. She claimed her abdominal pain is diffuse and at a maximum of 6/10, better than yesterday, tolerable with the pain medication she is getting. She had 2 BMs overnight. Her RN reported that the stools looked "like bile". Patient reported they were both brown and soft. She is still urinating frequently. She is ambulating to use the restroom and is using her IS. Review of Systems Pulmonary: No Dyspnea, No Cough Cardiovascular: Lt Headedness (upon standing, has been like this since surgery); No: Chest Pain Gastrointestinal: Nausea (transient during the night, none reported now), Abdominal Pain; No: Vomiting Genitourinary: Frequency; No Hematuria Objective Exam Vital Signs Date Time Temp Pulse Resp B/P (MAP) Pulse Ox O2 Delivery O2 Flow Rate FiO2 11/05/21 07:00 96 11/05/21 06:00 99 14 94 Nasal Cannula 2.00 11/05/21 05:00 101 17 161/64 (96) 94 Nasal Cannula 2.00 11/05/21 04:01 37.2 11/05/21 04:00 99 15 148/79 (102) 94 Nasal Cannula 2.00 11/05/21 04:00 Room Air 11/05/21 03:00 95 15 131/65 (87) 96 Nasal Cannula 2.00 11/05/21 02:00 84 13 127/74 (91) 97 Nasal Cannula 2.00 11/05/21 01:46 Nasal Cannula 2.00 11/05/21 01:00 88 11/05/21 01:00 99 16 132/71 (91) 95 Room Air 11/05/21 00:20 37.2 11/05/21 00:01 37.8 11/05/21 00:00 102 19 154/80 (104) 93 Room Air 11/04/21 23:59 Room Air 11/04/21 23:50 37.9 11/04/21 23:30 102 119/77 11/04/21 23:00 96 18 168/86 (113) 93 Room Air 11/04/21 22:00 96 18 148/77 (100) 93 Room Air 11/04/21 21:00 96 16 119/70 (86) 94 Room Air 11/04/21 20:01 37.8 11/04/21 20:00 109 17 123/72 (89) 97 Room Air 11/04/21 20:00 Room Air 11/04/21 19:45 95 Room Air 11/04/21 19:00 110 20 151/83 (105) 96 Room Air 11/04/21 19:00 105 11/04/21 18:00 104 20 145/95 (112) 96 Room Air 11/04/21 17:00 81 36 157/74 (101) 99 Room Air 11/04/21 16:05 Room Air 11/04/21 16:00 92 17 146/69 (94) 92 Room Air 11/04/21 15:56 36.6 11/04/21 15:00 103 19 145/75 (98) 95 Room Air 11/04/21 14:00 98 14 161/73 (102) 93 Room Air 11/04/21 13:46 162/87 11/04/21 13:00 105 22 160/83 (108) 95 Room Air 11/04/21 12:23 95 11/04/21 12:00 98 16 148/73 (98) 94 Room Air 11/04/21 11:53 Room Air 11/04/21 11:38 36.4 11/04/21 11:00 105 18 136/80 (98) 98 Room Air 11/04/21 10:00 110 19 157/92 (113) 95 Room Air 11/04/21 09:00 118 18 166/84 (111) 96 Room Air I & O 11/05/21 07:00 Intake Total 2493.25 ml Output Total 5500 ml Balance -3006.75 ml Capillary Refill : General Appearance: Mild Distress (only when I had her sit up to listen to lungs), Obese HEENT: PERRL/EOMI; No Scleral Icterus (L), No Scleral Icterus (R) Neck: Non Tender, Supple Respiratory: Lungs Clear, No Respiratory Distress Cardiovascular: Regular Rate, Rhythm, No Murmur, Normal Peripheral Pulses Peripheral Pulses: 2+ Dorsalis Pedis (R), 2+ Left Dors-Pedis (L), 2+ Radial Pu lses (R), 2+ Radial Pulses (L) Gastrointestinal: normal bowel sounds, soft, tenderness (RUQ, Epigastric), other (incision on RUQ c/d/i and still has surgical glue in place, supraumbilical incision has dried blood over it, dry and intact, GABINO drain is full of alvaro colored fluid - looks like old bile) Extremity: Non Tender, No Calf Tenderness, Pedal Edema Neurologic/Psychiatric: Alert, Oriented x3, Normal Mood/Affect Skin: Normal Color, Warm/Dry Lymphatic: No Adenopathy (cervical) Results Lab Laboratory Tests 11/04/21 08:50: White Blood Count 10.9, Red Blood Count 4.46, Hemoglobin 12.0, Hematocrit 36, Mean Corpuscular Volume 81, Mean Corpuscular Hemoglobin 27, Mean Corpuscular Hemoglobin Concent 33, Red Cell Distribution Width 15.2H, Platelet Count 168, Mean Platelet Volume 10.2, Immature Granulocyte % (Auto) 3, Neutrophils (%) (Auto) 78H, Lymphocytes (%) (Auto) 15, Monocytes (%) (Auto) 4, Eosinophils (%) (Auto) 0, Basophils (%) (Auto) 0, Neutrophils # (Auto) 8.5H, Lymphocytes # (Auto) 1.6, Monocytes # (Auto) 0.4, Eosinophils # (Auto) 0.0, Basophils # (Auto) 0.0, Immature Granulocyte # (Auto) 0.4H, Percent Immature Platelet Fraction 3.8, Sodium Level 137, Potassium Level 3.1L, Chloride Level 96L, Carbon Dioxide Level 27, Anion Gap 14, Blood Urea Nitrogen 3L, Creatinine 0.69, Estimat Glomerular Filtration Rate 99, BUN/Creatinine Ratio 4, Glucose Level 147H, Calcium Level 8.4L, Corrected Calcium 9.2, Phosphorus Level 2.1L, Magnesium Level 1.1*L, Total Bilirubin 0.5, Aspartate Amino Transf (AST/SGOT) 17, Alanine Aminotransferase (ALT/SGPT) 10, Alkaline Phosphatase 94, Total Protein 6.9, Albumin 3.0L, Amylase Level 228H, Lipase 240H 11/05/21 04:45: White Blood Count 8.3, Red Blood Count 3.48L, Hemoglobin 9.3#L, Hematocrit 29L, Mean Corpuscular Volume 84, Mean Corpuscular Hemoglobin 27, Mean Corpuscular Hemoglobin Concent 32, Red Cell Distribution Width 15.5H, Platelet Count 179, Mean Platelet Volume 9.6, Immature Granulocyte % (Auto) 2, Neutrophils (%) (Auto) 66, Lymphocytes (%) (Auto) 25, Monocytes (%) (Auto) 5, Eosinophils (%) (Auto) 2, Basophils (%) (Auto) 0, Neutrophils # (Auto) 5.5, Lymphocytes # (Auto) 2.1, Monocytes # (Auto) 0.4, Eosinophils # (Auto) 0.2, Basophils # (Auto) 0.0, Immature Granulocyte # (Auto) 0.2H, Sodium Level 141, Potassium Level 3.1L, Chloride Level 99, Carbon Dioxide Level 29, Anion Gap 13, Blood Urea Nitrogen 2L , Creatinine 0.68, Estimat Glomerular Filtration Rate 99, BUN/Creatinine Ratio 3, Glucose Level 124H, Calcium Level 7.9L, Corrected Calcium 9.1, Phosphorus Level 2.9, Magnesium Level 1.7, Total Bilirubin 0.4, Aspartate Amino Transf (AST/SGOT) 12, Alanine Aminotransferase (ALT/SGPT) 8, Alkaline Phosphatase 73, Total Protein 5.6L, Albumin 2.5L Microbiology 11/04/21 Gram Stain, Resulted Pending 11/04/21 Body Fluid Culture - Preliminary, Resulted Assessment/Plan Assessment/Plan Assessment/Plan Hypertensive Emergency - due to chronic problem, not secondary to post-operative pain Mild Pancreatitis Atelectasis and Pleural effusion Venous insufficiency - will hold off on central line for now, she has two small IVs and will try and start PO meds Abdominal pain - most likely secondary to S/P laparoscopic cholecystectomy Leukocytosis - resolved Elevated amylase+lipase - will monitor Hypokalemia Hypomagnesemia- within normal limits today HIDA scan revealed a bile leak. Patient said Dr. Faulkner informed her she would be transferred to because there was nothing more we could do for her. Electrolyte replacement: Potassium replacement with KCl/Dextrose/NaCl. Monitor electrolytes, amylase and lipase with AM labs. Encouraged patient to continue using IS as much as possible. Continue nicardipine for BP control. WAYLON SEARS DO 11/05/21 1229: Subjective Time Seen by a Provider: 11:44 Subjective/Events-last exam Pt seen and examined, states still has some pain. Nurse states getting significant amount out of GABINO. Her main complaint is she is hungry. Review of Systems Pulmonary: No Dyspnea, No Cough Cardiovascular: Lt Headedness (upon standing, has been like this since surgery); No: Chest Pain Gastrointestinal: Nausea (transient during the night, none reported now), Abdominal Pain; No: Vomiting Genitourinary: Frequency; No Hematuria Objective Exam General Appearance: Mild Distress (only when I had her sit up to listen to lungs), Obese HEENT: PERRL/EOMI; No Scleral Icterus (L), No Scleral Icterus (R) Respiratory: Lungs Clear, No Accessory Muscle Use, No Respiratory Distress Cardiovascular: No Murmur, Tachycardia Gastrointestinal: normal bowel sounds, soft, tenderness (RUQ, Epigastric), othe r (incision on RUQ c/d/i and still has surgical glue in place, supraumbilical incision has dried blood over it, dry and intact, GABINO drain is full of alvaro colored fluid - looks like old bile) Extremity: Pedal Edema Neurologic/Psychiatric: Alert, Oriented x3, Normal Mood/Affect Skin: Normal Color, Warm/Dry Assessment/Plan Assessment/Plan Assessment/Plan Hypertensive Emergency - due to chronic problem, not secondary to post-operative pain Mild Pancreatitis Hypokalemia Hypomagnesemia- within normal limits today Atelectasis and Pleural effusion Venous insufficiency - will hold off on central line for now, she has two small IVs and will try and start PO meds Abdominal pain - most likely secondary to S/P laparoscopic cholecystectomy Leukocytosis - resolved Elevated amylase+lipase - will monitor HIDA scan revealed a bile leak; most likely from cystic duct stump. Contrast goes into small bowel very quickly. Patient will be transferred to for ERCP with stent placement and then will come back. Electrolyte replacement: Potassium replacement with KCl/Dextrose/NaCl. Monitor electrolytes, amylase and lipase with AM labs. Encouraged patient to continue using IS as much as possible. Continue nicardipine for BP control. Supervisory-Addendum Brief Verification & Attestation Participated in pt care: history, MDM, physical Personally performed: exam, history, MDM, supervision of care Care discussed with: Medical Student Procedures: n/a Verification and Attestation of Medical Student E/M Service A medical student performed and documented this service. I then reviewed and verified all information documented by the medical student and made modifi cations to such information, when appropriate. I personally performed a physical exam, medical decision making and then discussed any differences between the notes and made revisions as necessary to create one note. Waylon Sears , 11/05/21 , 12:28 JASEN TODD Nov 05, 2021 08:31 WAYLON SEARS DO Nov 05, 2021 12:29
--- NOTE | 2021-11-05 08:39 | Tele-ICU Progress Note ---
Subjective Date Seen by a Provider: Nov 05, 2021 Time Seen by a Provider: 08:38 Subjective/Events-last exam TO DAY FEELING SOME BETTER. WANTS TO DRINK SOME LIQUIDS. GEN SURGERY EVALUATING THE PATIENT FROM POST OP COMPLICATIONS POINT OF VIEW. TODAY DOWN GRADED TO CARDIAC STEP DOWN UNIT STATUS Review of Systems ROS PER RN Sepsis Event Evaluation Height, Weight, BMI Height: '" Weight: lbs. oz. kg; 32.57 BMI Method: Exam Exam Patient acknowledged, consented, and participated in this virtual visit which was conducted using real time audio/video Vital Signs Date Time Temp Pulse Resp B/P (MAP) Pulse Ox O2 Delivery O2 Flow Rate FiO2 11/05/21 07:00 98 18 163/116 (132) 93 Nasal Cannula 2.00 11/05/21 07:00 96 11/05/21 06:00 99 14 94 Nasal Cannula 2.00 11/05/21 05:00 101 17 161/64 (96) 94 Nasal Cannula 2.00 11/05/21 04:01 37.2 11/05/21 04:00 99 15 148/79 (102) 94 Nasal Cannula 2.00 11/05/21 04:00 Room Air 11/05/21 03:00 95 15 131/65 (87) 96 Nasal Cannula 2.00 11/05/21 02:00 84 13 127/74 (91) 97 Nasal Cannula 2.00 11/05/21 01:46 Nasal Cannula 2.00 11/05/21 01:00 88 11/05/21 01:00 99 16 132/71 (91) 95 Room Air 11/05/21 00:20 37.2 11/05/21 00:01 37.8 11/05/21 00:00 102 19 154/80 (104) 93 Room Air 11/04/21 23:59 Room Air 11/04/21 23:50 37.9 11/04/21 23:30 102 119/77 11/04/21 23:00 96 18 168/86 (113) 93 Room Air 11/04/21 22:00 96 18 148/77 (100) 93 Room Air 11/04/21 21:00 96 16 119/70 (86) 94 Room Air 11/04/21 20:01 37.8 11/04/21 20:00 109 17 123/72 (89) 97 Room Air 11/04/21 20:00 Room Air 11/04/21 19:45 95 Room Air 11/04/21 19:00 110 20 151/83 (105) 96 Room Air 11/04/21 19:00 105 11/04/21 18:00 104 20 145/95 (112) 96 Room Air 11/04/21 17:00 81 36 157/74 (101) 99 Room Air 11/04/21 16:05 Room Air 11/04/21 16:00 92 17 146/69 (94) 92 Room Air 11/04/21 15:56 36.6 11/04/21 15:00 103 19 145/75 (98) 95 Room Air 11/04/21 14:00 98 14 161/73 (102) 93 Room Air 11/04/21 13:46 162/87 11/04/21 13:00 105 22 160/83 (108) 95 Room Air 11/04/21 12:23 95 11/04/21 12:00 98 16 148/73 (98) 94 Room Air 11/04/21 11:53 Room Air 11/04/21 11:38 36.4 11/04/21 11:00 105 18 136/80 (98) 98 Room Air 11/04/21 10:00 110 19 157/92 (113) 95 Room Air 11/04/21 09:00 118 18 166/84 (111) 96 Room Air I & O 11/05/21 06:59 Intake Total 2493.25 ml Output Total 5500 ml Balance -3006.75 ml Height & Weight Height: '" Weight: lbs. oz. kg; 32.57 BMI Method: General Appearance: Mild Distress (only when I had her sit up to listen to lungs), Obese HEENT: PERRL/EOMI; No Scleral Icterus (L), No Scleral Icterus (R) Neck: Non Tender, Supple Respiratory: Lungs Clear, No Respiratory Distress Cardiovascular: Regular Rate, Rhythm, No Murmur, Normal Peripheral Pulses Peripheral Pulses: 2+ Dorsalis Pedis (R), 2+ Left Dors-Pedis (L), 2+ Radial Pulses (R), 2+ Radial Pulses (L) Gastrointestinal: normal bowel sounds, soft, tenderness (RUQ, Epigastric), other (incision on RUQ c/d/i and still has surgical glue in place, supraumbilical incision has dried blood over it, dry and intact, GABINO drain is full of alvaro colored fluid - looks like old bile) Extremity: Non Tender, No Calf Tenderness, Pedal Edema Neurologic/Psychiatric: Alert, Oriented x3, Normal Mood/Affect Skin: Normal Color, Warm/Dry Lymphatic: No Adenopathy (cervical) Other comments PE PER RN Results Lab Laboratory Tests 11/03/21 23:15 11/04/21 08:50 11/05/21 04:45 Assessment/Plan Assessment/Plan 1. S/P LAP CISCO, WITH POST OP BILE LEAKAGE. 2. MILD PANCREATITIS. PER GEN SURGERY Critical Care: Critically Ill Patient Time spent with patient (mins): 15 LING WHITNEY MD Nov 05, 2021 08:39
[2021-11-05] MEDS: niCARdipine IV (Pyxis drip kit 50 MG in NS (IVPB) 230 ML IV SCH ×2 (08:46→18:30)
[2021-11-05] MEDS: hydrALAZINE (APESOLINE) 20 MG/ML VIAL IV PRN ×2 (09:25→16:08)
[2021-11-05] MEDS ORDERED: AMOX-355 PO (10:23)
[2021-11-05] MEDS ORDERED: HYDR-3817 PO (10:23)
[2021-11-05] MEDS ORDERED: FLUT9.9S NSEACH (10:23)
--- NOTE | 2021-11-05 11:10 | Diagnostic Imaging Report ---
INDICATION: PICC line placement. COMPARISON: 10/27/2021 FINDINGS: Single frontal radiographic view of the chest was obtained and demonstrates indwelling left upper extremity PICC line with tip in the low SVC. Lungs show improved depth of inspiration, but with persistent platelike atelectasis in the right base. There is no large effusion or pneumothorax. Osseous structures show no gross acute abnormalities. IMPRESSION: 1. Improved aeration, but with persistent platelike atelectasis in the right lung base. Dictated by: Dictated on workstation # [id number]
--- NOTE | 2021-11-05 12:27 | Progress Note - Hospitalist ---
Subjective HPI/CC On Admission Date Seen by Provider: Nov 05, 2021 Eula Oreilly is a 60 year old female with PMH HTN, obesity, who presented with abdominal pain. She originally presented to the ER on 10/22 with right upper quadrant abdominal pain and was found to have cholelithiasis, but CT reported no evidence of acute cholecystitis. She also had issues with hypertension at that time. She was discharged and followed up with Dr. Sears who planned to perform EGD/colonoscopy on 11/19. She reports that she was having ongoing right upper quadrant pain and was given pain medicine at that time. Her pain worsened and she returned to the ER on 10/26. She had a gallbladder ultrasound which showed inflammation consistent with acute cholecystitis. She was taken to the OR on 10/28 for laparoscopic cholecystectomy. She did well post-operatively and was discharged home on 10/31. She had a GABINO drain in place which had minimal clear output. This output increased yesterday and the color changed to a dark color. Her was concerned this was bleeding. She also had worsening epigastric/right upper quadrant abdominal pain 10/27. Upon my exam, she is still having severe abdominal pain which improves from 10/27 to 07/27 when she gets pain medicine. She does not have much of an appetite. She had a fever last night. Subjective/Events-last exam Pt reports doing well. No complaints. Objective Exam Vital Signs Vital Signs Date Time Temp Pulse Resp B/P (MAP) Pulse Ox O2 Delivery O2 Flow Rate FiO2 11/05/21 08:46 107 188/91 11/05/21 08:21 Room Air 11/05/21 08:00 20 94 2.00 11/05/21 04:01 37.2 11/04/21 03:02 21 Capillary Refill : General Appearance: No Apparent Distress, WD/WN Cardiovascular: Regular Rate, Rhythm, No Murmur Gastrointestinal: Normal Bowel Sounds, Non Tender, Soft Neurologic/Psychiatric: Alert, Oriented x3 Results/Procedures Lab Laboratory Tests 11/05/21 04:45 Patient resulted labs reviewed. Imaging: Reviewed Imaging Films, Reviewed Imaging Report Assessment/Plan Assessment and Plan Assess & Plan/Chief Complaint Postoperative surgical complication s/p laparoscopic cholecystectomy Abdominal pain Pancreatitis Bilious drain output- bile leak CT with fluid collection at surgical site, perihepatic fluid, no clear treva dence of bile leak Concern for bile leak with new bilious output from drain Monitor output NPO HIDA concerning for leak Pain regimen Surgery consulted, discussed with Dr. Sears [facility] accepted for stent and patient to return following that HTN urgency Likely related to pain IV hydralazine prn TeleICU consulted Obesity Clinically significant, no acute management needs DVT prophylaxis: Lovenox Critical Care Critically Ill Patient ITA WHITTAKER MD Nov 05, 2021 12:27
--- NOTE | 2021-11-06 11:16 | Discharge Summary ---
Diagnosis/Chief Complaint Date of Admission Nov 04, 2021 at 01:20 Date of Discharge Admission Diagnosis Postoperative surgical complication Primary Care Lowell Marte MD Discharge Diagnosis (1) Postoperative surgical complication involving digestive system associated with digestive system procedure Status: Acute (2) S/P laparoscopic cholecystectomy Status: Acute (3) Fluid collection at surgical site Status: Acute (4) Pancreatitis Status: Acute (5) Hypertensive urgency Status: Acute Discharge Summary Discharge Physical Exam Allergies: Coded Allergies: codeine (Unverified Adverse Reaction, Mild, VOMITING pt has rec'd hydrocodone in past, 10/26/21) Uncoded Allergies: codiene (Allergy, Intermediate, vomiting; pt has rec'd hydrocodone in past, 10/26/21) Vitals & I&Os Vital Signs Date Time Temp Pulse Resp B/P (MAP) Pulse Ox O2 Delivery O2 Flow Rate FiO2 11/06/21 04:00 Room Air 11/05/21 16:05 37.2 112 16 97 11/05/21 16:00 2.00 11/04/21 03:02 21 General Appearance: No Apparent Distress Respiratory: Lungs Clear, No Respiratory Distress Cardiovascular: Regular Rate, Rhythm, No Murmur Gastrointestinal: Other (GABINO drain with bile) Neurologic/Psychiatric: Alert, Oriented x3 Hospital Course Patient was admitted to the hospital secondary to postoperative pain and bile leak. She underwent lap cholecystectomy last week and was discharged on October 31. She had been doing well but developed increasing pain and dark output in her GABINO so returned to the ER for evaluation. She was admitted for postoperative pain control and had elevated blood pressure so was placed on a Cardene drip. Her blood pressure improved but HIDA scan revealed likely bowel leak. She was transferred to [facility] for ERCP and stent placement. Labs (last 24 hrs) Microbiology 11/04/21 Gram Stain - Final, Resulted 11/04/21 Body Fluid Culture - Preliminary, Resulted No growth Patient resulted labs reviewed. Imaging: Reviewed Imaging Films, Reviewed Imaging Report Discussion & Recommendations Discharge Planning: >30 minutes discharge planning Discharge Home Medications: Active Scripts Active Reported Flonase Allergy Relief (Fluticasone Propionate) 50 Mcg/Actuation [place].susp 1 [place] NSEACH BID PRN Hydrocodone-Acetamin 7.5-325 (Hydrocodone/Acetaminophen) 7.5 Mg-325 Mg Tablet 1 Each PO Q4H PRN Augmentin 500-125 Tablet (Amoxicillin/Potassium Clav) 500 Mg-125 Mg Tablet 1 Each PO BID FILLED 10-31-2021 #20/10 DAY SUPPLY Omeprazole 20 Mg Tab.rap.dr 20 Mg PO DAILY Carvedilol 6.25 Mg Tablet 12.5 Mg PO BID LAST FILLED 07-23-2021 #120/30 DAY SUPPLY TAKES 2 (6.25MG) TABS Ondansetron Odt (Ondansetron) 4 Mg Tab.rapdis 4 Mg PO Q4H PRN Ketorolac Tromethamine 10 Mg Tablet 10 Mg PO Q6H PRN Instructions to patient/family Please see electronic discharge instructions given to patient. Problem Qualifiers (1) Postoperative surgical complication involving digestive system associated with digestive system procedure: Surgical complication type: unspecified Qualified Codes: K91.89 - Other postprocedural complications and disorders of digestive system (2) Fluid collection at surgical site: Encounter type: initial encounter Qualified Codes: T88.8XXA - Other specified complications of surgical and medical care, not elsewhere classified, initial encounter (3) Pancreatitis: Chronicity: acute Pancreatitis type: unspecified pancreatitis type Acute pancreatitis complication: unspecified Qualified Codes: K85.90 - Acute pancreatitis without necrosis or infection, unspecified ITA WHITTAKER MD Nov 06, 2021 11:16
[2021-11-07] MEDS: D5 1/2 NS W/KCL 20 MEQ/L 1,000 ML IV SCH ×4 (12:45→12:52)
[2021-11-07] MEDS: niCARdipine IV (Pyxis drip kit 50 MG in NS (IVPB) 230 ML IV SCH ×3 (12:48→12:50)
[2021-11-07] MEDS: cefTRIAXone 1 GM PRE-MIX 50 ML IV SCH ×2 (12:48→12:49)
[2021-11-07] MEDS: POTASSIUM CL 10MEQ/50ML IVPB 50 ML IV SCH ×2 (12:48→12:49)
[2021-11-07] MEDS: MAGNESIUM 1 GM/100 ML IVPB 100 ML IV SCH ×2 (12:48→12:50)
[2021-11-07] MEDS: KCL 20 MEQ TAB (K-DUR) PO SCH ×2 (12:49→12:50)
[2021-11-08] MEDS: hydrALAZINE (APESOLINE) 20 MG/ML VIAL IV PRN ×2 (14:09→20:00)
--- NOTE | 2021-11-08 14:32 | Progress Note - Hospitalist ---
Subjective HPI/CC On Admission Date Seen by Provider: Nov 08, 2021 Time Seen by Provider: 13:10 Eula Oreilly is a 60 year old female with PMH HTN, obesity, who presented with abdominal pain. She originally presented to the ER on 10/22 with right upper quadrant abdominal pain and was found to have cholelithiasis, but CT reported no evidence of acute cholecystitis. She also had issues with hypertension at that time. She was discharged and followed up with Dr. Sears who planned to perform EGD/colonoscopy on 11/19. She reports that she was having ongoing right upper quadrant pain and was given pain medicine at that time. Her pain worsened and she returned to the ER on 10/26. She had a gallbladder ultrasound which showed inflammation consistent with acute cholecystitis. She was taken to the OR on 10/28 for laparoscopic cholecystectomy. She did well post-operatively and was discharged home on 10/31. She had a GABINO drain in place which had minimal clear out put. This output increased yesterday and the color changed to a dark color. Her was concerned this was bleeding. She also had worsening epigastric/right upper quadrant abdominal pain 10/27. Upon my exam, she is still having severe abdominal pain which improves from 10/27 to 10 when she gets pain medicine. She does not have much of an appetite. She had a fever last night. Subjective/Events-last exam Pt repors doing well. No complaints. had ERCp and doing well. Objective Exam Vital Signs Vital Signs Date Time Temp Pulse Resp B/P (MAP) Pulse Ox O2 Delivery O2 Flow Rate FiO2 11/07/21 19:01 97 Room Air 11/06/21 04:00 11/05/21 16:05 37.2 112 16 11/05/21 16:00 2.00 11/04/21 03:02 21 Capillary Refill : General Appearance: No Apparent Distress, WD/WN, Obese Cardiovascular: Regular Rate, Rhythm, No Murmur Gastrointestinal: Normal Bowel Sounds, Soft Neurologic/Psychiatric: Alert, Oriented x3 Results/Procedures Lab Patient resulted labs reviewed. Imaging: Reviewed Imaging Films, Reviewed Imaging Report Assessment/Plan Assessment and Plan Assess & Plan/Chief Complaint Postoperative surgical complication s/p laparoscopic cholecystectomy Abdominal pain Pancreatitis Bilious drain output- bile leak CT with fluid collection at surgical site, perihepatic fluid, no clear evidence of bile leak ERCP done at and stent placed Surgery consulted, discussed with Dr. Sears HTN urgency- resolved Oral amlodipine started IV hydralazine prn Obesity Clinically significant, no acute management needs DVT prophylaxis: [facility] Critical Care Critically Ill Patient ITA WHITTAKER MD Nov 08, 2021 14:32
[2021-11-08 15:06] VITALS: BP 206/92
[2021-11-08] MEDS: fentaNYL INJ 100 MCG/2 ML AMP IV PRN ×2 (15:26→20:00)
[2021-11-08] MEDS ORDERED: amLODIPine 10 MG (NORVASC) TAB PO NR (15:30)
[2021-11-08 15:36] VITALS: BP 194/103
[2021-11-08] MEDS: HYDROcodone/APAP 5 MG/325 MG (LORTAB) TAB PO PRN ×2 (15:40→18:45)
[2021-11-08] MEDS: KCL 20 MEQ TAB (K-DUR) PO SCH (19:16)
[2021-11-08] MEDS: cefTRIAXone 1 GM PRE-MIX 50 ML IV SCH (19:16)
[2021-11-08] MEDS: POTASSIUM CL 10MEQ/50ML IVPB 50 ML IV SCH (19:16)
[2021-11-08] MEDS: MAGNESIUM 1 GM/100 ML IVPB 100 ML IV SCH (19:16)
[2021-11-08 19:17] VITALS: BP 202/98
[2021-11-08 20:30] VITALS: BP 167/85
[2021-11-08 21:36] VITALS: BP 164/72
[2021-11-09] VITALS (10 sets, daily range): BP systolic 136–203; BP diastolic 71–103
[2021-11-09] MEDS: fentaNYL INJ 100 MCG/2 ML AMP IV PRN ×2 (00:30→02:43)
[2021-11-09] MEDS: hydrALAZINE (APESOLINE) 20 MG/ML VIAL IV PRN (00:30)
[2021-11-09] MEDS: HYDROcodone/APAP 5 MG/325 MG (LORTAB) TAB PO PRN ×4 (02:43→20:13)
[2021-11-09 05:21] LABS: BASOPHILS # (AUTO) 0.1 10^3/uL (0.0-0.1); BASOPHILS % (AUTO) 1 % (0-10); EOSINOPHILS # (AUTO) 0.1 10^3/uL (0.0-0.3); EOSINOPHILS % (AUTO) 1 % (0-10); HEMATOCRIT 32 % (35-52); HEMOGLOBIN 10.1 g/dL (11.5-16.0); LYMPHOCYTES # (AUTO) 1.7 10^3/uL (1.0-4.0); LYMPHOCYTES % (AUTO) 16 % (12-44); MEAN CORPUSCULAR HEMOGLOBIN 27 pg (25-34); MEAN CORPUSCULAR HGB CONC 31 g/dL (32-36); MEAN CORPUSCULAR VOLUME 86 fL (80-99); MEAN PLATELET VOLUME 9.6 fL (9.0-12.2); MONOCYTES # (AUTO) 0.5 10^3/uL (0.0-1.0); MONOCYTES % (AUTO) 5 % (0-12); NEUTROPHILS # (AUTO) 7.8 10^3/uL (1.8-7.8); NEUTROPHILS % (AUTO) 76 % (42-75); PLATELET COUNT 232 10^3/uL (130-400); WHITE BLOOD COUNT 10.2 10^3/uL (4.3-11.0)
[2021-11-09 05:40] LABS: ALBUMIN 2.7 GM/DL (3.2-4.5); BILIRUBIN,TOTAL 0.4 MG/DL (0.1-1.0); CALCIUM 8.7 MG/DL (8.5-10.1); CREATININE SERUM 0.74 MG/DL (0.60-1.30); MAGNESIUM 1.5 MG/DL (1.6-2.4); PHOSPHORUS 2.4 MG/DL (2.3-4.7); POTASSIUM 3.5 MMOL/L (3.6-5.0); TOTAL PROTEIN 6.2 GM/DL (6.4-8.2)
[2021-11-09] MEDS: MAGNESIUM 1 GM/100 ML IVPB 100 ML IV SCH ×3 (05:46→08:00)
[2021-11-09] MEDS: KCL 20 MEQ TAB (K-DUR) PO SCH (05:46)
[2021-11-09] MEDS: POTASSIUM CL 10MEQ/50ML IVPB 50 ML IV SCH (05:46)
[2021-11-09] MEDS ORDERED: KCL 20 MEQ TAB (K-DUR) PO ONE (06:00)
[2021-11-09] MEDS: amLODIPine 10 MG (NORVASC) TAB PO SCH (08:00)
--- NOTE | 2021-11-09 10:35 | Progress Note - Hospitalist ---
Subjective HPI/CC On Admission Date Seen by Provider: Nov 09, 2021 Eula Oreilly is a 60 year old female with PMH HTN, obesity, who presented with abdominal pain. She originally presented to the ER on 10/22 with right upper quadrant abdominal pain and was found to have cholelithiasis, but CT reported no evidence of acute cholecystitis. She also had issues with hypertension at that time. She was discharged and followed up with Dr. Sears who planned to perform EGD/colonoscopy on 11/19. She reports that she was having ongoing right upper quadrant pain and was given pain medicine at that time. Her pain worsened and she returned to the ER on 10/26. She had a gallbladder ultrasound which showed inflammation consistent with acute cholecystitis. She was taken to the OR on 10/28 for laparoscopic cholecystectomy. She did well post-operatively and was discharged home on 10/31. She had a GABINO drain in place which had minimal clear output. This output increased yesterday and the color changed to a dark color. Her was concerned this was bleeding. She also had worsening epigastric/right upper quadrant abdominal pain 10/27. Upon my exam, she is still having severe abdominal pain which improves from 10/27 to 07/27 when she gets pain medicine. She does not have much of an appetite. She had a fever last night. Subjective/Events-last exam PT reports feeling well. No current complaints.BP very elevated last night and had some chest pain with it. Resolved now as BP improved. Objective Exam Vital Signs Vital Signs Date Time Temp Pulse Resp B/P (MAP) Pulse Ox O2 Delivery O2 Flow Rate FiO2 11/09/21 08:35 94 Room Air 0.00 11/09/21 08:28 103 173/92 (119) 11/09/21 07:55 37.3 18 11/04/21 03:02 21 Capillary Refill : General Appearance: No Apparent Distress Respiratory: Lungs Clear, No Respiratory Distress Cardiovascular: Regular Rate, Rhythm, No Murmur Gastrointestinal: Normal Bowel Sounds, Soft Neurologic/Psychiatric: Alert, Oriented x3 Results/Procedures Lab Laboratory Tests 11/09/21 05:15 Patient resulted labs reviewed. Imaging: Reviewed Imaging Films, Reviewed Imaging Report Assessment/Plan Assessment and Plan Assess & Plan/Chief Complaint Postoperative surgical complication s/p laparoscopic cholecystectomy Abdominal pain Pancreatitis Bilious drain output- bile leak CT with fluid collection at surgical site, perihepatic fluid, no clear evidence of bile leak ERCP done at and stent placed Surgery consulted, discussed with Dr. Sears HTN urgency Poorly controlled HTN Amlodipine startedy ester and coreg to resume today IV hydralazine prn Hopefully home tomorrow if BP control improved Obesity Clinically significant, no acute management needs DVT prophylaxis: [facility] Critical [facility] Critically Ill Patient ITA WHITTAKER MD Nov 09, 2021 10:35
[2021-11-09] MEDS: niCARdipine IV (Pyxis drip kit 50 MG in NS (IVPB) 230 ML IV SCH ×3 (11:31→20:12)
[2021-11-10 00:01] VITALS: BP 147/69
[2021-11-10 03:19] VITALS: BP 183/80
[2021-11-10] MEDS: hydrALAZINE (APESOLINE) 20 MG/ML VIAL IV PRN ×2 (03:24→07:50)
[2021-11-10] MEDS: HYDROcodone/APAP 5 MG/325 MG (LORTAB) TAB PO PRN (04:38)
[2021-11-10 04:45] VITALS: BP 175/81
[2021-11-10 04:50] LABS: BASOPHILS % (AUTO) 0 % (0-10); EOSINOPHILS # (AUTO) 0.2 10^3/uL (0.0-0.3); EOSINOPHILS % (AUTO) 2 % (0-10); HEMATOCRIT 33 % (35-52); HEMOGLOBIN 10.2 g/dL (11.5-16.0); LYMPHOCYTES # (AUTO) 2.2 10^3/uL (1.0-4.0); LYMPHOCYTES % (AUTO) 29 % (12-44); MEAN CORPUSCULAR HEMOGLOBIN 27 pg (25-34); MEAN CORPUSCULAR HGB CONC 31 g/dL (32-36); MEAN CORPUSCULAR VOLUME 86 fL (80-99); MEAN PLATELET VOLUME 9.4 fL (9.0-12.2); MONOCYTES # (AUTO) 0.6 10^3/uL (0.0-1.0); MONOCYTES % (AUTO) 7 % (0-12); NEUTROPHILS # (AUTO) 4.8 10^3/uL (1.8-7.8); NEUTROPHILS % (AUTO) 62 % (42-75); PLATELET COUNT 221 10^3/uL (130-400); WHITE BLOOD COUNT 7.8 10^3/uL (4.3-11.0)
[2021-11-10 05:08] LABS: ALBUMIN 2.8 GM/DL (3.2-4.5); BILIRUBIN,TOTAL 0.5 MG/DL (0.1-1.0); CALCIUM 8.9 MG/DL (8.5-10.1); CREATININE SERUM 0.78 MG/DL (0.60-1.30); MAGNESIUM 1.7 MG/DL (1.6-2.4); PHOSPHORUS 2.7 MG/DL (2.3-4.7); POTASSIUM 3.6 MMOL/L (3.6-5.0); TOTAL PROTEIN 6.5 GM/DL (6.4-8.2)
[2021-11-10] MEDS: POTASSIUM CL 10MEQ/50ML IVPB 50 ML IV SCH (05:13)
[2021-11-10] MEDS: KCL 20 MEQ TAB (K-DUR) PO SCH (05:16)
[2021-11-10] MEDS: MAGNESIUM 1 GM/100 ML IVPB 100 ML IV SCH ×3 (06:00→06:38)
[2021-11-10 06:42] VITALS: BP 167/80
[2021-11-10] MEDS: amLODIPine 10 MG (NORVASC) TAB PO SCH (08:11)
[2021-11-10 08:13] VITALS: BP 181/93
[2021-11-10] MEDS ORDERED: KCL 20 MEQ TAB (K-DUR) PO ONE (09:00)
[2021-11-10] MEDS ORDERED: AMLO-251 PO (11:17)
[2021-11-10] MEDS ORDERED: CARV6.252 PO (11:17)
--- NOTE | 2021-11-10 11:22 | Discharge Inst-Simple/Standard ---
Discharge Inst-Standard Discharge Medications New, Converted or Re-Newed RX: Transmitted to Pharmacy Patient Instructions/Follow Up Plan of Care/Instructions/FU: Please continue to take your medications as written. Please follow up with your primary care doctor to follow up this hospital stay. Activity as Tolerated: Yes Discharge Diet: Low Fat/Low Cholesterol Return to The Hospital For: Chest pain, abdominal pain, increased drainage, bloating, shortness of breath, fever, weakness, if you feel you are getting worse. ITA WHITTAKER MD Nov 10, 2021 11:22
--- NOTE | 2021-11-10 11:22 | Discharge Summary ---
Diagnosis/Chief Complaint Date of Admission Nov 04, 2021 at 01:20 Date of Discharge Discharge Date: Nov 09, 2021 Admission Diagnosis Postoperative surgical complication Primary Care Lowell Marte MD Discharge Diagnosis (1) Postoperative surgical complication involving digestive system associated with digestive system procedure Status: Acute (2) S/P laparoscopic cholecystectomy Status: Acute (3) Fluid collection at surgical site Status: Acute (4) Pancreatitis Status: Acute (5) Hypertensive urgency Status: Acute Discharge Summary Discharge Physical Exam Allergies: Coded Allergies: codeine (Unverified Adverse Reaction, Mild, VOMITING pt has rec'd hydrocodone in past, 10/26/21) Uncoded Allergies: codiene (Allergy, Intermediate, vomiting; pt has rec'd hydrocodone in past, 10/26/21) Vitals & I&Os Vital Signs Date Time Temp Pulse Resp B/P (MAP) Pulse Ox O2 Delivery O2 Flow Rate FiO2 11/10/21 08:13 36.2 99 18 181/93 (122) 97 Room Air 11/09/21 16:30 21 11/09/21 16:27 0.00 Hospital Course Labs (last 24 hrs) Laboratory Tests 11/10/21 04:42: White Blood Count 7.8, Red Blood Count 3.83, Hemoglobin 10.2L, Hematocrit 33L, Mean Corpuscular Volume 86, Mean Corpuscular Hemoglobin 27, Mean Corpuscular Hemoglobin Concent 31L, Red Cell Distribution Width 15.8H, Platelet Count 221, Mean Platelet Volume 9.4, Immature Granulocyte % (Auto) 0, Neutrophils (%) ( Auto) 62, Lymphocytes (%) (Auto) 29, Monocytes (%) (Auto) 7, Eosinophils (%) (Auto) 2, Basophils (%) (Auto) 0, Neutrophils # (Auto) 4.8, Lymphocytes # (Auto) 2.2, Monocytes # (Auto) 0.6, Eosinophils # (Auto) 0.2, Basophils # (Auto) 0.0, Immature Granulocyte # (Auto) 0.0, Sodium Level 138, Potassium Level 3.6, Chloride Level 99, Carbon Dioxide Level 27, Anion Gap 12, Blood Urea Nitrogen 5L , Creatinine 0.78, Estimat Glomerular Filtration Rate 86, BUN/Creatinine Ratio 6, Glucose Level 96, Calcium Level 8.9, Corrected Calcium 9.9, Phosphorus Level 2.7, Magnesium Level 1.7, Total Bilirubin 0.5, Aspartate Amino Transf (AST/SGOT) 11, Alanine Aminotransferase (ALT/SGPT) 9, Alkaline Phosphatase 89, Total Protein 6.5, Albumin 2.8L Microbiology 11/04/21 Gram Stain - Final, Complete 11/04/21 Body Fluid Culture - Final, Complete No growth Patient resulted labs reviewed. Pending Labs Laboratory Tests 11/10/21 04:42: White Blood Count 7.8, Red Blood Count 3.83, Hemoglobin 10.2, Hematocrit 33, Mean Corpuscular Volume 86, Mean Corpuscular Hemoglobin 27, Mean Corpuscular Hemoglobin Concent 31, Red Cell Distribution Width 15.8, Platelet Count 221, Mean Platelet Volume 9.4, Immature Granulocyte % (Auto) 0, Neutrophils (%) (Auto) 62, Lymphocytes (%) (Auto) 29, Monocytes (%) (Auto) 7, Eosinophils (%) (Auto) 2, Basophils (%) (Auto) 0, Neutrophils # (Auto) 4.8, Lymphocytes # (Auto) 2.2, Monocytes # (Auto) 0.6, Eosinophils # (Auto) 0.2, Basophils # (Auto) 0.0, Immature Granulocyte # (Auto) 0.0, Sodium Level 138, Potassium Level 3.6, Chloride Level 99, Carbon Dioxide Level 27, Anion Gap 12, Blood Urea Nitrogen 5, Creatinine 0.78, Estimat Glomerular Filtration Rate 86, BUN/Creatinine Ratio 6, Glucose Level 96, Calcium Level 8.9, Corrected Calcium 9.9, Phosphorus Level 2.7, Magnesium Level 1.7, Total Bilirubin 0.5, Aspartate Amino Transf (AST/SGOT) 11, Alanine Aminotransferase (ALT/SGPT) 9, Alkaline Phosphatase 89, Total Protein 6.5, Albumin 2.8 Imaging: Reviewed Imaging Films, Reviewed Imaging Report Discussion & Recommendations Discharge Planning: >30 minutes discharge planning Discharge Home Medications: Active Scripts Active Amlodipine Besylate 10 Mg Tablet 10 Mg PO DAILY Carvedilol 6.25 Mg Tablet 12.5 Mg PO BID LAST FILLED 07-23-2021 #120/30 DAY SUPPLY TAKES 2 (6.25MG) TABS Reported Flonase Allergy Relief (Fluticasone Propionate) 50 Mcg/Actuation [place].susp 1 [place] NSEACH BID PRN Hydrocodone-Acetamin 7.5-325 (Hydrocodone/Acetaminophen) 7.5 Mg-325 Mg Tablet 1 Each PO Q4H PRN Augmentin 500-125 Tablet (Amoxicillin/Potassium Clav) 500 Mg-125 Mg Tablet 1 Each PO BID FILLED 10-31-2021 #20/10 DAY SUPPLY Omeprazole 20 Mg Tab.rap.dr 20 Mg PO DAILY Ondansetron Odt (Ondansetron) 4 Mg Tab.rapdis 4 Mg PO Q4H PRN Ketorolac Tromethamine 10 Mg Tablet 10 Mg PO Q6H PRN Instructions to patient/family Please see electronic discharge instructions given to patient. Problem Qualifiers (1) Postoperative surgical complication involving digestive system associated with digestive system procedure: Surgical complication type: unspecified Qualified Codes: K91.89 - Other postprocedural complications and disorders of digestive system (2) Fluid collection at surgical site: Encounter type: initial encounter Qualified Codes: T88.8XXA - Other specified complications of surgical and medical care, not elsewhere classified, initial encounter (3) Pancreatitis: Chronicity: acute Pancreatitis type: unspecified pancreatitis type Acute pancreatitis complication: unspecified Qualified Codes: K85.90 - Acute pancreatitis without necrosis or infection, unspecified ITA WHITTAKER MD Nov 10, 2021 11:22
[2021-11-10 11:28] VITALS: BP 153/79
== END 2021-11-10 13:21 | disposition home or self-care (01) | DRG 393 ==
LOC: EDUNIT# 21:58 → ER 22:02 → ICU 11-04 01:20 → CSD 11-05 18:26 → 4TH 11-07 10:17
PROVIDERS: ADMIT Internal Medicine; ATTEND Family Medicine
DX: K91.89 Other postprocedural complications and disorders of digestive system (principal); K85.90 Acute pancreatitis without necrosis or infection, unspecified; J98.11 Atelectasis; J90 Pleural effusion, not elsewhere classified; I16.0 Hypertensive urgency; Z87.891 Personal history of nicotine dependence; I10 Essential (primary) hypertension; K21.9 Gastro-esophageal reflux disease without esophagitis; Z90.49 Acquired absence of other specified parts of digestive tract; E66.9 Obesity, unspecified; M19.90 Unspecified osteoarthritis, unspecified site; Z68.31 Body mass index [BMI] 31.0-31.9, adult; E87.6 Hypokalemia; E83.42 Hypomagnesemia; D72.829 Elevated white blood cell count, unspecified; I87.2 Venous insufficiency (chronic) (peripheral)
CPT/HCPCS: 36415; 36569; 71045; 74177; 76937; 78226; 80053; 81000; 82150; 83690; 83735; 84100; 85025; 87070; 87205; 93005; 94664; 94760

== ENCOUNTER → 2021-11-07 | Outpatient (CLI) | payer SELFPAY ==
[~2021-11-07] MED LIST changes: +AMLO-251 PO; +FLUT9.9S NSEACH; +OMEP-401 PO
--- NOTE | 2021-11-10 13:35 | Progress Note - Surgery ---
Subjective Date Seen by a Provider: Nov 10, 2021 Time Seen by a Provider: 13:30 Subjective/Events-last exam Patient is awake and alert eating lunch, is at bedside. Patient had some questions about discharge which were answered. Patient denies any abdominal pain, N/V, fever, chills, dyspnea, or chest pain. Objective Exam Capillary Refill : General Appearance: No Apparent Distress, WD/WN, Obese HEENT: PERRL/EOMI, TMs Normal Neck: Non Tender, Supple Respiratory: Chest Non Tender, No Accessory Muscle Use Cardiovascular: Regular Rate, Rhythm, No Murmur Gastrointestinal: non tender, soft Extremity: Normal Capillary Refill, Non Tender Neurologic/Psychiatric: Alert, Oriented x3 Skin: Normal Color, Warm/Dry Lymphatic: No Adenopathy Assessment/Plan Assessment/Plan Assessment/Plan S/p laparoscopic cholecystectomy Abdominal pain Pancreatitis Bilious drain output- bile leak HTN Obesity CT with fluid collection at surgical site, perihepatic fluid, no clear evidence of bile leak ERCP done at and stent placed Being discharged today WU PRINCE Nov 10, 2021 13:35
== END ==
LOC: PREOP 05:35
PROVIDERS: ATTEND Surgery
DX: Z01.818 Encounter for other preprocedural examination (principal)

== ENCOUNTER 2022-12-25 21:29 | Emergency (ER) | payer OTHER ==
[~2022-12-25] VITALS: Ht 167.7 cm; Wt 75.0 kg
[~2022-12-25 21:29] MED LIST changes: -MECL-149 PO; +MECL-291 PO
[2022-12-25 21:45] VITALS: BP 241/129
[2022-12-25] MEDS ORDERED: hydrALAZINE INJECTION 20 MG/ML VIAL IV STA (22:24)
--- NOTE | 2022-12-25 22:28 | ED GI ---
General Chief Complaint: Abdominal/GI Problems Stated Complaint: DIZZY/FEVER/DIARRHEA/VOMITING Nursing Triage Note: Pt presents with c/o diarrhea that started around noon today, she reports multiple episodes. She took immodium without results. Pt also reports dizziness with movement and reports vomiting x1 when she bent over this evening. She reports the dizziness has been ongoing for approx 2 weeks. Pt reports "burning up" unable to take temperature at home. Source of Information: Patient Exam Limitations: No Limitations History of Present Illness Date Seen by Provider: Dec 25, 2022 Time Seen by Provider: 22:16 Initial Comments 62-year-old female presents to the emergency department today for nausea vomiting and diarrhea. She also endorses some dizziness has been present for the last couple of weeks however when questioning further she states this happens to her fairly frequently. She states is mostly when she is standing and she bends over and she gets a "rash." She states she then gets dizzy and then sweaty. He also makes her nauseated during this time. She denies any current dizziness just sitting there. Regarding the nausea vomiting and diarrhea, she ate at noon and about 2:00 had a first episode of emesis followed by diarrhea. Emesis and diarrhea are nonbloody. Emesis is nonbilious. She denies any fevers or chills. No sick contacts. She is noted to be significantly hypertensive on arrival. On questioning she was told to stop taking her blood pressure medicine 6 to 7 months ago. All other systems reviewed and negative except documented per HPI. Voice recognition software was used to help create this chart Allergies and Home Medications Allergies Coded Allergies: codeine (Unverified Adverse Reaction, Mild, VOMITING pt has rec'd hydro codone in past, 10/26/21) Uncoded Allergies: codiene (Allergy, Intermediate, vomiting; pt has rec'd hydrocodone in past, 10/26/21) Patient Home Medication List Home Medication List Reviewed: Yes Amlodipine Besylate (Amlodipine Besylate) 10 Mg Tablet, 10 MG PO DAILY Prescribed by: ITA WHITTAKER on 11/10/21 111 Carvedilol (Carvedilol) 6.25 Mg Tablet, 12.5 MG PO BID Prescribed by: ITA WHITTAKER on 11/10/21 111 Fluticasone Propionate (Flonase Allergy Relief) 50 Mcg/Actuation Jewell.susp, 1 SPRAY NSEACH BID PRN for CONGESTION, (Reported) Entered as Reported by: BETSY KOHLER on 11/05/21 1023 Hydrocodone/Acetaminophen (Hydrocodone-Acetamin 7.5-325) 7.5 Mg-325 Mg Tablet, 1 EACH PO Q4H PRN for PAIN-MODERATE (5-7), (Reported) Entered as Reported by: BETSY KOHLER on 11/05/21 1023 Omeprazole (Omeprazole) 20 Mg Tab.rap.dr, 20 MG PO DAILY, (Reported) Entered as Reported by: ZAIN GUERRERO on 11/04/21 1335 Ondansetron (Ondansetron Odt) 4 Mg Tab.rapdis, 4 MG PO Q4H PRN for NAUSEA/VOMITING-1ST LINE, (Reported) Entered as Reported by: BETSY KOHLER on 10/26/21 1414 Review of Systems Review of Systems Constitutional: see HPI Past [id number] Hx Patient Social History Tobacco Use?: No Use of E-Cig and/or Vaping dev: No Substance use?: No Alcohol Use?: No Immunizations Up To Date First/Initial COVID19 Vaccinat: NONE Second COVID19 Vaccination Mani: NONE Past Medical History Surgery/Hospitalization HX: cholecystectomy 10/28/21 Surgeries: Yes (has also had EGD for food impaction, believes this was in 1986) Gallbladder, Tubal Ligation Respiratory: Yes (no COPD or asthma) Sleep Apnea Currently Using CPAP: No Currently Using BIPAP: No Cardiac: Yes Hypertension Neurological: Yes TIA, Vertigo Reproductive Disorders: Yes Genitourinary: No Gastrointestinal: Yes (food impaction) Gastroesophageal Reflux, Gall Bladder Disease Musculoskeletal: Yes Arthritis Endocrine: No (says she does not have diabetes) HEENT: No Loss of Vision: Denies Hearing Impairment: Denies Cancer: No Psychosocial: Yes Depression Integumentary: No Blood Disorders: No Family Medical History Diabetes, Hypertension Physical Exam Vital Signs Vital Signs - First Documented 12/25/22 21:45 Temp 37.7 Pulse 114 Resp 16 B/P (MAP) 241/129 (166) Capillary Refill : Less Than 3 Seconds Height/Weight/BMI Height: '" Weight: lbs. oz. kg; 26.00 BMI Method: General Appearance: WD/WN, mild distress HEENT: PERRL/EOMI, normal ENT inspection, pharynx normal, other (Patient has some fatigable nystagmus to the right side) Neck: non-tender, supple Respiratory: chest non-tender, lungs clear, normal breath sounds, no respiratory distress Cardiovascular: regular rate, rhythm, no murmur Gastrointestinal: normal bowel sounds, non tender, soft, no organomegaly Extremities: normal range of motion, non-tender, normal inspection, no pedal edema, normal capillary refill Neurologic/Psychiatric: alert, normal mood/affect, oriented x 3 Skin: normal color, warm/dry Progress/Results/Core Measures Results/Orders Lab Results Laboratory Tests Test 12/25/22 21:58 Range/Units White Blood Count 8.8 4.3-11.0 10^3/uL Red Blood Count 4.88 3.80-5.11 10^6/uL Hemoglobin 12.8 11.5-16.0 g/dL Hematocrit 40 35-52 % Mean Corpuscular Volume 82 80-99 fL Mean Corpuscular Hemoglobin 26 25-34 pg Mean Corpuscular Hemoglobin Concent 32 32-36 g/dL Red Cell Distribution Width 13.8 10.0-14.5 % Platelet Count 177 130-400 10^3/uL Mean Platelet Volume 9.8 9.0-12.2 fL Immature Granulocyte % (Auto) 0 % Neutrophils (%) (Auto) 75 42-75 % Lymphocytes (%) (Auto) 20 12-44 % Monocytes (%) (Auto) 4 0-12 % Eosinophils (%) (Auto) 1 0-10 % Basophils (%) (Auto) 0 0-10 % Neutrophils # (Auto) 6.6 1.8-7.8 10^3/uL Lymphocytes # (Auto) 1.7 1.0-4.0 10^3/uL Monocytes # (Auto) 0.4 0.0-1.0 10^3/uL Eosinophils # (Auto) 0.1 0.0-0.3 10^3/uL Basophils # (Auto) 0.0 0.0-0.1 10^3/uL Immature Granulocyte # (Auto) 0.0 0.0-0.1 10^3/uL Sodium Level 139 135-145 MMOL/L Potassium Level 3.0 L 3.6-5.0 MMOL/L Chloride Level 101 98-107 MMOL/L Carbon Dioxide Level 25 21-32 MMOL/L Anion Gap 13 5-14 MMOL/L Blood Urea Nitrogen 10 7-18 MG/DL Creatinine 1.07 0.60-1.30 MG/DL Estimat Glomerular Filtration Rate 58 BUN/Creatinine Ratio 9 Glucose Level 135 H 70-105 MG/DL Calcium Level 9.3 8.5-10.1 MG/DL Corrected Calcium 9.2 8.5-10.1 MG/DL Magnesium Level 1.6 1.6-2.4 MG/DL Total Bilirubin 0.5 0.1-1.0 MG/DL Aspartate Amino Transf (AST/SGOT) 20 5-34 U/L Alanine Aminotransferase (ALT/SGPT) 17 0-55 U/L Alkaline Phosphatase 104 40-136 U/L Total Protein 7.4 6.4-8.2 GM/DL Albumin 4.1 3.2-4.5 GM/DL My Orders Orders - CHRISTOPHER ABDUL DO Ondansetron Injection (Ondansetron Inj (12/25/22 22:30) Hydralazine Injection (Hydralazine Injec (12/25/22 22:24) Cbc And Automated Diff (12/25/22 22:26) Ekg Tracing (12/25/22 22:26) Carvedilol Tablet (Carvedilol Tablet) (12/25/22 22:30) Potassium Chloride (Tablet) (Potassium C (12/25/22 23:15) Magnesium (12/25/22 23:10) Comprehensive Metabolic Panel (12/25/22 21:58) Medications Given in ED Current Medications Medications Dose Ordered Sig/Nelson Route Start Time Stop Time Status Last Admin Dose Admin Carvedilol 6.25 mg ONCE ONCE PO 12/25/22 22:30 12/25/22 22:31 DC 12/25/22 22:42 6.25 MG Ondansetron HCl 4 mg ONCE ONCE IM 12/25/22 22:30 12/25/22 22:31 DC 12/25/22 22:42 4 MG Vital Signs/I&O 12/25/22 21:45 Temp 37.7 Pulse 114 Resp 16 B/P (MAP) 241/129 (166) Blood Pressure Mean: 166 Comment Sinus tachycardia 102 bpm. Normal intervals. Normal axis. No ST or T wave abnormalities. No ectopy. No STEMI. Departure Communication (Admissions) Patient initially with significant hypertension. She stopped her blood pressure medicine 7 months ago. Record review shows she took carvedilol and amlodipine. I will go ahead and restart amlodipine. She was given IV hydralazine here with improvement in her blood pressures. She has not been dizzy since she been here and this seems more like a chronic issue as she states it happens very frequently over the last 3 to 4 years. EKG is without dysrhythmia, ischemia. Labs are reassuring. She has some mild hypokalemia otherwise relatively unremarkable. She is given IV Zofran here with some improvement in her nausea, tolerating small sips of fluids prior to discharge. She be discharged with Zofran and otherwise stable condition. I will restart her amlodipine here at a low dose, 5 mg. Advised keep a log of her blood pressures and follow-up with her primary doctor in regard to blood pressure management. She states understanding. Impression Primary Impression: Hypertension Qualified Codes: I10 - Essential (primary) hypertension Additional Impression: Nausea and vomiting Qualified Codes: R11.2 - Nausea with vomiting, unspecified Disposition: HOME, SELF-CARE Condition: Stable Departure-Patient Inst. Referrals: LUIS LEAVITT MD (PCP/Family) Primary Care Physician Patient Instructions: Nausea and Vomiting, Adult (DC), High Blood Pressure (DC) Add. Discharge Instructions: You are seen in the emergency department today for nausea and vomiting. I believe you have a GI bug. Take the nausea medicine by dissolving it under your tongue as needed. Increase your fluids at home and rest. Your blood pressures are quite elevated. I have prescribed amlodipine to be restarted tomorrow morning. Take 1 tablet daily. If started a low-dose. You will need to keep a log of your blood pressures and take them to your doctor to see if this needs adjusted. Return to the emergency department for any severe concerns. Follow- up with your primary doctor for any nonemergent needs. All discharge instructions reviewed with patient and/or family. Voiced understanding. Scripts Ondansetron (Ondansetron Odt) 8 Mg Tab.rapdis 8 MG SL Q6H PRN for NAUSEA/VOMITING for 3 Days, #12 TAB Prov: CHRISTOPHER ABDUL DO 11/8/23 Amlodipine Besylate (Amlodipine Besylate) 5 Mg Tablet 5 MG PO DAILY for 14 Days, #14 TAB Prov: CHRISTOPHER ABDUL DO 12/25/22 CHRISTOPHER ABDUL DO Dec 25, 2022 22:28
[2022-12-25] MEDS ORDERED: carvediloL 6.25 MG TABLET PO ONE (22:30)
[2022-12-25] MEDS ORDERED: ONDANSETRON INJECTION 4 MG/2 ML (SDV) IM ONE (22:30)
[2022-12-25 22:31] LABS: BASOPHILS % (AUTO) 0 % (0-10); EOSINOPHILS # (AUTO) 0.1 10^3/uL (0.0-0.3); EOSINOPHILS % (AUTO) 1 % (0-10); HEMATOCRIT 40 % (35-52); HEMOGLOBIN 12.8 g/dL (11.5-16.0); LYMPHOCYTES # (AUTO) 1.7 10^3/uL (1.0-4.0); LYMPHOCYTES % (AUTO) 20 % (12-44); MEAN CORPUSCULAR HEMOGLOBIN 26 pg (25-34); MEAN CORPUSCULAR HGB CONC 32 g/dL (32-36); MEAN CORPUSCULAR VOLUME 82 fL (80-99); MEAN PLATELET VOLUME 9.8 fL (9.0-12.2); MONOCYTES # (AUTO) 0.4 10^3/uL (0.0-1.0); MONOCYTES % (AUTO) 4 % (0-12); NEUTROPHILS # (AUTO) 6.6 10^3/uL (1.8-7.8); NEUTROPHILS % (AUTO) 75 % (42-75); PLATELET COUNT 177 10^3/uL (130-400); WHITE BLOOD COUNT 8.8 10^3/uL (4.3-11.0)
[2022-12-25] MEDS ORDERED: POTASSIUM CHLORIDE 20 MEQ TABLET PO ONE (23:15)
[2022-12-25 23:18] LABS: ALBUMIN 4.1 GM/DL (3.2-4.5); BILIRUBIN,TOTAL 0.5 MG/DL (0.1-1.0); CALCIUM 9.3 MG/DL (8.5-10.1); CREATININE SERUM 1.07 MG/DL (0.60-1.30); TOTAL PROTEIN 7.4 GM/DL (6.4-8.2)
[2022-12-25] MEDS ORDERED: ONDA8TAB13 SL (23:43)
[2022-12-25] MEDS ORDERED: AMLO-250 PO (23:43)
== END 2022-12-26 00:01 | disposition home or self-care (01) ==
LOC: EDUNIT# 21:29 → ER 21:33
DX: I10 Essential (primary) hypertension (principal); E87.6 Hypokalemia; R00.0 Tachycardia, unspecified
CPT/HCPCS: 36415; 80053; 83735; 85025; 87040; 93005; 96372; 96374